=== PATIENT | female | born 1945 | race Caucasian/White ===

== ENCOUNTER → 2016-05-07 | Outpatient (CLI) | payer OTHER ==
[~2016-05-07] MED LIST: ACC10 PO; ALEN70TA2 PO; ALLERGY SHOTS INJ; ASPEC81 PO; ASPI325T45 PO; BLAC1TAB PO; BUPR20DI TOP; CALC600T9 PO; CALCTAB5 PO; CARV3.122 PO; FBR PO; FIBER PO; FLAX100024 PO; FLAXSEED PO; FLUT0.15 NAE; FLVUNK PO; FOLI1TAB7 PO; FSMD/70 PO; GABA300C19 PO; HYDR12.56 PO; LATA0.009 OPR; LATA0.5S OP; LORA-741 PO; MAGN400T6 PO; MAGN500T7 PO; MAGNESIUM PO; METO1TAB31 PO; MULT-506 PO; MULT1CHW18 PO; NAPR1TAB9 PO; NTRGSL/4 UT; OMEG10007 PO; OMEGCAP2 PO; PANT40TA PO; PREG100C PO; QUIN40TA18 PO; SENNTAB23 PO; SIMV10TA2 PO; SUCR1TAB29 PO; SYMBICORT INH; SYMIN160 INH; TOPI25TA99 PO; TPM/50 PO; VNTHFA/IN INH
[2016-05-07 13:16] LABS: HEMATOCRIT 37.3 % (37-47); MEAN CELL VOLUME 87.6 fL (80-100); MEAN CORPUSCULAR HEMOGLOBIN 29.3 pg (25-34); MEAN CORPUSCULAR HGB CONC 33.5 g/dl (32-36); MEAN PLATELET VOLUME 10.6 fL (7.4-10.4); PLATELET COUNT 250 K/uL (130-400); RED BLOOD COUNT 4.26 M/uL (4.2-5.4)
[2016-05-07 13:25] LABS: BLOOD UREA NITROGEN 21 mg/dl (7-18); BUN/CREATININE RATIO 18.7 (10-20); CALCIUM 8.8 mg/dl (8.5-10.1); CARBON DIOXIDE 31 mmol/L (21-32); CHLORIDE 108 mmol/L (98-107); GLUCOSE 80 mg/dl (70-99); PHOSPHORUS 3.7 mg/dl (2.5-4.9); POTASSIUM 3.9 mmol/L (3.5-5.1); SODIUM 144 mmol/L (136-145)
[2016-05-07 14:06] LABS: BASO % 0.8 %; BASO ABS # 0.05 K/uL (0-0.2); COMPLETE YES; EOS % 2.5 %; IG% 0.2 %; LYMPH % 61.3 %; LYMPH ABS # 3.74 K/uL (1.2-3.4); MONO % 8.4 %; NEUT % 26.8 %; VACUOLIZATION 3+
== END | disposition home or self-care (01) ==
LOC: C.LABMFLN 07:43
PROVIDERS: ATTEND Family Medicine
DX: R51 Headache (principal)

== ENCOUNTER → 2016-05-20 | Outpatient (CLI) | payer OTHER ==
[~2016-05-20] MED LIST changes: +REGADENOSON 0.4 MG/5 ML SYR ONE
--- NOTE | 2016-05-20 10:56 | DIAGNOSTIC IMAGING REPORT ---
HEAD CT NONCONTRAST CT DOSE: 623.48 mGy.cm HISTORY: Mental status change R51 [id number] Dizziness and giddiness TECHNIQUE: Multiaxial CT images of the head were performed without the use of intravenous contrast. Comparison: 05/13/2015 Findings: The paranasal sinuses and mastoid air cells are clear. The calvarium and skull base are intact. The ventricles and sulci are within normal limits. There is no mass, hematoma, midline shift, or acute infarct. Impression: No acute intracranial abnormality. No change from the prior study Electronically signed by: Ish Alcocer M.D. 05/20/2016 10:55 AM Dictated Date/Time: 05/20/2016 10:54 AM
--- NOTE | 2016-05-20 11:41 | DIAGNOSTIC IMAGING REPORT ---
ULTRASOUND OF THE CAROTID ARTERIES CLINICAL HISTORY: Headache and dizziness. COMPARISON STUDY: No priors. TECHNIQUE: Real-time, grayscale, and color Doppler sonography of the carotid arteries is performed. Images are reviewed in the transverse and longitudinal planes. FINDINGS: Blood pressure in the right arm measures 125/83 and blood pressure in the left arm measures 116/67. The carotid arteries are patent bilaterally and demonstrate antegrade flow. There is no significant atherosclerotic plaque identified. Normal doppler arterial waveforms are seen throughout. Velocity measurements are listed below. Common carotid peak systolic velocity (cm/sec): RIGHT: 66 LEFT: 58 ICA proximal peak systolic velocity (cm/sec): RIGHT: 61 LEFT: 60 ICA mid peak systolic velocity (cm/sec): RIGHT: 64 LEFT: 70 ICA distal peak systolic velocity (cm/sec): RIGHT: 87 LEFT: 76 ICA/CC peak systolic ratio: RIGHT: 1.3 LEFT: 1.3 Antegrade flow was shown in the vertebral arteries. The external carotid arteries are patent. IMPRESSION: 1. There is no sonographic evidence of hemodynamically significant stenosis in the right or left carotid arterial system. 2. Antegrade flow is shown in the vertebral arteries. Electronically signed by: Tino Downey M.D. 05/20/2016 11:39 AM Dictated Date/Time: 05/20/2016 11:38 AM
--- NOTE | 2016-05-21 00:02 | MYOCARDIAL PERFUSION SCAN ---
STUDY REQUESTED BY: Dr. Marks. ONE-DAY NUCLEAR MEDICINE TECHNETIUM-99M CARDIOLITE MYOCARDIAL PERFUSION SCAN INDICATION: Chest pain and dizziness. EKG: Baseline shows sinus bradycardia at a rate of 58. Stress EKG: With Lexiscan, heart rate danita from 64 to 102, 67% of maximum predicted heart rate. Blood pressure was stable at 130/63. There were no stress-induced EKG/ST changes or arrhythmias. TECHNIQUE: For the stress portion of the study, 31.2 mCi of technetium-99m Cardiolite IV was injected at 9:37 a.m. on 05/20/2016. Thirty minutes following the injection, imaging of the heart was performed in multiple projections. For the rest portion of the study, 10.9 mCi of technetium-99m Cardiolite was injected IV at 7:45 a.m. One hour following the injection, imaging of the heart was performed in the same projections. FINDINGS: Raw images were reviewed in detail. There was evidence of diaphragmatic attenuation as well as significant gut uptake obscuring the inferior and inferolateral borders of the heart, most notably on stress images. There was no significant extra cardiac pathologic uptake. The short axis, long axis, vertical long axis images were reviewed in detail. There was a small to moderate fixed severe perfusion defect involving the inferior wall. There was also perfusion defect involving the inferolateral wall on rest, obscured by gut uptake on stress. LV function in this territory was normal, suggestive of artifact. Overall, LV size was normal with an end-diastolic volume of 49 mL. Overall, LV function was normal with an ejection fraction of 64%. There were no regional wall motion abnormalities noted. IMPRESSION: 1. No Lexiscan-induced ischemia. 2. Fixed inferior perfusion defect with preserved systolic function suggestive of potential artifact, more so than old inferior infarct. 3. Normal left ventricular size and function, rest LVEF of 64% with no regional wall motion abnormalities. 4. Nondiagnostic Lexiscan EKG due to inability to reach target heart rate. No Lexiscan-induced arrhythmias or ST changes.
--- NOTE | 2016-05-24 10:58 | CODING QUERY MEDICAL NECESSITY ---
SUPPORTING DIAGNOSIS NEEDED Dr. Marks, A supporting diagnosis is required for the test/procedure performed on this patient in order for us to be reimbursed by the patient's insurance. Please provide a supporting diagnosis for the following test/procedure listed below next to the test name along with your signature. *If there is no additional diagnosis for this patient that would support the following test/procedure please document that below next to the test/procedure. Test(s)/Procedure(s) that require a supporting diagnosis: * ([id number]) (CAROTID DOP) DUPLEX NECK ARTER DIAGNOSIS: DATE OF SERVICE: 05/20/16 Provider Signature: Date: Thank you Moris Tellez Health Information Management Once completed, please kindly fax back to [phone] For questions please call [phone]
== END | disposition home or self-care (01) ==
LOC: C.NUCL 06:44
PROVIDERS: ATTEND Family Medicine
DX: R42 Dizziness and giddiness (principal); R07.89 Other chest pain; R51 Headache

== ENCOUNTER 2016-06-07 12:21 | Emergency (ER) | payer OTHER ==
[~2016-06-07] VITALS: Ht 154.9 cm; Wt 51.3 kg
[~2016-06-07 12:21] MED LIST changes: -ALLERGY SHOTS INJ; -ASPI325T45 PO; -BLAC1TAB PO; -BUPR20DI TOP; -CALC600T9 PO; -CARV3.122 PO; -FIBER PO; -FLAX100024 PO; -FLUT0.15 NAE; -FOLI1TAB7 PO; -FSMD/70 PO; +GABA-1218 PO; -GABA300C19 PO; -LATA0.5S OP; -LORA-741 PO; -MAGN400T6 PO; -MAGN500T7 PO; +METO-478 PO; -METO1TAB31 PO; -MULT1CHW18 PO; -NAPR1TAB9 PO; -NTRGSL/4 UT; -OMEGCAP2 PO; -PREG100C PO; -QUIN40TA18 PO; -REGADENOSON 0.4 MG/5 ML SYR ONE; -SENNTAB23 PO; -SUCR1TAB29 PO; -SYMBICORT INH; -TOPI25TA99 PO; -TPM/50 PO; -VNTHFA/IN INH
[2016-06-07 12:27] VITALS: TEMP 36.8; Ht 154.9 cm; Wt 51.3 kg
[2016-06-07] MEDS ORDERED: HYDROCODONE/ACETAMOPHEN 5/325MG TAB PO STA (13:22)
[2016-06-07] MEDS ORDERED: FSMD/70 PO (13:25)
[2016-06-07] MEDS ORDERED: LATA0.5S OP (13:25)
[2016-06-07] MEDS ORDERED: HYDR12.56 PO (13:25)
[2016-06-07] MEDS ORDERED: ASPI325T45 PO (13:25)
[2016-06-07] MEDS ORDERED: MAGN500T7 PO (13:25)
[2016-06-07] MEDS ORDERED: BUPR20DI TOP (13:25)
[2016-06-07] MEDS ORDERED: SENNTAB23 PO (13:25)
[2016-06-07] MEDS ORDERED: FOLI1TAB7 PO (13:25)
[2016-06-07] MEDS ORDERED: CALC600T9 PO (13:25)
[2016-06-07] MEDS ORDERED: SIMV10TA2 PO (13:25)
[2016-06-07] MEDS ORDERED: PANT40TA PO (13:25)
[2016-06-07] MEDS ORDERED: BLAC1TAB PO (13:25)
[2016-06-07] MEDS ORDERED: TOPI25TA99 PO ×2 (13:25)
[2016-06-07] MEDS ORDERED: QUIN40TA18 PO (13:25)
[2016-06-07] MEDS ORDERED: OMEGCAP2 PO (13:25)
[2016-06-07] MEDS ORDERED: LORA-741 PO (13:25)
[2016-06-07] MEDS ORDERED: FIBER PO (13:25)
[2016-06-07] MEDS ORDERED: PREG100C PO (13:25)
[2016-06-07] MEDS ORDERED: MULT-506 PO (13:25)
[2016-06-07] MEDS ORDERED: MAGN400T6 PO (13:25)
[2016-06-07] MEDS ORDERED: CARV3.122 PO (13:25)
[2016-06-07 13:39] LABS: BASO % 0.9 %; BASO ABS # 0.05 K/uL (0-0.2); COMPLETE YES; EOS % 2.3 %; HEMATOCRIT 33.7 % (37-47); IG% 0.2 %; LYMPH ABS # 2.54 K/uL (1.2-3.4); MEAN CELL VOLUME 85.8 fL (80-100); MEAN CORPUSCULAR HEMOGLOBIN 29.3 pg (25-34); MEAN CORPUSCULAR HGB CONC 34.1 g/dl (32-36); MEAN PLATELET VOLUME 10.4 fL (7.4-10.4); NEUT % 43.6 %; PLATELET COUNT 211 K/uL (130-400); RED BLOOD COUNT 3.93 M/uL (4.2-5.4); WHITE BLOOD COUNT 5.65 K/uL (4.8-10.8)
--- NOTE | 2016-06-07 13:43 | DIAGNOSTIC IMAGING REPORT ---
CHEST ONE VIEW PORTABLE CLINICAL HISTORY: Atypical chest pain COMPARISON STUDY: 02/12/2016 FINDINGS: The cardiac and mediastinal contours are normal. There are old rib fractures. There is no failure. There is no focal pulmonary consolidation. There are no pleural effusions. There are postsurgical changes present within the lumbar spine. Spinal electrodes are visualized projected over the mid dorsal spine.[ IMPRESSION: No active disease in the chest. Electronically signed by: Ted Barron M.D. 06/07/2016 1:42 PM Dictated Date/Time: 06/07/2016 1:41 PM
[2016-06-07 13:55] LABS: BLOOD UREA NITROGEN 23 mg/dl (7-18); BUN/CREATININE RATIO 22.6 (10-20); CALCIUM 8.8 mg/dl (8.5-10.1); CARBON DIOXIDE 28 mmol/L (21-32); CHLORIDE 109 mmol/L (98-107); GLUCOSE 97 mg/dl (70-99); POTASSIUM 3.7 mmol/L (3.5-5.1); SODIUM 146 mmol/L (136-145)
[2016-06-07] MEDS ORDERED: OPTIRAY 320 IV PRN (14:15)
--- NOTE | 2016-06-07 14:41 | DIAGNOSTIC IMAGING REPORT ---
CHEST CTA for PULMONARY ARTERIES CT DOSE: 192.01 mGy.cm HISTORY: Chest pain dyspnea TECHNIQUE: Multiaxial CT images of the chest were performed following the intravenous administration of contrast to evaluate the pulmonary arteries. Maximal intensity projection images were also obtained. COMPARISON STUDY: None. FINDINGS: There is a normal caliber thoracic aorta with no evidence for dissection. There is no evidence for pulmonary embolus. No pleural effusions. No pneumothorax. The liver and spleen are unremarkable. No mediastinal or hilar lymphadenopathy. The central airways are patent. The lungs are clear. Slight prominence a sending thoracic aorta at 3.6 cm. IMPRESSION: No evidence for pulmonary embolus. The lungs are clear. Slight prominence ascending aorta at 3.6 cm Electronically signed by: Ish Alcocer M.D. 06/07/2016 2:40 PM Dictated Date/Time: 06/07/2016 2:37 PM
[2016-06-07 14:53] VITALS: BP 142/77; PULSE 61; O2SAT 99
--- NOTE | 2016-06-07 17:33 | EMERGENCY ROOM VISIT NOTE ---
History Report prepared by Meghann: Ivan Castaneda Under the Supervision of: Dr. Zurdo Hawkins D.O. First contact with patient: 13:04 Chief Complaint: HYPERTENSION Stated Complaint: HIGH BLOOD PRESSURE, BROKEN RIB LEFT SIDE, DIZZY History of Present Illness The patient is a 70 year old female who presents to the Emergency Room with complaints of constant sharp left rib pain starting yesterday. The patient states that she woke up yesterday morning, and she got rolled out of bed, and immediately started having pain. She states that she then felt a pop, and it got worse. The patient states that the pain is worsened with breathing, and she states that the pain feels like a sore muscle. The patient denies falling. She states that she has a history of hypertension, TIA, brittle bone disease, and a broken right rib. The patient denies any smoking, history of blood clots, recent surgeries or trips, leg swelling, or coughing blood. The patient states that she has taken Vicodin, and this has helped. Pt denies headache, change in vision, fevers, chest pain, shortness of breath, nausea, vomiting, diarrhea, pain with urination, and melena. Source of History: patient Onset: yesterday Position: other (left rib) Quality: sharp Timing: constant Modifying Factors (Worsening): breathing Review of Systems See HPI for pertinent positives & negatives. A total of 10 systems reviewed and were otherwise negative. Past Medical & Surgical Medical Problems: (1) Brittle bone disease (2) TIA (transient ischemic attack) Social History Smoking Status: Never Smoker Marital Status: Housing Status: lives with family Occupation Status: retired Current/Historical Medications Scheduled Alendronate/Cholecalciferol (Fosamax+D 70MG/2800 Iu), 1 TABLET PO WK Aspirin (Aspirin), 325 MG PO DAILY Black Cohosh (Cimicifuga Racem (Black Cohosh), 2 TABS PO DAILY Buprenorphine (Butrans), 1 PATCH TOP WK Calcium Carbonate-Vitamin D (Calcium + D), 2 TABS PO DAILY Carvedilol (Coreg), 3.125 MG PO BID Fiber Laxative (Fiber Laxative), 2 TABS PO DAILY Folic Acid (Folvite), 400 MCG PO 3XWK Hydrochlorothiazide (Hctz), 12.5 MG PO Q2D Latanoprost (Xalatan 0.005% Oph Colleen), 1 DROPS OP HS Lorazepam (Ativan), 0.5 MG PO Q6H Magnesium Oxide (Mag-Ox), 250 MG PO 3XWK Magnesium Oxide (Laxative) (Laura), 2 TABS PO DAILY Multivitamin (Multivitamin), 1 TAB PO DAILY [place]-3 Fatty Acids (Fish Oil), 4 CAP PO DAILY Pantoprazole (Protonix), 40 MG PO DAILY Pregabalin (Lyrica), 100 MG PO Q12 Quinapril Hcl (Accupril), 40 MG PO DAILY Sennosides-Docusate Sodium (Stool Softener), 1 TAB PO DAILY Simvastatin (Zocor), 10 MG PO DAILY Topiramate (Topamax ), 25 MG PO QAM Topiramate (Topamax ), 50 MG PO HS Allergies Coded Allergies: Morphine (Verified Allergy, Severe, SEVERE HYPOTENSION, 06/07/16) Penicillins (Verified Allergy, Unknown, RASH, 06/07/16) Sulfa Drugs (Verified Allergy, Unknown, RASH, 06/07/16) Tramadol (Verified Allergy, Unknown, ITCHINESS, 06/07/16) Acetaminophen (Verified Adverse Reaction, Unknown, NAUSEA AND VOMITING, 06/07/16) Oxycodone (Verified Adverse Reaction, Unknown, NAUSEA AND VOMITING, 06/07/16 ) Physical Exam Vital Signs Date Time Temp Pulse Resp B/P Pulse Ox O2 Delivery O2 Flow Rate FiO2 06/07/16 14:53 61 13 142/77 99 Room Air 06/07/16 13:31 73 16 142/78 98 Room Air 06/07/16 13:22 61 06/07/16 12:27 36.8 68 18 148/90 99 Room Air Physical Exam GENERAL: Sitting up in bed, alert, well appearing, well nourished, no distress, non-toxic EYE EXAM: normal conjunctiva OROPHARYNX: no exudate, no erythema, lips, buccal mucosa, and tongue normal and mucous membranes are moist NECK: supple, no nuchal rigidity, no adenopathy, non-tender LUNGS: Clear to auscultation. Normal chest wall mechanics HEART: no murmurs, S1 normal and S2 normal CHEST: Acute reproducible tenderness over the left 6 and 7 ribs pinpoint just left of midclavicular line. No bruising. ABDOMEN: abdomen soft, non-tender, normo-active bowel sounds, no masses, no rebound or guarding. BACK: Back is symmetrical on inspection and there is no deformity, no midline tenderness, no CVA tenderness. SKIN: no rashes and no bruising UPPER EXTREMITIES: Radial pulses were equal bilaterally. Upper extremities are grossly normal. LOWER EXTREMITIES: No pitting edema. NEURO EXAM: Normal sensorium, cranial nerves II-XII grossly intact, normal speech, no gross weakness of arms, no gross weakness of legs. Gross sensation intact. Medical Decision & Procedures ER Provider Diagnostic Interpretation: Xray results per the radiologist and my interpretation. Other results have been interpreted by the radiologist and reviewed by me. CHEST ONE VIEW PORTABLE CLINICAL HISTORY: Atypical chest pain COMPARISON STUDY: 02/12/2016 FINDINGS: The cardiac and mediastinal contours are normal. There are old rib fractures. There is no failure. There is no focal pulmonary consolidation. There are no pleural effusions. There are postsurgical changes present within the lumbar spine. Spinal electrodes are visualized projected over the mid dorsal spine.[ IMPRESSION: No active disease in the chest. Electronically signed by: Ted Barron M.D. 06/07/2016 1:42 PM Dictated Date/Time: 06/07/2016 1:41 PM CHEST CTA for PULMONARY ARTERIES CT DOSE: 192.01 mGy.cm HISTORY: Chest pain dyspnea TECHNIQUE: Multiaxial CT images of the chest were performed following the intravenous administration of contrast to evaluate the pulmonary arteries. Maximal intensity projection images were also obtained. COMPARISON STUDY: None. FINDINGS: There is a normal caliber thoracic aorta with no evidence for dissection. There is no evidence for pulmonary embolus. No pleural effusions. No pneumothorax. The liver and spleen are unremarkable. No mediastinal or hilar lymphadenopathy. The central airways are patent. The lungs are clear. Slight prominence a sending thoracic aorta at 3.6 cm. IMPRESSION: No evidence for pulmonary embolus. The lungs are clear. Slight prominence ascending aorta at 3.6 cm Electronically signed by: Ish Alcocer M.D. 06/07/2016 2:40 PM Dictated Date/Time: 06/07/2016 2:37 PM Laboratory Results 06/07/16 13:20 Red Blood Count 3.93, Mean Corpuscular Volume 85.8, Mean Corpuscular Hemoglobin 29.3, Mean Corpuscular Hemoglobin Concent 34.1, Mean Platelet Volume 10.4, Neutrophils (%) (Auto) 43.6, Lymphocytes (%) (Auto) 45.0, Monocytes (%) (Auto) 8.0, Eosinophils (%) (Auto) 2.3, Basophils (%) (Auto) 0.9, Neutrophils # (Auto) 2.47, Lymphocytes # (Auto) 2.54, Monocytes # (Auto) 0.45, Eosinophils # (Auto) 0.13, Basophils # (Auto) 0.05 06/07/16 13:20 Test 06/07/16 13:20 White Blood Count 5.65 K/uL (4.8-10.8) Red Blood Count 3.93 M/uL (4.2-5.4) Hemoglobin 11.5 g/dL (12.0-16.0) Hematocrit 33.7 % (37-47) Mean Corpuscular Volume 85.8 fL (80-100) Mean Corpuscular Hemoglobin 29.3 pg (25-34) Mean Corpuscular Hemoglobin Concent 34.1 g/dl (32-36) Platelet Count 211 K/uL (130-400) Mean Platelet Volume 10.4 fL (7.4-10.4) Neutrophils (%) (Auto) 43.6 % Lymphocytes (%) (Auto) 45.0 % Monocytes (%) (Auto) 8.0 % Eosinophils (%) (Auto) 2.3 % Basophils (%) (Auto) 0.9 % Neutrophils # (Auto) 2.47 K/uL (1.4-6.5) Lymphocytes # (Auto) 2.54 K/uL (1.2-3.4) Monocytes # (Auto) 0.45 K/uL (0.11-0.59) Eosinophils # (Auto) 0.13 K/uL (0-0.5) Basophils # (Auto) 0.05 K/uL (0-0.2) RDW Standard Deviation 42.9 fL (36.4-46.3) RDW Coefficient of Variation 13.5 % (11.5-14.5) Immature Granulocyte % (Auto) 0.2 % Immature Granulocyte # (Auto) 0.01 K/uL (0.00-0.02) D-Dimer 1210 ug/L FEU (0-500) Anion Gap 9.0 mmol/L (3-11) Est Creatinine Clear Calc Drug Dose 40.6 ml/min Estimated GFR () 67.0 Estimated GFR (Non- 57.8 BUN/Creatinine Ratio 22.6 (10-20) Calcium Level 8.8 mg/dl (8.5-10.1) Troponin I < 0.015 ng/ml (0-0.045) Laboratory results per my review. Medications Administered Medications (Trade) Dose Ordered Sig/Bushra Route Start Time Stop Time Status Last Admin Dose Admin Acetaminophen/ Hydrocodone Bitart ([place] 5/325 Tab) 1 tab NOW STAT PO 06/07/16 13:22 06/07/16 13:26 DC 06/07/16 13:31 1 TAB ECG Indication: other (left rib pain) Rate (beats per minute): 59 Rhythm: sinus bradycardia Findings: no ectopy, other (normal axis) ED Course ED COURSE: Vital signs were reviewed and showed normal vitals The patients medical record was reviewed The above diagnostic studies were performed and reviewed. ED treatments and interventions as stated above. 1304: The patient was evaluated in room C5. A complete history and physical examination was performed. 1322: [place] 5/325 Tab 1 tab PO 1456: Upon reevaluation, the patient is feeling better.I discussed my findings with the patient and she understands and agrees with the treatment plan. Based on the patients age, coexisting illnesses, exam and lab findings the decision to treat as an outpatient was made. The patient remained stable while under my care. The patient appeared well at the time of discharge. Medical Decision Differential diagnoses includes but is not limited to acute coronary syndrome, myocardial infarction, pericarditis, pulmonary embolus, aortic dissection, pneumonia, pneumothorax, musculoskeletal, shingles, esophageal. Patient is a 70-year-old female that presents the ER for sharp left-sided chest pain which is pleuritic in nature. She notes this feels like her previous broken right rib. Labs show no significant leukocytosis or anemia. BMP shows mild hypernatremia. Troponin was negative with pain that has been present for greater than 8 hours. D-dimer was elevated consequently CT PE was performed which was negative. EKG was unremarkable. I do believe that this is likely muscle skeletal in origin as it is clearly pinpoint and reproducible. Patient was updated regards to this. She has Vicodin at home and notes that she'll follow up with her primary care doctor regards to this. I felt this was reasonable as this is not exertional and is clearly pinpoint without radiation. Discussed with Pt concerning signs and symptoms to watch out for. Pt was instructed to follow up with their PCP and discussed with the patient their option to return to the ED at anytime for persistent or worsening symptoms. The appropriate anticipatory guidance and out-patient management, including indications for return to the emergency department, were explained at length to the patient and understood. Following the patient being discharged I recontacted them at 6:14 PM on their home phone number to make her aware of the slight proximal dilation of the aorta. I do not believe that this is causing any of her symptoms. She understood the risk and benefits of having this followed up. She notes she'll follow-up with her primary care doctor. Impression Primary Impression: Left sided chest pain Additional Impression: Ascending aorta dilation Scribe Attestation The scribe's documentation has been prepared under my direction and personally reviewed by me in its entirety. I confirm that the note above accurately reflects all work, treatment, procedures, and medical decision making performed by me. Departure Information Dispostion Home / Self-Care Referrals Jeannette Marks M.D. (PCP) Forms HOME CARE DOCUMENTATION FORM, IMPORTANT VISIT INFORMATION, WORK / SCHOOL INSTRUCTIONS Patient Instructions Chest Pain - [facility], [facility] Additional Instructions Please follow up with your primary care doctor with in the next 24 hours. Any worsening of your symptoms, please return to the ED immediately. This includes fevers greater than 100.4, worsening chest pain, passing out, shortness of breath, or any other concerning signs or symptoms from your standpoint. Please continue to take your Vicodin as needed for pain. Problem Qualifiers
[2016-08-05] MEDS ORDERED: PANT40TA PO (14:45)
[2016-08-05] MEDS ORDERED: NTRGSL/4 UT (14:47)
[2016-08-05] MEDS ORDERED: FLUT0.15 NAE (14:50)
[2016-08-05] MEDS ORDERED: NAPR1TAB9 PO (14:51)
[2016-08-05] MEDS ORDERED: SYMBICORT INH (15:00)
[2016-08-05] MEDS ORDERED: VNTHFA/IN INH (15:00)
[2016-10-12] MEDS ORDERED: MULT1CHW18 PO (10:07)
[2016-10-12] MEDS ORDERED: TPM/50 PO (10:07)
[2016-10-12] MEDS ORDERED: ALLERGY SHOTS INJ (10:28)
== END 2016-06-07 15:25 | disposition home or self-care (01) ==
LOC: C.EDB 12:23 → C.EDC 15:25
DX: R07.9 Chest pain, unspecified (principal); I71.2 Thoracic aortic aneurysm, without rupture; Z86.73 Personal history of transient ischemic attack (TIA), and cerebral infarction without residual deficits

== ENCOUNTER 2016-06-29 13:56 | Observation (INO) | payer OTHER ==
[~2016-06-29] VITALS: Ht 154.9 cm; Wt 48.3 kg
[~2016-06-29 13:56] MED LIST changes: -ACC10 PO; -ALEN70TA2 PO; -ASPEC81 PO; +ASPI325T45 PO; +BLAC1TAB PO; +BUPR20DI TOP; +CALC600T9 PO; -CALCTAB5 PO; +CARV3.122 PO; -FBR PO; +FIBER PO; -FLAXSEED PO; -FLVUNK PO; +FOLI1TAB7 PO; +FSMD/70 PO; -GABA-1218 PO; -LATA0.009 OPR; +LATA0.5S OP; +LORA-741 PO; +MAGN400T6 PO; +MAGN500T7 PO; -MAGNESIUM PO; -METO-478 PO; -OMEG10007 PO; +OMEGCAP2 PO; +PREG100C PO; +QUIN40TA18 PO; +SENNTAB23 PO; -SYMIN160 INH; +TOPI25TA99 PO
[2016-06-29 14:43] LABS: HEMATOCRIT 35.9 % (37-47); MEAN CELL VOLUME 86.5 fL (80-100); MEAN CORPUSCULAR HEMOGLOBIN 28.7 pg (25-34); MEAN CORPUSCULAR HGB CONC 33.1 g/dl (32-36); MEAN PLATELET VOLUME 10.8 fL (7.4-10.4); PLATELET COUNT 231 K/uL (130-400); RED BLOOD COUNT 4.15 M/uL (4.2-5.4)
[2016-06-29] MEDS ORDERED: FLAX100024 PO (14:51)
[2016-06-29 15:09] LABS: BLOOD UREA NITROGEN 19 mg/dl (7-18); BUN/CREATININE RATIO 18.7 (10-20); CARBON DIOXIDE 30 mmol/L (21-32); CHLORIDE 110 mmol/L (98-107); GLUCOSE 100 mg/dl (70-99); POTASSIUM 4.2 mmol/L (3.5-5.1); SODIUM 144 mmol/L (136-145)
[2016-06-29 15:12] LABS: BASO % 1.1 %; BASO ABS # 0.05 K/uL (0-0.2); COMPLETE YES; EOS % 1.6 %; LYMPH % 51.3 %; LYMPH ABS # 2.31 K/uL (1.2-3.4); MONO % 6.4 %; NEUT % 39.6 %
--- NOTE | 2016-06-29 15:25 | DIAGNOSTIC IMAGING REPORT ---
SINGLE VIEW CHEST CLINICAL HISTORY: Atypical chest pain. FINDINGS: An AP, portable, upright chest radiograph is compared to chest x-ray and chest CT dated 06/07/2016. The examination is degraded by portable technique and patient rotation. The heart is top normal for projection. The mediastinal contour is within normal limits. The lungs and pleural spaces are clear. No pneumothorax is seen. The skeletal structures are osteopenic. The bony thorax is grossly intact. Intrathecal leads project over the midthoracic spine. Fusion hardware is noted in the lumbar spine. IMPRESSION: No active disease in the chest. Electronically signed by: Tino Downey M.D. 06/29/2016 3:23 PM Dictated Date/Time: 06/29/2016 3:22 PM
--- NOTE | 2016-06-29 15:34 | EMERGENCY ROOM VISIT NOTE ---
History Report prepared by Meghann: Kari Mcdonough Under the Supervision of: Dr. Deni Bang M.D. First contact with patient: 14:03 Chief Complaint: CHEST PAIN Stated Complaint: CHEST PAIN History of Present Illness The patient is a 71 year old female who presents to the Emergency Room with complaints of intermittent chest pain starting 0545 this morning. She rates her discomfort as a 5/10 in severity. The pain is present in the left side of her chest and lasts for 10-15 minutes at a time. The pain does not worsen with walking around. The pain is different from her previous broken rib. The pain does not radiate into her arm, but her left hand felt weird. She has right jaw pain and nausea. She denies any heart palpitations, vomiting, back pain or SOB. She had a stress test 2 months ago which was normal. She has a history of hypertension and high cholesterol. She denies any history of heart attack or diabetes. She has a heart catheterization 5 years ago. She has a family history of heart disease. She was recently found to have an enlarged aorta. She denies any history of smoking. Source of History: patient Onset: 0545 this morning Position: chest (left) Symptom Intensity: 5/10 Timing: intermittent Associated Symptoms: + nausea, No SOB, No back pain, No vomiting Note: Pt reports right jaw pain. Pt denies heart palpitations. Review of Systems See HPI for pertinent positives & negatives. A total of 10 systems reviewed and were otherwise negative. Past Medical & Surgical Medical Problems: (1) Brittle bone disease (2) TIA (transient ischemic attack) Family History Diabetes mellitus FH: lung disease FHx: cancer FHx: heart disease Hypertension Social History Smoking Status: Never Smoker Marital Status: Housing Status: lives with family Occupation Status: retired Current/Historical Medications Scheduled Alendronate/Cholecalciferol (Fosamax+D 70MG/2800 Iu), 1 TABLET PO WK Aspirin (Aspirin), 325 MG PO DAILY Black Cohosh (Cimicifuga Racem (Black Cohosh), 2 TABS PO DAILY Buprenorphine (Butrans), 1 PATCH TOP WK Calcium Carbonate-Vitamin D (Calcium + D), 2 TABS PO DAILY Carvedilol (Coreg), 3.125 MG PO QPM Fiber Laxative (Fiber Laxative), 2 TABS PO DAILY Flaxseed (Linseed) (Flaxseed Oil), 450 MG PO TID Folic Acid (Folvite), 400 MCG PO 3XWK Hydrochlorothiazide (Hctz), 12.5 MG PO Q2D Latanoprost (Xalatan 0.005% Oph Colleen), 1 DROPS OP HS Magnesium Oxide (Mag-Ox), 250 MG PO 3XWK Magnesium Oxide (Laxative) (Laura), 2 TABS PO QPM Multivitamin (Multivitamin), 1 TAB PO DAILY [place]-3 Fatty Acids (Fish Oil), 4 CAP PO DAILY Pantoprazole (Protonix), 40 MG PO DAILY Pregabalin (Lyrica), 100 MG PO Q12 Quinapril Hcl (Accupril), 40 MG PO DAILY Sennosides-Docusate Sodium (Stool Softener), 3 TAB PO DAILY Simvastatin (Zocor), 10 MG PO QPM Topiramate (Topamax ), 50 MG PO QAM Topiramate (Topamax ), 50 MG PO HS Scheduled PRN Lorazepam (Ativan), 0.5 MG PO Q6H PRN for Anxiety Allergies Coded Allergies: Morphine (Verified Allergy, Severe, SEVERE HYPOTENSION, 06/29/16) Penicillins (Verified Allergy, Unknown, RASH, 06/29/16) Sulfa Drugs (Verified Allergy, Unknown, RASH, 06/29/16) Tramadol (Verified Allergy, Unknown, ITCHINESS, 06/29/16) Acetaminophen (Verified Adverse Reaction, Unknown, NAUSEA AND VOMITING, ) Oxycodone (Verified Adverse Reaction, Unknown, NAUSEA AND VOMITING, ) Physical Exam Vital Signs Date Time Temp Pulse Resp B/P Pulse Ox O2 Delivery O2 Flow Rate FiO2 06/29/16 15:22 58 18 164/92 96 06/29/16 14:41 Room Air 06/29/16 13:59 36.8 96 20 184/92 96 Room Air Physical Exam GENERAL: Patient is frail appearing and in no acute distress. HEENT: No acute trauma, normocephalic atraumatic, mucous membranes moist, no nasal congestion, no scleral icterus. NECK: No stridor, no adenopathy, no meningismus, trachea is midline. LUNGS: No dyspnea. Clear to auscultation and equal bilaterally. No wheeze, no rhonchi. HEART: Regular rate and rhythm. No murmurs, rubs, gallops appreciated. ABDOMEN: Soft, nontender, bowel sounds positive, no masses appreciated, no peritonitis. BACK: No midline tenderness, no CVA tenderness EXTREMITIES: Normal motion all extremities, no cyanosis, no edema. NEUROLOGIC: Alert and oriented, no acute motor or sensory deficits, no focal weakness, cranial nerves grossly intact. SKIN: No rash, no jaundice, no diaphoresis. Medical Decision & Procedures ER Provider Diagnostic Interpretation: X ray results are stated below per my interpretation and the radiologist's interpretation. SINGLE VIEW CHEST CLINICAL HISTORY: Atypical chest pain. FINDINGS: An AP, portable, upright chest radiograph is compared to chest x-ray and chest CT dated 06/07/2016. The examination is degraded by portable technique and patient rotation. The heart is top normal for projection. The mediastinal contour is within normal limits. The lungs and pleural spaces are clear. No pneumothorax is seen. The skeletal structures are osteopenic. The bony thorax is grossly intact. Intrathecal leads project over the midthoracic spine. Fusion hardware is noted in the lumbar spine. IMPRESSION: No active disease in the chest. Electronically signed by: Tino Downey M.D. 06/29/2016 3:23 PM Dictated Date/Time: 06/29/2016 3:22 PM Laboratory Results 06/29/16 14:21 Red Blood Count 4.15, Mean Corpuscular Volume 86.5, Mean Corpuscular Hemoglobin 28.7, Mean Corpuscular Hemoglobin Concent 33.1, Mean Platelet Volume 10.8, Neutrophils (%) (Auto) 39.6, Lymphocytes (%) (Auto) 51.3, Monocytes (%) (Auto) 6.4, Eosinophils (%) (Auto) 1.6, Basophils (%) (Auto) 1.1, Neutrophils # (Auto) 1.78, Lymphocytes # (Auto) 2.31, Monocytes # (Auto) 0.29, Eosinophils # (Auto) 0.07, Basophils # (Auto) 0.05 06/29/16 14:21 Test 06/29/16 14:21 White Blood Count 4.50 K/uL (4.8-10.8) Red Blood Count 4.15 M/uL (4.2-5.4) Hemoglobin 11.9 g/dL (12.0-16.0) Hematocrit 35.9 % (37-47) Mean Corpuscular Volume 86.5 fL (80-100) Mean Corpuscular Hemoglobin 28.7 pg (25-34) Mean Corpuscular Hemoglobin Concent 33.1 g/dl (32-36) Platelet Count 231 K/uL (130-400) Mean Platelet Volume 10.8 fL (7.4-10.4) Neutrophils (%) (Auto) 39.6 % Lymphocytes (%) (Auto) 51.3 % Monocytes (%) (Auto) 6.4 % Eosinophils (%) (Auto) 1.6 % Basophils (%) (Auto) 1.1 % Neutrophils # (Auto) 1.78 K/uL (1.4-6.5) Lymphocytes # (Auto) 2.31 K/uL (1.2-3.4) Monocytes # (Auto) 0.29 K/uL (0.11-0.59) Eosinophils # (Auto) 0.07 K/uL (0-0.5) Basophils # (Auto) 0.05 K/uL (0-0.2) RDW Standard Deviation 43.0 fL (36.4-46.3) RDW Coefficient of Variation 13.4 % (11.5-14.5) Immature Granulocyte % (Auto) 0.0 % Immature Granulocyte # (Auto) 0.00 K/uL (0.00-0.02) Red Blood Cell Morphology Unremarkable Anion Gap 4.0 mmol/L (3-11) Est Creatinine Clear Calc Drug Dose 40.0 ml/min Estimated GFR () 66.6 Estimated GFR (Non- 57.4 BUN/Creatinine Ratio 18.7 (10-20) Calcium Level 9.0 mg/dl (8.5-10.1) Troponin I < 0.015 ng/ml (0-0.045) Laboratory results as reviewed by me. ECG Indication: chest pain Rate (beats per minute): 54 Rhythm: sinus bradycardia Findings: no acute ischemic change, no ectopy Comparison ECG Date: 07-Jun-2016 Change: EKG is similar ED Course 1410: The patient was evaluated in room B12B. A complete history and physical exam was performed. 1535: I discussed the patient's case with Dr. Oneal, [facility] - hospitalist. The patient will be evaluated for further treatment and disposition. 1540: Upon reevaluation, the patient is resting comfortably. I discussed the results and treatment plan with the patient. She verbalized understanding and agreement with the treatment plan. The patient will be evaluated for further management. Medical Decision Differential: Cardiac Ischemia (STEMI, NSTEMI, Unstable Angina, etc), Aortic Dissection, Arrhythmia, Pulmonary Embolism, Pneumonia, Pneumothorax, MSK, Infectious, Pericarditis/Myocarditis, Esophageal Rupture, Gastrointestinal, amongst other pathologies entertained. Very pleasant 71 yr old arrives for evaluation of substernal chest pain on and off all day radiating to arm. No pain now. 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 EKG OK with negative trop. No ACS found currently but will require further cardiac rule out given her extensive history and family history. Stable throughout ED stay without issue. Consults Time Called: 1521 Consulting Physician: Dr. Oneal [facility] - hospitalist Returned Call: 1535 Discussed the patient's case. The patient will be evaluated for further treatment and disposition. Impression Primary Impression: Substernal chest pain Scribe Attestation The scribe's documentation has been prepared under my direction and personally reviewed by me in its entirety. I confirm that the note above accurately reflects all work, treatment, procedures, and medical decision making performed by me. Departure Information Dispostion Being Evaluated By Hospitalist Referrals Jeannette Marks M.D. (PCP) Patient Instructions My [facility]
[2016-06-29 17:29] VITALS: O2SAT 97; Ht 154.9 cm; Wt 48.3 kg
[2016-06-29] MEDS ORDERED: ONDANSETRON INJ 2 MG/ML 2 ML VIAL IV PRN (17:30)
[2016-06-29] MEDS ORDERED: POLYETHYLENE (MIRALAX) 17 GM PACK PO PRN (17:30)
[2016-06-29] MEDS ORDERED: ALUMINUM/MAGNESIUM/SIMETH (MAALOX MAX) 30 ML UDC PO PRN (17:30)
[2016-06-29] MEDS ORDERED: LORAZEPAM 0.5 MG TAB PO PRN (17:30)
[2016-06-29] MEDS ORDERED: NITROGLYCERIN 0.4 MG SL PER TAB CHARGE SL PRN (17:30)
[2016-06-29] MEDS ORDERED: MAGNESIUM HYDROXIDE SUSP 30 ML UDC PO PRN (17:30)
[2016-06-29 18:09] LABS: PARTIAL THROMBOPLASTIN RATIO 0.9; PROTHROMBIN TIME (PATIENT) 10.9 SECONDS (9.0-12.0)
[2016-06-29] MEDS ORDERED: IV FLUIDS COMPLETED PRN (18:15)
[2016-06-29] MEDS ORDERED: NITROGLYCERIN 0.4 MG SL PER TAB CHARGE SL STA (18:59)
[2016-06-29 19:01] VITALS: BP 187/83; PULSE 56; TEMP 36.5; O2SAT 100
[2016-06-29] MEDS ORDERED: KETOROLAC TROMETHAMINE 15 MG/ML VIAL IV. STA (19:01)
--- NOTE | 2016-06-29 19:09 | History and Physical ---
History & Physical Date & Time of Service: Jun 29, 2016 at 18:47 Chief Complaint: Left Sided Chest Pain Primary Care Physician: Jeannette Marks M.D. History of Present Illness Source: patient, parent ( at bedside), clinic records, hospital records This is a 71 y/o female with a history of hypertension, hyperlipidemia, GERD, anxiety, migraines, and asthma who presented to the ED on 06/29 with intermittent chest pain and nausea. Patient states that her chest pain first started early this morning. She describes it as a dull pain on the left side of her chest that waxes and wanes in severity. She currently rates her pain as a 3/10 in severity. She did not take anything for the pain at home and has not received any medications in the ED. She also notes that she woke up feeling nauseous this morning, and that the nausea has been worse after meals today. Currently, her nausea is resolved for the time being as it has been hours since she last ate. The patient also complains of tingling in her left hand. The patient recently had a nuclear stress test 1 month ago, which was negative. The patient denies fevers, chills, sweats, palpitations, claudication, cough, wheezing, shortness of breath, vomiting, abdominal pain, dysuria, hematuria, urinary retention, paralysis, weakness. Past Medical/Surgical History HTn HLD GERD Anxiety Migrains Asthma Family History Diabetes mellitus FH: lung disease FHx: cancer FHx: heart disease Hypertension Social History Smoking Status: Never Smoker Smokeless Tobacco Use: No Alcohol Use: none Drug Use: none Marital Status: Housing status: lives with significant other Occupational Status: retired Immunizations History of Influenza Vaccine: Yes Influenza Vaccine Date: Nov 29, 2012 History of Tetanus Vaccine?: No History of Pneumococcal: No History of Hepatitis B Vaccine: No Allergies Coded Allergies: Penicillins (Verified Allergy, Unknown, RASH, 06/29/16) Sulfa Antibiotics (Verified Allergy, Unknown, RASH, 06/29/16) Tramadol (Verified Allergy, Unknown, ITCHINESS, 06/29/16) Morphine (Verified Adverse Reaction, Severe, SEVERE HYPOTENSION, 06/29/16) Oxycodone (Verified Adverse Reaction, Unknown, NAUSEA AND VOMITING, ) Home Medications Scheduled Alendronate/Cholecalciferol (Fosamax+D 70MG/2800 Iu), 1 TABLET PO WK Aspirin (Aspirin), 325 MG PO DAILY Black Cohosh (Cimicifuga Racem (Black Cohosh), 2 TABS PO DAILY Buprenorphine (Butrans), 1 PATCH TOP WK Calcium Carbonate-Vitamin D (Calcium + D), 2 TABS PO DAILY Carvedilol (Coreg), 3.125 MG PO QPM Fiber Laxative (Fiber Laxative), 2 TABS PO DAILY Flaxseed (Linseed) (Flaxseed Oil), 450 MG PO TID Folic Acid (Folvite), 400 MCG PO 3XWK Hydrochlorothiazide (Hctz), 12.5 MG PO Q2D Latanoprost (Xalatan 0.005% Oph Colleen), 1 DROPS OP HS Magnesium Oxide (Mag-Ox), 250 MG PO 3XWK Magnesium Oxide (Laxative) (Laura), 2 TABS PO QPM Multivitamin (Multivitamin), 1 TAB PO DAILY [place]-3 Fatty Acids (Fish Oil), 4 CAP PO DAILY Pantoprazole (Protonix), 40 MG PO DAILY Pregabalin (Lyrica), 100 MG PO Q12 Quinapril Hcl (Accupril), 40 MG PO DAILY Sennosides-Docusate Sodium (Stool Softener), 3 TAB PO DAILY Simvastatin (Zocor), 10 MG PO QPM Topiramate (Topamax ), 50 MG PO QAM Topiramate (Topamax ), 50 MG PO HS Scheduled PRN Lorazepam (Ativan), 0.5 MG PO Q6H PRN for Anxiety Review of Systems Constitutional: No chills, No fever, No sweats Eyes: No diplopia, No eye pain, No worsening of vision ENT: No hearing loss, No sore throat, No trouble swallowing Respiratory: No cough, No shortness of breath, No wheezing Cardiovascular: + chest pain (3/10 dull left-sided pain), No claudication, No palpitations Abdomen: + nausea, No pain, No vomiting Musculoskeletal: No calf pain, No joint pain, No muscle pain Genitourinary - Female: No dysuria, No hematuria, No urinary retention Neurologic: + numbness/tingling (tingling in left hand. Does have history of numbness/tingling but states this is different), No paralysis, No weakness Integumentary: No color change, No itch, No rash Physical Exam Vital Signs Date Time Temp Pulse Resp B/P Pulse Ox O2 Delivery O2 Flow Rate FiO2 06/29/16 18:08 54 16 168/95 96 06/29/16 17:29 97 Room Air 06/29/16 17:25 60 14 164/92 97 06/29/16 15:22 58 18 164/92 96 06/29/16 14:41 Room Air 06/29/16 13:59 36.8 96 20 184/92 96 Room Air General Appearance: WD/WN, no apparent distress Head: normocephalic, atraumatic Eyes: normal inspection, PERRL, EOMI ENT: normal ENT inspection, hearing grossly normal, pharynx normal Neck: supple, no JVD, trachea midline Respiratory/Chest: lungs clear, normal breath sounds, no respiratory distress Cardiovascular: no gallop, no murmur, + bradycardia (regular rhythm) Abdomen/GI: normal bowel sounds, non tender, soft Extremities/Musculoskelatal: normal inspection, no calf tenderness, no pedal edema Neurologic/Psych: alert, normal mood/affect, oriented x 3 Skin: normal color, warm/dry, no rash Diagnostics Laboratory Results Results Past 24 Hours Test 06/29/16 14:21 Range/Units White Blood Count 4.50 4.8-10.8 K/uL Red Blood Count 4.15 4.2-5.4 M/uL Hemoglobin 11.9 12.0-16.0 g/dL Hematocrit 35.9 37-47 % Mean Corpuscular Volume 86.5 80-100 fL Mean Corpuscular Hemoglobin 28.7 25-34 pg Mean Corpuscular Hemoglobin Concent 33.1 32-36 g/dl Platelet Count 231 130-400 K/uL Mean Platelet Volume 10.8 7.4-10.4 fL Neutrophils (%) (Auto) 39.6 % Lymphocytes (%) (Auto) 51.3 % Monocytes (%) (Auto) 6.4 % Eosinophils (%) (Auto) 1.6 % Basophils (%) (Auto) 1.1 % Neutrophils # (Auto) 1.78 1.4-6.5 K/uL Lymphocytes # (Auto) 2.31 1.2-3.4 K/uL Monocytes # (Auto) 0.29 0.11-0.59 K/uL Eosinophils # (Auto) 0.07 0-0.5 K/uL Basophils # (Auto) 0.05 0-0.2 K/uL RDW Standard Deviation 43.0 36.4-46.3 fL RDW Coefficient of Variation 13.4 11.5-14.5 % Immature Granulocyte % (Auto) 0.0 % Immature Granulocyte # (Auto) 0.00 0.00-0.02 K/uL Red Blood Cell Morphology Unremarkable Erythrocyte Sedimentation Rate 5 0-21 mm/hr Prothrombin Time 10.9 9.0-12.0 SECONDS Prothromb Time International Ratio 1.0 0.9-1.1 Activated Partial Thromboplast Time 24.0 21.0-31.0 SECONDS Partial Thromboplastin Ratio 0.9 Sodium Level 144 136-145 mmol/L Potassium Level 4.2 3.5-5.1 mmol/L Chloride Level 110 98-107 mmol/L Carbon Dioxide Level 30 21-32 mmol/L Anion Gap 4.0 3-11 mmol/L Blood Urea Nitrogen 19 7-18 mg/dl Creatinine 1.00 0.60-1.20 mg/dl Est Creatinine Clear Calc Drug Dose 40.0 ml/min Estimated GFR () 66.6 Estimated GFR (Non- 57.4 BUN/Creatinine Ratio 18.7 10-20 Random Glucose 100 70-99 mg/dl Calcium Level 9.0 8.5-10.1 mg/dl Troponin I < 0.015 0-0.045 ng/ml C-Reactive Protein < 0.29 0-0.29 mg/dl Diagnostic Radiology Reviewed the following studies and agree with interpretation as follows: Patient Name: YNES EGAN Unit Number: [id number] Dictated: 06/29/161521 Transcribed: 06/29/161521 EV Printed Date/Time: [~ rep prt dt]/[~ rep prt tm] [~ rep ct labl] - [~ rep ct ivnm] [facility] [place] [address] Dictated: 06/29/161521 Transcribed: 06/29/161521 EV Printed Date/Time: [~ rep prt dt]/[~ rep prt tm] [~ rep ct labl] - [~ rep ct ivnm] Patient: YNES EGNA Address1: [address] Rec: [id number] Address2: Acct ID: [id number] [facility] Zip: [place] [address] Date: 1945 Sex: F Room/Bed: Ref Phy: Jeannette Marks M.D. SC: LALA Att Phy: Report #: [id number] Judith Phy: Jeannette Marks M.D. Test: CXR1P Admit Phy: Implementation Services Analyst: ANDEER Interpreting Phy: Tino Downey M.D. Diagnosis: CHEST PAIN Ordering Phy: Deni Bang M.D. Service Date: 06/29/16 Admit Date: 06/29/16 MNE: [id number] CONF: DICTATED BY: Tino Downey M.D.]] CC: Jeannette Marks M.D. McKinley, Daniel F., M.D. Endcc: [~ rep ct add3]] SINGLE VIEW CHEST CLINICAL HISTORY: Atypical chest pain. FINDINGS: An AP, portable, upright chest radiograph is compared to chest x-ray and chest CT dated 06/07/2016. The examination is degraded by portable technique and patient rotation. The heart is top normal for projection. The mediastinal contour is within normal limits. The lungs and pleural spaces are clear. No pneumothorax is seen. The skeletal structures are osteopenic. The bony thorax is grossly intact. Intrathecal leads project over the midthoracic spine. Fusion hardware is noted in the lumbar spine. IMPRESSION: No active disease in the chest. Electronically signed by: Tino Downey M.D. 06/29/2016 3:23 PM Dictated Date/Time: 06/29/2016 3:22 PM The status of this report is Signed. Draft = Not yet reviewed or approved by Radiologist. Signed = Reviewed and approved by Radiologist. <AttendingPhy></AttendingPhy> <FamilyPhy>Jeannette Marks M.D.</FamilyPhy> < PrimaryPhy>Jeannette Marks M.D.</PrimaryPhy> <UnitNumber>[id number]</ UnitNumber> <VisitNumber>[id number]</VisitNumber> <PatientName>YNES EGAN</ PatientName> <DateOfBirth>1945</DateOfBirth> <Location>C.EDB</Location> < ServiceDate>06/29/16</ServiceDate> <MNE>ESINDI</MNE> <OrderingPhy>Deni Bang M.D.</OrderingPhy> <OrderingPhyMNE>f rep ord dr orosco</OrderingPhyMNE> < DictatingPhyMNE>f rep dict dr orosco</DictatingPhyMNE> <CCListMNE>f rep ct kwesi</ CCListMNE> <AdmittingPhyMNE>f pt admit dr orosco</AdmittingPhyMNE> <AttendingPhyMNE >f pt attend dr orosco</AttendingPhyMNE> <ConsultingPhyMNE>f pt consult dr orosco</ConsultingPhyMNE> <FamilyPhyMNE>f pt fam dr orosco</FamilyPhyMNE> <OtherPhyMNE>f pt other dr orosco</OtherPhyMNE> < PrimaryPhyMNE>f pt prim care dr orosco</PrimaryPhyMNE> <ReferringPhyMNE>f pt referring dr orosco</ReferringPhyMNE> EKG Reviewed EKG and agree with interpretation as follows: 54 bpm, sinus bradycardia Impression Assessment and Plan 71 y/o female with a history of hypertension, hyperlipidemia, GERD, anxiety, migraines, and asthma who presented to the ED on 06/29 with intermittent chest pain and nausea. Normal nuclear stress test 1 month ago. Patient hypertensive on arrival with a BP 184/92, but vital signs otherwise stable. CXR shows no acute disease. EKG shows no ischemic changes. Troponin negative. Labs grossly unremarkable. Left sided chest pain--does not appear to be cardiac in nature but will r/o. -Admit to telemetry for observation -Trend cardiac enzymes 3 -Check PTT, PT/INR -EKGs q am and prn with chest pain -Fasting lipid panel in the morning -Echocardiogram -Try Toradol 30 mg IV x1 for possible pericarditis -Check ESR and CRP HTN--improving. Last BP 168/95 -Continue carvedilol 3.125 mg PO qhs, HCTZ 12.5 mg PO q2d, and quinapril 40 mg PO qd HLD -Continue simvastatin 10 mg PO qd GERD -Pantoprazole 40 mg PO qd Anxiety -Continue lorazepam 0.25 mg PO qhs prn anxiety H/o migraines -Continue Topamax 50 mg PO BID DVT prophylaxis -Heparin 5000 units SC q12h -CHERYL gilliam and SCDs .fullcode This chart was completed in part utilizing [employer] Speech Voice Recognition software. Attempts were made to minimize the grammatical errors, random word insertions, pronoun errors and incomplete sentences. Any formal questions or concerns about the content, text or information contained within the body of this dictation should be directly addressed to the provider for clarification. Level of Care Telemetry Advanced Directives Existing Living Will: Yes Existing Power of Life Skills Coach: Yes Resuscitation Status FULL RESUSCITATION VTE Prophylaxis VTE Risk Assessment Done? Y/N: Yes Risk Level: Moderate Given or contraindicated: Unfractionated heparin SQ, T.E.D. Stockings, SCD's Note Attending Admit note & Attestation: Pt seen/examined, chart reviewed, care plan d/w AMANDA Corrales. I agree w/ the [place]udd[place] components of her admission documentation. 71yo female with HTN, hyperlipidemia, and asthma presenting with left-sided chest discomfort. episodes last minutes. come and go. no precipitating factors. did wake her from sleep last pm. ?slight pleuritic component to it. no recent illness. records reviewed - lexiscan nuclear stress test negative 05/2016; recent CTA chest w/o PE or pericardial effusion; showed minimal dilatation of ascending aorta. PMH, PSH, allergies, meds, sochx, famhx, ros - reviewed vitals - BP mildly high gen - nad neck - no JVD heart - RRR, s1, s2, 1-2/6 YAYO LLSB lungs - CTA b/l chest - no reproducible chest wall pain abd - soft, NT ext - no edema EKG - NSR, no ST changes cxr - no pathology A/P: atypical chest pain - work-up thus far negative. negative stress test 1 month ago. negative CTA chest PE protocol early June except mild thoracic aortic dilatation. check sed rate, crp -- if elevated could be pericarditis, but patient appeared quite comfortable during my visit. question musculoskeletal. question GI. echo to check EF, valves, etc try toradol IV x 1. NPO after MN in the event she needs additional testing. may need cardiology consult if no other etiology is found. Venancio Oneal MD
[2016-06-29 19:30] VITALS: BP 158/82; PULSE 54
[2016-06-29 19:43] VITALS: BP 132/76; PULSE 59
[2016-06-29] MEDS ORDERED: LATANOPROST 0.005% OP SOLN 2.5 ML BTL OP SCH (21:00)
[2016-06-29] MEDS ORDERED: SIMVASTATIN 10 MG TAB PO SCH (21:00)
[2016-06-29] MEDS ORDERED: CARVEDILOL 3.125 MG TAB PO SCH (21:00)
[2016-06-29] MEDS ORDERED: TOPIRAMATE 25 MG TAB PO SCH (21:00)
[2016-06-29] MEDS: PREGABALIN 100 MG CAP PO SCH (21:23)
[2016-06-29] MEDS: HEPARIN SOD 5000 UNIT/0.5 ML CARP SQ SCH (21:24)
[2016-06-29 22:46] LABS: CKMB/CK RATIO 2.2 (0-3.0)
[2016-06-29 23:58] VITALS: BP 145/76; PULSE 54; TEMP 36.6; O2SAT 96
[2016-06-30] VITALS (8 sets, daily range): BP systolic 110–148; BP diastolic 65–78; PULSE 51–86; TEMP 36.5–36.8; O2SAT 96–99
[2016-06-30 03:59] LABS: HEMATOCRIT 34.5 % (37-47); MEAN CELL VOLUME 85.8 fL (80-100); MEAN CORPUSCULAR HEMOGLOBIN 28.1 pg (25-34); MEAN CORPUSCULAR HGB CONC 32.8 g/dl (32-36); MEAN PLATELET VOLUME 10.4 fL (7.4-10.4); PLATELET COUNT 214 K/uL (130-400); RED BLOOD COUNT 4.02 M/uL (4.2-5.4); WHITE BLOOD COUNT 5.06 K/uL (4.8-10.8)
[2016-06-30 04:17] LABS: BLOOD UREA NITROGEN 25 mg/dl (7-18); BUN/CREATININE RATIO 20.8 (10-20); CALCIUM 8.6 mg/dl (8.5-10.1); CARBON DIOXIDE 28 mmol/L (21-32); CHLORIDE 112 mmol/L (98-107); GLUCOSE 89 mg/dl (70-99); POTASSIUM 4.2 mmol/L (3.5-5.1); SODIUM 145 mmol/L (136-145)
[2016-06-30 04:23] LABS: CHOLESTEROL 137 mg/dl (0-200); CHOLESTEROL/HDL RATIO 1.6; CKMB/CK RATIO 2.2 (0-3.0); HDL CHOLESTEROL 85 mg/dl; LDL CHOLESTEROL CALCULATED 40 mg/dl; TRIGLYCERIDES 60 mg/dl (0-150); VERY LOW DENSITY LIPOPROT CALC 12 mg/dl
[2016-06-30] MEDS: PREGABALIN 100 MG CAP PO SCH (08:37)
[2016-06-30] MEDS: HEPARIN SOD 5000 UNIT/0.5 ML CARP SQ SCH (08:38)
[2016-06-30] MEDS ORDERED: PANTOprazole SOD 40 MG TAB PO SCH (09:00)
[2016-06-30] MEDS ORDERED: ASPIRIN 325 MG ECTAB PO SCH (09:00)
[2016-06-30] MEDS ORDERED: ENALAPRIL MALEATE 10 MG TAB PO SCH (09:00)
[2016-06-30] MEDS ORDERED: DOCUSATE SODIUM/SENNA 50/8.6MG TAB PO SCH (09:00)
[2016-06-30] MEDS ORDERED: TOPIRAMATE 25 MG TAB PO SCH (09:00)
[2016-06-30] MEDS ORDERED: HYDROCHLOROTHIAZIDE 25 MG TAB PO SCH (09:00)
--- NOTE | 2016-06-30 10:22 | CARDIOLOGY CONSULTATION ---
DATE OF CONSULTATION: 06/30/2016 DATE OF CONSULTATION: 06/30/2016. PERTINENT HISTORY: Mrs. Hayes was admitted yesterday with a chest pain syndrome. This consultation was ordered to assist in her management. The patient claims she was in her usual state of health until approximately 4-6 weeks ago when she began to note a chest pain syndrome. The patient describes a dull ache on the left side of her chest which typically lasts an entire day. There are no associated symptoms such as shortness of breath, nausea, vomiting, diaphoresis, or radiation of the discomfort. Her discomfort does not intensify with physical activity. The patient underwent a nuclear stress test on 05/20/2016 which noted normal left ventricle systolic function with an ejection fraction of 64%. There is evidence of diaphragmatic attenuation, but no infarction or myocardial ischemia. She underwent a CT scan of the chest on 05/24/2016 which showed no evidence of a pulmonary embolism. The patient walks several days every week. She can go 3-4 miles on a particular occasion. Again, she has not experienced exertional chest pain or limiting dyspnea. She further denies syncope, presyncope, PND, orthopnea, palpitations, lower extremity edema, and claudication. The patient presented yesterday as her symptoms as described above persisted throughout the day. She also noted some "stiffness" in her left hand and some discomfort in her right jaw. Currently, the patient is resting comfortably and without complaints. PAST MEDICAL HISTORY: 1. Hypertension. 2. Hypercholesterolemia. 3. History of vasovagal syncope. 4. Asthma. 5. GERD. 6. Anxiety. 7. Migraine headaches. 8. History of lumbar surgery March 2012. MEDICATIONS: 1. Coreg 3.125 mg daily. 2. Vasotec 40 mg p.o. daily. 3. Aspirin 325 mg per day. 4. Zocor 10 mg at bedtime. 5. Hydrochlorothiazide 12.5 mg every other day. 6. Heparin 5000 units b.i.d. 7. Protonix 40 mg per day. 8. Topamax 50 mg b.i.d. 9. Lyrica 100 mg b.i.d. ALLERGIES: 1. PENICILLIN. 2. SULFA. 3. MORPHINE. 4. OXYCODONE. 5. TRAMADOL. SOCIAL HISTORY: The patient is and lives with her . Does not use tobacco or alcohol. FAMILY HISTORY: Mother apparently developed coronary disease at a young age, likely before 65. REVIEW OF SYSTEMS: A 10-point review of systems was negative except for that described above. PHYSICAL EXAMINATION: GENERAL: This is a thin, white female lying supine in bed without complaints. VITAL SIGNS: Blood pressure is 120/70 with a regular pulse of 80. Respiratory rate is 18. The patient is afebrile at 36.8 degrees Celsius. Saturation is 96% on room air. HEAD, EYES, EARS, NOSE, AND THROAT EXAMINATION: Negative. NECK: Supple with full carotid upstrokes. There are no carotid bruits. Jugular venous pressure is flat at 90 degrees. There is no thyromegaly. CARDIOVASCULAR EXAMINATION: Reveals a regular rhythm with a normal S1 and S2. A 1/6 apical holosystolic murmur is noted. No S3 or S4. LUNGS: Clear without rales, rhonchi, or wheezes. ABDOMEN: Soft and nontender without bruits. CHEST: Reveals some tenderness to palpation along the left parasternal region. This duplicates complaints from yesterday. EXTREMITIES: Reveal intact radial artery and posterior tibial pulses bilaterally. There is no peripheral edema. DATA: CBC notes hemoglobin 11.3, hematocrit 34.5, white count 5.0, platelet count 214,000. Electrolytes note a sodium of 145, potassium 4.2, chloride 112, bicarb 28, BUN 25, creatinine 1.2, glucose 89. Three troponin I levels are undetectable at less than 0.015. Initial CK was 199 with MB fraction of 4.3. Follow-up value was 147 with an MB fraction of 3.2. Fasting lipid panel shows an LDL cholesterol of 40 and an HDL of 85. Initial EKG notes sinus rhythm with minor nonspecific T-wave abnormality. Follow-up EKG notes sinus bradycardia without abnormalities. Chest x-ray shows no acute disease. hospital monitor is benign. IMPRESSION: Mrs. Hayes was admitted with chest pain syndrome lasting the entire day of presentation but demonstrates unremarkable EKGs and undetectable troponin I levels. Her physical examination suggests the possibility of musculoskeletal discomfort. She also carries a history of esophageal reflux. She had a normal nuclear stress test on 05/20/[address] scan of the chest on 05/24/2016. A quick look at her echocardiogram today notes normal left ventricular systolic function. Clearly, this is noncardiac chest discomfort. The possibility of musculoskeletal or reflux disease is entertained. PLAN: 1. Continue usual outpatient medications. 2. Ambulate in hallways. 3. Stable for discharge from a cardiac perspective as she remains stable. No further cardiac evaluation necessary.
[2016-06-30] MEDS ORDERED: PANT40TA PO (11:52)
[2016-06-30] MEDS ORDERED: SUCR1TAB29 PO (11:52)
--- NOTE | 2016-06-30 11:55 | Discharge Instructions ---
Discharge Instructions Date of Service Jun 30, 2016. Admission Reason for Admission: Left Sided Chest Pain Discharge Discharge Diagnosis / Problem: Chest discomfort Discharge Goals Goal(s): Decrease discomfort, Therapeutic intervention, Prevent Disease Progression Activity Recommendations Activity Limitations: resume your previous activity . Instructions / Follow-Up Instructions / Follow-Up New/changed medications: 1. Protonix 40 mg by mouth twice per day 2. Carafate 1 gm by mouth twice per day for 2 weeks Resume all other regular home medications as prescribed Please follow-up with your PCP within 2 weeks Please follow-up with Cardiology as instructed by them Please follow-up/keep all of your subspecialty appointments Home Care: * Take your medications exactly as directed. Don't skip doses. * Remember that recovery after a heart attack takes time. Plan to rest for at lease 4-8 weeks while you recover. Then return to normal activity when your doctor says it's okay. * Ask your doctor about joining a heart rehabilitation program. * Tell your doctor if you are feeling depressed. Feelings of sadness are common after a heart attack, but it is important that you speak to someone if you are feeling overwhelmed by these feelings. * If you are having chest pain, call 911 for an ambulance. Do NOT drive yourself to the hospital. * Ask your family members to learn CPR. * Learn to take your own blood pressure and pulse. Keep a record of your results. Ask your doctor when you should seek emergency medical attention. He or she will tell you which blood pressure reading is dangerous. Lifestyle Changes: * Maintain a healthy weight. Get help to lose any extra pounds. * Cut back on salt. * Limit canned, dried, packaged, and fast foods. * Don't add salt to your food. * Season foods with herbs instead of salt when you cook. * Break the smoking habit. Enroll in a stop-smoking program to improve your chances of success. * Limit fatty foods. * Check your lipid levels regularly. (Your doctor can show you how to do this.) * Build up your activity according to your doctor's recommendation. * Ask your doctor when it's okay to resume sexual activity. * Tell your doctor about any erectile dysfunction (ED) medication you are taking. Some ED medications are not safe if you take certain heart medications. * Try to manage stress. Follow Up: It is important for you to keep your follow up appointments with your medical provider. Current Hospital Diet Patient's current hospital diet: AHA Diet (Heart Healthy) Discharge Diet Recommended Diet: AHA Diet (Heart Healthy) Procedures Procedures Performed: Echocardiogram Pending Studies Studies pending at discharge: no Laboratory Results Last 24 Hours Test 06/29/16 14:21 06/29/16 22:15 06/30/16 03:50 White Blood Count 4.50 K/uL 5.06 K/uL Red Blood Count 4.15 M/uL 4.02 M/uL Hemoglobin 11.9 g/dL 11.3 g/dL Hematocrit 35.9 % 34.5 % Mean Corpuscular Volume 86.5 fL 85.8 fL Mean Corpuscular Hemoglobin 28.7 pg 28.1 pg Mean Corpuscular Hemoglobin Concent 33.1 g/dl 32.8 g/dl Platelet Count 231 K/uL 214 K/uL Mean Platelet Volume 10.8 fL 10.4 fL Neutrophils (%) (Auto) 39.6 % Lymphocytes (%) (Auto) 51.3 % Monocytes (%) (Auto) 6.4 % Eosinophils (%) (Auto) 1.6 % Basophils (%) (Auto) 1.1 % Neutrophils # (Auto) 1.78 K/uL Lymphocytes # (Auto) 2.31 K/uL Monocytes # (Auto) 0.29 K/uL Eosinophils # (Auto) 0.07 K/uL Basophils # (Auto) 0.05 K/uL RDW Standard Deviation 43.0 fL 41.7 fL RDW Coefficient of Variation 13.4 % 13.2 % Immature Granulocyte % (Auto) 0.0 % Immature Granulocyte # (Auto) 0.00 K/uL Red Blood Cell Morphology Unremarkable Erythrocyte Sedimentation Rate 5 mm/hr Prothrombin Time 10.9 SECONDS Prothromb Time International Ratio 1.0 Activated Partial Thromboplast Time 24.0 SECONDS Partial Thromboplastin Ratio 0.9 Sodium Level 144 mmol/L 145 mmol/L Potassium Level 4.2 mmol/L 4.2 mmol/L Chloride Level 110 mmol/L 112 mmol/L Carbon Dioxide Level 30 mmol/L 28 mmol/L Anion Gap 4.0 mmol/L 5.0 mmol/L Blood Urea Nitrogen 19 mg/dl 25 mg/dl Creatinine 1.00 mg/dl 1.20 mg/dl Est Creatinine Clear Calc Drug Dose 40.0 ml/min 33.4 ml/min Estimated GFR () 66.6 53.4 Estimated GFR (Non- 57.4 46.1 BUN/Creatinine Ratio 18.7 20.8 Random Glucose 100 mg/dl 89 mg/dl Calcium Level 9.0 mg/dl 8.6 mg/dl Troponin I < 0.015 ng/ml < 0.015 ng/ml < 0.015 ng/ml C-Reactive Protein < 0.29 mg/dl Total Creatine Kinase 199 U/L 147 U/L Creatine Kinase MB 4.3 ng/ml 3.2 ng/ml Creatine Kinase MB Ratio 2.2 2.2 Triglycerides Level 60 mg/dl Cholesterol Level 137 mg/dl HDL Cholesterol 85 mg/dl LDL Cholesterol, Calculated 40 mg/dl VLDL Cholesterol, Calculated 12 mg/dl Cholesterol/HDL Ratio 1.6 Lipid Panel Test 06/30/16 03:50 Range/Units Triglycerides Level 60 0-150 mg/dl Cholesterol Level 137 0-200 mg/dl HDL Cholesterol 85 mg/dl Cholesterol/HDL Ratio 1.6 LDL Cholesterol, Calculated 40 mg/dl Medical Emergencies . Who to Call and When: Medical Emergencies: If at any time you feel your situation is an emergency, please call 911 immediately. Call 911 immediately or go to your nearest Emergency Room if you experience any of the following: Warning Signs and Symptoms of a Heart Attack * Chest pain that is not relieved by medication * Shortness of breath . Non-Emergent Contact Non-Emergency issues call your: Primary Care Provider . . "Provider Documentation" section prepared by Madeline Brantley. . AMI Core Measures Reason no ASA as I/P: Treatment provided - N/A Reason no ASA at D/C: Treatment provided - N/A Reason no statin as I/P: Treatment provided - N/A Reason no statin at D/C: Treatment provided - N/A VTE Core Measure Inpt VTE Proph given/why not?: Unfractionated heparin SQ, T.E.D. Stockings, SCD 's
--- NOTE | 2016-06-30 12:03 | Discharge Summary ---
Discharge Summary Date of Service Jun 30, 2016. Discharge Summary Admission Date: Jun 29, 2016 at 17:37 Discharge Date: Jun 30, 2016 Discharge Disposition: Home Principal Diagnosis: Chest discomfort Problems/Secondary Diagnoses: HTN HLD GERD Anxiety H/o migraines Immunizations: Have You Had Influenza Vaccine: Yes Influenza Vaccine Date: Nov 29, 2012 History of Tetanus Vaccine?: No History of Pneumococcal: No History of Hepatitis B Vaccine: No Procedures: ECHOCARDIOGRAM SINGLE VIEW CHEST CLINICAL HISTORY: Atypical chest pain. FINDINGS: An AP, portable, upright chest radiograph is compared to chest x-ray and chest CT dated 06/07/2016. The examination is degraded by portable technique and patient rotation. The heart is top normal for projection. The mediastinal contour is within normal limits. The lungs and pleural spaces are clear. No pneumothorax is seen. The skeletal structures are osteopenic. The bony thorax is grossly intact. Intrathecal leads project over the midthoracic spine. Fusion hardware is noted in the lumbar spine. IMPRESSION: No active disease in the chest. Electronically signed by: Tino Downey M.D. 06/29/2016 3:23 PM Dictated Date/Time: 06/29/2016 3:22 PM The status of this report is Signed. Draft = Not yet reviewed or approved by Radiologist. Signed = Reviewed and approved by Radiologist. Consultations: Cardiology Medication Reconciliation New Medications: Sucralfate (Carafate) 1 Gm Tab 1 GM PO BID for 14 Days, #28 TAB Changed Medications: Pantoprazole (Protonix) 40 Mg Tab 40 MG PO BID for 30 Days, #60 TAB (Changed from: DAILY; 30) Continued Medications: Alendronate/Cholecalciferol (Fosamax+D 70MG/2800 Iu) 70 Mg Tab 1 TABLET PO WK, TAB Aspirin (Aspirin) 325 Mg Tab 325 MG PO DAILY Black Cohosh (Cimicifuga [place] (Black Cohosh) 20 Mg Tab 2 TABS PO DAILY Buprenorphine (Butrans) 20 Mcg/Hr Dis 1 PATCH TOP WK for 28 Days, #4 PATCH Calcium Carbonate-Vitamin D (Calcium + D) 1 Tab Tab 2 TABS PO DAILY Carvedilol (Coreg) 3.125 Mg Tab 3.125 MG PO QPM, TAB Fiber Laxative (Fiber Laxative) Ea 2 TABS PO DAILY Flaxseed (Linseed) (Flaxseed Oil) 1,000 Mg Cap 450 MG PO TID Folic Acid (Folvite) 1 Mg Tab 400 MCG PO 3XWK, TAB Hydrochlorothiazide (Hctz) 12.5 Mg Cap 12.5 MG PO Q2D, TAB Latanoprost (Xalatan 0.005% Oph Colleen) 0.005 % Colleen 1 DROPS OP HS, #2.5 ML 3 Refills Lorazepam (Ativan) 0.5 Mg Tab 0.5 MG PO Q6H PRN for Anxiety, TAB Magnesium Oxide (Mag-Ox) 400 Mg Tab 250 MG PO 3XWK, TAB Magnesium Oxide (Laxative) (Laura) 500 Mg Tab 2 TABS PO QPM Multivitamin (Multivitamin) Tab 1 TAB PO DAILY, TAB [place]-3 Fatty Acids (Fish Oil) 1 Cap Cap 4 CAP PO DAILY Pregabalin (Lyrica) 100 Mg Cap 100 MG PO Q12, CAP Quinapril Hcl (Accupril) 40 Mg Tab 40 MG PO DAILY, TAB Sennosides-Docusate Sodium (Stool Softener) 1 Tab Tab 3 TAB PO DAILY Simvastatin (Zocor) 10 Mg Tab 10 MG PO QPM, TAB Topiramate (Topamax ) 25 Mg Tab 50 MG PO QAM, TAB Topiramate (Topamax ) 25 Mg Tab 50 MG PO HS, TAB Referrals At Discharge Follow up Referrals: Family Practice Referral - Within 2 Weeks with Jeannette Marks M.D. Discharge Exam Review of Systems: Constitutional: No chills, No fatigue, No fever, No sweats, No weakness Respiratory: No cough, No hemoptysis, No shortness of breath Cardiovascular: No chest pain, No edema, No palpitations Abdomen: No GI bleeding, No constipation, No diarrhea, No nausea, No pain, No vomiting Musculoskeletal: No calf pain, No joint pain, No muscle pain, No swelling Genitourinary - Male: No dysuria, No hematuria Neurologic: No numbness/tingling, No weakness Psychiatric: No anxiety, No depression symptoms Hematologic / Lymphatic: No abnormal bleeding/bruising Integumentary: No itch, No new/changing skin lesions, No rash Physical Exam: General Appearance: no apparent distress Eyes: normal inspection, PERRL ENT: hearing grossly normal Neck: supple Respiratory/Chest: lungs clear, no respiratory distress, no accessory muscle use Cardiovascular: regular rate, rhythm Abdomen / GI: normal bowel sounds, non tender, soft Extremities: no calf tenderness, no pedal edema Neurologic/Psychiatric: alert, normal mood/affect, oriented x 3 Skin: normal color, warm/dry, no rash Hospital Course 71 y/o female with a history of hypertension, hyperlipidemia, GERD, anxiety, migraines, and asthma who presented to the ED on 06/29 with intermittent chest pain and nausea. Normal nuclear stress test 1 month ago. Patient hypertensive on arrival with a BP 184/92, but vital signs otherwise stable. CXR shows no acute disease. EKG shows no ischemic changes. Troponin negative. Labs grossly unremarkable. Left sided chest pain, likely secondary to GERD vs. cardiac: - Admit to telemetry for observation- no acute events - Trend cardiac enzymes 3- negative - Check PTT, PT/INR - EKGs q am and prn with chest pain - Fasting lipid panel- WNL - ECHO - Try Toradol 30 mg IV x1 for possible pericarditis - Check ESR and CRP- WNL - Consult cardiology, appreciate recommendations -- No further cardiac evaluation necessary -- STABLE from cardiac perspective HTN: Continue Carvedilol 3.125 mg PO qhs, HCTZ 12.5 mg PO q2d, and Quinapril 40 mg PO qd HLD: Continue Simvastatin 10 mg PO qd GERD, likely cause of chest discomfort: - Pantoprazole 40 mg PO qd increased to BID - Start Carafate 1 gm BID x2 weeks - Follow-up w/ PCP in 2 weeks Anxiety: Continue Lorazepam 0.25 mg PO qhs prn anxiety H/o migraines: Continue Topamax 50 mg PO BID DVT prophylaxis: Heparin 5000 units SC q12h, CHERYL gilliam and SCDs Code Status: LEVEL I, FULL Dispo: Discharge to home Total Time Spent: Greater than 30 minutes This includes examination of the patient, discharge planning, medication reconciliation, and communication with other providers. Discharge Instructions Please refer to the electronic Patient Visit Report (Discharge Instructions) for additional information. Follow-Up Please follow-up with your PCP within 2 weeks Please follow-up with Cardiology as instructed by them Please follow-up/keep all of your subspecialty appointments Additional Copies To Jeannette Mraks M.D.
--- NOTE | 2016-06-30 14:45 | ECHOCARDIOGRAM REPORT ---
*NOTICE TO RECEIVING [employer] This information is strictly Confidential and protected under [place] law. [place] law prohibits you from making any further disclosure of this information unless further disclosure is expressly permitted by the written consent of the person to whom it pertains or is authorized by law. A general authorization for the release of medical or other information is not sufficient for this purpose. Hospital accepts no responsibility if the information is made available to any other person, INCLUDING THE PATIENT. Interpretation Summary * Name: YNES EGAN Study Date: 06/30/2016 09:02 AM BP: 110/65 mmHg * Patient Location: C.2T\S\E222\S\1 HR: 51 * : 1945 (M/d/yyyy) Gender: Female Height: 61 in * Age: 71 yrs Ethnicity: CA Weight: 107 lb * Ordering Physician: Antonia Corrales * Performed By: Elinor Jones * * Reason For Study: CHEST PAIN * BSA: 1.4 m2 * -- Conclusions -- * There is mild asymmetric left ventricular hypertrophy. * Left ventricular systolic function is normal. * Grade I diastolic dysfunction, (abnormal relaxation pattern). * The right ventricular systolic function is normal as assessed by tricuspid annular plane systolic excursion (TAPSE) (normal >1.5 cm). * Mild to moderate aortic regurgitation. * There is moderate mitral regurgitation. * Right ventricular systolic pressure is elevated at 30-40mmHg. Procedure Details * A complete two-dimensional transthoracic echocardiogram was performed (2D, M-mode, Doppler and color flow Doppler). Left Ventricle * The left ventricle is normal in size. * There is mild asymmetric left ventricular hypertrophy. * Ejection Fraction = 65-70%. * Left ventricular systolic function is normal. * Grade I diastolic dysfunction, (abnormal relaxation pattern). Right Ventricle * The right ventricle is grossly normal size. * The right ventricular systolic function is normal as assessed by tricuspid annular plane systolic excursion (TAPSE) (normal >1.5 cm). Atria * The left atrial size is normal. * Right atrial size is normal. Mitral Valve * The mitral valve anatomy is normal. * There is moderate mitral regurgitation. Tricuspid Valve * The tricuspid valve is not well visualized, but is grossly normal. * There is trace tricuspid regurgitation. * Right ventricular systolic pressure is elevated at 30-40mmHg. Aortic Valve * The aortic valve is trileaflet. * No hemodynamically significant valvular aortic stenosis. * Mild to moderate aortic regurgitation. Pericardium/Pleural * There is no pericardial effusion. Great Vessels * The inferior vena cava is mildly dilated. MMode 2D Measurements and Calculations IVSd 1.5 cm IVSs 2.0 cm LVIDd 4.7 cm LVIDs 2.9 cm LVPWd 1.0 cm LVPWs 1.3 cm IVS/LVPW 1.5 FS 37.3 % EDV(Teich) 102.4 ml ESV(Teich) 33.5 ml EF(Teich) 67.3 % EDV(cubed) 103.9 ml ESV(cubed) 25.6 ml EF(cubed) 75.4 % % IVS thick 30.7 % % LVPW thick 26.1 % LV mass(C)d 228.2 grams LV mass(C)dI 157.6 grams/m\S\2 LV mass(C)s 177.8 grams LV mass(C)sI 122.8 grams/m\S\2 CO(Teich) 3.9 l/min CI(Teich) 2.7 l/min/m\S\2 SV(Teich) 68.9 ml SI(Teich) 47.6 ml/m\S\2 CO(cubed) 4.5 l/min CI(cubed) 3.1 l/min/m\S\2 SV(cubed) 78.3 ml SI(cubed) 54.1 ml/m\S\2 ACS 1.2 cm LA dimension 3.4 cm asc Aorta Diam 3.8 cm LVOT diam 1.7 cm LVOT area 2.3 cm\S\2 LVAd ap4 27.7 cm\S\2 LVLd ap4 7.8 cm EDV(MOD-sp4) 81.0 ml LVAs ap4 14.3 cm\S\2 LVLs ap4 6.2 cm ESV(MOD-sp4) 27.0 ml EF(MOD-sp4) 66.7 % LVAd ap2 24.2 cm\S\2 LVLd ap2 7.5 cm EDV(MOD-sp2) 68.0 ml LVAs ap2 12.5 cm\S\2 LVLs ap2 5.9 cm ESV(MOD-sp2) 23.0 ml EF(MOD-sp2) 66.2 % CO(MOD-sp4) 3.1 l/min CI(MOD-sp4) 2.1 l/min/m\S\2 SV(MOD-sp4) 54.0 ml SI(MOD-sp4) 37.3 ml/m\S\2 CO(MOD-sp2) 2.6 l/min CI(MOD-sp2) 1.8 l/min/m\S\2 SV(MOD-sp2) 45.0 ml SI(MOD-sp2) 31.1 ml/m\S\2 Doppler Measurements and Calculations MV E max bart 48.4 cm/sec MV A max bart 68.6 cm/sec MV E/A 0.71 MV dec time 0.25 sec Ao V2 max 103.7 cm/sec Ao max PG 4.3 mmHg Ao max PG (full) 0.25 mmHg NABIL(V,A) 2.2 cm\S\2 NABIL(V,D) 2.2 cm\S\2 AI max bart 420.5 cm/sec AI max PG 70.8 mmHg AI dec slope 185.9 cm/sec\S\2 AI P1/2t 662.4 msec LV V1 max PG 4.1 mmHg LV V1 max 100.7 cm/sec MR max bart 548.2 cm/sec MR max PG 120.3 mmHg PA V2 max 70.1 cm/sec PA max PG 2.0 mmHg TR max bart 266.1 cm/sec
[2016-08-05] MEDS ORDERED: PANT40TA PO (14:45)
[2016-08-05] MEDS ORDERED: NTRGSL/4 UT (14:47)
[2016-08-05] MEDS ORDERED: FLUT0.15 NAE (14:50)
[2016-08-05] MEDS ORDERED: NAPR1TAB9 PO (14:51)
[2016-08-05] MEDS ORDERED: SYMBICORT INH (15:00)
[2016-08-05] MEDS ORDERED: VNTHFA/IN INH (15:00)
[2016-10-12] MEDS ORDERED: TPM/50 PO (10:07)
[2016-10-12] MEDS ORDERED: MULT1CHW18 PO (10:07)
[2016-10-12] MEDS ORDERED: ALLERGY SHOTS INJ (10:28)
== END 2016-06-30 14:31 | disposition home or self-care (01) ==
LOC: ENRESERVTM → ENRESERVDT → C.EDB 13:56 → C.2T 17:37
PROVIDERS: ADMIT Internal Medicine; ATTEND Hospitalist
DX: R07.89 Other chest pain (principal); R07.9 Chest pain, unspecified; I10 Essential (primary) hypertension; K21.9 Gastro-esophageal reflux disease without esophagitis; E78.5 Hyperlipidemia, unspecified; E78.00 Pure hypercholesterolemia, unspecified; J45.909 Unspecified asthma, uncomplicated; Z79.82 Long term (current) use of aspirin; Z86.73 Personal history of transient ischemic attack (TIA), and cerebral infarction without residual deficits; Z82.49 Family history of ischemic heart disease and other diseases of the circulatory system; M81.0 Age-related osteoporosis without current pathological fracture; M85.851 Other specified disorders of bone density and structure, right thigh; M85.852 Other specified disorders of bone density and structure, left thigh

== ENCOUNTER → 2016-08-10 | Outpatient (CLI) | payer OTHER ==
[~2016-08-10] MED LIST changes: +ALLERGY SHOTS INJ; +FLAX100024 PO; +FLUT0.15 NAE; -MAGN500T7 PO; +MULT1CHW18 PO; +NAPR1TAB9 PO; +NTRGSL/4 UT; +SYMBICORT INH; +SYMIN160 INH; +TPM/50 PO
[2016-08-10 18:06] LABS: URINE APPEARANCE CLEAR (CLEAR); URINE BILIRUBIN NEG (NEG); URINE COLOR YELLOW; URINE EPITHELIAL CELL AUTO 0-5 /lpf (0-5); URINE NITRITE NEG (NEG); URINE PH 7.5 (4.5-7.5); URINE SPECIFIC GRAVITY 1.012 (1.000-1.030); UROBILINOGEN NEG (NEG)
[2016-08-10 18:09] LABS: BASO % 0.9 %; BASO ABS # 0.05 K/uL (0-0.2); COMPLETE YES; EOS % 1.5 %; LYMPH % 45.7 %; LYMPH ABS # 2.41 K/uL (1.2-3.4); MANUAL MICROSCOPIC REQUIRED? NO; MEAN CELL VOLUME 87.1 fL (80-100); MEAN CORPUSCULAR HEMOGLOBIN 28.9 pg (25-34); MEAN CORPUSCULAR HGB CONC 33.1 g/dl (32-36); MEAN PLATELET VOLUME 10.8 fL (7.4-10.4); NEUT % 44.9 %; PLATELET COUNT 223 K/uL (130-400); RED BLOOD COUNT 4.02 M/uL (4.2-5.4); REVIEW REQ? NO; WHITE BLOOD COUNT 5.27 K/uL (4.8-10.8)
[2016-08-10 18:11] LABS: BLOOD UREA NITROGEN 20 mg/dl (7-18); CALCIUM 8.3 mg/dl (8.5-10.1); CARBON DIOXIDE 27 mmol/L (21-32); CHLORIDE 109 mmol/L (98-107); CREATININE 0.85 mg/dl (0.60-1.20); GLUCOSE 99 mg/dl (70-99); SODIUM 142 mmol/L (136-145)
== END | disposition home or self-care (01) ==
LOC: C.LABMFLN 14:18
PROVIDERS: ATTEND Physician Assistant
DX: M46.1 Sacroiliitis, not elsewhere classified (principal)

== ENCOUNTER 2016-09-30 05:58 | Day surgery (SDC) | payer OTHER ==
[~2016-09-30] VITALS: Ht 154.9 cm; Wt 50.0 kg
[~2016-09-30 05:58] MED LIST changes: -ALLERGY SHOTS INJ; -MAGN400T6 PO; -MULT1CHW18 PO; -SYMIN160 INH; -TPM/50 PO
[2016-09-30] MEDS ORDERED: SYMIN160 INH (06:38)
[2016-09-30] MEDS ORDERED: MAGN400T6 PO (06:38)
[2016-09-30 06:39] VITALS: BP 146/69; PULSE 56; TEMP 36.8; O2SAT 99; Ht 154.9 cm; Wt 50.0 kg
--- NOTE | 2016-09-30 07:56 | History & Physical Bridge Note ---
H&P Re-Evaluation Bridge Note: I have examined the patient, reviewed the History & Physical and in the interval since the performance of the History & Physical I have noted the following changes of clinical significance: vitals normal. Allergies reviewed
[2016-09-30] MEDS ORDERED: LIDOCAINE HCL 1% 20 ML VIAL ONE (08:09)
--- NOTE | 2016-09-30 08:20 | Discharge Instructions ---
Discharge Instructions Procedure Procedure Date: Sep 30, 2016. Reason for Visit: Arrhythmia *Dr Owen Doing*. Discharge Discharge Date: Sep 30, 2016. Discharge Diagnosis: syncope Last Recorded Wt (Kilograms): 50 Medications Stopped Medication(s): none Anesthesia Post Anesthesia Instructions: If you have had General Anesthesia or IV Sedation: * Do not drive today. * Resume driving when surgeon permits. * Do not make important decisions or sign legal documents today. * Call surgeon for: 1. Temperature elevations greater than 101 degrees F. 2. Uncontrollable pain. 3. Excessive bleeding. 4. Persistent nausea and vomiting. 5. Medication intolerance (nausea, vomiting or rash). * For nausea and vomiting use only clear liquids such as: tea, soda, bouillon until nausea subsides, then gradually increase diet as tolerated. * If you have any concerns or questions, call your surgeon's office. If physician is unavailable and it is an emergency, call 911 or go to the nearest emergency room. Instructions Activity Recommendations: limitations as noted below Return to School/Work: with no limitations Recommended Home Diet: no limitations, resume previous diet Allergies: Coded Allergies: Adhesives (Unverified Allergy, Unknown, SKIN IRRITATION, 09/30/16) Penicillins (Verified Allergy, Unknown, RASH, 09/30/16) Sulfa Antibiotics (Verified Allergy, Unknown, RASH, 09/30/16) Tramadol (Verified Allergy, Unknown, ITCHINESS, 09/30/16) Morphine (Verified Adverse Reaction, Severe, SEVERE HYPOTENSION, 09/30/16) Oxycodone (Verified Adverse Reaction, Unknown, NAUSEA AND VOMITING, ) Provider Instructions Keep wound dry and steri strip intact until f/u next week. May remove outer bulky bandage tomorrow morning Follow Up Follow-up with: Cardiology clinic nurse visit for wound check next week. Mic Latif Recommendations: Call your doctor if: * Temperature above 101 degrees * Pain not relieved by pain medicine ordered * There is increased drainage or redness from any incision * You have any unanswered questions or concerns. Your Doctors Instructions noted above were prepared by provider Jorge Owen. Patient Signature Section: Patient Instructions Signature Page Camelia Hayes Patient (or Guardian) Signature/Date: I have read and understand the instructions given to me by my caregivers. Caregiver/RN/Doctor Signature/Date: The above-named patient and/or guardian has received patient instructions on this date. + Original Patient Signature Page (only) stays with chart. Please make copy for patient.
[2016-09-30 08:26] VITALS: BP 153/74; PULSE 56; TEMP 36.5; O2SAT 98
[2016-09-30 08:51] VITALS: BP 164/93; PULSE 57; O2SAT 100
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
[2016-10-12] MEDS ORDERED: TPM/50 PO (10:07)
[2016-10-12] MEDS ORDERED: MULT1CHW18 PO (10:07)
[2016-10-12] MEDS ORDERED: ALLERGY SHOTS INJ (10:28)
== END 2016-09-30 09:19 | disposition home or self-care (01) ==
LOC: C.ACU 05:58
PROVIDERS: ATTEND Internal Medicine Clinical Cardiac Electrophysiology
DX: R55 Syncope and collapse (principal); R00.1 Bradycardia, unspecified; E78.5 Hyperlipidemia, unspecified; I10 Essential (primary) hypertension; M51.36 Other intervertebral disc degeneration, lumbar region; K21.9 Gastro-esophageal reflux disease without esophagitis; M81.0 Age-related osteoporosis without current pathological fracture; I73.00 Raynaud's syndrome without gangrene; Z90.49 Acquired absence of other specified parts of digestive tract; Z90.710 Acquired absence of both cervix and uterus; Z82.49 Family history of ischemic heart disease and other diseases of the circulatory system; Z83.3 Family history of diabetes mellitus; Z82.5 Family history of asthma and other chronic lower respiratory diseases

== ENCOUNTER → 2016-10-01 | Outpatient (CLI) | payer OTHER ==
[~2016-10-01] VITALS: Ht 154.9 cm; Wt 50.0 kg
[~2016-10-01] MED LIST changes: +ALLERGY SHOTS INJ; -BLAC1TAB PO; +MAGN400T6 PO; +MULT1CHW18 PO; -SYMBICORT INH; +SYMIN160 INH; +TPM/50 PO
[2016-10-01 16:04] VITALS: BP 150/79; PULSE 61; Ht 154.9 cm; Wt 50.0 kg
== END | disposition home or self-care (01) ==
LOC: C.NEUR 14:40
PROVIDERS: ATTEND Internal Medicine Pulmonary Disease
DX: R55 Syncope and collapse (principal); R53.83 Other fatigue; G89.4 Chronic pain syndrome; M54.16 Radiculopathy, lumbar region; M51.36 Other intervertebral disc degeneration, lumbar region; I10 Essential (primary) hypertension

== ENCOUNTER 2016-10-18 09:29 | Observation (INO) | payer OTHER ==
--- NOTE | 2016-10-12 10:53 | PAT Medication Instructions ---
Service Date Oct 12, 2016. Current Home Medication List Alendronate/Cholecalciferol (Fosamax+D 70MG/2800 Iu), 1 TABLET PO WK Aspirin (Aspirin), 325 MG PO NOON Budesonide/Formoterol Fumarate (Symbicort 160/4.5 Inhaler ), 2 PUFFS INH BID PRN for Shortness of Breath Buprenorphine (Butrans), 1 PATCH TOP WK Calcium Carbonate-Vitamin D (Calcium + D), 1 TAB PO BID Carvedilol (Coreg), 3.125 MG PO QPM Fiber Laxative (Fiber Laxative), 1 TAB PO BID Flaxseed (Linseed) (Flaxseed Oil), 450 MG PO NOON Fluticasone Propionate (Nasal) (Flonase Allergy Relief), 1 SPRAYS ROSA PRN Folic Acid (Folvite), 800 MCG PO Q2D Hydrochlorothiazide (Hctz), 12.5 MG PO Q2D Latanoprost (Xalatan 0.005% Oph Colleen), 1 DROPS OP HS Lorazepam (Ativan), 0.5 MG PO Q6H PRN for Anxiety Magnesium Oxide (Mag-Ox), 400 MG PO Q2D Multiple Vitamins W/ Minerals (Multivitamin Gummies Adul), 1 DOSE PO QAM Naproxen (Aleve), 440 MG PO PRN Nitroglycerin (Nitrostat), 0.4 MG UT PRN [place]-3 Fatty Acids (Fish Oil), 1 CAP PO QID Pantoprazole (Protonix), 40 MG PO BID Pregabalin (Lyrica), 100 MG PO Q12 Quinapril Hcl (Accupril), 40 MG PO QAM Sennosides-Docusate Sodium (Stool Softener), 1 TAB PO TID Simvastatin (Zocor), 10 MG PO QPM Topiramate (Topamax ), 50 MG PO BID Topiramate (Topamax), 25 MG PO QPM [Allergy Shots], 1 DOSE INJ QMONTH Medication Instructions For Your Scheduled Surgery - Continue as directed: [Allergy Shots], 1 DOSE INJ QMONTH Alendronate/Cholecalciferol (Fosamax+D 70MG/2800 Iu), 1 TABLET PO WK Nitroglycerin (Nitrostat), 0.4 MG UT PRN Buprenorphine (Butrans), 1 PATCH TOP WK - Stopped at surgeon's instruction: Aspirin (Aspirin), 325 MG PO NOON [place]-3 Fatty Acids (Fish Oil), 1 CAP PO QID - Hold the following medications as of 10/12/16: Flaxseed (Linseed) (Flaxseed Oil), 450 MG PO NOON - Hold the following medications the morning of surgery: Multiple Vitamins W/ Minerals (Multivitamin Gummies Adul), 1 DOSE PO QAM Naproxen (Aleve), 440 MG PO PRN Magnesium Oxide (Mag-Ox), 400 MG PO Q2D Calcium Carbonate-Vitamin D (Calcium + D), 1 TAB PO BID Sennosides-Docusate Sodium (Stool Softener), 1 TAB PO TID Quinapril Hcl (Accupril), 40 MG PO QAM Folic Acid (Folvite), 800 MCG PO Q2D Hydrochlorothiazide (Hctz), 12.5 MG PO Q2D Fiber Laxative (Fiber Laxative), 1 TAB PO BID - Take the following medications the morning of surgery with a sip of water OTHERWISE NOTHING TO EAT OR DRINK AFTER MIDNIGHT: Topiramate (Topamax ), 50 MG PO BID Fluticasone Propionate (Nasal) (Flonase Allergy Relief), 1 SPRAYS ROSA PRN Lorazepam (Ativan), 0.5 MG PO Q6H PRN for Anxiety Pantoprazole (Protonix), 40 MG PO BID Pregabalin (Lyrica), 100 MG PO Q12 Budesonide/Formoterol Fumarate (Symbicort 160/4.5 Inhaler ), 2 PUFFS INH BID PRN for Shortness of Breath - Take the following medications as scheduled the night before surgery: Simvastatin (Zocor), 10 MG PO QPM Topiramate (Topamax), 25 MG PO QPM Topiramate (Topamax ), 50 MG PO BID Fluticasone Propionate (Nasal) (Flonase Allergy Relief), 1 SPRAYS ROSA PRN Lorazepam (Ativan), 0.5 MG PO Q6H PRN for Anxiety Calcium Carbonate-Vitamin D (Calcium + D), 1 TAB PO BID Sennosides-Docusate Sodium (Stool Softener), 1 TAB PO TID Pantoprazole (Protonix), 40 MG PO BID Pregabalin (Lyrica), 100 MG PO Q12 Latanoprost (Xalatan 0.005% Oph Colleen), 1 DROPS OP HS Carvedilol (Coreg), 3.125 MG PO QPM Fiber Laxative (Fiber Laxative), 1 TAB PO BID Budesonide/Formoterol Fumarate (Symbicort 160/4.5 Inhaler ), 2 PUFFS INH BID PRN for Shortness of Breath If you have any questions please call us at [phone] or [phone] or [phone]
[2016-10-12 12:37] LABS: URINE APPEARANCE CLEAR (CLEAR); URINE BILIRUBIN NEG (NEG); URINE COLOR YELLOW; URINE NITRITE NEG (NEG); URINE SPECIFIC GRAVITY 1.014 (1.000-1.030); UROBILINOGEN NEG (NEG); ZZUR CULT IF INDIC CLEAN CATCH NO
[2016-10-12 12:39] LABS: HEMATOCRIT 34.2 % (37-47); MEAN CELL VOLUME 86.6 fL (80-100); MEAN CORPUSCULAR HEMOGLOBIN 28.6 pg (25-34); MEAN PLATELET VOLUME 10.4 fL (7.4-10.4); PLATELET COUNT 256 K/uL (130-400); RED BLOOD COUNT 3.95 M/uL (4.2-5.4); WHITE BLOOD COUNT 4.69 K/uL (4.8-10.8)
[2016-10-12 12:42] LABS: BUN/CREATININE RATIO 25.5 (10-20); CALCIUM 8.7 mg/dl (8.5-10.1); CREATININE 0.89 mg/dl (0.60-1.20)
[2016-10-12 12:43] LABS: PROTHROMBIN TIME (PATIENT) 10.7 SECONDS (9.0-12.0)
[2016-10-12 12:48] LABS: MANUAL MICROSCOPIC REQUIRED? NO; REVIEW REQ? NO
[2016-10-12 13:29] LABS: BASO % 1.1 %; BASO ABS # 0.05 K/uL (0-0.2); COMPLETE YES; EOS % 1.7 %; IG% 0.2 %; LYMPH % 51.2 %; MONO % 9.8 %
[~2016-10-18] VITALS: Ht 154.9 cm; Wt 49.0 kg
[2016-10-18] VITALS (10 sets, daily range): BP systolic 110–183; BP diastolic 57–88; PULSE 53–67; TEMP 35.9–36.9; O2SAT 94–100; Ht 154.9 cm; Wt 49.0 kg
[~2016-10-18 09:29] MED LIST changes: +ATROPINE SULFATE 0.1 MG/ML 5ML SYR IV PRN; +EpHEDrine SULFATE INJ 50 MG/ML AMP IV PRN; +FENTANYL CITRATE INJ 50 MCG/1 ML 2 ML VIAL IV PRN; +HYDROmorphone INJ 1 MG/ML SYR IV PRN; +LABETALOL HCL IV 5 MG/ML 20ML IV PRN; +LACTATED RINGER'S 1000ML 1,000 ML IV SCH; +MEPERIDINE HCL 25 MG/ML CARP IV PRN; -MULT-506 PO; +ONDANSETRON INJ 2 MG/ML 2 ML VIAL IV PRN; +VANCOMYCIN 1GM/270ML NSS 270 ML IV SCH
[2016-10-18] MEDS ORDERED: MIDAZOLAM HCL 1 MG/ML 2ML VIAL ONE (12:19)
[2016-10-18] MEDS ORDERED: FENTANYL CITRATE INJ 50 MCG/1 ML 2 ML VIAL ONE (12:19)
--- NOTE | 2016-10-18 12:30 | History & Physical Bridge Note ---
H&P Re-Evaluation Bridge Note: I have examined the patient, reviewed the History & Physical and in the interval since the performance of the History & Physical I have noted the following changes of clinical significance: No changes noted
--- NOTE | 2016-10-18 12:31 | History and Physical ---
History & Physical Date Oct 18, 2016. Chief Complaint Chronic back and leg pain History of Present Illness The patient is a 71 year old female with complaints of Past Medical/Surgical History Medical Problems: (1) Brittle bone disease (2) GERD (gastroesophageal reflux disease) (3) TIA (transient ischemic attack) Additional History Hepatic Disease: No Endocrine Disorder: No Kidney Disease: No Hypertension: No Heart Disease: No Bleeding Tendencies: No Infectious Diseases: No Allergies Coded Allergies: Adhesives (Unverified Allergy, Unknown, SKIN IRRITATION, 10/18/16) Chocolate (Verified Allergy, Unknown, migraines, 10/18/16) Latex1 -Allergic Contact Dermititis (Verified Allergy, Unknown, rash, 10/18) depends on time of exposure Penicillins (Verified Allergy, Unknown, RASH, 10/18/16) Sulfa Antibiotics (Verified Allergy, Unknown, RASH, 10/18/16) Tramadol (Verified Allergy, Unknown, ITCHINESS, 10/18/16) Morphine (Verified Adverse Reaction, Severe, SEVERE HYPOTENSION, 10/18/16) Oxycodone (Verified Adverse Reaction, Unknown, NAUSEA AND VOMITING, ) Uncoded Allergies: HOT DOGS (Allergy, Unknown, migraines, 10/12/16) SOME MILK PRODUCTS (Allergy, Unknown, hives in lips area, 10/12/16) denies egg allergy Home Medications Scheduled Alendronate/Cholecalciferol (Fosamax+D 70MG/2800 Iu), 1 TABLET PO WK Aspirin (Aspirin), 325 MG PO NOON Buprenorphine (Butrans), 1 PATCH TOP WK Calcium Carbonate-Vitamin D (Calcium + D), 1 TAB PO BID Carvedilol (Coreg), 3.125 MG PO QPM Fiber Laxative (Fiber Laxative), 1 TAB PO BID Flaxseed (Linseed) (Flaxseed Oil), 450 MG PO NOON Fluticasone Propionate (Nasal) (Flonase Allergy Relief), 1 SPRAYS ROSA PRN Folic Acid (Folvite), 800 MCG PO Q2D Latanoprost (Xalatan 0.005% Oph Colleen), 1 DROPS OP HS Magnesium Oxide (Mag-Ox), 400 MG PO Q2D Multiple Vitamins W/ Minerals (Multivitamin Gummies Adul), 1 DOSE PO QAM Naproxen (Aleve), 440 MG PO PRN Nitroglycerin (Nitrostat), 0.4 MG UT PRN [place]-3 Fatty Acids (Fish Oil), 1 CAP PO QID Pantoprazole (Protonix), 40 MG PO BID Pregabalin (Lyrica), 100 MG PO Q12 Quinapril Hcl (Accupril), 40 MG PO QAM Sennosides-Docusate Sodium (Stool Softener), 1 TAB PO TID Simvastatin (Zocor), 10 MG PO QPM Topiramate (Topamax ), 50 MG PO BID Topiramate (Topamax), 25 MG PO QPM [Allergy Shots], 1 DOSE INJ QMONTH Scheduled PRN Budesonide/Formoterol Fumarate (Symbicort 160/4.5 Inhaler ), 2 PUFFS INH BID PRN for Shortness of Breath Lorazepam (Ativan), 0.5 MG PO Q6H PRN for Anxiety Physical Examination Skin: warm/dry, no rash Eyes: normal inspection, EOMI, sclerae normal ENT: normal ENT inspection, pharynx normal Head: normocephalic, atraumatic Neck: supple, no adenopathy, trachea midline Respiratory/Chest: lungs clear, normal breath sounds, no respiratory distress Cardiovascular: regular rate, rhythm, no edema, no murmur Abdomen / GI: normal bowel sounds, non tender Back: normal inspection Extremities: normal inspection, normal range of motion Neurologic/Psych: no motor/sensory deficits, alert, normal reflexes, oriented x 3 Diagnosis Chronic back and leg pain Plan of Treatment Removal of previous spinal cord stimulator leads and implantation of new spinal cord stimulator with rechargeable battery.
[2016-10-18] MEDS ORDERED: BACITRACIN 50000 UNIT VIAL ONE (12:43)
[2016-10-18] MEDS ORDERED: BUPIVACAINE/EPINEPHRINE 0.5% MPF 1:200,000 10 ML VIAL ONE (12:43)
[2016-10-18] MEDS ORDERED: HYDROmorphone INJ 2 MG/ML SYR/VIAL ONE (13:14)
[2016-10-18] MEDS ORDERED: ROCURONIUM BROMIDE 10 MG/ML 5 ML VIAL ONE (13:29)
[2016-10-18] MEDS ORDERED: ONDANSETRON INJ 2 MG/ML 2 ML VIAL ONE (13:29)
[2016-10-18] MEDS ORDERED: GLYCOPYRROLATE INJ 0.2 MG/ML VIAL ONE (13:29)
[2016-10-18] MEDS ORDERED: LIDOCAINE HCL 2% 2 ML VIAL (20MG/ML) ONE (13:29)
[2016-10-18] MEDS ORDERED: DEXAMETHASONE SOD INJ 4 MG/ML VIAL ONE (13:29)
[2016-10-18] MEDS ORDERED: NEOSTIGMINE METHYLSULFATE 1 MG/ML 10ML VIAL ONE (13:29)
[2016-10-18] MEDS ORDERED: PROPOFOL IV EMULSION 10 MG/ML 20 ML VIAL IV ONE (13:29)
[2016-10-18] MEDS ORDERED: FLOSEAL HEMOSTATIC MATRIX 10ML TOP ONE (14:42)
--- NOTE | 2016-10-18 14:44 | DIAGNOSTIC IMAGING REPORT ---
LUMBAR SPINE, INTRAOPERATIVE FLUOROSCOPY HISTORY: Removal of stimulator lead leads.. FLUOROSCOPY TIME: 6.6 seconds. A single fluoroscopic spot image submitted.. FINDINGS: Intraoperative fluoroscopy was provided for the lumbar spine. Single image demonstrates spinal stimulator leads at the T9 level. IMPRESSION: Fluoroscopy provided for a replacement of spinal stimulator leads. Electronically signed by: Dimitri Nicole M.D. 10/18/2016 2:42 PM Dictated Date/Time: 10/18/2016 2:41 PM
[2016-10-18] MEDS ORDERED: ACETAMINOPHEN 650 MG SUPP PR PRN (15:00)
[2016-10-18] MEDS ORDERED: HYDROmorphone INJ 1 MG/ML SYR IV PRN ×2 (15:00→17:00)
--- NOTE | 2016-10-18 15:03 | Discharge Instructions ---
Discharge Instructions Date of Service Oct 18, 2016. Admission Reason for Admission: Spinal Stenosis Discharge Discharge Diagnosis / Problem: chronic back pain Discharge Goals Goal(s): Decrease discomfort, Improve function Activity Recommendations Activity Limitations: per Instructions/Follow-up section . Instructions / Follow-Up Instructions / Follow-Up ACTIVITY RECOMMENDATIONS: SELF CARE INSTRUCTIONS AFTER A LAMINECTOMY 1. No prolonged sitting (less than 30 minutes for the first 3 weeks after surgery). 2. No bending, lifting more than 5 pounds, or twisting (roll like a log when turning in bed). 3. You may shower 3 days after surgery if no drainage from wound. Thoroughly dry wound. Do not soak in the tub. 4. Please walk as much as you can for exercise. Gradually increase the distance that you walk as your endurance increases. 5. You may drive in 7-10 days if you are comfortable and no longer requiring pain medications. SPECIAL CARE INSTRUCTIONS: VERY IMPORTANT TO READ AND REVIEW A. Your surgical incision has been closed with a cosmetic suture under the skin that will dissolve in about 6 weeks. In 14 days, you can use a pair of clean scissors and cut the suture that is left outside of the skin at the ends of your incision. B. Complications are uncommon, but please contact us if you have any signs or symptoms of: 1. wound infection (fever higher than 102.5 degrees F, redness, separation of wound, drainage, or increasing pain from the incision) 2. blood clots in legs (pain, swelling, redness and warmth in legs) 3. urinary tract infection (fever higher than 102.5 degrees, burning upon urination or increased frequency of urination) 4. nerve problems (inability to walk on your toes or heels, numbness, loss of bowel or bladder control) 5. any other symptoms that concern you. C. Please call the office at if you have any concerns or questions about your operation or recovery. MANAGING PAIN AFTER SPINAL SURGERY 1. Narcotic medication is intended for short-term use and will be provided for surgical pain. Surgical pain usually lasts for a period of 4-6 weeks. Narcotic medication includes Percocet, Vicodin, Darvocet, Tylenol #3 or Lortab. 2. Longer-term pain is more appropriately treated with non-narcotic medication such as Tylenol ES. 3. Muscle spasm is not appropriately treated with narcotics. Muscle relaxers such as Soma, Flexeril or Skelaxin can be used along with Tylenol ES. 4. Remember that we all live with some "aches and pains". This is not unusual or uncommon after an injury or as we get older. 5. We will provide appropriate medication within the normal guidelines of their prescribed use. We will also be very cautious and aware of potential abuse and extended duration of patients' medication needs. 6. Please allow 2-3 days to process refills. Prescriptions will not be mailed but must be picked up at the office. FOLLOW UP VISIT: Keep your scheduled follow-up appointment. Any questions, please call the office at . Current Hospital Diet Patient's current hospital diet: Discharge Diet Recommended Diet: Regular Diet Procedures Procedures Performed: Removal of previous spinal cord stimulator leads and implantation of new spinal cord stimulator Pending Studies Studies pending at discharge: no Medical Emergencies . Who to Call and When: Medical Emergencies: If at any time you feel your situation is an emergency, please call 911 immediately. . Non-Emergent Contact Non-Emergency issues call your: Primary Care Provider . "Provider Documentation" section prepared by Oral Olivares. . VTE Core Measure Inpt VTE Proph given/why not?: Frantz Goode, SCD's
--- NOTE | 2016-10-18 15:08 | [facility] Operative Report ---
Operative Report Operative Date Oct 18, 2016. Pre-Operative Diagnosis Chronic back and leg pain Post-Operative Diagnosis same Procedure(s) Performed #1 removal of spinal cord stimulator leads. #2 T10 11 and T11-T12 laminotomies. #3 placement of 16-lead dorsal calm stimulator paddle with attachment to the previously placed battery. Surgeon Dr. Sierra Olivares Scouring Pads Supervisor Surgeon(s) None Estimated Blood Loss 50ML Findings None Specimens None Description of Procedure Patient was met with preoperative early case discussed all questions are dressed. After informed consent patient was taken back to the operative suite and after undergoing successful intubation placed in a prone position the [place] table top [place] frame. All bony promises well-padded eyes inspected to ensure there is no external pressure placed upon them. This point the thoracal lumbar spine prepped draped nostril fashion. I then exposed a small area along the lumbar spine with the previous leads were sewn into position. We quickly identified the suture anchors and the removed without difficulty. I then was able to remove the dorsal constant later leads without difficulty. This complete then exposed the T10 11 thoracic space. However upon my laminotomy site at T10 quickly noted a significant amount of scarring from the previous place leads. I was unable to pass my Jose R without running in the scar tissue. Subsequently he was unable to pass the new dorsal constant later paddle lead. This required an additional laminotomy at the T11-T12 leg site to break up the adhesions and scarring along the dorsal aspect of the thoracic canal. After the to laminotomies and breaking up adhesions was able to comfortably pass the paddle lead in the appropriate position. After verifying our position with fluoroscopy to suture anchors were placed in the lead was sewn into position. The battery site was then opened sharp dissection. The battery removed in the previously placed leads detached. I then by way of a cannula passed the new lead wires to the battery site. There attached the battery was tested for efficacy. At this complete all incisions were copiously irrigated with interbody solution the battery was placed back in the pocket and sewn in position. With 2-0 Vicryl for Monocryl. The laminotomy site was closed with 1 Vicryl in the fascia tubercle simultaneously for Monocryl for final skin closure. Lastly the additional incision for removal of the previous leads was clonal closed with subcutaneous Vicryl and Monocryl. Sterile dressing was placed. Patient we can taken to PACU in stable condition. I attest to the content of the Intraoperative Record and any orders documented therein. Any exceptions are noted below.
--- NOTE | 2016-10-18 15:30 | Anesthesiology Progress Note ---
Anesthesia Post Op Note Date & Time Oct 18, 2016 at 15:30 Vital Signs Pain Intensity: 0 Vital Signs Past 12 Hours Date Time Temp Pulse Resp B/P (MAP) Pulse Ox O2 Delivery O2 Flow Rate FiO2 10/18/16 15:21 49 11 155/74 100 10/18/16 15:21 49 11 10/18/16 15:16 56 7 10/18/16 15:16 56 7 162/77 100 10/18/16 15:15 36.0 69 16 170/97 100 Mask 10 10/18/16 15:14 172/86 10/18/16 15:11 64 24 10/18/16 15:11 64 24 100 10/18/16 15:07 170/97 10/18/16 15:06 70 23 100 10/18/16 15:06 71 23 10/18/16 10:01 36.4 57 20 144/88 (106) 96 Room Air Notes Mental Status: alert / awake / arousable, participated in evaluation Pt Amnestic to Procedure: Yes Nausea / Vomiting: adequately controlled Pain: adequately controlled Airway Patency, RR, SpO2: stable & adequate BP & HR: stable & adequate Hydration State: stable & adequate Anesthetic Complications: no major complications apparent
[2016-10-18] MEDS: ACETAMINOPHEN 325 MG TAB PO PRN (16:23)
[2016-10-18] MEDS ORDERED: LORAZEPAM 1 MG TAB PO PRN (17:00)
[2016-10-18] MEDS ORDERED: ACETAMINOPHEN 325 MG TAB PO PRN (17:00)
[2016-10-18] MEDS ORDERED: NITROGLYCERIN 0.4 MG SL PER TAB CHARGE UT SCH (17:00)
[2016-10-18] MEDS ORDERED: FLUTICASONE PROPIONATE NA SPR 16 GM BTL NAE PRN (17:00)
[2016-10-18] MEDS ORDERED: KETOROLAC TROMETHAMINE 15 MG/ML VIAL IV. PRN (17:00)
[2016-10-18] MEDS ORDERED: BUDESONIDE/FORMOTEROL FUMARATE 160/4.5 60 PUFFS/INHALER INH PRN (17:00)
[2016-10-18] MEDS ORDERED: ACETAMINOPHEN 500 MG TAB PO PRN (17:00)
[2016-10-18] MEDS ORDERED: DO NOT ADMINISTER FLU VACCINE PRN ×3 (17:00)
[2016-10-18] MEDS ORDERED: MAGNESIUM HYDROXIDE SUSP 30 ML UDC PO PRN (17:00)
[2016-10-18] MEDS ORDERED: ONDANSETRON INJ 2 MG/ML 2 ML VIAL IV PRN (17:00)
[2016-10-18] MEDS ORDERED: LORAZEPAM INJ 1 MG in SYRINGE 0.5 ML IV PRN (17:00)
[2016-10-18] MEDS ORDERED: DO NOT ADMINISTER PNEUMOCOCCAL VACCINE PRN ×2 (17:00)
[2016-10-18] MEDS ORDERED: IV FLUIDS COMPLETED PRN (18:00)
[2016-10-18] MEDS ORDERED: HYDROmorphone INJ 2 MG/ML SYR/VIAL IV PRN (18:15)
[2016-10-18] MEDS: SODIUM CHLORIDE 0.9% 1000ML 1,000 ML IV SCH (18:43)
[2016-10-18] MEDS: DOCUSATE SODIUM 100 MG CAP PO SCH (20:46)
[2016-10-18] MEDS: PANTOprazole SOD 40 MG TAB PO SCH (20:48)
[2016-10-18] MEDS: PREGABALIN 100 MG CAP PO SCH (20:53)
[2016-10-18] MEDS ORDERED: TOPIRAMATE 25 MG TAB PO SCH (21:00)
[2016-10-18] MEDS ORDERED: SIMVASTATIN 10 MG TAB PO SCH (21:00)
[2016-10-18] MEDS ORDERED: CARVEDILOL 3.125 MG TAB PO SCH (21:00)
[2016-10-18] MEDS ORDERED: LATANOPROST 0.005% OP SOLN 2.5 ML BTL OP SCH (21:00)
[2016-10-19] MEDS: ACETAMINOPHEN 325 MG TAB PO PRN (02:10)
[2016-10-19 03:30] VITALS: BP 142/78; PULSE 61; TEMP 36.7; O2SAT 99
[2016-10-19] MEDS: SODIUM CHLORIDE 0.9% 1000ML 1,000 ML IV SCH (06:20)
[2016-10-19 07:25] VITALS: BP 122/70; PULSE 62; TEMP 36.7; O2SAT 98
[2016-10-19 07:58] VITALS: O2SAT 98
[2016-10-19] MEDS: PREGABALIN 100 MG CAP PO SCH (08:53)
[2016-10-19] MEDS: PANTOprazole SOD 40 MG TAB PO SCH (08:54)
[2016-10-19] MEDS: DOCUSATE SODIUM 100 MG CAP PO SCH (08:55)
[2016-10-19] MEDS ORDERED: MAGNESIUM OXIDE 400 MG TAB PO SCH (09:00)
[2016-10-19] MEDS ORDERED: ASPIRIN 325 MG ECTAB PO SCH (09:00)
[2016-10-19] MEDS ORDERED: TOPIRAMATE 50 MG TAB PO SCH (09:00)
--- NOTE | 2016-10-19 10:56 | Anesthesiology Progress Note ---
Anesthesia Post Op Note Date & Time Oct 19, 2016 at 10:55 Vital Signs Pain Intensity: 3.0 Vital Signs Past 12 Hours Date Time Temp Pulse Resp B/P (MAP) Pulse Ox O2 Delivery O2 Flow Rate FiO2 10/19/16 08:00 Room Air 10/19/16 07:58 98 Room Air 10/19/16 07:25 36.7 62 18 122/70 (87) 98 Room Air 10/19/16 03:30 36.7 61 18 142/78 (99) 99 Room Air 10/18/16 23:52 Room Air 10/18/16 23:00 36.9 61 18 116/60 (78) 98 Room Air Notes Mental Status: alert / awake / arousable, participated in evaluation Pt Amnestic to Procedure: Yes Nausea / Vomiting: adequately controlled Pain: adequately controlled Airway Patency, RR, SpO2: stable & adequate BP & HR: stable & adequate Hydration State: stable & adequate Anesthetic Complications: no major complications apparent
[2016-10-19 11:24] VITALS: BP 118/72; PULSE 64; TEMP 37.1; O2SAT 99
[2016-10-19 11:30] VITALS: BP 118/72; PULSE 64; TEMP 37.1; O2SAT 99
[2016-10-20] MEDS ORDERED: BISACODYL 5 MG TABEC PO PRN (06:00)
[2016-10-20] MEDS ORDERED: BISACODYL 10 MG SUPP PR PRN (06:00)
--- NOTE | 2016-10-20 10:20 | Discharge Summary ---
Orthopedic Discharge Summary Admission Date/Reason Oct 18, 2016 at 17:00 Spinal Stenosis. Discharge Date/Disposition Oct 19, 2016 Home Diagnosis Principal Diagnosis: Chronic back and leg pain Admission Physical Exam As per Admitting History & Physical. Hospital Course Patient underwent placement of 16-lead dorsal column stimulator paddle. She tolerated this well was taken to the orthopedic floor postoperatively. Postoperative day #1 she was already obtaining some relief from the new implant. Pain was controlled. Subsequently discharged home. Discharge orders and instructions found the chart for further review. Discharge Instructions Please refer to the electronic Patient Visit Report (Discharge Instructions) for additional information.
[2016-10-21] MEDS ORDERED: POLYETHYLENE (MIRALAX) 17 GM PACK PO SCH (09:00)
== END 2016-10-19 12:24 | disposition home or self-care (01) ==
LOC: C.ACU 09:29 → EDBEDREQ 16:57 → C.3E 17:00 → ENRESERV 17:07
PROVIDERS: ADMIT Orthopaedic Surgery Orthopaedic Surgery of the Spine; ATTEND Orthopaedic Surgery Orthopaedic Surgery of the Spine
DX: G89.29 Other chronic pain (principal); M54.6 Pain in thoracic spine; M79.606 Pain in leg, unspecified; Q78.0 Osteogenesis imperfecta; K21.9 Gastro-esophageal reflux disease without esophagitis; Z86.73 Personal history of transient ischemic attack (TIA), and cerebral infarction without residual deficits; Z79.82 Long term (current) use of aspirin; Z79.899 Other long term (current) drug therapy

== ENCOUNTER → 2016-11-26 | Outpatient (CLI) | payer OTHER ==
[~2016-11-26] MED LIST changes: -ATROPINE SULFATE 0.1 MG/ML 5ML SYR IV PRN; -EpHEDrine SULFATE INJ 50 MG/ML AMP IV PRN; -FENTANYL CITRATE INJ 50 MCG/1 ML 2 ML VIAL IV PRN; -HYDR12.56 PO; -HYDROmorphone INJ 1 MG/ML SYR IV PRN; -LABETALOL HCL IV 5 MG/ML 20ML IV PRN; -LACTATED RINGER'S 1000ML 1,000 ML IV SCH; -MEPERIDINE HCL 25 MG/ML CARP IV PRN; -ONDANSETRON INJ 2 MG/ML 2 ML VIAL IV PRN; -VANCOMYCIN 1GM/270ML NSS 270 ML IV SCH
== END | disposition home or self-care (01) ==
LOC: C.LABMFLN 11:35
PROVIDERS: ATTEND Family Medicine
DX: Z00.00 Encounter for general adult medical examination without abnormal findings (principal)

== ENCOUNTER → 2017-04-12 | Outpatient (CLI) | payer OTHER ==
[~2017-04-12] MED LIST changes: -FOLI1TAB7 PO; +FOLI1TAB8 PO
--- NOTE | 2017-04-12 11:10 | DIAGNOSTIC IMAGING REPORT ---
L-SPINE MIN 4 VIEWS ROUTINE HISTORY: Pain. Neuropathy. NEURITIS OR RADICULITIS THORACIC OR LUBOSACRAL UNSPEC COMPARISON: None. FINDINGS: There is no fracture. Findings consistent with posterior laminectomy and fusion from L2 through S1. A bio stimulator is present with the electrodes extending to the level of the superior endplate of T9. Disc spaces are present at L4-L5 and L5-S1. Alignment is anatomic. No evidence for compression deformity. Mild degenerative disc change throughout. IMPRESSION: Postoperative and degenerative change as described. No acute process. The above report was generated using voice recognition software. It may contain grammatical, syntax or spelling errors. Electronically signed by: Ish Alcocer M.D. 04/12/2017 11:08 AM Dictated Date/Time: 04/12/2017 11:05 AM
== END | disposition home or self-care (01) ==
LOC: C.RAD 10:41
PROVIDERS: ATTEND Psychiatry & Neurology Neurology
DX: M54.17 Radiculopathy, lumbosacral region (principal); M54.16 Radiculopathy, lumbar region

== ENCOUNTER → 2017-06-09 | Outpatient (CLI) | payer OTHER ==
--- NOTE | 2017-06-09 14:52 | DIAGNOSTIC IMAGING REPORT ---
MRI LUMBAR SPINE W/O CONTRAST CLINICAL HISTORY: LUMBAR SPINE PAIN TECHNIQUE: Sagittal and axial T1, T2 and STIR images were obtained. COMPARISON STUDY: Conventional radiographic study dated April 12, 2017 OBSERVATIONS: There are postsurgical changes with pedicle screws at the L2 L3 L4 and S1 levels. There is secondary artifact. There are no areas of marrow replacement to indicate neoplasm. L1-2: There is a mild circumferential disc bulge. There is minimal triangular spinal canal narrowing. There is no significant foraminal stenosis L2-3: No disc protrusions or extrusions. No evidence of spinal canal or neural foraminal compromise. L3-4: No disc protrusions or extrusions. No evidence of spinal canal or neural foraminal compromise. There is an L3 posterior laminectomy. L4-5: No disc protrusions or extrusions. No evidence of spinal canal or neural foraminal compromise. There is an L4 posterior laminectomy. There are postsurgical changes of a discectomy and interbody fusion. L5-S1: No disc protrusions or extrusions. No evidence of spinal canal or neural foraminal compromise. There is an L5 posterior laminectomy. There are postsurgical changes of a discectomy and interbody fusion. The conus medullaris and cauda equina appear normal. IMPRESSION: 1. Postsurgical changes of a posterior spinal fusion with pedicle screw fixation 2. Mild disc bulge at the L1-2 level with mild triangular spinal canal narrowing 3. No evidence of spinal stenosis at the L2-3 through L5-S1 levels Electronically signed by: Ted Barron M.D. 06/09/2017 2:50 PM Dictated Date/Time: 06/09/2017 2:44 PM
== END | disposition home or self-care (01) ==
LOC: C.MRI 13:38
PROVIDERS: ATTEND Physician Assistant
DX: M54.5 Low back pain (principal); Z98.1 Arthrodesis status; Z98.890 Other specified postprocedural states

== ENCOUNTER → 2017-10-04 | Day surgery (SDC) | payer OTHER ==
[2017-09-28 08:41] VITALS: Ht 154.9 cm; Wt 51.8 kg
[~2017-10-04] VITALS: Ht 154.9 cm; Wt 51.8 kg
[~2017-10-04] MED LIST changes: +ASPECOTC PO; -ASPI325T45 PO; +CHOL20007 PO; +ESCI10TA17 PO; +HYDR-5688 PO; +HYDR12.55 PO; +LIDOCAINE HCL 2% 2 ML VIAL (20MG/ML) ONE; +LYR50 PO; +PREG1CAP70 PO; +PROPOFOL IV EMULSION 10 MG/ML 20 ML VIAL ONE; +QUIN1TAB49 PO; -QUIN40TA18 PO; +SODIUM CHLORIDE 0.9% 500ML 500 ML IV ONE; +TIZA2CAP PO
--- NOTE | 2017-10-04 09:29 | Endo History and Physical ---
History & Physical Date of Service: Oct 04, 2017. Chief Complaint: Screening Referring Physician: Jeannette Marks History of Present Illness 72 yo CF who presents for screening colonoscopy. Past Surgical History Hx Cardiac Surgery: Yes (CARDIAC CATH NO STENTS-10 YRS AGO) Hx Internal Defibrillator: No (LOOP ELECTRODE PLACEMENT) Hx Abdominal Surgery: Yes (HERNIA,TUBAL,GALLBLADDER,HYSTERECTOMY(OVARY REMAINS) ) Hx of Implantable Prosthesis: No Hx Post-Op Nausea and Vomiting: No Hx Cancer Surgery: No Hx Thoracic Surgery: No Hx Orthopedic: Yes (RT KNEE,RT FOOT,LUMBAR FUSION X 2,CYST RT HAND,R CTR, L CTR ) Hx Urinary Tract Surgery: No Family History None Social History Smoking Status: Never Smoker Hx Substance Use: No Hx Alcohol Use: No Allergies Coded Allergies: Adhesives (Unverified Allergy, Unknown, SKIN IRRITATION, 10/04/17) Chocolate (Verified Allergy, Unknown, migraines, 10/04/17) Hotdogs (Verified Allergy, Unknown, MIGRAINES, 10/04/17) Latex1 -Allergic Contact Dermititis (Verified Allergy, Unknown, rash, 10/04) depends on time of exposure Milk (Verified Allergy, Unknown, SOME MILK PRODUCTS-HIVES IN MOUTH, ) Penicillins (Verified Allergy, Unknown, RASH, 10/04/17) Sulfa Antibiotics (Verified Allergy, Unknown, RASH, 10/04/17) Tramadol (Verified Allergy, Unknown, ITCHINESS, 10/04/17) Morphine (Verified Adverse Reaction, Severe, SEVERE HYPOTENSION, 10/04/17) Oxycodone (Verified Adverse Reaction, Unknown, NAUSEA AND VOMITING, ) Current Medications Reported Home Medications Medications Dose Route/Sig Max Daily Dose Days Date Category Dose Instructions Lyrica (Pregabalin) 150 Mg Cap 150 Mg PO HS 09/28/17 Reported Lyrica (Pregabalin) 50 Mg Cap 50 Mg PO QPM 09/28/17 Reported Zanaflex (Tizanidine HCl) 2 Mg Cap 2 Mg PO TID PRN 09/28/17 Reported Lexapro (Escitalopram Oxalate) 10 Mg Tab 10 Mg PO QAM 09/28/17 Reported [place] 5MG/325MG (Acetaminophen/Hydrocodone Bitart) Tab 1 Tablet PO Q6H PRN 09/28/17 Reported PRN PAIN Hydrochlorothiazide 12.5 Mg Tab 1 Tab PO QAM 90 09/28/17 Reported [Allergy Shots] 1 Dose INJ QMONTH PRN 10/12/16 Reported Topamax (Topiramate) 50 Mg Tab 75 Mg PO QPM 10/12/16 Reported Multivitamin Gummies Adul (Multiple Vitamins W/ Minerals) 1 Chw Chw 1 Dose PO QAM 10/12/16 Reported Mag-Ox (Magnesium Oxide) 400 Mg Tab 400 Mg PO Q2D 09/30/16 Reported Symbicort 160/4.5 Inhaler (Budesonide/Formoterol Fumarate) Aero 2 Puffs INH BID PRN 09/30/16 Reported Aleve (Naproxen) 220 Mg Tab 440 Mg PO PRN 08/05/16 Reported Flonase Allergy Relief (Fluticasone Propionate (Nasal)) 50 Mcg/Act Spr 1 Sprays ROSA PRN 08/05/16 Reported Nitrostat (Nitroglycerin) 0.4 Mg Tab 0.4 Mg UT PRN 08/05/16 Reported Protonix (Pantoprazole Sodium) 40 Mg Tab 40 Mg PO BID 08/05/16 Reported Flaxseed Oil (Flaxseed (Linseed)) 1,000 Mg Cap 450 Mg PO NOON 06/29/16 Reported Fish Oil ([place]-3 Fatty Acids) 1 Cap Cap 1 Cap PO QID 06/07/16 Reported Calcium + D (Calcium Carbonate-Vitamin D) 1 Tab Tab 1 Tab PO BID 06/07/16 Reported Folvite (Folic Acid) 1 Mg Tab 800 Mcg PO Q2D 06/07/16 Reported PM Aspirin 325 Mg Tab 325 Mg PO NOON 06/07/16 Reported PT WILL CHECK WITH PCP Stool Softener (Sennosides-Docusate Sodium) 1 Tab Tab 1 Tab PO TID 06/07/16 Reported Fiber Laxative (Fiber) Ea 1 Tab PO BID 06/07/16 Reported Xalatan 0.005% Oph Colleen (Latanoprost) 0.005 % Colleen 1 Drops OP HS 06/07/16 Reported Butrans (Buprenorphine) 20 Mcg/Hr Dis 1 Patch TOP WK 28 06/07/16 Reported changes patch every Fosamax+D 70MG/2800 Iu (Alendronate Sodium/Vitamin D3) 70 Mg Tab 1 Tablet PO WK 06/07/16 Reported SATURDAYS Zocor (Simvastatin) 10 Mg Tab 10 Mg PO QPM 06/07/16 Reported Accupril (Quinapril HCl) 40 Mg Tab 40 Mg PO QAM 06/07/16 Reported Topamax (Topiramate) 25 Mg Tab 50 Mg PO NOON 06/07/16 Reported Coreg (Carvedilol) 3.125 Mg Tab 3.125 Mg PO BID 06/07/16 Reported Ativan (Lorazepam) 0.5 Mg Tab 0.5 Mg PO Q6H PRN 06/07/16 Reported Lyrica (Pregabalin) 100 Mg Cap 100 Mg PO QAM 06/07/16 Reported Vital Signs Weight (Kilograms): 51.82 Height (Feet): 5 Height (Inches): 1 Date Time Temp Pulse Resp B/P (MAP) Pulse Ox O2 Delivery O2 Flow Rate FiO2 10/04/17 09:10 36.6 53 18 132/74 (93) 100 Room Air Physical Exam General Appearance: WD/WN, no apparent distress Respiratory/Chest: Auscultation: breath sounds normal Cardiovascular: Heart Auscultation: RRR Abdomen: Bowel Sounds: normal Inspection & Palpation: soft, non-distended, no tenderness, guarding & rebound Assessment and Plan Assessment: 72 yo CF who presents for screening colonoscopy. Plan: Proceed with colonoscopy.
--- NOTE | 2017-10-04 10:01 | GI REPORT ---
Patient Name: Camelia Hayes Procedure Date: 10/04/2017 9:24 AM Date of : 1945 Admit Type: Outpatient Age: 72 Gender: Female Attending MD: Franky Dubose DO Procedure: Colonoscopy Providers: Franky Dubose DO Referring MD: Jeannette Marks Indications: Screening for colorectal malignant neoplasm Medicines: Monitored Anesthesia Care Complications: No immediate complications. Estimated Blood Loss: Estimated blood loss: none. Procedure: Pre-Anesthesia Assessment: - Prior to the procedure, a History and Physical was performed, and patient medications and allergies were reviewed. The patient's tolerance of previous anesthesia was also reviewed. The risks and benefits of the procedure and the sedation options and risks were discussed with the patient. All questions were answered, and informed consent was obtained. Prior Anticoagulants: The patient has taken aspirin, last dose was 14 days prior to procedure. ASA Grade Assessment: III - A patient with severe systemic disease. After reviewing the risks and benefits, the patient was deemed in satisfactory condition to undergo the procedure. After I obtained informed consent, the scope was passed under direct vision. Throughout the procedure, the patient's blood pressure, pulse, and oxygen saturations were monitored continuously. The scope was introduced through the anus and advanced to the terminal ileum. The colonoscopy was performed without difficulty. The patient tolerated the procedure well. The quality of the bowel preparation was good. The terminal ileum, ileocecal valve, appendiceal orifice, and rectum were photographed. Findings: The perianal and digital rectal examinations were normal. Non-bleeding internal hemorrhoids were found during retroflexion. The hemorrhoids were small. Impression: - Non-bleeding internal hemorrhoids. - No specimens collected. Recommendation: - Resume previous diet. - Continue present medications. - No repeat colonoscopy due to age and the absence of advanced adenomas. - Return to primary care physician as previously scheduled. Franky Dubose DO 10/04/2017 10:00:56 AM This report has been signed electronically. Note Initiated On: 10/04/2017 9:24 AM Number of Addenda: 0 I attest to the content of the Intraoperative Record and orders documented therein, exceptions below {[id number]}
--- NOTE | 2017-10-04 10:05 | Discharge Instructions ---
Endoscopy Patient Instructions Date / Procedure(s) Performed Oct 04, 2017. Colonoscopy Allergy Information Coded Allergies: Adhesives (Unverified Allergy, Unknown, SKIN IRRITATION, 10/04/17) Chocolate (Verified Allergy, Unknown, migraines, 10/04/17) Hotdogs (Verified Allergy, Unknown, MIGRAINES, 10/04/17) Latex1 -Allergic Contact Dermititis (Verified Allergy, Unknown, rash, 10/04) depends on time of exposure Milk (Verified Allergy, Unknown, SOME MILK PRODUCTS-HIVES IN MOUTH, ) Penicillins (Verified Allergy, Unknown, RASH, 10/04/17) Sulfa Antibiotics (Verified Allergy, Unknown, RASH, 10/04/17) Tramadol (Verified Allergy, Unknown, ITCHINESS, 10/04/17) Morphine (Verified Adverse Reaction, Severe, SEVERE HYPOTENSION, 10/04/17) Oxycodone (Verified Adverse Reaction, Unknown, NAUSEA AND VOMITING, ) Discharge Date / Findings Oct 04, 2017. Internal hemorrhoids Medication Instructions Stopped Medication(s): ASA OK to resume all medications today as prescribed Reported Home Medications Medications Dose Route/Sig Max Daily Dose Days Date Category Dose Instructions Lyrica (Pregabalin) 150 Mg Cap 150 Mg PO HS 09/28/17 Reported Lyrica (Pregabalin) 50 Mg Cap 50 Mg PO QPM 09/28/17 Reported Zanaflex (Tizanidine HCl) 2 Mg Cap 2 Mg PO TID PRN 09/28/17 Reported Lexapro (Escitalopram Oxalate) 10 Mg Tab 10 Mg PO QAM 09/28/17 Reported [place] 5MG/325MG (Acetaminophen/Hydrocodone Bitart) Tab 1 Tablet PO Q6H PRN 09/28/17 Reported PRN PAIN Hydrochlorothiazide 12.5 Mg Tab 1 Tab PO QAM 90 09/28/17 Reported [Allergy Shots] 1 Dose INJ QMONTH PRN 10/12/16 Reported Topamax (Topiramate) 50 Mg Tab 75 Mg PO QPM 10/12/16 Reported Multivitamin Gummies Adul (Multiple Vitamins W/ Minerals) 1 Chw Chw 1 Dose PO QAM 10/12/16 Reported Mag-Ox (Magnesium Oxide) 400 Mg Tab 400 Mg PO Q2D 09/30/16 Reported Symbicort 160/4.5 Inhaler (Budesonide/Formoterol Fumarate) Aero 2 Puffs INH BID PRN 09/30/16 Reported Aleve (Naproxen) 220 Mg Tab 440 Mg PO PRN 08/05/16 Reported Flonase Allergy Relief (Fluticasone Propionate (Nasal)) 50 Mcg/Act Spr 1 Sprays ROSA PRN 08/05/16 Reported Nitrostat (Nitroglycerin) 0.4 Mg Tab 0.4 Mg UT PRN 08/05/16 Reported Protonix (Pantoprazole Sodium) 40 Mg Tab 40 Mg PO BID 08/05/16 Reported Flaxseed Oil (Flaxseed (Linseed)) 1,000 Mg Cap 450 Mg PO NOON 06/29/16 Reported Fish Oil ([place]-3 Fatty Acids) 1 Cap Cap 1 Cap PO QID 06/07/16 Reported Calcium + D (Calcium Carbonate-Vitamin D) 1 Tab Tab 1 Tab PO BID 06/07/16 Reported Folvite (Folic Acid) 1 Mg Tab 800 Mcg PO Q2D 06/07/16 Reported PM Aspirin 325 Mg Tab 325 Mg PO NOON 06/07/16 Reported PT WILL CHECK WITH PCP Stool Softener (Sennosides-Docusate Sodium) 1 Tab Tab 1 Tab PO TID 06/07/16 Reported Fiber Laxative (Fiber) Ea 1 Tab PO BID 06/07/16 Reported Xalatan 0.005% Oph Colleen (Latanoprost) 0.005 % Colleen 1 Drops OP HS 06/07/16 Reported Butrans (Buprenorphine) 20 Mcg/Hr Dis 1 Patch TOP WK 28 06/07/16 Reported changes patch every Fosamax+D 70MG/2800 Iu (Alendronate Sodium/Vitamin D3) 70 Mg Tab 1 Tablet PO WK 06/07/16 Reported SATURDAYS Zocor (Simvastatin) 10 Mg Tab 10 Mg PO QPM 06/07/16 Reported Accupril (Quinapril HCl) 40 Mg Tab 40 Mg PO QAM 06/07/16 Reported Topamax (Topiramate) 25 Mg Tab 50 Mg PO NOON 06/07/16 Reported Coreg (Carvedilol) 3.125 Mg Tab 3.125 Mg PO BID 06/07/16 Reported Ativan (Lorazepam) 0.5 Mg Tab 0.5 Mg PO Q6H PRN 06/07/16 Reported Lyrica (Pregabalin) 100 Mg Cap 100 Mg PO QAM 06/07/16 Reported Provider Instructions Activity Restrictions - No exercising or heavy lifting for 24 hours. - Do not drink alcohol the day of the procedure. - Do not drive a car or operate machinery until the day after the procedure. - Do not make any important decisions or sign important papers in 24 hours after the procedure. Following Day: - Return to full activity which may include returning to work/school. Diet Start your diet with liquids and light foods (jello, soup, juice, toast). Then eat your usual diet if not nauseated. Treatment For Common After Affects For mild abdominal pain, bloating, or excessive gas: - Rest - Eat lightly - Lie on right side Follow-Up Information Follow-up with Jeannette Marks as scheduled Anesthesia Information What You Should Know You have had a procedure that required some medicine to reduce anxiety and discomfort. This treatment is called moderate sedation. After receiving the treatment, you may be sleepy, but you will be able to breathe on your own. The effects of the treatment may last for several hours. Follow these instructions along with Activity/Diet recommendations noted above: * Do NOT do anything where dizziness or clumsiness would be dangerous. * Rest quietly at home today, then you can be up and about tomorrow. * Have a responsible person stay with you the rest of today. * You may have had an I.V. today. If so, you may take the dressing off later today. Recommendations Call your doctor if: * Trouble breathing * Continuous vomiting for more than 24 hours * Temperature above 101 degrees * Severe abdominal pain or bloating * Pain not relieved by pain medicine ordered * There is increased drainage or redness from any incision * A large amount of rectal bleeding greater than 2-3 tablespoons. (If you had a polyp/s removed or have hemorrhoids, a small amount of blood - from the rectum is to be expected.) * You have any unanswered questions or concerns. IN THE EVENT OF A SERIOUS EMERGENCY, GO TO THE NEAREST EMERGENCY ROOM Your discharge instructions were prepared by provider Franky Dubose. Patient Instructions Signature Page Camelia Hayes Patient (or Guardian) Signature/Date: I have read and understand the instructions given to me by my caregivers. Caregiver/RN/Doctor Signature/Date: The above-named patient and/or guardian has received patient instructions on this date. + Original Patient Signature Page (only) stays with chart. Please make copy for patient.
[2017-10-04 10:26] VITALS: BP 144/85; PULSE 53; O2SAT 99
--- NOTE | 2017-10-04 10:40 | Anesthesiology Progress Note ---
Anesthesia Post Op Note Date & Time Oct 04, 2017 at 10:40 Vital Signs Pain Intensity: 0 Vital Signs Past 12 Hours Date Time Temp Pulse Resp B/P (MAP) Pulse Ox O2 Delivery O2 Flow Rate FiO2 10/04/17 10:26 53 18 144/85 (104) 99 Room Air 10/04/17 10:13 55 18 131/67 (88) 99 Room Air 10/04/17 09:58 36.0 52 16 111/57 (75) 100 Room Air 10/04/17 09:10 36.6 53 18 132/74 (93) 100 Room Air Notes Mental Status: alert / awake / arousable, participated in evaluation Pt Amnestic to Procedure: Yes Nausea / Vomiting: adequately controlled Pain: adequately controlled Airway Patency, RR, SpO2: stable & adequate BP & HR: stable & adequate Hydration State: stable & adequate Anesthetic Complications: no major complications apparent
== END | disposition home or self-care (01) ==
LOC: C.GI 07:50
PROVIDERS: ATTEND Internal Medicine
DX: Z12.11 Encounter for screening for malignant neoplasm of colon (principal); K64.8 Other hemorrhoids; J45.909 Unspecified asthma, uncomplicated; I10 Essential (primary) hypertension; M19.90 Unspecified osteoarthritis, unspecified site; F41.9 Anxiety disorder, unspecified; F32.9 Major depressive disorder, single episode, unspecified; Z86.73 Personal history of transient ischemic attack (TIA), and cerebral infarction without residual deficits; Z88.0 Allergy status to penicillin; Z88.2 Allergy status to sulfonamides; Z88.5 Allergy status to narcotic agent; Z91.018 Allergy to other foods; Z91.040 Latex allergy status; Z91.011 Allergy to milk products; Z79.82 Long term (current) use of aspirin; Z79.899 Other long term (current) drug therapy

== ENCOUNTER 2019-09-27 07:38 | Inpatient (IN) ==
--- NOTE | 2019-09-12 16:18 | PAT Medication Instructions ---
Medication Instructions Date of Service September 12, 2019 Home Medications Medication Instructions Recorded albuterol sulfate 2.5 mg INHALATION Q4H PRN #180 ml 11/24/18 alendronate 70 mg tablet 70 mg PO WK #12 tab 11/24/18 nitroglycerin 0.4 mg sublingual 0.4 mg SL Q5M PRN #25 tab 11/24/18 tablet tizanidine 2 mg tablet 2 mg PO TID PRN #60 tab 11/24/18 rifaximin 550 mg tablet 550 mg PO TID 14 Days #42 tab 05/02/19 carvedilol 3.125 mg tablet 3.125 mg PO BID #180 tab 05/23/19 simvastatin 10 mg tablet 10 mg PO QPM #90 tab 05/23/19 quinapril 40 mg tablet 40 mg PO QAM #90 tab 06/07/19 pantoprazole 40 mg tablet,delayed 40 mg PO QAM #90 tab 06/18/19 release buprenorphine 20 mcg/hour weekly 1 patch TRANSDERMAL Q7D #4 ea 07/11/19 transdermal patch hydrocodone 5 mg-acetaminophen 325 See Rx Instructions PO TID PRN #90 07/13/19 mg tablet tab dicyclomine 10 mg capsule 20 mg PO QID 30 Days #240 cap 09/11/19 albuterol sulfate 2.5 mg INHALATION Q4H PRN alendronate 70 mg tablet 70 mg PO WK nitroglycerin 0.4 mg sublingual tablet 0.4 mg SL Q5M PRN tizanidine 2 mg tablet 2 mg PO TID PRN primidone 50 mg tablet 25 mg PO ACHS rifaximin 550 mg tablet 550 mg PO TID aspirin 325 mg PO 1200 calcium carbonate-vitamin D3 1 tab PO BID escitalopram oxalate 20 mg PO QAM hydrochlorothiazide 12.5 mg PO QAM multivitamin [Multiple Vitamins] 1 tab PO QAM topiramate 75 mg PO BID carvedilol 3.125 mg tablet 3.125 mg PO BID simvastatin 10 mg tablet 10 mg PO QPM quinapril 40 mg tablet 40 mg PO QAM pantoprazole 40 mg tablet,delayed release 40 mg PO QAM buprenorphine 20 mcg/hour weekly transdermal patch 1 patch TRANSDERMAL Q7D hydrocodone 5 mg-acetaminophen 325 mg tablet See Rx Instructions PO TID PRN budesonide-formoterol [Symbicort] 2 puff INHALATION BID PRN dicyclomine 10 mg capsule 20 mg PO QID magnesium hydroxide 250 mg PO Q OTHER DAY omega-3 fatty acids [Fish Oil Concentrate] 1,000 mg PO ACHS pregabalin 50 mg PO TID Continue as directed alendronate 70 mg tablet 70 mg PO WK buprenorphine 20 mcg/hour weekly transdermal patch 1 patch TRANSDERMAL Q7D (do not put on surgical site) ASK your prescriber and surgeon aspirin 325 mg PO 1200 STOP taking 2 weeks before surgery omega-3 fatty acids [Fish Oil Concentrate] 1,000 mg PO ACHS DO NOT take the morning of surgery tizanidine 2 mg tablet 2 mg PO TID PRN magnesium hydroxide 250 mg PO Q OTHER DAY dicyclomine 10 mg capsule 20 mg PO QID rifaximin 550 mg tablet 550 mg PO TID calcium carbonate-vitamin D3 1 tab PO BID hydrochlorothiazide 12.5 mg PO QAM multivitamin [Multiple Vitamins] 1 tab PO QAM quinapril 40 mg tablet 40 mg PO QAM Take morning of surgery With a small sip of water, OTHERWISE NOTHING TO EAT OR DRINK AFTER MIDNIGHT: albuterol sulfate 2.5 mg INHALATION Q4H PRN (if needed) nitroglycerin 0.4 mg sublingual tablet 0.4 mg SL Q5M PRN (if needed) pregabalin 50 mg PO TID hydrocodone 5 mg-acetaminophen 325 mg tablet See Rx Instructions PO TID PRN (okay to take up to 4 hours prior to surgery if needed) budesonide-formoterol [Symbicort] 2 puff INHALATION BID PRN (if needed) primidone 50 mg tablet 25 mg PO ACHS escitalopram oxalate 20 mg PO QAM topiramate 75 mg PO BID carvedilol 3.125 mg tablet 3.125 mg PO BID pantoprazole 40 mg tablet,delayed release 40 mg PO QAM budesonide-formoterol [Symbicort] 2 puff INHALATION BID PRN (if needed) Take evening before surgery albuterol sulfate 2.5 mg INHALATION Q4H PRN (if needed) nitroglycerin 0.4 mg sublingual tablet 0.4 mg SL Q5M PRN (if needed) tizanidine 2 mg tablet 2 mg PO TID PRN primidone 50 mg tablet 25 mg PO ACHS rifaximin 550 mg tablet 550 mg PO TID calcium carbonate-vitamin D3 1 tab PO BID topiramate 75 mg PO BID carvedilol 3.125 mg tablet 3.125 mg PO BID simvastatin 10 mg tablet 10 mg PO QPM hydrocodone 5 mg-acetaminophen 325 mg tablet See Rx Instructions PO TID PRN (if needed) budesonide-formoterol [Symbicort] 2 puff INHALATION BID PRN(if needed) dicyclomine 10 mg capsule 20 mg PO QID pregabalin 50 mg PO TID Other Notes If you have any questions please call us at [phone] or [phone] or [phone] or [phone]
--- NOTE | 2019-09-13 12:03 | Anesthesiology Consultation ---
Date of Service September 13, 2019 Assessment & Plan (1) Encounter for pre-operative examination: Chart Review Chart Review: Pending: Refer to Additional Notes / Consult section (pending 09/16 PCP clearance ) and Patient seen in Pre Admission Testing Awaiting PCP clearance scheduled 09/16 Per PAT appt 09/13/19, no recent travel. Pt resides in [facility]. Educated patient to follow up with surgeon's office regarding Covid testing. Educated on importance of self quarantining, social distancing and wearing mask in public both for the patient and household contacts. Teaching & Discussion Pre-Anesthesia Teaching/Discussion Notes: Instructed NPO after midnight before surgery,except medications with 15 cc of water. Medication instructions provided according to the PAT guidelines. History Surgery Operation Date: 09/27/19 10:05 Proposed Procedures p Right Sacroiliac Joint Fusion - Oral Olivares DO Height/Weight Height: 4 ft 9 in Weight: 57.1 kg Allergies Allergy/AdvReac Type Severity Reaction Status Date / Time morphine Allergy Severe SEVERE Verified 09/11/19 14:14 HYPOTENSION milk Allergy Intermediate SOME MILK Verified 09/11/19 14:14 PRODUCTS-HIVES IN MOUTH adhesive Allergy Mild SKIN Verified 09/11/19 14:14 IRRITATION chocolate flavor Allergy Mild migraines Verified 09/11/19 14:14 latex Allergy Mild rash Verified 09/11/19 14:14 Penicillins Allergy Mild RASH Verified 09/11/19 14:14 Sulfa (Sulfonamide Allergy Mild RASH Verified 09/11/19 14:14 Antibiotics) tramadol Allergy Mild ITCHINESS Verified 09/11/19 14:14 oxycodone AdvReac Mild NAUSEA AND Verified 09/11/19 14:14 VOMITING Hotdogs Allergy Mild MIGRAINES Uncoded 09/11/19 14:14 margarine AdvReac Intermediate GI upset Uncoded 09/13/19 12:06 Medications Home Medications Medication Instructions Recorded Confirmed Last Taken albuterol sulfate 2.5 mg INHALATION Q4H PRN #180 ml 11/24/18 09/11/19 Unknown alendronate 70 mg tablet 70 mg PO WK #12 tab 11/24/18 09/11/19 07/14/19 08:00 nitroglycerin 0.4 mg sublingual 0.4 mg SL Q5M PRN #25 tab 11/24/18 09/11/19 Unknown tablet tizanidine 2 mg tablet 2 mg PO TID PRN #60 tab 11/24/18 09/11/19 07/16/19 21:00 primidone 50 mg tablet 25 mg PO ACHS tab 03/15/19 09/11/19 07/16/19 21:00 rifaximin 550 mg tablet 550 mg PO TID 14 Days #42 tab 05/02/19 09/11/19 07/16/19 21:00 aspirin 325 mg PO 1200 05/14/19 09/11/19 Unknown calcium carbonate-vitamin D3 1 tab PO BID 05/14/19 09/11/19 06/12/19 08:00 escitalopram oxalate 20 mg PO QAM 05/14/19 09/11/19 07/17/19 09:00 hydrochlorothiazide 12.5 mg PO QAM 05/14/19 09/11/19 07/16/19 08:00 multivitamin [Multiple Vitamins] 1 tab PO QAM 05/14/19 09/11/19 07/16/19 08:00 topiramate 75 mg PO BID 05/14/19 09/11/19 07/16/19 21:00 carvedilol 3.125 mg tablet 3.125 mg PO BID #180 tab 05/23/19 09/11/19 07/17/19 09:00 simvastatin 10 mg tablet 10 mg PO QPM #90 tab 05/23/19 09/11/19 07/16/19 21:00 quinapril 40 mg tablet 40 mg PO QAM #90 tab 06/07/19 09/11/19 07/17/19 09:00 pantoprazole 40 mg tablet,delayed 40 mg PO QAM #90 tab 06/18/19 09/11/19 07/17/19 09:00 release buprenorphine 20 mcg/hour weekly 1 patch TRANSDERMAL Q7D #4 ea 07/11/19 09/11/19 06/28/19 transdermal patch hydrocodone 5 mg-acetaminophen 325 See Rx Instructions PO TID PRN #90 07/13/19 09/11/19 07/16/19 08:00 mg tablet tab budesonide-formoterol [Symbicort] 2 puff INHALATION BID PRN 09/11/19 09/11/19 Unknown dicyclomine 10 mg capsule 20 mg PO QID 30 Days #240 cap 09/11/19 Unknown magnesium hydroxide 250 mg PO Q OTHER DAY 09/11/19 09/11/19 Unknown omega-3 fatty acids [Fish Oil 1,000 mg PO ACHS 09/11/19 09/11/19 Unknown Concentrate] pregabalin 50 mg PO TID 09/11/19 09/11/19 Unknown Past Medical History Medical History (Updated 09/13/19 @ 12:11 by Aspen Elaine PA-C) Ascending aorta dilation Per 2017 CTA of chest/thorax- "slight prominence ascending aorta at 3.6cm" NO FURTHER FOLLOW UPS Asthma nebulizer prn> WELL CONTROLLED PER PATIENT Degeneration of cervical intervertebral disc Depression Dyslipidemia Fluid retention in legs RECENTLY STARTED- WILL BE SEEING PCP FOR THIS ON 09/16 GERD (gastroesophageal reflux disease) Well controlled and stable with meds Glaucoma History of kidney stones PASSED ON OWN HTN (hypertension) IBS (irritable bowel syndrome) Having flare currently- follow up with PCP Migraines Osteoarthritis Osteoporosis, post-menopausal Peripheral neuropathy Noted to hands and feet Sinus bradycardia Temporomandibular joint disorder Pt states no issues with intubating; hx of jaw locking- has not locked for years TIA (transient ischemic attack) 2005, 2016--follows with Dr. Lopez (neuro) at [place]--no deficits, reason for aspirin Tremor Noted to hands Past Surgical History Surgical History (Updated 09/13/19 @ 12:11 by Aspen Elaine PA-C) H/O arthroscopic knee surgery right H/O colonoscopy H/O foot surgery right foot 2nd toe H/O oophorectomy unsure which History of cardiac cath 2005> DUE TO TIA, NO STENTS > [facility] History of dilatation and curettage History of esophagogastroduodenoscopy (EGD) History of inguinal hernia repair History of left cataract extraction History of loop recorder DOESNT COME OUT UNTIL NOV 2019 (NO RECENT SYMPTOMS AND NO NOTED ARRYTHMIAS) History of lumbar fusion History of lumbar laminectomy History of partial hysterectomy History of sinus surgery History of wisdom tooth extraction Hx of appendectomy Hx of right cataract extraction S/P breast lumpectomy right--benign S/P carpal tunnel release bilt S/P cholecystectomy S/P rotator cuff repair x2--one on right and one on left S/P tubal ligation Spinal cord stimulator status INSTRUCTED TO BRING CONTROL Past Anesthesia History No Hx of Anesthesia Complications and No Family Hx of Anesthesia Complications History of PONV No Hx of PONV and No Hx of Motion Sickness Social History Smoking Status: Never smoker Do You Dip or Chew Tobacco: No Hx Alcohol Use: No Hx Substance Use: No substance use type: does not use Review of Systems Patient denies chest pain, shortness of breath, dyspnea on exertion, cough, wheezing, palpitations. No hx of seizures, MO, apnea/snoring. No hx of blood clots or blood transfusions Physical Exam Vital Signs VITALS BP 135/69 P 59 TEMP 98.2 SP02 96% RESP 16 Constitutional no acute distress ENMT Mouth: no TMJ clicking Thyromental Distance: < 3.5 Finger Breadths (3.0) Mallampati Class: III Bottom front tooth chipped Upper permanent front teeth implants Neck + limited neck extension (significant ) Respiratory normal respiratory effort; no respiratory distress Auscultation: lungs clear to auscultation bilaterally and + diminished lung sounds (mildly throughout ); no wheezes Cardiovascular Rate/Rhythm: regular rate and regular rhythm Heart Sounds: no murmur Vessels: no carotid bruit Musculoskeletal Spine: + pain with cervical ROM and + kyphosis (significant ) Neurologic moves all extremities Psychiatric Orientation: alert Testing Laboratory Results 09/13/19 12:25 09/13/19 12:25 PT 11.1 Seconds (9.0-12.0) 09/13/19 12:25 INR 1.1 (0.9-1.1) 09/13/19 12:25 APTT 28.8 Seconds (21.0-31.0) 09/13/19 12:25 Urine Color Yellow 09/13/19 12:25 Urine Appearance Clear (Clear) 09/13/19 12:25 Urine pH 7.5 (4.5-7.5) 09/13/19 12:25 Ur Specific [place] 1.014 (1.000-1.030) 09/13/19 12:25 Urine Protein Negative (Negative) 09/13/19 12:25 Urine Glucose (UA) Negative (Negative) 09/13/19 12:25 Urine Ketones Negative (Negative) 09/13/19 12:25 Urine Nitrite Negative (Negative) 09/13/19 12:25 Ur Leukocyte Esterase Negative (Negative) 09/13/19 12:25 Blood Type A Positive 09/13/19 12:25 Antibody Screen NEGATIVE 09/13/19 12:25 Anemia chronic and stable per previous labs Electrocardiogram Date: 03/15/19 Findings: + NSR @ (63) Echocardiogram Date: 06/30/16 EF: 65-70% LV Function: normal RWMA: + none Other Findings: + LVH (mild/asymmetrical) Grade I diastolic dysfunction. Mild to moderate AR. Moderate MR. RVSP= 30- 40mmHg. Inferior vena cava mildly dilated Stress Test Date: 05/20/16 Type: nuclear No Lexiscan-induced ischemia. Fixed inferior perfusion defect with preserved systolic function suggestive of potential artifact, more so than old inferior infarct. Normal left ventricular size and function, rest LVEF of 64% with no regional wall motion abnormalities. Nondiagnostic Lexiscan EKG due to inability to reach target heart rate. No Lexiscan-induced arrhythmias or ST changes Other Testing Chest CTA 03/15/19= No pulmonary emboli are identified. The heart is mildly enlarged. There is no pericardial effusion. Thoracic aortic opacification is suboptimal but no dissection is noted. There is no pericardial effusion. No pneumothorax is present. There is no consolidation to suggest pneumonia. Subpleural opacities reflect atelectasis. Intrauterine canalicular electrodes are noted. Loop Recorder Check 11/20/2018= Buyt.In. No arrhythmias noted
[2019-09-13 13:00] LABS: Appearance Urine Clear (Clear); Basophils % (auto) 0.5 %; Bilirubin Urine Negative (Negative); Blood Urine Negative (Negative); Color Urine Yellow; Eosinophils # (auto) 0.12 K/uL (0-0.5); Eosinophils % (auto) 2.2 %; Glucose Urine UA Negative (Negative); Hematocrit (blood only) 33.6 % (37-47); Hemoglobin 11.4 g/dL (12.0-16.0); Immature Granulocytes % (auto) 0.2 %; Ketones Urine Negative (Negative); Leukocyte Esterase Urine Negative (Negative); Lymphocytes # (auto) 2.29 K/uL (1.2-3.4); Lymphocytes % (auto) 41.6 %; Mean Corpuscular Hgb Conc 33.9 g/dL (32-36); Mean Corpuscular Volume 85.5 fL (80-100); Mean Platelet Volume 11.7 fL (7.4-10.4); Monocytes # (auto) 0.48 K/uL (0.11-0.59); Monocytes % (auto) 8.7 %; Neutrophils # (auto) 2.58 K/uL (1.4-6.5); Neutrophils % (auto) 46.8 %; Nitrite Urine Negative (Negative); Platelet Count 188 K/uL (130-400); Protein Urine Negative (Negative); RDW Coefficient of Variation 14.7 % (11.5-14.5); RDW Standard Deviation 46.4 fL (36.4-46.3); Red Blood Count 3.93 M/uL (4.2-5.4); Specific Gravity Urine 1.014 (1.000-1.030); Urobilinogen Urine Negative (Negative); White Blood Count 5.51 K/uL (4.8-10.8); pH Urine 7.5 (4.5-7.5)
[2019-09-13 13:01] LABS: Basophils # (auto) 0.03 K/uL (0-0.2); Immature Granulocytes # (auto) 0.01 K/uL (0.00-0.02)
[2019-09-13 13:14] LABS: INR 1.1 (0.9-1.1); Partial Thromboplastin Time 28.8 Seconds (21.0-31.0); Prothrombin Time 11.1 Seconds (9.0-12.0)
[2019-09-13 13:21] LABS: BUN Creatinine Ratio 20.8 (10-20); Calcium 9.2 mg/dl (8.5-10.1); Est GFR (African American) 76.1; Est GFR (Non-African American) 65.6; Potassium 3.7 mmol/L (3.5-5.1)
[~2019-09-27 07:38] MED LIST changes: -ALLERGY SHOTS INJ; -ASPECOTC PO; -BUPR20DI TOP; -CALC600T9 PO; -CARV3.122 PO; -CHOL20007 PO; +CLINDAMYCIN 600 MG/54 ML BAG IV SCH; -ESCI10TA17 PO; -FIBER PO; -FLAX100024 PO; -FLUT0.15 NAE; -FOLI1TAB8 PO; -FSMD/70 PO; +GABAPENTIN 300 MG CAP PO SCH; -HYDR-5688 PO; -HYDR12.55 PO; -LATA0.5S OP; -LIDOCAINE HCL 2% 2 ML VIAL (20MG/ML) ONE; -LORA-741 PO; +LR 15ML/HR IV SCH; -LYR50 PO; -MAGN400T6 PO; -MULT1CHW18 PO; -NAPR1TAB9 PO; -NTRGSL/4 UT; -OMEGCAP2 PO; -PANT40TA PO; -PREG100C PO; -PREG1CAP70 PO; -PROPOFOL IV EMULSION 10 MG/ML 20 ML VIAL ONE; -QUIN1TAB49 PO; -SENNTAB23 PO; -SIMV10TA2 PO; -SODIUM CHLORIDE 0.9% 500ML 500 ML IV ONE; -SYMIN160 INH; -TIZA2CAP PO; -TOPI25TA99 PO; -TPM/50 PO
[2019-09-27] MEDS ORDERED: GLYCOPYRROLATE 0.2 MG/ML VIAL ONE (08:25)
[2019-09-27] MEDS ORDERED: PROPOFOL IV EMULSION 10 MG/ML 20 ML VIAL IV ONE (08:25)
[2019-09-27] MEDS ORDERED: fentaNYL citrate 100 MCG/2 ML VIAL ONE (08:25)
[2019-09-27] MEDS ORDERED: MIDAZOLAM HCL 1 MG/ML 2ML VIAL ONE (08:25)
[2019-09-27] MEDS ORDERED: ONDANSETRON INJ 2 MG/ML 2 ML VIAL ONE (08:25)
[2019-09-27] MEDS ORDERED: ROCURONIUM BROMIDE 10 MG/ML 5 ML VIAL IV ONE (08:25)
[2019-09-27] MEDS ORDERED: DEXAMETHASONE SOD INJ 4 MG/ML VIAL ONE (08:25)
[2019-09-27] MEDS ORDERED: NEOSTIGMINE METHYLSULFATE 1 MG/ML 10ML VIAL ONE (08:25)
[2019-09-27] MEDS ORDERED: LIDOCAINE HCL 2% 2 ML VIAL/AMP(20MG/ML) INFIL ONE (08:25)
--- NOTE | 2019-09-27 09:17 | History & Physical Bridge Note ---
Date of Service September 27, 2019 History & Physical Bridge Note I have examined the patient, reviewed the History & Physical and in the interval since the performance of the History & Physical I have noted the following changes of clinical significance: no changes noted
--- NOTE | 2019-09-27 09:22 | History & Physical Report ---
Date of Service September 27, 2019 Assessment & Plan (1) Sacroiliitis: Right sacroiliac joint fusion Present on Admission?: Yes History of Present Illness Chief Complaint: Chronic persistent right sacroiliitis Primary Care Provider: Jeannette Marks MD This is a 74-year-old female known to me that presents with chronic persistent sacroiliitis. Failing course of nonoperative care is here for surgical invention. Allergies Allergy/AdvReac Type Severity Reaction Status Date / Time morphine Allergy Severe SEVERE Verified 09/27/19 08:11 HYPOTENSION milk Allergy Intermediate SOME MILK Verified 09/27/19 08:11 PRODUCTS-HIVES IN MOUTH adhesive Allergy Mild SKIN Verified 09/27/19 08:11 IRRITATION chocolate flavor Allergy Mild migraines Verified 09/27/19 08:11 latex Allergy Mild rash Verified 09/27/19 08:11 Penicillins Allergy Mild RASH Verified 09/27/19 08:11 Sulfa (Sulfonamide Allergy Mild RASH Verified 09/27/19 08:11 Antibiotics) tramadol Allergy Mild ITCHINESS Verified 09/27/19 08:11 oxycodone AdvReac Mild NAUSEA AND Verified 09/27/19 08:11 VOMITING Hotdogs Allergy Mild MIGRAINES Uncoded 09/27/19 08:11 margarine AdvReac Intermediate GI upset Uncoded 09/27/19 08:11 Home Medications Home Medications Medication Instructions Recorded Confirmed Type albuterol sulfate 2.5 mg INHALATION Q4H PRN #180 ml 11/24/18 09/27/19 Rx nitroglycerin 0.4 mg sublingual 0.4 mg SL Q5M PRN #25 tab 11/24/18 09/27/19 Rx tablet tizanidine 2 mg tablet 2 mg PO TID PRN #60 tab 11/24/18 09/27/19 Rx primidone 50 mg tablet 25 mg PO ACHS tab 03/15/19 09/27/19 History aspirin 325 mg PO 1200 05/14/19 09/27/19 History calcium carbonate-vitamin D3 1 tab PO BID 05/14/19 09/27/19 History escitalopram oxalate 20 mg PO QAM 05/14/19 09/27/19 History hydrochlorothiazide 12.5 mg PO QAM 05/14/19 09/27/19 History multivitamin [Multiple Vitamins] 1 tab PO QAM 05/14/19 09/27/19 History topiramate 75 mg PO BID 05/14/19 09/27/19 History carvedilol 3.125 mg tablet 3.125 mg PO BID #180 tab 05/23/19 09/27/19 Rx simvastatin 10 mg tablet 10 mg PO QPM #90 tab 05/23/19 09/27/19 Rx pantoprazole 40 mg tablet,delayed 40 mg PO QAM #90 tab 06/18/19 09/27/19 Rx release buprenorphine 20 mcg/hour weekly 1 patch TRANSDERMAL Q7D #4 ea 07/11/19 09/27/19 Rx transdermal patch hydrocodone 5 mg-acetaminophen 325 See Rx Instructions PO TID PRN #90 07/13/19 09/27/19 Rx mg tablet tab budesonide-formoterol [Symbicort] 2 puff INHALATION BID PRN 09/11/19 09/27/19 History magnesium hydroxide 250 mg PO Q OTHER DAY 09/11/19 09/27/19 History omega-3 fatty acids [Fish Oil 1,000 mg PO ACHS 09/11/19 09/27/19 History Concentrate] pregabalin 50 mg PO TID 09/11/19 09/27/19 History hydrocortisone 2.5 % topical cream 1 appln RI BID #30 gm 09/19/19 09/27/19 Rx with perineal applicator dicyclomine 10 mg capsule 10 mg PO QID cap 09/20/19 09/27/19 History alendronate [Fosamax] 70 mg PO WK 09/27/19 09/27/19 History quinapril [Accupril] 40 mg PO QAM 09/27/19 09/27/19 History Past Med/Surg History Social History Smoking Status: Never smoker Second Hand Exposure: Yes; Do You Dip or Chew Tobacco: No; Tobacco Cessation Education Requested by Patient: No Hx Alcohol Use: No Hx Substance Use: No Preferred Language: Frisian Communication Ability: Effective Visual Impairment: Partially Limited Hearing Ability: Normal Medical Technologist Microbiology Required: No Beliefs That Will Affect Care: None marital status: Current Living Situation: Spouse current occupational status: retired Other Information That Helps Us Care for You: No Feels Safe at Home: Yes Safety Concerns: Feels Safe At This Time Childhood Exposure to Second-Hand Smoke: Yes caffeine: Yes (tea) during the past year weight has: remained stable Dental Care, Regularly: No Physical Activity Frequency: 1-2 Times per Week Physical Activity Frequency Comment: walking around house or outside depending on weather/housework Seatbelt Use: always Sunscreen Use: Yes Do you think of yourself as: straight/heterosexual Physical Exam Physical Exam: Patient alert and oriented neurologically intact. Lungs clear to auscultation. Heart regular rate and rhythm. Results & Data Vital Signs (Past 12 Hours) Vital Signs Temp Pulse Resp BP Pulse Ox 09/27/19 08:29 36.7 C 64 20 161/87 H 93
[2019-09-27] MEDS ORDERED: SUCCINYLCHOLINE CHLORIDE 20 MG/ML 10 ML VIAL IV ONE (09:35)
[2019-09-27] MEDS ORDERED: BACITRACIN INJ 50,000 UNIT VIAL ONE (09:37)
[2019-09-27] MEDS ORDERED: BUPIVACAINE/EPINEPHRINE 0.5% MPF 1:200,000 10 ML VIAL ONE (09:37)
[2019-09-27] MEDS ORDERED: ALBUTEROL 0.083% NEBU SOLN 3 ML VIAL INH PRN (09:56)
[2019-09-27] MEDS ORDERED: ATROPINE SULFATE 0.1 MG/ML 10ML SYR IV PRN (09:56)
[2019-09-27] MEDS ORDERED: HYDROmorphone INJ 0.5 MG/0.5 ML SYR IV PRN ×2 (09:56→11:59)
[2019-09-27] MEDS ORDERED: LABETALOL HCL IV 5 MG/ML 20ML IV PRN (09:56)
[2019-09-27] MEDS ORDERED: ONDANSETRON INJ 2 MG/ML 2 ML VIAL IV PRN ×2 (09:56→11:59)
[2019-09-27] MEDS ORDERED: LARYING-O-JET KIT (LTA) ONE (10:23)
[2019-09-27] MEDS ORDERED: FLOSEAL HEMOSTATIC MATRIX 10ML TOP ONE (10:29)
[2019-09-27] MEDS ORDERED: ePHEDrine sulfate 50 MG/ML SYR ONE (10:29)
--- NOTE | 2019-09-27 10:45 | Operative Report ---
Post Operative Report Pre & Post Diagnosis Operation Date: 09/27/19 09:25 Pre-Op Diagnosis: SI Joint Dysfunction Post-Op Diagnosis: SI Joint Dysfunction I identified the patient and participated in the time-out.: Yes Procedure Operation Date: 09/27/19 09:25 Actual Procedures #1 open sacroiliac fusion on the right. #2 placement of 20 mm Prolex allograft filled with infuse within the right SI joint. #3 placement of 2 globus SMITH- coated screws percutaneously across the right SI joint. Surgeon Oral Olivares, DO Manager Cancer Agnes Christianson Estimated Blood Loss 10 Findings Consistent with Post-Op Diagnosis Specimens None Indications This is a 74-year-old female known to the presents with above-mentioned diagnosis after failing course of nonoperative care she is here for the above- mentioned procedure. Description of Procedure Patient was met with identified informed consent obtained. Patient was then taken to the operative suite underwent intubation placed in a prone position the Virgilio table chest padded bolsters. All bony prominences well-padded eyes inspected to ensure no external pressure was prompt at this point the right upper buttock was prepped and draped in normal sterile fashion with the assistance of fluoroscopy identified the right SI joint inlet outlet and lateral views. Sharp dissection was performed down to and exposing the right SI joint posteriorly. I then curetted out the joint and placed a 20 mm Prolex allograft filled with infuse collagen sponge was within the joint. I verified my position with fluoroscopy. Then created a second stage along the right upper buttock along the slope of the posterior sacrum. A K wire was then placed across the proximal aspect of the right SI joint. I verified my position with inlet outlet and lateral views. I then placed cannulas over the K wire and drilled across the joint. I then placed a 50 mm SMITH-coated slotted screw filled with infuse collagen sponge across the joint. A second screw was placed distal to this in a similar fashion. The screw was 40 mm in length SMITH-coated slotted and filled with infuse collagen sponge. Both screws had evidence of purchase. She does have significant osteopenia. Incisions were then copiously irrigated closed with subcutaneous Vicryl and Monocryl for final skin closure. Steri-Strip sterile dressings placed. Patient will continue to PACU stable condition. Please note Agnes Christianson was present at the entire procedure involved the patient positioning complex portions of the surgery and final skin closure. I attest to the content of the Intraoperative Record and any orders documented therein. Any exceptions are noted below.
--- NOTE | 2019-09-27 11:29 | Fluoroscopy Report ---
FL sacrum CLINICAL HISTORY: RT SIJ FUSION COMPARISON STUDY: None. FLUOROSCOPY TIME: 1 minute and 21 seconds. FINDINGS: 3 fluoroscopic spot images of the sacrum were submitted. There are 2 cannulated screws fusi ng the right sacroiliac joint. The hardware appears intact. Evidence for prior lumbosacral posterior fusion. IMPRESSION: Fluoroscopy provided for right sacroiliac joint fusion. The hardware appears intact. ACT 112: Negative or not required by law. Electronically signed by: Dimitri Nicole M.D. 09/27/2019 11:27 AM
[2019-09-27] MEDS ORDERED: MAGNESIUM HYDROXIDE SUSP 30 ML UDC PO PRN (11:59)
[2019-09-27] MEDS ORDERED: ONDANSETRON 4 MG OD TAB PO PRN (11:59)
[2019-09-27] MEDS ORDERED: DO NOT ADMINISTER PNEUMOCOCCAL VACCINE PRN (11:59)
[2019-09-27] MEDS ORDERED: ALUMINUM/MAGNESIUM SUSP 30 ML UDC PO PRN (11:59)
[2019-09-27] MEDS ORDERED: LORazepam 0.5 MG/1 ML VIAL IV PRN (11:59)
[2019-09-27] MEDS ORDERED: SOD PHOSPHATE/SOD BIPHOSPHATE ENEMA 132 ML BTL PR PRN (11:59)
[2019-09-27] MEDS ORDERED: ACETAMINOPHEN 500 MG TAB PO PRN (11:59)
[2019-09-27] MEDS ORDERED: METOCLOPRAMIDE HCL INJ 5 MG/ML 2 ML VIAL IV PRN (11:59)
[2019-09-27] MEDS ORDERED: HYDROCODONE/ACETAMOPHEN 5/325MG TAB PO PRN (11:59)
[2019-09-27] MEDS ORDERED: NITROGLYCERIN SL 0.4 MG/TAB TAB SL PRN (11:59)
[2019-09-27] MEDS ORDERED: NALOXONE HCL 0.4 MG/1 ML VIAL/CARP IV PRN (11:59)
[2019-09-27] MEDS ORDERED: LORazepam 0.5 MG TAB PO PRN (11:59)
[2019-09-27] MEDS ORDERED: bisacodyL 10 MG SUPP PR PRN (11:59)
[2019-09-27] MEDS ORDERED: TIZANIDINE HCL 4 MG TABLET PO PRN (11:59)
[2019-09-27] MEDS ORDERED: HYDROmorphone INJ 1 MG/ML SYRINGE IV PRN (11:59)
[2019-09-27] MEDS ORDERED: ACETAMINOPHEN 1,000 MG/100 ML VIAL IV PRN (11:59)
[2019-09-27] MEDS ORDERED: PROMETHAZINE HCL 12.5 MG in SODIUM CHLORIDE 0.9% 50 ML IV PRN (11:59)
[2019-09-27] MEDS ORDERED: DO NOT ADMINISTER FLU VACCINE PRN (11:59)
[2019-09-27] MEDS ORDERED: FAMOTIDINE 20 MG TAB PO PRN (11:59)
--- NOTE | 2019-09-27 13:03 | Anesthesiology Progress Note ---
Date of Service September 27, 2019 Anesthesia Post Procedure Vital Signs Vital Signs: Temp Pulse Pulse Pulse Resp BP BP 09/27/19 12:21 36.4 C L 64 17 134/77 09/27/19 11:50 36.4 C L 64 16 154/83 H 09/27/19 11:35 36.4 C L 61 16 141/74 H 09/27/19 11:25 63 16 142/81 H 09/27/19 11:15 61 16 143/82 H 09/27/19 11:05 64 16 156/88 H 09/27/19 10:57 36.1 C L 71 16 167/90 H 09/27/19 08:29 36.7 C 64 20 161/87 H Pulse Ox 09/27/19 12:21 92 09/27/19 11:50 93 09/27/19 11:35 94 09/27/19 11:25 94 09/27/19 11:15 95 09/27/19 11:05 100 09/27/19 10:57 100 09/27/19 08:29 93 Transfer of Care Handoff Completed per policy Notes Mental Status: alert / awake / arousable Patient Amnestic to Procedure: Yes Nausea / Vomiting: adequately controlled Pain: adequately controlled Airway Patency, RR, SpO2: stable & adequate BP & HR: stable & adequate Hydration State: stable & adequate Anesthetic Complications: no major complications apparent
[2019-09-27] MEDS: LACTATED RINGER'S 1,000 ML IV SCH (13:13)
[2019-09-27] MEDS: PRIMIDONE 50 MG TAB PO SCH ×3 (13:19→20:42)
[2019-09-27] MEDS: DICYCLOMINE HCL 10 MG CAP PO SCH ×3 (13:20→20:43)
[2019-09-27] MEDS: PREGABALIN 50 MG CAP PO SCH (13:21)
[2019-09-27] MEDS ORDERED: ASPIRIN 325 MG ECTAB PO SCH (14:00)
[2019-09-27] MEDS: CLINDAMYCIN 600 MG in DEXTROSE 5% 50 ML IV SCH (17:23)
[2019-09-27] MEDS: TOPIRAMATE 50 MG TAB PO SCH (20:47)
[2019-09-27] MEDS: carvediloL 3.125 MG TAB PO SCH (20:48)
[2019-09-27] MEDS ORDERED: PREGABALIN 50 MG CAP PO SCH (21:00)
[2019-09-27] MEDS ORDERED: SIMVASTATIN 10 MG TAB PO SCH (21:00)
[2019-09-27] MEDS ORDERED: DOCUSATE SODIUM/SENNA 50/8.6MG TAB PO SCH (21:00)
[2019-09-28] MEDS: CLINDAMYCIN 600 MG in DEXTROSE 5% 50 ML IV SCH (01:38)
[2019-09-28] MEDS: LACTATED RINGER'S 1,000 ML IV SCH (01:39)
[2019-09-28] MEDS ORDERED: POLYETHYLENE (MIRALAX) 17 GM PACK PO SCH (06:00)
[2019-09-28] MEDS: PRIMIDONE 50 MG TAB PO SCH (07:20)
--- NOTE | 2019-09-28 08:25 | Anesthesiology Progress Note ---
Date of Service September 28, 2019 Anesthesia Post Procedure Vital Signs Vital Signs: Temp Pulse Pulse Pulse Resp BP BP 09/28/19 07:42 36.7 C 59 L 17 134/77 09/28/19 01:59 36.8 C 65 16 123/75 09/27/19 22:50 36.8 C 62 18 115/70 09/27/19 21:53 66 101/57 L 09/27/19 19:04 36.8 C 71 16 116/74 09/27/19 15:13 36.7 C 62 16 152/86 H 09/27/19 14:48 36.8 C 70 17 109/76 09/27/19 13:44 36.8 C 63 17 125/70 09/27/19 13:09 36.8 C 69 17 123/64 09/27/19 12:21 36.4 C L 64 17 134/77 09/27/19 11:50 36.4 C L 64 16 154/83 H 09/27/19 11:35 36.4 C L 61 16 141/74 H 09/27/19 11:25 63 16 142/81 H 09/27/19 11:15 61 16 143/82 H 09/27/19 11:05 64 16 156/88 H 09/27/19 10:57 36.1 C L 71 16 167/90 H 09/27/19 08:29 36.7 C 64 20 161/87 H Pulse Ox 09/28/19 07:42 97 09/28/19 01:59 97 09/27/19 22:50 94 09/27/19 21:53 09/27/19 19:04 94 09/27/19 15:13 93 09/27/19 14:48 95 09/27/19 13:44 94 09/27/19 13:09 94 09/27/19 12:21 92 09/27/19 11:50 93 09/27/19 11:35 94 09/27/19 11:25 94 09/27/19 11:15 95 09/27/19 11:05 100 09/27/19 10:57 100 09/27/19 08:29 93 Pain Intensity Left Lower Back: Pain Intensity: 0 Notes Mental Status: alert / awake / arousable and participated in evaluation Patient Amnestic to Procedure: Yes Nausea / Vomiting: adequately controlled Pain: adequately controlled Airway Patency, RR, SpO2: stable & adequate BP & HR: stable & adequate Hydration State: stable & adequate Anesthetic Complications: no major complications apparent
[2019-09-28] MEDS: DICYCLOMINE HCL 10 MG CAP PO SCH (08:57)
[2019-09-28] MEDS: carvediloL 3.125 MG TAB PO SCH (08:57)
[2019-09-28] MEDS: PREGABALIN 50 MG CAP PO SCH (08:59)
[2019-09-28] MEDS ORDERED: hydroCHLOROthiazide 25 MG TAB PO SCH (09:00)
[2019-09-28] MEDS ORDERED: ESCITALOPRAM OXALATE 20 MG TAB PO SCH (09:00)
[2019-09-28] MEDS ORDERED: PANTOprazole 40 MG TAB PO SCH (09:00)
[2019-09-28] MEDS ORDERED: ENALAPRIL MALEATE 10 MG TAB PO SCH (09:00)
--- NOTE | 2019-09-28 10:58 | Discharge Summary ---
Date of Service September 28, 2019 Admission HPI Per Admitting Provider This is a 74-year-old female known to me that presents with chronic persistent sacroiliitis. Failing course of nonoperative care is here for surgical invention. Principal Diagnosis Sacroiliitis Discharge Data Allergies Allergy/AdvReac Type Severity Reaction Status Date / Time morphine Allergy Severe SEVERE Verified 09/27/19 08:11 HYPOTENSION milk Allergy Intermediate SOME MILK Verified 09/27/19 08:11 PRODUCTS-HIVES IN MOUTH adhesive Allergy Mild SKIN Verified 09/27/19 08:11 IRRITATION chocolate flavor Allergy Mild migraines Verified 09/27/19 08:11 latex Allergy Mild rash Verified 09/27/19 08:11 Penicillins Allergy Mild RASH Verified 09/27/19 08:11 Sulfa (Sulfonamide Allergy Mild RASH Verified 09/27/19 08:11 Antibiotics) tramadol Allergy Mild ITCHINESS Verified 09/27/19 08:11 oxycodone AdvReac Mild NAUSEA AND Verified 09/27/19 08:11 VOMITING Hotdogs Allergy Mild MIGRAINES Uncoded 09/27/19 08:11 margarine AdvReac Intermediate GI upset Uncoded 09/27/19 08:11 Consultations 09/27/19 11:59 Consult Case Management - Discharge Planning Routine Procedures Performed Operation Date: 09/27/19 09:25 Actual Procedures p Right Sacroiliac Joint Fusion with Spinal Cord Monitoring(Right) - Oral Olivares, Ordered Studies 09/26/19 09:25 FL sacrum Routine 09/27/19 09:25 FL fluoroscopy <1hr Routine Hospital Course (1) Sacroiliitis: Patient underwent a right sacral iliac fusion tolerated well second orthopedic for postop labor postop day 1 pain was well controlled she was ambulating with therapy tolerance nicely subsequently discharged home. Discharge orders and instructions were on the chart for review. Total Time Total Time Spent Total Time Spent (In Minutes): 20 minutes Discharge Plan Discharge Items Patient Disposition: Home - Self-Care Reason For Visit: SI Joint Dysfunction Discharge Diagnosis: Sacroiliitis Activity: Per Instructions section Lifting: No more than 5 pounds Bathing: May shower/bathe in 3 days Weightbearing: Right toe touch Non-emergency contact: Primary Care Provider Call non-emergency contact if: you have any medication questions Follow-up/Referrals: Kolonich,Jeannette A., MD [Primary Care Provider] - Diet: Regular Addtl Attending Provider Instructions: Patient is to use a walker and maintain toe-touch weightbearing. She will follow-up in 2 weeks for x-rays. Pending Studies at Discharge: No Stand-Alone Forms: [facility], Smoking Cessation Medications and DC Order Prescriptions: New hydrocodone-acetaminophen 5-325 mg tablet See Rx Instructions .ROUTE .COMPLEX PRN (Reason: pain) Qty: 15 RF: 0 Continued carvedilol 3.125 mg tablet 3.125 mg PO BID Qty: 180 RF: 3 simvastatin 10 mg tablet 10 mg PO QPM Qty: 90 RF: 3 pantoprazole 40 mg tablet,delayed release (DR/EC) 40 mg PO QAM Qty: 90 RF: 3 buprenorphine 20 mcg/hour patch weekly 1 patch transdermal Q7D Qty: 4 RF: 2 hydrocodone-acetaminophen 5-325 mg tablet See Rx Instructions PO TID PRN (Reason: pain) Qty: 90 RF: 0 primidone 50 mg tablet 25 mg PO ACHS RF: 0 hydrocortisone [Anusol-HC] 2.5 % cream with perineal applicator 1 appln [place] BID Qty: 30 RF: 1 albuterol sulfate 2.5 mg /3 mL (0.083 %) solution for nebulization 2.5 mg inhalation Q4H PRN (Reason: ASTHMA) Qty: 180 RF: 11 nitroglycerin 0.4 mg tablet, sublingual 0.4 mg SL Q5M PRN (Reason: chest pain) Qty: 25 RF: 3 tizanidine 2 mg tablet 2 mg PO TID PRN (Reason: muscle spasticity) Qty: 60 RF: 1 dicyclomine 10 mg capsule 10 mg PO QID RF: 0 multivitamin [Multiple Vitamins] tablet 1 tab PO QAM RF: 0 aspirin 325 mg tablet 325 mg PO 1200 RF: 0 hydrochlorothiazide 25 mg tablet 12.5 mg PO QAM RF: 0 escitalopram oxalate 20 mg tablet 20 mg PO QAM RF: 0 topiramate 50 mg tablet 75 mg PO BID RF: 0 calcium carbonate-vitamin D3 600 mg(1,500mg) -400 unit tablet 1 tab PO BID RF: 0 omega-3 fatty acids [Fish Oil Concentrate] 1,000 mg capsule 1,000 mg PO ACHS RF: 0 pregabalin 50 mg capsule 50 mg PO TID RF: 0 magnesium hydroxide 400 mg (170 mg magnesium) tablet,chewable 250 mg PO Q OTHER DAY RF: 0 budesonide-formoterol [Symbicort] 160-4.5 mcg/actuation Hfa Aerosol Inhaler 2 puff INHALATION BID PRN (Reason: Shortness Of Breath) RF: 0 alendronate [Fosamax] 70 mg tablet 70 mg PO WK RF: 0 quinapril [Accupril] 40 mg tablet 40 mg PO QAM RF: 0 Discharge Orders: Discharge Order (Routine); Ordered 09/28/19 Ordered By: Oral Olivares Admission Data Admit Date/Time: 09/27/19 11:12 Attending Provider: Oral Olivares Admit Provider: Oral Olivares Primary Care Provider: Jeannette Marks
[2019-09-28] MEDS: TOPIRAMATE 50 MG TAB PO SCH (11:33)
== END 2019-09-28 11:58 | disposition home or self-care (01) | DRG 460 ==
LOC: ASU 07:38 → 3E 11:12

== ENCOUNTER 2020-08-12 11:54 | Inpatient (IN) ==
[2020-08-12] MEDS ORDERED: fentaNYL citrate 100 MCG/2 ML VIAL IV STA ×2 (12:52→17:02)
--- NOTE | 2020-08-12 12:58 | Emergency Department Note ---
Impression & Plan Breathlessness, Pleural effusion, Hypoxemia, Multiple fractures of ribs of left side ED Provider Note Provider: Claudy Leger MD DATE OF SERVICE: 08/12/2020 CHIEF COMPLAINT: Shortness of breath HISTORY OF PRESENT ILLNESS: Patient is a 75-year-old female history of Sjogren's, IBS, GERD, TIA, hypertension on full dose aspirin presenting here today with her reporting worsening shortness of breath over approximately the past week. Was seen here approximately a month ago after a fall in the bathtub diagnosed with 2 rib fractures. Sent home. Follow with the outpatient setting and start some hydrocodone for pain. Patient does have a chronic even or from transdermal patch. Reportedly over the last week significant worsening shortness of breath and left-sided chest discomfort. No new falls reported. No abdominal symptoms or nausea reported. No cough or fevers reported. REVIEW OF SYSTEMS: A total of 10 review of systems was obtained and negative except as stated above in the HPI. PAST MEDICAL HISTORY: As noted above MEDICATIONS: Reviewed home medication list SOCIAL HISTORY: Lives at home with PHYSICAL EXAM: GENERAL: alert and oriented on the stretcher intermittent coughing fits Head: normocephalic and atraumatic EYES: No injection, discharge or icterus. NECK: Trachea midline. Supple. ENT: Mucous membranes pink and moist. Pharynx without erythema or exudate. LUNGS: Airway patent. Some increased work of breathing but no retractions. Intermittently coughing. Bilateral breath sounds however diminished significantly in the left base. HEART: Regular rate and rhythm. No chest wall tenderness appreciated on exam ABDOMEN: Soft and non-tender, without guarding or rebound. SKIN: Acyanotic, warm, dry, without rashes EXTREMITIES: Without swelling, tenderness or deformity NEUROLOGICAL: No focal deficits. No aphasia. No facial droop or slurred speech. EK bpm normal sinus rhythm. No PVC or PAC. No acute ST segment elevation or depression. QTC 473. CONTINUOUS CARDIAC MONITORING: was ordered and showed a heart rate of 70s to 80s bpm in normal sinus rhythm Patient's laboratory studies and imaging reviewed. Differential includes Reactive airway disease, pneumonia, pneumothorax, COPD, CHF, infections, cardiac ischemia, pulmonary embolism, musculoskeletal, gastrointestinal, as well as other pathologies. IMPRESSION/MEDICAL DECISION MAKING: Patient resents worsening shortness of breath just over a month after rib fractures. No infectious or fever symptoms reported with a cough intermittently productive reported. Having intermittent coughing fits with some increased work of breathing here. During coughing fits the patient does desaturate on room air and becomes hypoxic. Minimal left-sided chest wall tenderness and no new falls reported. EKG without significant changes and lower suspicion for acute ACS. Blood work without significant leukocytosis. No severe renal dysfunction noted. Chest x-ray today shows significant opacification of left hemithorax concerning with a trauma history. Already planned for a CTA of the chest to exclude PE and for further evaluation of the ribs and this will further evaluate this chest x- ray finding. Given some fentanyl here initially for pain. Patient is on full dose aspirin but no other anticoagulants. CT shows a large left-sided intrathoracic fluid collection compressing the left lung. Tom the patient and at bedside. Discussed with pulmonary Dr. Lucia. He was gracious enough to come here to the emergency department to further evaluate the patient and performed a pigtail insertion for drainage of this fluid. In discussion with him will bring the patient in overnight with the hospitalist team and further evaluate this fluid collection. Repeat chest x-ray afterwards shows decreased size of the effusion. Patient given some additional fentanyl for some discomfort. The hospitalist will evaluate for further inpatient care with pulmonary in consultation. DIAGNOSIS: Shortness of breath, right-sided rib fractures, left-sided pleural effusion, hypoxia DISPOSITION: Hospitalist will evaluate Patient and were agreeable with this plan. Past Med/Surg History Medical History Ascending aorta dilation Per 2017 CTA of chest/thorax- "slight prominence ascending aorta at 3.6cm Asthma Cervical radiculopathy Chronic pain Degeneration of cervical intervertebral disc Depression Dyslipidemia Elevated CK Fluid retention in legs GERD (gastroesophageal reflux disease) Glaucoma History of kidney stones HTN (hypertension) IBS (irritable bowel syndrome) Migraines Osteoarthritis Osteoporosis, post-menopausal Peripheral neuropathy Sinus bradycardia Sjogren's syndrome Temporomandibular joint disorder TIA (transient ischemic attack) 2005, 2016--follows with Dr. Lopez (neuro) at [place]--no deficits, reason for aspirin Tremor Surgical History H/O arthroscopic knee surgery right H/O colonoscopy H/O foot surgery right foot 2nd toe H/O oophorectomy History of back surgery History of cardiac cath 2006 History of dilatation and curettage History of esophagogastroduodenoscopy (EGD) History of inguinal hernia repair History of left cataract extraction History of loop recorder History of lumbar fusion History of lumbar laminectomy History of partial hysterectomy History of sinus surgery History of wisdom tooth extraction Hx of appendectomy Hx of right cataract extraction S/P breast lumpectomy right--benign S/P carpal tunnel release bilateral S/P cholecystectomy S/P rotator cuff repair bilateral S/P tubal ligation Spinal cord stimulator status Family History Grandfather Myocardial infarction Grandmother Myocardial infarction Mother Diabetes Coronary heart disease Hypertension Father Emphysema lung Hypertension Other No family history of adverse response to anesthesia Denies family history of Ovarian cancer Prostate cancer Breast cancer Colorectal cancer Social History Smoking Status: Never smoker Second Hand Exposure: Yes (Both parents smoked ); Hx Alcohol Use: No Hx Substance Use: No Preferred Language: Nepali Communication Ability: Effective Visual Impairment: Limited Hearing Ability: Normal Grey Washer Required: No Beliefs That Will Affect Care: None marital status: Current Living Situation: Spouse current occupational status: retired How many Children do You have: 2 Feels Safe at Home: Yes Childhood Exposure to Second-Hand Smoke: Yes (Both parents) Diet Comment: Regular diet caffeine: Yes (tea) during the past year weight has: increased > 10 lbs Dental Care, Regularly: No Physical Activity Frequency: 1-2 Times per Week Physical Activity Frequency Comment: walking around house or outside depending on weather/housework Seatbelt Use: always Sunscreen Use: Yes Do you think of yourself as: straight/heterosexual Assistive Devices: Cane and Glasses Allergies Allergies Allergy/AdvReac Type Severity Reaction Status Date / Time morphine Allergy Severe SEVERE Verified 08/12/20 15:03 HYPOTENSION milk Allergy Intermediate SOME MILK Verified 08/12/20 15:03 PRODUCTS-HIVES IN MOUTH adhesive Allergy Mild SKIN Verified 08/12/20 15:03 IRRITATION chocolate flavor Allergy Mild migraines Verified 08/12/20 15:03 latex Allergy Mild rash Verified 08/12/20 15:03 Penicillins Allergy Mild RASH Verified 08/12/20 15:03 Sulfa (Sulfonamide Allergy Mild RASH Verified 08/12/20 15:03 Antibiotics) tramadol Allergy Mild ITCHINESS Verified 08/12/20 15:03 oxycodone AdvReac Mild NAUSEA AND Verified 08/12/20 15:03 VOMITING Hotdogs Allergy Mild MIGRAINES Uncoded 08/12/20 15:03 margarine AdvReac Intermediate GI upset Uncoded 08/12/20 15:03 Home Meds Home Medications Medication Instructions Recorded Confirmed calcium carbonate-vitamin D3 1 tab PO BID 05/14/19 08/12/20 multivitamin [Multiple Vitamins] 1 tab PO QAM 05/14/19 08/12/20 topiramate 75 mg PO BID 05/14/19 08/12/20 budesonide-formoterol [Symbicort] 2 puff INHALATION BID PRN 09/11/19 08/12/20 magnesium hydroxide 250 mg PO Q OTHER DAY 09/11/19 08/12/20 omega-3 fatty acids [Fish Oil 1,000 mg PO ACHS 09/11/19 08/12/20 Concentrate] aspirin 325 mg tablet 325 mg PO DAILY tab 10/29/19 08/12/20 primidone 50 mg tablet 50 mg PO TID tab 05/26/20 08/12/20 alendronate [Fosamax] 70 mg PO WK 08/12/20 08/12/20 buprenorphine 1 patch TRANSDERMAL WK 08/12/20 08/12/20 pregabalin See Rx Instructions .ROUTE .COMPLEX 08/12/20 08/12/20 Previous Rx's Medication Instructions Recorded albuterol sulfate 2.5 mg INHALATION Q4H PRN #180 ml 11/24/18 nitroglycerin 0.4 mg sublingual 0.4 mg SL Q5M PRN #25 tab 11/24/18 tablet tizanidine 2 mg tablet 2 mg PO TID PRN #60 tab 11/24/18 hydrocortisone 2.5 % topical cream 1 appln ME BID #30 gm 09/19/19 with perineal applicator hydrochlorothiazide 25 mg tablet 12.5 mg PO QAM #45 tab 10/04/19 carvedilol 3.125 mg tablet 3.125 mg PO BID #180 tab 05/22/20 simvastatin 10 mg tablet 10 mg PO QPM #90 tab 05/22/20 diazepam 5 mg tablet 5 mg PO .COMPLEX #2 tab 05/27/20 dicyclomine 10 mg capsule 10 mg PO QID #120 cap 05/27/20 pantoprazole 40 mg tablet,delayed 40 mg PO QAM #90 tab 06/06/20 release quinapril 40 mg tablet 40 mg PO QAM #90 tab 06/06/20 duloxetine 60 mg capsule,delayed 60 mg PO DAILY #90 cap 06/11/20 release hydrocodone 5 mg-acetaminophen 325 1 tab PO TID PRN #20 tab 07/30/20 mg tablet Results & Data (ED) Vital Signs Vital Signs - 24 hr 08/12/20 11:58 08/12/20 12:50 08/12/20 12:58 Temperature 36.8 C Temperature Source Skin Pulse Rate 85 84 82 Pulse Rate from SpO2 Sensor 84 83 Respiratory Rate 18 Respiratory Effort / Characteristics Non-Labored Spontaneous Respiratory Depth Normal Blood Pressure 160/89 H 202/130 H Blood Pressure Mean 112 154 Blood Pressure Position Sitting Pulse Oximetry 94 94 94 Oxygen Delivery Method Room Air Oxygen Flow Rate Sepsis Recent Fever Within 48 Hours No Sepsis New/Unexplained Change in Mental Status N/A Sepsis Action Taken by Nursing No Action Required Oxygen Flow Rate - Titration Pulse Oximetry Post Tiitration 08/12/20 13:00 08/12/20 13:10 08/12/20 13:20 Temperature Temperature Source Pulse Rate 85 82 85 Pulse Rate from SpO2 Sensor 85 Respiratory Rate 17 Respiratory Effort / Characteristics Respiratory Depth Blood Pressure Blood Pressure Mean Blood Pressure Position Pulse Oximetry 94 Oxygen Delivery Method Oxygen Flow Rate Sepsis Recent Fever Within 48 Hours Sepsis New/Unexplained Change in Mental Status Sepsis Action Taken by Nursing Oxygen Flow Rate - Titration Pulse Oximetry Post Tiitration 08/12/20 13:29 08/12/20 13:30 08/12/20 13:38 Temperature Temperature Source Pulse Rate 78 79 Pulse Rate from SpO2 Sensor 77 79 Respiratory Rate 18 19 Respiratory Effort / Characteristics Respiratory Depth Blood Pressure 132/65 Blood Pressure Mean 87 Blood Pressure Position Pulse Oximetry 95 94 94 Oxygen Delivery Method Nasal Cannula Oxygen Flow Rate 2 Sepsis Recent Fever Within 48 Hours Sepsis New/Unexplained Change in Mental Status Sepsis Action Taken by Nursing Oxygen Flow Rate - Titration 2 Pulse Oximetry Post Tiitration 95 08/12/20 13:40 08/12/20 13:50 08/12/20 14:00 Temperature Temperature Source Pulse Rate 77 80 80 Pulse Rate from SpO2 Sensor 76 81 79 Respiratory Rate 16 20 22 Respiratory Effort / Characteristics Respiratory Depth Blood Pressure 143/82 H Blood Pressure Mean 102 Blood Pressure Position Pulse Oximetry 95 94 94 Oxygen Delivery Method Oxygen Flow Rate Sepsis Recent Fever Within 48 Hours Sepsis New/Unexplained Change in Mental Status Sepsis Action Taken by Nursing Oxygen Flow Rate - Titration Pulse Oximetry Post Tiitration 08/12/20 14:01 08/12/20 14:10 08/12/20 14:20 Temperature Temperature Source Pulse Rate 79 81 83 Pulse Rate from SpO2 Sensor 78 79 84 Respiratory Rate 22 24 19 Respiratory Effort / Characteristics Respiratory Depth Blood Pressure Blood Pressure Mean Blood Pressure Position Pulse Oximetry 99 Oxygen Delivery Method Oxygen Flow Rate Sepsis Recent Fever Within 48 Hours Sepsis New/Unexplained Change in Mental Status Sepsis Action Taken by Nursing Oxygen Flow Rate - Titration Pulse Oximetry Post Tiitration 08/12/20 14:43 08/12/20 14:44 08/12/20 15:08 Temperature Temperature Source Pulse Rate 84 83 81 Pulse Rate from SpO2 Sensor 82 Respiratory Rate 23 Respiratory Effort / Characteristics Respiratory Depth Blood Pressure 177/85 H 131/74 Blood Pressure Mean 115 93 Blood Pressure Position Pulse Oximetry 98 Oxygen Delivery Method Oxygen Flow Rate Sepsis Recent Fever Within 48 Hours Sepsis New/Unexplained Change in Mental Status Sepsis Action Taken by Nursing Oxygen Flow Rate - Titration Pulse Oximetry Post Tiitration 08/12/20 15:22 08/12/20 15:30 08/12/20 15:31 Temperature Temperature Source Pulse Rate 79 79 Pulse Rate from SpO2 Sensor 79 79 Respiratory Rate 23 22 Respiratory Effort / Characteristics Respiratory Depth Blood Pressure 137/79 Blood Pressure Mean 98 Blood Pressure Position Pulse Oximetry 75 L 88 L 91 Oxygen Delivery Method Oxygen Flow Rate Sepsis Recent Fever Within 48 Hours Sepsis New/Unexplained Change in Mental Status Sepsis Action Taken by Nursing Oxygen Flow Rate - Titration Pulse Oximetry Post Tiitration 08/12/20 15:40 08/12/20 15:50 08/12/20 15:58 Temperature Temperature Source Pulse Rate 82 79 81 Pulse Rate from SpO2 Sensor 83 79 78 Respiratory Rate 19 18 19 Respiratory Effort / Characteristics Respiratory Depth Blood Pressure 139/60 Blood Pressure Mean 86 Blood Pressure Position Pulse Oximetry 89 L 81 L 90 Oxygen Delivery Method Oxygen Flow Rate Sepsis Recent Fever Within 48 Hours Sepsis New/Unexplained Change in Mental Status Sepsis Action Taken by Nursing Oxygen Flow Rate - Titration Pulse Oximetry Post Tiitration 08/12/20 16:00 08/12/20 16:01 08/12/20 16:15 Temperature Temperature Source Pulse Rate 83 80 80 Pulse Rate from SpO2 Sensor 84 81 83 Respiratory Rate 21 24 17 Respiratory Effort / Characteristics Respiratory Depth Blood Pressure 133/85 136/86 Blood Pressure Mean 101 102 Blood Pressure Position Pulse Oximetry 97 92 97 Oxygen Delivery Method Oxygen Flow Rate Sepsis Recent Fever Within 48 Hours Sepsis New/Unexplained Change in Mental Status Sepsis Action Taken by Nursing Oxygen Flow Rate - Titration Pulse Oximetry Post Tiitration 08/12/20 16:20 08/12/20 16:30 08/12/20 16:31 Temperature Temperature Source Pulse Rate 79 75 74 Pulse Rate from SpO2 Sensor 79 75 74 Respiratory Rate 23 24 19 Respiratory Effort / Characteristics Respiratory Depth Blood Pressure 147/77 H Blood Pressure Mean 100 Blood Pressure Position Pulse Oximetry 97 97 96 Oxygen Delivery Method Oxygen Flow Rate Sepsis Recent Fever Within 48 Hours Sepsis New/Unexplained Change in Mental Status Sepsis Action Taken by Nursing Oxygen Flow Rate - Titration Pulse Oximetry Post Tiitration 08/12/20 16:40 08/12/20 16:45 08/12/20 16:50 Temperature Temperature Source Pulse Rate 76 77 75 Pulse Rate from SpO2 Sensor 77 76 76 Respiratory Rate 20 21 21 Respiratory Effort / Characteristics Respiratory Depth Blood Pressure 127/70 Blood Pressure Mean 89 Blood Pressure Position Pulse Oximetry 88 L 95 69 L Oxygen Delivery Method Oxygen Flow Rate Sepsis Recent Fever Within 48 Hours Sepsis New/Unexplained Change in Mental Status Sepsis Action Taken by Nursing Oxygen Flow Rate - Titration Pulse Oximetry Post Tiitration 08/12/20 17:00 08/12/20 17:10 08/12/20 17:15 Temperature Temperature Source Pulse Rate 73 76 76 Pulse Rate from SpO2 Sensor 73 76 76 Respiratory Rate 30 H 25 H 14 Respiratory Effort / Characteristics Respiratory Depth Blood Pressure 142/77 H 107/75 Blood Pressure Mean 98 85 Blood Pressure Position Pulse Oximetry 97 91 98 Oxygen Delivery Method Oxygen Flow Rate Sepsis Recent Fever Within 48 Hours Sepsis New/Unexplained Change in Mental Status Sepsis Action Taken by Nursing Oxygen Flow Rate - Titration Pulse Oximetry Post Tiitration 08/12/20 17:20 08/12/20 17:31 08/12/20 17:40 Temperature Temperature Source Pulse Rate 79 78 77 Pulse Rate from SpO2 Sensor 76 78 70 Respiratory Rate 16 24 15 Respiratory Effort / Characteristics Respiratory Depth Blood Pressure 99/66 L Blood Pressure Mean 77 Blood Pressure Position Pulse Oximetry 94 94 95 Oxygen Delivery Method Oxygen Flow Rate Sepsis Recent Fever Within 48 Hours Sepsis New/Unexplained Change in Mental Status Sepsis Action Taken by Nursing Oxygen Flow Rate - Titration Pulse Oximetry Post Tiitration 08/12/20 17:45 08/12/20 17:50 08/12/20 18:10 Temperature Temperature Source Pulse Rate 76 75 75 Pulse Rate from SpO2 Sensor 77 75 76 Respiratory Rate 20 17 14 Respiratory Effort / Characteristics Respiratory Depth Blood Pressure 116/70 Blood Pressure Mean 85 Blood Pressure Position Pulse Oximetry 99 97 94 Oxygen Delivery Method Oxygen Flow Rate Sepsis Recent Fever Within 48 Hours Sepsis New/Unexplained Change in Mental Status Sepsis Action Taken by Nursing Oxygen Flow Rate - Titration Pulse Oximetry Post Tiitration 08/12/20 18:15 08/12/20 18:20 08/12/20 18:30 Temperature Temperature Source Pulse Rate 77 75 72 Pulse Rate from SpO2 Sensor 77 74 72 Respiratory Rate 23 17 14 Respiratory Effort / Characteristics Respiratory Depth Blood Pressure 136/64 108/63 Blood Pressure Mean 88 78 Blood Pressure Position Pulse Oximetry 96 96 98 Oxygen Delivery Method Oxygen Flow Rate Sepsis Recent Fever Within 48 Hours Sepsis New/Unexplained Change in Mental Status Sepsis Action Taken by Nursing Oxygen Flow Rate - Titration Pulse Oximetry Post Tiitration Laboratory Data Result diagrams: 08/12/20 13:19 08/12/20 13:19 Lab Results 08/12/20 08/12/20 08/12/20 Range/Units 13:19 13:19 13:19 WBC 8.74 (4.8-10.8) K/uL RBC 4.13 L (4.2-5.4) M/uL Hgb 11.6 L (12.0-16.0) g/dL Hct 34.9 L (37-47) % MCV 84.5 (80-100) fL MCH 28.1 (25-34) pg MCHC 33.2 (32-36) g/dL RDW Std Deviation 44.9 (36.4-46.3) fL RDW Coeff of Claus 14.4 (11.5-14.5) % Plt Count 517 H (130-400) K/uL MPV 10.5 H (7.4-10.4) fL Immature Gran % (Auto) 0.2 % Neut % (Auto) 62.8 % Lymph % (Auto) 22.1 % [place] % (Auto) 13.0 % Eos % (Auto) 1.4 % Baso % (Auto) 0.5 % Neut # (Auto) 5.49 (1.4-6.5) K/uL Lymph # (Auto) 1.93 (1.2-3.4) K/uL [place] # (Auto) 1.14 H (0.11-0.59) K/uL Eos # (Auto) 0.12 (0-0.5) K/uL Baso # (Auto) 0.04 (0-0.2) K/uL Immature Gran # (Auto) 0.02 (0.00-0.02) K/uL PT 10.9 (9.0-12.0) Seconds INR 1.1 (0.9-1.1) Sodium 135 L (136-145) mmol/L Potassium 3.8 (3.5-5.1) mmol/L Chloride 104 (98-107) mmol/L Carbon Dioxide 23 (21-32) mmol/L Anion Gap 9.0 (3-11) BUN 25 H (7-18) mg/dl Creatinine 0.65 (0.6-1.2) mg/dl Est Cr Clr Drug Dosing 62.4 ml/min Est GFR ( Amer) 102.1 ml/min Est GFR (Non-Af Amer) 88.1 ml/min BUN/Creatinine Ratio 37.7 H (10-20) Glucose 103 H (70-99) mg/dl Calcium 8.6 (8.5-10.1) mg/dl Magnesium 2.4 (1.8-2.4) mg/dl Total Bilirubin 0.3 (0.2-1) mg/dl AST 45 H (15-37) U/L ALT 46 (12-78) U/L Alkaline Phosphatase 82 (45-117) U/L Troponin I < 0.015 (0-0.045) ng/ml Total Protein 7.1 (6.4-8.2) gm/dl Albumin 2.5 L (3.4-5.0) gm/dl Globulin 4.6 H (2.5-4.0) gm/dl Albumin/Globulin Ratio 0.5 L (0.9-2) Specimen Hemolysis Urine Color Urine Appearance (Clear) Urine pH (4.5-7.5) Ur Specific [place] (1.000-1.030) Urine Protein (Negative) Urine Glucose (UA) (Negative) Urine Ketones (Negative) Urine Blood (Negative) Urine Nitrite (Negative) Urine Bilirubin (Negative) Urine Urobilinogen (Negative) Ur Leukocyte Esterase (Negative) Urine WBC (Auto) (0-5) /hpf Urine RBC (Auto) (0-4) /hpf U Hyaline Cast (Auto) (0-5) /lpf U Epithel Cells (Auto) (0-5) /lpf Urine Bacteria (Auto) (Negative) Fluid Neutrophils % % Fluid Lymphocytes % % Fluid Eosinophils % % Fluid Basophils % % Fluid Meso/Macro/[place] % % Fluid Comment Pleural Fluid Source Pleural Color Pleural Appearance Pleural pH (7.3-7.4) Pleural WBC /uL Pleural RBC /uL Pleural Total Protein g/dl Pleural LDH U/L Pleural Glucose mg/dl COVID-19 Eval Order SARS-CoV-2 (PCR) (Negative) 08/12/20 08/12/20 08/12/20 Range/Units 13:35 13:35 14:55 WBC (4.8-10.8) K/uL RBC (4.2-5.4) M/uL Hgb (12.0-16.0) g/dL Hct (37-47) % MCV (80-100) fL MCH (25-34) pg MCHC (32-36) g/dL RDW Std Deviation (36.4-46.3) fL RDW Coeff of Claus (11.5-14.5) % Plt Count (130-400) K/uL MPV (7.4-10.4) fL Immature Gran % (Auto) % Neut % (Auto) % Lymph % (Auto) % [place] % (Auto) % Eos % (Auto) % Baso % (Auto) % Neut # (Auto) (1.4-6.5) K/uL Lymph # (Auto) (1.2-3.4) K/uL [place] # (Auto) (0.11-0.59) K/uL Eos # (Auto) (0-0.5) K/uL Baso # (Auto) (0-0.2) K/uL Immature Gran # (Auto) (0.00-0.02) K/uL PT (9.0-12.0) Seconds INR (0.9-1.1) Sodium (136-145) mmol/L Potassium (3.5-5.1) mmol/L Chloride (98-107) mmol/L Carbon Dioxide (21-32) mmol/L Anion Gap (3-11) BUN (7-18) mg/dl Creatinine (0.6-1.2) mg/dl Est Cr Clr Drug Dosing ml/min Est GFR ( Amer) ml/min Est GFR (Non-Af Amer) ml/min BUN/Creatinine Ratio (10-20) Glucose (70-99) mg/dl Calcium (8.5-10.1) mg/dl Magnesium (1.8-2.4) mg/dl Total Bilirubin (0.2-1) mg/dl AST (15-37) U/L ALT (12-78) U/L Alkaline Phosphatase (45-117) U/L Troponin I (0-0.045) ng/ml Total Protein (6.4-8.2) gm/dl Albumin (3.4-5.0) gm/dl Globulin (2.5-4.0) gm/dl Albumin/Globulin Ratio (0.9-2) Specimen Hemolysis Urine Color Dark Yellow Urine Appearance Clear (Clear) Urine pH 5.0 (4.5-7.5) Ur Specific [place] 1.027 (1.000-1.030) Urine Protein Trace H (Negative) Urine Glucose (UA) Negative (Negative) Urine Ketones 1+ H (Negative) Urine Blood Negative (Negative) Urine Nitrite Negative (Negative) Urine Bilirubin Negative (Negative) Urine Urobilinogen Negative (Negative) Ur Leukocyte Esterase Negative (Negative) Urine WBC (Auto) 1-5 (0-5) /hpf Urine RBC (Auto) 0-4 (0-4) /hpf U Hyaline Cast (Auto) 1-5 (0-5) /lpf U Epithel Cells (Auto) 5-10 H (0-5) /lpf Urine Bacteria (Auto) Negative (Negative) Fluid Neutrophils % % Fluid Lymphocytes % % Fluid Eosinophils % % Fluid Basophils % % Fluid Meso/Macro/[place] % % Fluid Comment Pleural Fluid Source Pleural Color Pleural Appearance Pleural pH (7.3-7.4) Pleural WBC /uL Pleural RBC /uL Pleural Total Protein g/dl Pleural LDH U/L Pleural Glucose mg/dl COVID-19 Eval Order Covid19 at [facility] SARS-CoV-2 (PCR) NEGATIVE (Negative) 08/12/20 08/12/20 Range/Units 17:00 17:00 WBC (4.8-10.8) K/uL RBC (4.2-5.4) M/uL Hgb (12.0-16.0) g/dL Hct (37-47) % MCV (80-100) fL MCH (25-34) pg MCHC (32-36) g/dL RDW Std Deviation (36.4-46.3) fL RDW Coeff of Claus (11.5-14.5) % Plt Count (130-400) K/uL MPV (7.4-10.4) fL Immature Gran % (Auto) % Neut % (Auto) % Lymph % (Auto) % [place] % (Auto) % Eos % (Auto) % Baso % (Auto) % Neut # (Auto) (1.4-6.5) K/uL Lymph # (Auto) (1.2-3.4) K/uL [place] # (Auto) (0.11-0.59) K/uL Eos # (Auto) (0-0.5) K/uL Baso # (Auto) (0-0.2) K/uL Immature Gran # (Auto) (0.00-0.02) K/uL PT (9.0-12.0) Seconds INR (0.9-1.1) Sodium (136-145) mmol/L Potassium (3.5-5.1) mmol/L Chloride (98-107) mmol/L Carbon Dioxide (21-32) mmol/L Anion Gap (3-11) BUN (7-18) mg/dl Creatinine (0.6-1.2) mg/dl Est Cr Clr Drug Dosing ml/min Est GFR ( Amer) ml/min Est GFR (Non-Af Amer) ml/min BUN/Creatinine Ratio (10-20) Glucose (70-99) mg/dl Calcium (8.5-10.1) mg/dl Magnesium (1.8-2.4) mg/dl Total Bilirubin (0.2-1) mg/dl AST (15-37) U/L ALT (12-78) U/L Alkaline Phosphatase (45-117) U/L Troponin I (0-0.045) ng/ml Total Protein (6.4-8.2) gm/dl Albumin (3.4-5.0) gm/dl Globulin (2.5-4.0) gm/dl Albumin/Globulin Ratio (0.9-2) Specimen Hemolysis Urine Color Urine Appearance (Clear) Urine pH (4.5-7.5) Ur Specific [place] (1.000-1.030) Urine Protein (Negative) Urine Glucose (UA) (Negative) Urine Ketones (Negative) Urine Blood (Negative) Urine Nitrite (Negative) Urine Bilirubin (Negative) Urine Urobilinogen (Negative) Ur Leukocyte Esterase (Negative) Urine WBC (Auto) (0-5) /hpf Urine RBC (Auto) (0-4) /hpf U Hyaline Cast (Auto) (0-5) /lpf U Epithel Cells (Auto) (0-5) /lpf Urine Bacteria (Auto) (Negative) Fluid Neutrophils % 67 % Fluid Lymphocytes % 27 % Fluid Eosinophils % 0 % Fluid Basophils % 0 % Fluid Meso/Macro/[place] % 6 % Fluid Comment Pleural Fluid Source LEFT LUNG Pleural Color RED Pleural Appearance BLOODY Pleural pH 7.40 (7.3-7.4) Pleural WBC 6453 /uL Pleural RBC 612586 /uL Pleural Total Protein 4.7 g/dl Pleural LDH 553 U/L Pleural Glucose 97 mg/dl COVID-19 Eval Order SARS-CoV-2 (PCR) (Negative) Administered Medications Discontinued Medications Fentanyl Citrate (Fentanyl Citrate 100 Mcg/2 Ml Vial) 50 mcg IV NOW STA Stop: 08/12/20 12:53 Last Admin: 08/12/20 13:30 Dose: 50 mcg Documented by: [id number] Fentanyl Citrate (Fentanyl Citrate 100 Mcg/2 Ml Vial) 50 mcg IV NOW STA Stop: 08/12/20 17:03 Last Admin: 08/12/20 17:14 Dose: 50 mcg Documented by: [id number] Ioversol (Optiray 350 500ml) 118 ml IV ONCE ONE Stop: 08/12/20 15:01 Last Admin: 08/12/20 15:06 Dose: 118 ml Documented by: [id number] Imaging Data Radiologist's Impression: Chest CTA 08/12/20 12:54 CT ANGIOGRAM OF THE CHEST CLINICAL HISTORY: Cough. Atypical chest pain. Shortness of breath. Possible acute pulmonary embolism. ABNORMAL CHEST X-RAY. COMPARISON STUDY: Chest x-ray dated 08/12/2020 TECHNIQUE: Following the IV administration of 118 mL of Optiray, CT angiogram of the thorax was performed from the thoracic inlet to the lung bases utilizing the pulmonary embolus protocol. Images are reviewed in the axial, sagittal, and coronal planes. IV contrast was administered without complication. MIP imaging was performed. A dose lowering technique was utilized adhering to the principles of ALARA. CT DOSE: 454.15 mGycm FINDINGS: No pathologically enlarged axillary mediastinal or hilar lymph nodes were v isualized. There was no evidence of thoracic aortic dilatation. There are no pulmonary artery filling defects to indicate acute pulmonary embolism. Evaluation is limited due to respiratory motion artifact. There is a large left pleural effusion resulting in mild mediastinal shift to the right. There is left upper and lower lobe compressive atelectasis. There is minor dependent right lung atelectasis. There are fractures of the left eighth ninth and 10th ribs. There is nonspecific sclerosis involving multiple right ribs likely related to o ld trauma. There is an old right second rib fracture. Additional rib deformities while nonspecific likely related to motion artifact. In addition there is a sternal deformity on sagittal constructed images, also likely artifactual.. IMPRESSION: 1. Motion compromised study 2. No evidence of acute pulmonary embolism 3. Large left pleural effusion with secondary mediastinal shift to the right and compressive atelectasis of the left upper lobe and left lower lobe 4. Fractures of the left eighth, ninth, and 10th ribs. ACT 112: Negative or not required by law. Electronically signed by: Ted Barron M.D. 08/12/2020 3:15 PM Chest X-Ray 08/12/20 12:54 XR chest 1V portable HISTORY: Dyspnea COMPARISON: Chest and left rib series 07/12/2020. FINDINGS: No pneumothorax. Spinal stimulator lead and lumbar spinal fusion hardware is again noted. Near complete opacification of the left hemithorax with only a small amount of the left apex remaining aerated. The heart remains mild ly enlarged. The right lung is essentially clear. Age-indeterminate left-sided rib fractures are noted. IMPRESSION: 1. Near-complete opacification of the left hemithorax. This could be due to pneumonia, pleural effusion, or an underlying mass. This would be better assessed on the same day chest CTA. 2. Age-indeterminate left lower rib fractures. 3. Stable cardiomegaly. ACT 112: Negative or not required by law. Electronically signed by: Dimitri Nicole M.D. 08/12/2020 1:51 PM Chest X-Ray 08/12/20 17:02 XR chest 1V portable HISTORY: Status post left chest tube placement. COMPARISON: Chest 08/12/2020. FINDINGS: Interval placement of a left basilar pleural drainage catheter. This appears in good position. The moderate left pleural effusion has decreased in size. Left basilar consolidation persists. No definite pneumothorax. Left lower rib fractures are again noted. Spinal stimulator leads and lumbar spinal fusion hardware is again noted. IMPRESSION: Decrease in size in the moderate left pleural effusion status post placement of a left basilar pleural catheter. This appears in good position. No pneumothorax. ACT 112: Negative or not required by law. Electronically signed by: Dimitri Nicole M.D. 08/12/2020 5:12 PM Discharge Plan Visit Data Chief Complaint: Shortness of Breath/Dyspnea Stated Complaint: SOB,COUGHING A LOT,BROKE 2 RIBS 3WKS AGO ED Provider: Claudy Leger Discharge Problem: Breathlessness, Pleural effusion, Hypoxemia, Multiple fractures of ribs of left side Patient Disposition: Being Evaluated by Hospitalist Forms Stand Alone Forms: My [facility] Prescriptions Prescriptions: No Action hydrochlorothiazide 25 mg tablet 12.5 mg PO QAM Qty: 45 RF: 3 carvedilol 3.125 mg tablet 3.125 mg PO BID Qty: 180 RF: 3 simvastatin 10 mg tablet 10 mg PO QPM Qty: 90 RF: 3 Hold Instructions: inc CPK dicyclomine 10 mg capsule 10 mg PO QID Qty: 120 RF: 3 diazepam 5 mg tablet 5 mg PO .COMPLEX Qty: 2 RF: 0 pantoprazole 40 mg tablet,delayed release (DR/EC) 40 mg PO QAM Qty: 90 RF: 3 quinapril [Accupril] 40 mg tablet 40 mg PO QAM Qty: 90 RF: 3 duloxetine 60 mg capsule,delayed release(DR/EC) 60 mg PO DAILY Qty: 90 RF: 3 hydrocodone-acetaminophen 5-325 mg tablet 1 tab PO TID PRN (Reason: pain) Qty: 20 RF: 0 hydrocortisone [Anusol-HC] 2.5 % cream with perineal applicator 1 appln ME BID Qty: 30 RF: 1 albuterol sulfate 2.5 mg /3 mL (0.083 %) solution for nebulization 2.5 mg inhalation Q4H PRN (Reason: ASTHMA) Qty: 180 RF: 11 nitroglycerin 0.4 mg tablet, sublingual 0.4 mg SL Q5M PRN (Reason: chest pain) Qty: 25 RF: 3 tizanidine 2 mg tablet 2 mg PO TID PRN (Reason: muscle spasticity) Qty: 60 RF: 1 primidone 50 mg tablet 50 mg PO TID RF: 0 multivitamin [Multiple Vitamins] tablet 1 tab PO QAM RF: 0 topiramate 50 mg tablet 75 mg PO BID RF: 0 calcium carbonate-vitamin D3 600 mg(1,500mg) -400 unit tablet 1 tab PO BID RF: 0 aspirin 325 mg tablet 325 mg PO DAILY RF: 0 omega-3 fatty acids [Fish Oil Concentrate] 1,000 mg capsule 1,000 mg PO ACHS RF: 0 magnesium hydroxide 400 mg (170 mg magnesium) tablet,chewable 250 mg PO Q OTHER DAY RF: 0 budesonide-formoterol [Symbicort] 160-4.5 mcg/actuation Hfa Aerosol Inhaler 2 puff INHALATION BID PRN (Reason: Shortness Of Breath) RF: 0 alendronate [Fosamax] 70 mg tablet 70 mg PO WK RF: 0 pregabalin 50 mg capsule See Rx Instructions .ROUTE .COMPLEX RF: 0 buprenorphine 20 mcg/hour patch weekly 1 patch transdermal WK RF: 0 Referrals Referrals: Jeannette Marks MD [Primary Care Provider] - Discharge Problem: Multiple fractures of ribs of left side Qualifiers: Encounter type: subsequent encounter Fracture type: closed Fracture healing: with routine healing Qualified Code(s): S22.42XD - Multiple fractures of ribs, left side, subsequent encounter for fracture with routine healing
[2020-08-12 13:35] LABS: Basophils # (auto) 0.04 K/uL (0-0.2); Basophils % (auto) 0.5 %; Eosinophils # (auto) 0.12 K/uL (0-0.5); Eosinophils % (auto) 1.4 %; Hematocrit (blood only) 34.9 % (37-47); Hemoglobin 11.6 g/dL (12.0-16.0); Immature Granulocytes # (auto) 0.02 K/uL (0.00-0.02); Immature Granulocytes % (auto) 0.2 %; Lymphocytes # (auto) 1.93 K/uL (1.2-3.4); Lymphocytes % (auto) 22.1 %; Mean Corpuscular Hemoglobin 28.1 pg (25-34); Mean Corpuscular Hgb Conc 33.2 g/dL (32-36); Mean Corpuscular Volume 84.5 fL (80-100); Mean Platelet Volume 10.5 fL (7.4-10.4); Monocytes # (auto) 1.14 K/uL (0.11-0.59); Neutrophils # (auto) 5.49 K/uL (1.4-6.5); Neutrophils % (auto) 62.8 %; Platelet Count 517 K/uL (130-400); RDW Coefficient of Variation 14.4 % (11.5-14.5); RDW Standard Deviation 44.9 fL (36.4-46.3); Red Blood Count 4.13 M/uL (4.2-5.4); White Blood Count 8.74 K/uL (4.8-10.8)
--- NOTE | 2020-08-12 13:52 | XRay Report ---
XR chest 1V portable HISTORY: Dyspnea COMPARISON: Chest and left rib series 07/12/2020. FINDINGS: No pneumothorax. Spinal stimulator lead and lumbar spinal fusion hardware is again noted. N ear complete opacification of the left hemithorax with only a small amount of the left apex remaining aerated. The heart remains mildly enlarged. The right lung is essentially clear. Age-indeterminate l eft-sided rib fractures are noted. IMPRESSION: 1. Near-complete opacification of the left hemithorax. This could be due to pneumonia, pleural effusi on, or an underlying mass. This would be better assessed on the same day chest CTA. 2. Age-indeterminate left lower rib fractures. 3. Stable cardiomegaly. ACT 112: Negative or not required by law. Electronically signed by: Dimitri Nicole M.D. 08/12/2020 1:51 PM
[2020-08-12 13:55] LABS: INR 1.1 (0.9-1.1); Prothrombin Time 10.9 Seconds (9.0-12.0)
[2020-08-12 14:17] LABS: Alanine Aminotransferase 46 U/L (12-78); Albumin Globulin Ratio 0.5 (0.9-2); Albumin Level 2.5 gm/dl (3.4-5.0); Alkaline Phosphatase 82 U/L (45-117); Aspartate Aminotransferase 45 U/L (15-37); BUN Creatinine Ratio 37.7 (10-20); Bilirubin,Total 0.3 mg/dl (0.2-1); Blood Urea Nitrogen 25 mg/dl (7-18); Calcium 8.6 mg/dl (8.5-10.1); Carbon Dioxide 23 mmol/L (21-32); Chloride 104 mmol/L (98-107); Creatinine Clr Calc Pharmacy 62.4 ml/min; Est GFR (African American) 102.1 ml/min; Est GFR (Non-African American) 88.1 ml/min; Globulin 4.6 gm/dl (2.5-4.0); Glucose 103 mg/dl (70-99); Magnesium 2.4 mg/dl (1.8-2.4); Potassium 3.8 mmol/L (3.5-5.1); Sodium 135 mmol/L (136-145); Total Protein 7.1 gm/dl (6.4-8.2); Troponin I < 0.015 ng/ml (0-0.045)
[2020-08-12] MEDS ORDERED: OPTIRAY 350 500ml IV ONE (15:00)
--- NOTE | 2020-08-12 15:17 | CT Scan Report ---
CT ANGIOGRAM OF THE CHEST CLINICAL HISTORY: Cough. Atypical chest pain. Shortness of breath. Possible acute pulmonary embolism. ABNORMAL CHEST X-RAY. COMPARISON STUDY: Chest x-ray dated 08/12/2020 TECHNIQUE: Following the IV administration of 118 mL of Optiray, CT angiogram of the thorax was perfo rmed from the thoracic inlet to the lung bases utilizing the pulmonary embolus protocol. Images are r eviewed in the axial, sagittal, and coronal planes. IV contrast was administered without complication . MIP imaging was performed. A dose lowering technique was utilized adhering to the principles of AL SHREYA. CT DOSE: 454.15 mGycm FINDINGS: No pathologically enlarged axillary mediastinal or hilar lymph nodes were visualized. There was no evidence of thoracic aortic dilatation. There are no pulmonary artery filling defects to indicate acute pulmonary embolism. Evaluation is caldwell ited due to respiratory motion artifact. There is a large left pleural effusion resulting in mild mediastinal shift to the right. There is left upper and lower lobe compressive atelectasis. There is minor dependent right lung atele ctasis. There are fractures of the left eighth ninth and 10th ribs. There is nonspecific sclerosis involving multiple right ribs likely related to old trauma. There is a n old right second rib fracture. Additional rib deformities while nonspecific likely related to motio n artifact. In addition there is a sternal deformity on sagittal constructed images, also likely precious factual.. IMPRESSION: 1. Motion compromised study 2. No evidence of acute pulmonary embolism 3. Large left pleural effusion with secondary mediastinal shift to the right and compressive atelecta sis of the left upper lobe and left lower lobe 4. Fractures of the left eighth, ninth, and 10th ribs. ACT 112: Negative or not required by law. Electronically signed by: Ted Barron M.D. 08/12/2020 3:15 PM
[2020-08-12 15:42] LABS: Appearance Urine Clear (Clear); Bacteria Urine Automated Negative (Negative); Bilirubin Urine Negative (Negative); Blood Urine Negative (Negative); Color Urine Dark Yellow; Glucose Urine UA Negative (Negative); Ketones Urine 1+ (Negative); Leukocyte Esterase Urine Negative (Negative); Nitrite Urine Negative (Negative); Protein Urine Trace (Negative); RBC Urine Automated 0-4 /hpf (0-4); Specific Gravity Urine 1.027 (1.000-1.030); Urobilinogen Urine Negative (Negative)
--- NOTE | 2020-08-12 17:14 | XRay Report ---
XR chest 1V portable HISTORY: Status post left chest tube placement. COMPARISON: Chest 08/12/2020. FINDINGS: Interval placement of a left basilar pleural drainage catheter. This appears in good positi on. The moderate left pleural effusion has decreased in size. Left basilar consolidation persists. No definite pneumothorax. Left lower rib fractures are again noted. Spinal stimulator leads and lumbar spinal fusion hardware is again noted. IMPRESSION: Decrease in size in the moderate left pleural effusion status post placement of a left basilar pleura l catheter. This appears in good position. No pneumothorax. ACT 112: Negative or not required by law. Electronically signed by: Dimitri Nicole M.D. 08/12/2020 5:12 PM
--- NOTE | 2020-08-12 17:18 | Pulmonary Consultation ---
Date of Consultation August 12, 2020 Assessment & Plan (1) Pleural effusion: (2) Abnormal CT scan of lung: (3) Hypoxemia: Impression: 75-year-old female with large pleural effusion causing compr essive atelectasis and mediastinal shift. This may be related to her fall/pneumothorax. Alternative etiologies are also possible. Recommendations: 1. Pleural effusion: The patient will undergo bedside placement of a 14 Greek pigtail self locking catheter. Will allow the fluid to drain to gravity. We will follow serial imaging studies and send fluid for microbiologic and cytologic analysis. Additional recommendations will be based on radiographic response and characterization of the pleural fluid. 2. Hypoxemia: Continue supplemental oxygen titrated to keep saturations at or above 88%. 3. Rib fractures: Management per primary service. Pain control incentive spirometry and encouragement of cough recommended. Plan was discussed with the patient as well as with her at the bedside. Questions were answered to the best my ability. They expressed understanding and are in agreement with the plan as outlined History of Present Illness History of Present Illness Asked by ER to evaluate this patient with massive pleural effusion. History is obtained from discussion with the patient and her as well as review the electronic medical record and discussion with the ER staff. The patient is a 75-year-old female who is a non-smoker. She apparently had a fall about a month ago and suffered some cracked ribs. She takes aspirin at baseline. She states that over the last week or so she has had increasing shortness of breath as well as some left-sided chest pain. She was brought to the emergency room and had a chest x-ray due to demonstrating opacification of left hemithorax. This was followed with a CT scan which confirmed the presence of a large left-sided pleural effusion. She was mildly hypoxemic but did demonstrate some increased work of breathing. The patient denies fevers chills or night sweats. No nausea vomiting or diarrhea. No chest pain palpitations or lower extremity edema. She is on chronic pain medications. Allergies Allergy/AdvReac Type Severity Reaction Status Date / Time morphine Allergy Severe SEVERE Verified 08/12/20 15:03 HYPOTENSION milk Allergy Intermediate SOME MILK Verified 08/12/20 15:03 PRODUCTS-HIVES IN MOUTH adhesive Allergy Mild SKIN Verified 08/12/20 15:03 IRRITATION chocolate flavor Allergy Mild migraines Verified 08/12/20 15:03 latex Allergy Mild rash Verified 08/12/20 15:03 Penicillins Allergy Mild RASH Verified 08/12/20 15:03 Sulfa (Sulfonamide Allergy Mild RASH Verified 08/12/20 15:03 Antibiotics) tramadol Allergy Mild ITCHINESS Verified 08/12/20 15:03 oxycodone AdvReac Mild NAUSEA AND Verified 08/12/20 15:03 VOMITING Hotdogs Allergy Mild MIGRAINES Uncoded 08/12/20 15:03 margarine AdvReac Intermediate GI upset Uncoded 08/12/20 15:03 Home Medications Medication Instructions Recorded Confirmed Type albuterol sulfate 2.5 mg INHALATION Q4H PRN #180 ml 11/24/18 08/12/20 Rx nitroglycerin 0.4 mg sublingual 0.4 mg SL Q5M PRN #25 tab 11/24/18 08/12/20 Rx tablet tizanidine 2 mg tablet 2 mg PO TID PRN #60 tab 11/24/18 08/12/20 Rx calcium carbonate-vitamin D3 1 tab PO BID 05/14/19 08/12/20 History multivitamin [Multiple Vitamins] 1 tab PO QAM 05/14/19 08/12/20 History topiramate 75 mg PO BID 05/14/19 08/12/20 History budesonide-formoterol [Symbicort] 2 puff INHALATION BID PRN 09/11/19 08/12/20 History magnesium hydroxide 250 mg PO Q OTHER DAY 09/11/19 08/12/20 History omega-3 fatty acids [Fish Oil 1,000 mg PO ACHS 09/11/19 08/12/20 History Concentrate] hydrocortisone 2.5 % topical cream 1 appln AR BID #30 gm 09/19/19 08/12/20 Rx with perineal applicator hydrochlorothiazide 25 mg tablet 12.5 mg PO QAM #45 tab 10/04/19 08/12/20 Rx aspirin 325 mg tablet 325 mg PO DAILY tab 10/29/19 08/12/20 History carvedilol 3.125 mg tablet 3.125 mg PO BID #180 tab 05/22/20 08/12/20 Rx simvastatin 10 mg tablet 10 mg PO QPM #90 tab 05/22/20 08/12/20 Rx primidone 50 mg tablet 50 mg PO TID tab 05/26/20 08/12/20 History diazepam 5 mg tablet 5 mg PO .COMPLEX #2 tab 05/27/20 08/12/20 Rx dicyclomine 10 mg capsule 10 mg PO QID #120 cap 05/27/20 08/12/20 Rx pantoprazole 40 mg tablet,delayed 40 mg PO QAM #90 tab 06/06/20 08/12/20 Rx release quinapril 40 mg tablet 40 mg PO QAM #90 tab 06/06/20 08/12/20 Rx duloxetine 60 mg capsule,delayed 60 mg PO DAILY #90 cap 06/11/20 08/12/20 Rx release hydrocodone 5 mg-acetaminophen 325 1 tab PO TID PRN #20 tab 07/30/20 08/12/20 Rx mg tablet alendronate [Fosamax] 70 mg PO WK 08/12/20 08/12/20 History buprenorphine 1 patch TRANSDERMAL WK 08/12/20 08/12/20 History pregabalin See Rx Instructions .ROUTE .COMPLEX 08/12/20 08/12/20 History Patient History Medical History Ascending aorta dilation Asthma Cervical radiculopathy Chronic pain Degeneration of cervical intervertebral disc Depression Dyslipidemia Elevated CK Fluid retention in legs GERD (gastroesophageal reflux disease) Glaucoma History of kidney stones HTN (hypertension) IBS (irritable bowel syndrome) Migraines Osteoarthritis Osteoporosis, post-menopausal Peripheral neuropathy Sinus bradycardia Sjogren's syndrome Temporomandibular joint disorder TIA (transient ischemic attack) Tremor Surgical History H/O arthroscopic knee surgery H/O colonoscopy H/O foot surgery H/O oophorectomy History of back surgery History of cardiac cath History of dilatation and curettage History of esophagogastroduodenoscopy (EGD) History of inguinal hernia repair History of left cataract extraction History of loop recorder History of lumbar fusion History of lumbar laminectomy History of partial hysterectomy History of sinus surgery History of wisdom tooth extraction Hx of appendectomy Hx of right cataract extraction S/P breast lumpectomy S/P carpal tunnel release S/P cholecystectomy S/P rotator cuff repair S/P tubal ligation Spinal cord stimulator status Family History Grandfather Myocardial infarction Grandmother Myocardial infarction Mother Diabetes Coronary heart disease Hypertension Father Emphysema lung Hypertension Other No family history of adverse response to anesthesia Denies family history of Ovarian cancer Prostate cancer Breast cancer Colorectal cancer Social History Smoking Status: Never smoker Second Hand Exposure: Yes (Both parents smoked ); Hx Alcohol Use: No Hx Substance Use: No Preferred Language: Portuguese Communication Ability: Effective Visual Impairment: Limited Hearing Ability: Normal Marketing Financial Analyst Required: No Beliefs That Will Affect Care: None marital status: Current Living Situation: Spouse current occupational status: retired How many Children do You have: 2 Feels Safe at Home: Yes Childhood Exposure to Second-Hand Smoke: Yes (Both parents) Diet Comment: Regular diet caffeine: Yes (tea) during the past year weight has: increased > 10 lbs Dental Care, Regularly: No Physical Activity Frequency: 1-2 Times per Week Physical Activity Frequency Comment: walking around house or outside depending on weather/housework Seatbelt Use: always Sunscreen Use: Yes Do you think of yourself as: straight/heterosexual Assistive Devices: Cane and Glasses Review of Systems Review of Systems: All systems reviewed & are unremarkable except as noted in HPI & below Physical Exam Constitutional: + frail appearing; no acute distress Neck: trachea midline, no thyromegaly Respiratory: normal respiratory effort Diminished breath sounds in the left hemithorax with dullness to percussion Cardiovascular: RRR, no murmur, no edema Gastrointestinal (Abdomen): normal bowel sounds, soft, nontender, no hepatosplenomegaly Musculoskeletal: Extremities: extremities normal to inspection Skin: no rashes, warm and dry Neurologic: Nonfocal exam Lymphatic: no cervical lymphadenopathy Results & Data Results & Data ([facility]) Vital Signs (Past 12 Hours) Vital Signs Temp Pulse Resp BP Pulse Ox 08/12/20 15:50 79 18 81 L 08/12/20 15:40 82 19 89 L 08/12/20 15:31 79 22 91 08/12/20 15:30 79 23 137/79 88 L 08/12/20 15:22 75 L 08/12/20 15:08 81 23 131/74 98 08/12/20 14:44 83 08/12/20 14:43 84 177/85 H 08/12/20 14:20 83 19 08/12/20 14:10 81 24 08/12/20 14:01 79 22 99 08/12/20 14:00 80 22 143/82 H 94 08/12/20 13:50 80 20 94 08/12/20 13:40 77 16 95 08/12/20 13:38 79 19 132/65 94 08/12/20 13:30 78 18 94 08/12/20 13:29 95 08/12/20 13:20 85 08/12/20 13:10 82 17 08/12/20 13:00 85 94 08/12/20 12:58 82 94 08/12/20 12:50 84 202/130 H 94 08/12/20 11:58 36.8 C 85 18 160/89 H 94 Laboratory Results 08/12/20 13:19 08/12/20 13:19 Diagnostic Findings chest x-ray from 07/12/2020 was reviewed. It demonstrated a small left-sided effusion with rib fractures noted. Chest x-ray from today demonstrated opacification of left hemithorax approx imately three quarters of the way up. Rib fractures were again noted. CT angiogram demonstrated no evidence of PE with large loculated pleural effusion. Acute nondisplaced rib fractures were noted on the left eighth ninth and 10th ribs. PG Care Time/CCT Total # of Minutes Spent Total Time Spent with Patient: Total time spent is greater than 50% in coordination of care (as documented) at patient's floor/unit and/or counseling patient: Coding Level of Care Code 24686 Initial Inpt Care Lvl 3 Diagnoses Pleural effusion J90 Abnormal CT scan of lung R91.8 Hypoxemia R09.02 Time Spent (min) 50
--- NOTE | 2020-08-12 17:21 | Procedure Note ---
Procedure Note Date of Service August 12, 2020 Procedure: Diagnostic therapeutic ultrasound-guided 14 Micronesian self locking pigtail skater catheter placement on the left Body Art Technician: Dr. Oral Lucia Indication: Pleural effusion Consent: Signed by patient and verified with timeout prior to procedure Anesthesia: 8 mL's 1% lidocaine without epinephrine local. Procedure: Consent was verified and timeout performed. Appropriate imaging studies were reviewed prior to the procedure. Patient was placed in a left lateral decubitus up position and limited thoracic ultrasound was performed of the left chest. See separate imaging. Large pleural effusion noted with compressive atelectasis. Site appropriate for catheter placement was selected. The skin was prepped and draped in normal sterile fashion. Lidocaine was used for local analgesia. Fluid was aspirated via the finder needle. A small skin talisha was made with the scalpel and the 8 Micronesian catheter over the needle apparatus was advanced over the rib into the pleural space. The needle was removed leaving the catheter in position. A wire was then threaded through the catheter and the catheter removed. A 14 Micronesian skater catheter was then advanced over the wire into the pleural space and the wire removed. The catheter was locked in position and attached to a gravity system. A total of 850 mL of bloody fluid was withdrawn. Catheter was secured with the skater locking system and sterile Tegaderms. Fluid was sent for cell count differential, Gram stain and culture, cytology, LDH, pH, total protein, and glucose. The patient tolerated the procedure well without obvious complication. Follow- up chest x-ray demonstrated the catheter to be in good position with decreased size of the pleural effusion. Recommend the catheter be kept in place and allowed to drain to gravity. We will follow-up chest x-ray in the morning. Coding CPT Codes Pulmonary/Thoracic - Pulmonary and Thoracic: 97592 Pleural drainage w/imaging ([id number]) [facility] [place] Codes (Charges) Pulmonary/Thoracic Procedure 1: Pulmonary and Thoracic: 87717 Pleural drainage w/imaging
[2020-08-12 17:37] LABS: Glucose Pleural Fluid 97 mg/dl
[2020-08-12 17:53] LABS: LDH Pleural Fluid 553 U/L; Total Protein Pleural Fluid 4.7 g/dl
[2020-08-12 18:18] LABS: Appearance Pleural Fluid BLOODY; Basophils, Fluid 0 %; Color Pleural Fluid RED; Eosinophils, Fluid 0 %; Lymphocytes, Fluid 27 %; Mono,Macrophage,Mesothelial 6 %; Neutrophils, Fluid 67 %; RBC Pleural Fluid (A) 370000 /uL; Source Pleural Fluid LEFT LUNG; WBC Pleural Fluid (A) 6453 /uL
--- NOTE | 2020-08-12 18:57 | History & Physical Report ---
Date of Service August 12, 2020 Assessment & Plan (1) Pleural effusion: Patient now has a pigtail in place which is to be draining bright red bloody fluid. Appreciate pulmonology intervention, suspect it is a secondary to her fall and possible pneumothorax Repeat chest x-ray in the morning Continue to monitor, continue supplemental oxygen as needed PT/OT evaluation in the morning (2) Multiple fractures of ribs of left side: Minimize pain medication if possible, continue buprenophine patch and prn hydrocodone Incentive spirometry (3) Sjogren's syndrome: Continue outpatient medication regimen (4) Dyslipidemia: Patient is on simvastatin 10 mg daily at home, continue with this or hospital pharmacy equivalent History of Present Illness Chief Complaint: Shortness of breath Primary Care Provider: Jeannette Marks MD This is a 75-year-old female with past medical history of Sjogren's syndrome, peripheral neuropathy, hyperlipidemia, and previous fall that presents today with shortness of breath. Patient is pleasant but she is a somewhat limited historian. Patient recently had a fall in her bathtub. She was seen the next day in the emergency room for chest wall pain. Records show that she was evaluated by the ER on 07/12 but not admitted. She had done well was given incentive spirometer along with a buprenorphine patch for pain control. Patient tells me that as she continued to have some left chest wall pain over the course of the next month but this was not severe. However, over the past several days she started having worsening shortness of breath. There was some cough with scant mucus production approximately week ago. This became quite severe and the patient also medical attention today. In the ER, imaging showed a significant left-sided pleural effusion that extension of the fill the entire left hemithorax. Patient had been evaluated by pulmonology and a pigtail catheter has been placed. At the time of my evaluation, there was approximately 1L of bright red bloody fluid in the Pleur- evac. Continue to drain to gravity. Patient tells me that her shortness of breath is improved although she is still somewhat uncomfortable. Of note, she denies other systemic symptoms such as fever, chills, nausea, vomiting, adbominal pain, or other problems. Allergies Allergy/AdvReac Type Severity Reaction Status Date / Time morphine Allergy Severe SEVERE Verified 08/12/20 15:03 HYPOTENSION milk Allergy Intermediate SOME MILK Verified 08/12/20 15:03 PRODUCTS-HIVES IN MOUTH adhesive Allergy Mild SKIN Verified 08/12/20 15:03 IRRITATION chocolate flavor Allergy Mild migraines Verified 08/12/20 15:03 latex Allergy Mild rash Verified 08/12/20 15:03 Penicillins Allergy Mild RASH Verified 08/12/20 15:03 Sulfa (Sulfonamide Allergy Mild RASH Verified 08/12/20 15:03 Antibiotics) tramadol Allergy Mild ITCHINESS Verified 08/12/20 15:03 oxycodone AdvReac Mild NAUSEA AND Verified 08/12/20 15:03 VOMITING Hotdogs Allergy Mild MIGRAINES Uncoded 08/12/20 15:03 margarine AdvReac Intermediate GI upset Uncoded 08/12/20 15:03 Home Medications Medication Instructions Recorded Confirmed Type albuterol sulfate 2.5 mg INHALATION Q4H PRN #180 ml 11/24/18 08/12/20 Rx nitroglycerin 0.4 mg sublingual 0.4 mg SL Q5M PRN #25 tab 11/24/18 08/12/20 Rx tablet tizanidine 2 mg tablet 2 mg PO TID PRN #60 tab 11/24/18 08/12/20 Rx calcium carbonate-vitamin D3 1 tab PO BID 05/14/19 08/12/20 History multivitamin [Multiple Vitamins] 1 tab PO QAM 05/14/19 08/12/20 History topiramate 75 mg PO BID 05/14/19 08/12/20 History budesonide-formoterol [Symbicort] 2 puff INHALATION BID PRN 09/11/19 08/12/20 History magnesium hydroxide 250 mg PO Q OTHER DAY 09/11/19 08/12/20 History omega-3 fatty acids [Fish Oil 1,000 mg PO ACHS 09/11/19 08/12/20 History Concentrate] hydrocortisone 2.5 % topical cream 1 appln SC BID #30 gm 09/19/19 08/12/20 Rx with perineal applicator hydrochlorothiazide 25 mg tablet 12.5 mg PO QAM #45 tab 10/04/19 08/12/20 Rx aspirin 325 mg tablet 325 mg PO DAILY tab 10/29/19 08/12/20 History carvedilol 3.125 mg tablet 3.125 mg PO BID #180 tab 05/22/20 08/12/20 Rx simvastatin 10 mg tablet 10 mg PO QPM #90 tab 05/22/20 08/12/20 Rx primidone 50 mg tablet 50 mg PO TID tab 05/26/20 08/12/20 History diazepam 5 mg tablet 5 mg PO .COMPLEX #2 tab 05/27/20 08/12/20 Rx dicyclomine 10 mg capsule 10 mg PO QID #120 cap 05/27/20 08/12/20 Rx pantoprazole 40 mg tablet,delayed 40 mg PO QAM #90 tab 06/06/20 08/12/20 Rx release quinapril 40 mg tablet 40 mg PO QAM #90 tab 06/06/20 08/12/20 Rx duloxetine 60 mg capsule,delayed 60 mg PO DAILY #90 cap 06/11/20 08/12/20 Rx release hydrocodone 5 mg-acetaminophen 325 1 tab PO TID PRN #20 tab 07/30/20 08/12/20 Rx mg tablet alendronate [Fosamax] 70 mg PO WK 08/12/20 08/12/20 History buprenorphine 1 patch TRANSDERMAL WK 08/12/20 08/12/20 History pregabalin See Rx Instructions .ROUTE .COMPLEX 08/12/20 08/12/20 History Past Med/Surg History Medical History Ascending aorta dilation Per 2017 CTA of chest/thorax- "slight prominence ascending aorta at 3.6cm Asthma Cervical radiculopathy Chronic pain Degeneration of cervical intervertebral disc Depression Dyslipidemia Elevated CK Fluid retention in legs GERD (gastroesophageal reflux disease) Glaucoma History of kidney stones HTN (hypertension) IBS (irritable bowel syndrome) Migraines Osteoarthritis Osteoporosis, post-menopausal Peripheral neuropathy Sinus bradycardia Sjogren's syndrome Temporomandibular joint disorder TIA (transient ischemic attack) 2005, 2016--follows with Dr. Lopez (neuro) at [facility]--no deficits, reason for aspirin Tremor Surgical History H/O arthroscopic knee surgery right H/O colonoscopy H/O foot surgery right foot 2nd toe H/O oophorectomy History of back surgery History of cardiac cath 2005 History of dilatation and curettage History of esophagogastroduodenoscopy (EGD) History of inguinal hernia repair History of left cataract extraction History of loop recorder History of lumbar fusion History of lumbar laminectomy History of partial hysterectomy History of sinus surgery History of wisdom tooth extraction Hx of appendectomy Hx of right cataract extraction S/P breast lumpectomy right--benign S/P carpal tunnel release bilateral S/P cholecystectomy S/P rotator cuff repair bilateral S/P tubal ligation Spinal cord stimulator status Family History Grandfather Myocardial infarction Grandmother Myocardial infarction Mother Diabetes Coronary heart disease Hypertension Father Emphysema lung Hypertension Other No family history of adverse response to anesthesia Denies family history of Ovarian cancer Prostate cancer Breast cancer Colorectal cancer Social History Smoking Status: Never smoker Second Hand Exposure: Yes (Both parents smoked ); Hx Alcohol Use: No Hx Substance Use: No Preferred Language: Thai Communication Ability: Effective Visual Impairment: Limited Hearing Ability: Normal Claims Service Representative Required: No Beliefs That Will Affect Care: None marital status: Current Living Situation: Spouse current occupational status: retired How many Children do You have: 2 Feels Safe at Home: Yes Childhood Exposure to Second-Hand Smoke: Yes (Both parents) Diet Comment: Regular diet caffeine: Yes (tea) during the past year weight has: increased > 10 lbs Dental Care, Regularly: No Physical Activity Frequency: 1-2 Times per Week Physical Activity Frequency Comment: walking around house or outside depending on weather/housework Seatbelt Use: always Sunscreen Use: Yes Do you think of yourself as: straight/heterosexual Assistive Devices: Cane and Glasses Review of Systems Constitutional: no fever, no chills, no weakness, no weight loss and no weight gain Eyes: as per Subjective / HPI Respiratory: + cough, + dyspnea, + dyspnea on exertion and + sputum production; no chest congestion Cardiovascular: no chest pain, no orthopnea, no palpitations, no lightheadedness and no edema Gastrointestinal: no abdominal pain, no nausea, no vomiting, no constipation and no diarrhea/loose stools Genitourinary: no dysuria, no difficulty urinating, no urinary frequency, no urinary hesitancy, no urinary urgency and no flank pain Musculoskeletal: no back pain, no neck pain, no joint pain, no stiffness and no myalgia Integumentary: no rash Neurologic: no gait abnormality, no unsteadiness, no falls and no generalized weakness Physical Exam Constitutional: cooperative; no acute distress Neck: trachea midline, no thyromegaly Respiratory: normal respiratory effort Auscultation: + diminished lung sounds (L base breath sounds absent, diminished in other castillo); no crackles, no rales, no rhonchi and no wheezes Cardiovascular: Rate/Rhythm: regular rate and regular rhythm Heart Sounds: normal S1 and normal S2; no murmur Gastrointestinal (Abdomen): Inspection/Auscultation: abdomen normal to inspection Percussion/Palpation: abdomen soft; abdomen nontender, no guarding, abdomen not rigid and no hepatosplenomegaly Skin: no rashes, warm and dry Results & Data Results & Data ([facility]) Vital Signs (Past 12 Hours) Vital Signs Temp Pulse Resp BP Pulse Ox 08/12/20 18:30 72 14 108/63 98 08/12/20 18:20 75 17 96 08/12/20 18:15 77 23 136/64 96 08/12/20 18:10 75 14 94 08/12/20 17:50 75 17 97 08/12/20 17:45 76 20 116/70 99 08/12/20 17:40 77 15 95 08/12/20 17:31 78 24 99/66 L 94 08/12/20 17:20 79 16 94 08/12/20 17:15 76 14 107/75 98 08/12/20 17:10 76 25 H 91 08/12/20 17:00 73 30 H 142/77 H 97 08/12/20 16:50 75 21 69 L 08/12/20 16:45 77 21 127/70 95 08/12/20 16:40 76 20 88 L 08/12/20 16:31 74 19 96 08/12/20 16:30 75 24 147/77 H 97 08/12/20 16:20 79 23 97 08/12/20 16:15 80 17 136/86 97 08/12/20 16:01 80 24 133/85 92 08/12/20 16:00 83 21 97 08/12/20 15:58 81 19 139/60 90 08/12/20 15:50 79 18 81 L 08/12/20 15:40 82 19 89 L 08/12/20 15:31 79 22 91 08/12/20 15:30 79 23 137/79 88 L 08/12/20 15:22 75 L 08/12/20 15:08 81 23 131/74 98 08/12/20 14:44 83 08/12/20 14:43 84 177/85 H 08/12/20 14:20 83 19 08/12/20 14:10 81 24 08/12/20 14:01 79 22 99 08/12/20 14:00 80 22 143/82 H 94 08/12/20 13:50 80 20 94 08/12/20 13:40 77 16 95 08/12/20 13:38 79 19 132/65 94 08/12/20 13:30 78 18 94 08/12/20 13:29 95 08/12/20 13:20 85 08/12/20 13:10 82 17 08/12/20 13:00 85 94 08/12/20 12:58 82 94 08/12/20 12:50 84 202/130 H 94 08/12/20 11:58 36.8 C 85 18 160/[address] ANGIOGRAM OF THE CHEST CLINICAL HISTORY: Cough. Atypical chest pain. Shortness of breath. Possible acute pulmonary embolism. ABNORMAL CHEST X-RAY. COMPARISON STUDY: Chest x-ray dated 08/12/2020 TECHNIQUE: Following the IV administration of 118 mL of Optiray, CT angiogram of the thorax was performed from the thoracic inlet to the lung bases utilizing the pulmonary embolus protocol. Images are reviewed in the axial, sagittal, and coronal planes. IV contrast was administered without complication. MIP imaging was performed. A dose lowering technique was utilized adhering to the principles of ALARA. CT DOSE: 454.15 mGycm FINDINGS: No pathologically enlarged axillary mediastinal or hilar lymph nodes were visualized. There was no evidence of thoracic aortic dilatation. There are no pulmonary artery filling defects to indicate acute pulmonary embolism. Evaluation is limited due to respiratory motion artifact. There is a large left pleural effusion resulting in mild mediastinal shift to the right. There is left upper and lower lobe compressive atelectasis. There is minor dependent right lung atelectasis. There are fractures of the left eighth ninth and 10th ribs. There is nonspecific sclerosis involving multiple right ribs likely related to old trauma. There is an old right second rib fracture. Additional rib deformities while nonspecific likely related to motion artifact. In addition there is a sternal deformity on sagittal constructed images, also likely artifactual.. IMPRESSION: 1. Motion compromised study 2. No evidence of acute pulmonary embolism 3. Large left pleural effusion with secondary mediastinal shift to the right and compressive atelectasis of the left upper lobe and left lower lobe 4. Fractures of the left eighth, ninth, and 10th ribs. PG Care Time/CCT Total # of Minutes Spent Total Time Spent with Patient: Total time spent is greater than 50% in coordination of care (as documented) at patient's floor/unit and/or counseling patient: Coding Level of Care Code 23616 Initial Inpt Care Lvl 3 Diagnoses Pleural effusion J90 Multiple fractures of ribs of left side S22.42XD Encounter type: subsequent encounter Fracture healing: with routine healing Fracture type: closed Sjogren's syndrome M35.00 Dyslipidemia E78.5 (1) Multiple fractures of ribs of left side Encounter type: subsequent encounter Fracture healing: with routine healing Fracture type: closed Qualified Code(s): S22.42XD - Multiple fractures of ribs, left side, subsequent encounter for fracture with routine healing
[2020-08-12] MEDS ORDERED: ALBUTEROL 0.083% NEBU SOLN 3 ML VIAL INH PRN (21:06)
[2020-08-12] MEDS ORDERED: NITROGLYCERIN SL 0.4 MG/TAB TAB SL PRN (21:06)
[2020-08-12] MEDS ORDERED: ONDANSETRON INJ 2 MG/ML 2 ML VIAL IV PRN (21:06)
[2020-08-12] MEDS ORDERED: FLUTICASONE/VILANTEROL 200/25MCG 14 PUFFS/INHALER INH PRN (22:13)
[2020-08-12] MEDS: PRIMIDONE 50 MG TAB PO SCH (23:13)
[2020-08-12] MEDS: PREGABALIN 150 MG CAP PO SCH (23:13)
[2020-08-12] MEDS: carvediloL 3.125 MG TAB PO SCH (23:14)
[2020-08-12] MEDS: SIMVASTATIN 10 MG TAB PO SCH (23:14)
[2020-08-12] MEDS: CALCIUM 600MG + VIT D 400 IU TAB PO SCH (23:14)
[2020-08-12] MEDS: OMEGA-3 (PURIFIED FISH OIL) 1 GM CAP PO SCH (23:14)
[2020-08-12] MEDS: DICYCLOMINE HCL 10 MG CAP PO SCH (23:14)
[2020-08-12] MEDS: TOPIRAMATE 25 MG TAB PO SCH (23:15)
[2020-08-12] MEDS: ACETAMINOPHEN 325 MG TAB PO PRN (23:21)
--- NOTE | 2020-08-13 06:30 | Electrocardiogram Report ---
Test Reason : Blood Pressure : / mmHG Vent. Rate : 077 BPM Atrial Rate : 077 BPM P-R Int : 152 ms QRS Dur : 092 ms QT Int : 418 ms P-R-T Axes : 028 006 016 degrees QTc Int : 473 ms Poor data quality, interpretation may be adversely affected Normal sinus rhythm Normal ECG When compared with ECG of 01-JAN-2020 15:52, No significant change was found Confirmed by Praneeth Nixon ([id number]) on 08/13/2020 6:29:36 AM Referred By: Confirmed By:Praneeth Nixon
[2020-08-13] MEDS: HYDROCODONE/ACETAMOPHEN 5/325MG TAB PO PRN ×2 (08:14→20:39)
[2020-08-13] MEDS: TOPIRAMATE 25 MG TAB PO SCH ×2 (08:16→20:11)
[2020-08-13] MEDS: OMEGA-3 (PURIFIED FISH OIL) 1 GM CAP PO SCH ×4 (08:16→20:11)
[2020-08-13] MEDS: carvediloL 3.125 MG TAB PO SCH (08:16)
[2020-08-13] MEDS: DICYCLOMINE HCL 10 MG CAP PO SCH ×4 (08:17→20:13)
[2020-08-13] MEDS: CALCIUM 600MG + VIT D 400 IU TAB PO SCH ×2 (08:17→20:13)
[2020-08-13] MEDS: PRIMIDONE 50 MG TAB PO SCH ×3 (08:17→20:16)
[2020-08-13] MEDS: ASPIRIN 325 MG ECTAB PO SCH (08:18)
[2020-08-13] MEDS: PANTOprazole 40 MG TAB PO SCH (08:18)
[2020-08-13] MEDS: MULTIVITAMIN TAB PO SCH (08:18)
[2020-08-13] MEDS: DULoxetine HCL 60 MG CAP PO SCH (08:19)
[2020-08-13] MEDS: MAGNESIUM OXIDE 400 MG TAB PO SCH (08:19)
[2020-08-13] MEDS: ENALAPRIL MALEATE 10 MG TAB PO SCH (08:20)
[2020-08-13] MEDS: tiZANidine HCL 4 MG TABLET PO PRN ×2 (08:20→20:14)
[2020-08-13] MEDS: PREGABALIN 100 MG CAP PO SCH (08:23)
--- NOTE | 2020-08-13 08:59 | XRay Report ---
XR chest 1V portable HISTORY: Follow-up pleural effusion. Pleural drain. COMPARISON: Chest 08/12/2020. FINDINGS: Continued decrease in size in the small to moderate left pleural effusion. Left basilar con solidation has also improved. The left a pleural drain appears in good position. Left-sided rib fract ures are again noted. There may be a small amount of gas within the left pleural space which is likel y due to the indwelling chest tube. The heart remains mildly enlarged. Spinal stimulator leads and dane mbar spinal fusion hardware again noted. IMPRESSION: 1. Continued decrease in size in the small moderate left pleural effusion and improvement in the left basilar consolidation. 2. The left pleural drain is in good position. 3. Small amount of gas within the left pleural space likely due to chest tube insertion. ACT 112: Negative or not required by law. Electronically signed by: Dimitri Nicole M.D. 08/13/2020 8:58 AM
[2020-08-13] MEDS ORDERED: hydroCHLOROthiazide 25 MG TAB PO SCH (09:00)
--- NOTE | 2020-08-13 09:18 | Pulmonology Progress Note ---
Date of Service August 13, 2020 Assessment & Plan (1) Pleural effusion: (2) Abnormal CT scan of lung: (3) Hypoxemia: Impression: 75-year-old female with large bloody exudative pleural effusion causing compressive atelectasis and mediastinal shift. She had rib fractures after a fall about a month ago. She is status post pigtail catheter placement 08/12/2020 with improvement in symptoms and improving chest x-ray but residual fluid is noted Recommendations: 1. Pleural effusion: Continue chest tube. We will place the tube to 20 cm of wall suction to facilitate drainage. Await final culture data and cytology evaluation. Continue daily chest x-ray 2. Hypoxemia: Continue supplemental oxygen titrated to keep saturations at or above 88%. 3. Rib fractures: Management per admitting service. Pain control incentive spirometry and encouragement of cough recommended. Plan was discussed with the patient as well as with her at the bedside. Questions were answered to the best my ability. They expressed understanding and are in agreement with the plan as outlined Admission and Anticipated Discharge Date Admission Date: August 12, 2020 Subjective Patient seen and examined. She is up to the chair. She thinks her breathing is better. She is off oxygen. Her cough is resolved. She is having a minimal amount of pain. Review of Systems Review of Systems: All systems reviewed & are unremarkable except as noted in HPI & below Physical Exam Constitutional: + frail appearing; no acute distress Neck: trachea midline, no thyromegaly Respiratory: normal respiratory effort Cardiovascular: RRR, no murmur, no edema Gastrointestinal (Abdomen): normal bowel sounds, soft, nontender, no hepatosplenomegaly Musculoskeletal: Extremities: extremities normal to inspection Skin: no rashes, warm and dry Lymphatic: no cervical lymphadenopathy Results & Data Results & Data ([facility]) Vital Signs (Past 12 Hours) Vital Signs Temp Pulse Pulse Resp BP Pulse Ox 08/13/20 08:23 83 102/51 L 08/13/20 08:15 75 08/13/20 07:25 36.6 C 78 16 99/60 L 93 08/13/20 03:56 36.5 C 69 18 99/51 L 92 08/13/20 00:56 76 08/12/20 23:05 36.8 C 77 94 H 126/71 08/12/20 21:48 75 Laboratory Results 08/12/20 13:19 08/12/20 13:19 Pleural fluid studies: Cell count differential: 67% neutrophils, 27% lymphocytes, 6% mesothelial cells pH 7.4 Total protein 4.7 LDH 553 Glucose 97 Gram stain no organism many polys Cytology pending Diagnostic Findings Chest x-ray from today independently reviewed. Tube remains in good position. There is been decrease in size of the pleural effusion. PG Care Time/CCT Total # of Minutes Spent Total Time Spent with Patient: Total time spent is greater than 50% in coordination of care (as documented) at patient's floor/unit and/or counseling patient: Coding Level of Care Code 88637 Subseq Hosp Care Lvl 2 Diagnoses Pleural effusion J90 Abnormal CT scan of lung R91.8 Hypoxemia R09.02
[2020-08-13] MEDS ORDERED: SODIUM CHLORIDE 0.9% 250 ML IV PRN (11:20)
[2020-08-13] MEDS ORDERED: SODIUM CHLORIDE 0.9% 1000ML 1,000 ML IV ONE (11:20)
--- NOTE | 2020-08-13 11:34 | Hospitalist Progress Note ---
Date of Service August 13, 2020 Assessment & Plan (1) Hemothorax on left: suspect this a traumatic hemothorax from rib fractures however, not pure blood, there is also an effusion follow up on cytology report keep chest tube for today, still with significant output (2) Acute blood loss anemia: Hb dropped to 10 from 11.6 could be due to blood loss in chest? will repeat H/H at 8pm and in the morning typed and crossed for two units, would only transfuse if Hb < 8 or if she has hypotension again signed consent (3) Hypotension: transient, responded well to NSS 1 liter bolus likely from getting BP medications (now on hold) and maybe narcotic pain control doubt it is due to blood loss as Hb is 10 but will monitor closely BP better, above 100 systolic ever since bolus (4) Pleural effusion: Patient now has a pigtail in place which is to be draining bright red bloody fluid. Appreciate pulmonology intervention, suspect it is a secondary to her fall and possible hemothorax Repeat chest x-ray today with less effusion (5) Multiple fractures of ribs of left side: Minimize pain medication if possible, continue buprenophine patch and prn hydrocodone Incentive spirometry (6) Sjogren's syndrome: new diagnosis? this is per and patient can follow up with outpatient provider (7) Dyslipidemia: Patient is on simvastatin 10 mg daily at home, continue with this or hospital pharmacy equivalent (8) Hypoxemia: due to effusion, atelectasis encourage incentive spirometer, pain control so she can take deep breath draining pleural fluid Admission and Anticipated Discharge Date Admission Date: August 12, 2020 Subjective patient doing okay this morning, says she is breathing better since they removed fluid she has some chest discomfort on the left side with the chest tube her says that she fell hard on her left side in the bathtub about one month ago she admits she started to get short of breath maybe two weeks ago then really short of breath a few days ago got to the point that she needed to come to the ED her blood pressure dropped late this morning to the 70s systolic, admitted to being light headed when laying down reviewed with RN, she did get her morning blood pressure medications because her BP was 100's systolic also, she had received a narcotic pain medication prior to BP dropping gave patient 1L NSS bolus and checked H/H, Hb is 10, was 11.6 on admission, no need for transfusion but she signed consent if it drops further discussed with Dr. Lucia, he is awaiting cytology and culture results from pleural fluid, keep chest tube today per RN, several hundred mL out today, red fluid updated her at the bedside he provided recent lab results that show elevated anti Ro and anti La antibodies consistent with Sjogrens according to patient and this is new diagnosis admits to really dry mouth, not so much with dry eyes Review of Systems Review of Systems: All systems reviewed & are unremarkable except as noted in Subjective Physical Exam Constitutional: well developed, + thin and + frail appearing; no acute distress ENMT: Mouth: + dry oral mucous membranes Neck: trachea midline, no thyromegaly Respiratory: normal respiratory effort and + cough; no respiratory distress and no labored breathing Auscultation: lungs clear to auscultation bilaterally and + breath sounds absent (left base) Cardiovascular: RRR, no murmur, no edema Gastrointestinal (Abdomen): normal bowel sounds, soft, nontender, no hepatosplenomegaly Musculoskeletal: no cyanosis or clubbing, extremities motor strength 5/5 Skin: no rashes, warm and dry Neurologic: patellar DTR's 2+ bilat, sensation intact and PERRL, EOMI, accommodation nl, no face palsy, no dysarthria Psychiatric: A+Ox3, euthymic affect Lymphatic: no cervical or axillary lymphadenopathy Results & Data Results & Data ([facility]) Vital Signs (Past 12 Hours) Vital Signs Temp Pulse Pulse Resp BP Pulse Ox 08/13/20 10:53 36.7 C 68 18 92 08/13/20 08:23 83 102/51 L 08/13/20 08:15 75 08/13/20 07:25 36.6 C 78 16 99/60 L 93 08/13/20 03:56 36.5 C 69 18 99/51 L 92 08/13/20 00:56 76 Laboratory Results Laboratory Results - last 24 hr 08/12/20 08/12/20 08/13/20 17:00 17:00 11:31 WBC RBC Hgb Hct MCV MCH MCHC RDW Std Deviation RDW Coeff of Claus Plt Count MPV Immature Gran % (Auto) Neut % (Auto) Lymph % (Auto) [place] % (Auto) Eos % (Auto) Baso % (Auto) Neut # (Auto) Lymph # (Auto) [place] # (Auto) Eos # (Auto) Baso # (Auto) Immature Gran # (Auto) Sodium Potassium Chloride Carbon Dioxide Anion Gap BUN Creatinine Est Cr Clr Drug Dosing Est GFR ( Amer) Est GFR (Non-Af Amer) BUN/Creatinine Ratio Glucose Lactate Calcium Troponin I Fluid Neutrophils % 67 Fluid Lymphocytes % 27 Fluid Eosinophils % 0 Fluid Basophils % 0 Fluid Meso/Macro/[place] % 6 Fluid Comment Pleural Fluid Source LEFT LUNG Pleural Color RED Pleural Appearance BLOODY Pleural pH 7.40 Pleural WBC 6453 Pleural RBC [id number] Pleural Total Protein 4.7 Pleural LDH 553 Pleural Glucose 97 Blood Type A Positive Antibody Screen NEGATIVE Crossmatch See Detail 08/13/20 08/13/20 08/13/20 11:31 11:31 11:37 WBC 6.43 RBC 3.72 L Hgb 10.0 L Hct 30.8 L MCV 82.8 MCH 26.9 MCHC 32.5 RDW Std Deviation 43.4 RDW Coeff of Claus 14.3 Plt Count 453 H MPV 9.9 Immature Gran % (Auto) 0.3 Neut % (Auto) 63.1 Lymph % (Auto) 21.3 [place] % (Auto) 11.8 Eos % (Auto) 3.0 Baso % (Auto) 0.5 Neut # (Auto) 4.06 Lymph # (Auto) 1.37 [place] # (Auto) 0.76 H Eos # (Auto) 0.19 Baso # (Auto) 0.03 Immature Gran # (Auto) 0.02 Sodium 138 Potassium 3.1 L D Chloride 107 Carbon Dioxide 26 Anion Gap 5.0 BUN 20 H Creatinine 0.68 Est Cr Clr Drug Dosing 59.5 Est GFR ( Amer) 100.6 Est GFR (Non-Af Amer) 86.8 BUN/Creatinine Ratio 29.8 H Glucose 112 H Lactate 1.0 Calcium 8.3 L Troponin I < 0.015 Fluid Neutrophils % Fluid Lymphocytes % Fluid Eosinophils % Fluid Basophils % Fluid Meso/Macro/[place] % Fluid Comment Pleural Fluid Source Pleural Color Pleural Appearance Pleural pH Pleural WBC Pleural RBC Pleural Total Protein Pleural LDH Pleural Glucose Blood Type Antibody Screen Crossmatch Medications Administered Current Inpatient Medications Acetaminophen (Acetaminophen 325 Mg Tab) 650 mg PO Q4H PRN PRN Reason: Pain or Fever Stop: 09/11/20 21:05 Last Admin: 08/12/20 23:21 Dose: 650 mg Documented by: Hydrocodone Bitart/Acetaminophen (Hydrocodone/Acetamophen 5/325mg Tab) 1 tab PO TID PRN PRN Reason: pain Stop: 08/26/20 21:05 Last Admin: 08/13/20 08:14 Dose: 1 tab Documented by: Albuterol (Albuterol 0.083% Nebu Soln 3 Ml Vial) 2.5 mg INH Q4R PRN PRN Reason: ASTHMA Stop: 09/11/20 21:05 Alendronate Sodium (Alendronate Sodium 70 Mg Tab) 70 mg PO Sa@0900 [facility] Stop: 09/15/20 08:59 Aspirin (Aspirin 325 Mg Ectab) 325 mg PO DAILY [facility] Stop: 09/12/20 08:59 Last Admin: 08/13/20 08:18 Dose: 325 mg Documented by: Carvedilol (Carvedilol 3.125 Mg Tab) 3.125 mg PO BID [facility] Stop: 09/11/20 21:59 Last Admin: 08/13/20 08:16 Dose: 3.125 mg Documented by: Dicyclomine HCl (Dicyclomine Hcl 10 Mg Cap) 10 mg PO QID [facility] Stop: 09/11/20 21:59 Last Admin: 08/13/20 13:41 Dose: 10 mg Documented by: Duloxetine HCl (Duloxetine Hcl 60 Mg Cap) 60 mg PO DAILY [facility] Stop: 09/12/20 08:59 Last Admin: 08/13/20 08:19 Dose: 60 mg Documented by: Enalapril Maleate (Enalapril Maleate 10 Mg Tab) 40 mg PO QAM [facility]; Protocol Stop: 09/12/20 08:59 Last Admin: 08/13/20 08:20 Dose: 40 mg Documented by: Fish Oil (Union-3 (Purified Fish Oil) 1 Gm Cap) 1 gm PO ACHS [facility] Stop: 09/11/20 21:59 Last Admin: 08/13/20 11:28 Dose: 1 gm Documented by: Fluticasone/Vilanterol (Fluticasone/Vilanterol 200/25mcg 14 Puffs/Inhaler) 1 puffs INH DAILY PRN PRN Reason: Shortness Of Breath Stop: 09/11/20 22:12 Hydrochlorothiazide (Hydrochlorothiazide 25 Mg Tab) 12.5 mg PO QAM [facility] Stop: 09/12/20 08:59 Last Admin: 08/13/20 08:18 Dose: 12.5 mg Documented by: Sodium Chloride (Nss) 250 mls @ 15 mls/hr IV .[id number] PRN PRN Reason: For Transfusion Stop: 08/13/20 21:20 Magnesium Oxide (Magnesium Oxide 400 Mg Tab) 400 mg PO Q2D [facility] Stop: 09/12/20 08:59 Last Admin: 08/13/20 08:19 Dose: 400 mg Documented by: Miscellaneous (*Butrans 20mcg/Hr Td*Order Awaiting Action) 1 ea N/A QS [facility] Stop: 09/13/20 00:00 Multivitamins (Multivitamin Tab) 1 tab PO QAM [facility] Stop: 09/12/20 08:59 Last Admin: 08/13/20 08:18 Dose: 1 tab Documented by: Multivitamins/Minerals (Calcium 600mg + Vit D 400 Iu Tab) 1 tab PO BID [facility] Stop: 09/11/20 21:59 Last Admin: 08/13/20 08:17 Dose: 1 tab Documented by: Nitroglycerin (Nitroglycerin Sl 0.4 Mg/Tab Tab) 0.4 mg SL Q5M PRN PRN Reason: chest pain Stop: 09/11/20 21:05 Ondansetron HCl (Ondansetron Inj 2 Mg/Ml 2 Ml Vial) 4 mg IV Q6H PRN PRN Reason: Nausea Stop: 09/11/20 21:05 Pantoprazole Sodium (Pantoprazole 40 Mg Tab) 40 mg [place] Stop: 09/12/20 08:59 Last Admin: 08/13/20 08:18 Dose: 40 mg Documented by: Pregabalin (Pregabalin 100 Mg Cap) 100 mg PO QAM [facility] Stop: 09/12/20 08:59 Last Admin: 08/13/20 08:23 Dose: 100 mg Documented by: Pregabalin (Pregabalin 150 Mg Cap) 150 mg PO HS [facility] Stop: 09/11/20 22:29 Last Admin: 08/12/20 23:13 Dose: 150 mg Documented by: Primidone (Primidone 50 Mg Tab) 50 mg PO TID [facility] Stop: 09/11/20 21:59 Last Admin: 08/13/20 13:41 Dose: 50 mg Documented by: Simvastatin (Simvastatin 10 Mg Tab) 10 mg PO QPM [facility] Stop: 09/11/20 21:59 Last Admin: 08/12/20 23:14 Dose: 10 mg Documented by: Tizanidine HCl (Tizanidine Hcl 4 Mg Tablet) 2 mg PO TID PRN PRN Reason: muscle spasticity Stop: 09/11/20 21:05 Last Admin: 08/13/20 08:20 Dose: 2 mg Documented by: Topiramate (Topiramate 25 Mg Tab) 75 mg PO BID [facility] Stop: 09/11/20 21:59 Last Admin: 08/13/20 08:16 Dose: 75 mg Documented by: PG Care Time/CCT Total # of Minutes Spent Total Time Spent with Patient: Total time spent is greater than 50% in coordination of care (as documented) at patient's floor/unit and/or counseling patient: Coding Level of Care Code 72902 Subseq Hosp Care Lvl 3 Diagnoses Hemothorax on left J94.2 Acute blood loss anemia D62 Hypotension I95.9 Pleural effusion J90 Multiple fractures of ribs of left side S22.42XD Encounter type: subsequent encounter Fracture healing: with routine healing Fracture type: closed Sjogren's syndrome M35.00 Dyslipidemia E78.5 Hypoxemia R09.02 (1) Multiple fractures of ribs of left side Encounter type: subsequent encounter Fracture healing: with routine healing Fracture type: closed Qualified Code(s): S22.42XD - Multiple fractures of ribs, left side, subsequent encounter for fracture with routine healing
[2020-08-13 11:48] LABS: Basophils # (auto) 0.03 K/uL (0-0.2); Basophils % (auto) 0.5 %; Eosinophils # (auto) 0.19 K/uL (0-0.5); Hematocrit (blood only) 30.8 % (37-47); Immature Granulocytes # (auto) 0.02 K/uL (0.00-0.02); Immature Granulocytes % (auto) 0.3 %; Lymphocytes # (auto) 1.37 K/uL (1.2-3.4); Lymphocytes % (auto) 21.3 %; Mean Corpuscular Hemoglobin 26.9 pg (25-34); Mean Corpuscular Volume 82.8 fL (80-100); Mean Platelet Volume 9.9 fL (7.4-10.4); Monocytes # (auto) 0.76 K/uL (0.11-0.59); Monocytes % (auto) 11.8 %; Neutrophils # (auto) 4.06 K/uL (1.4-6.5); Neutrophils % (auto) 63.1 %; Platelet Count 453 K/uL (130-400); RDW Coefficient of Variation 14.3 % (11.5-14.5); RDW Standard Deviation 43.4 fL (36.4-46.3); Red Blood Count 3.72 M/uL (4.2-5.4); White Blood Count 6.43 K/uL (4.8-10.8)
[2020-08-13 11:56] LABS: Mean Corpuscular Hgb Conc 32.5 g/dL (32-36)
[2020-08-13 12:24] LABS: BUN Creatinine Ratio 29.8 (10-20); Blood Urea Nitrogen 20 mg/dl (7-18); Calcium 8.3 mg/dl (8.5-10.1); Carbon Dioxide 26 mmol/L (21-32); Chloride 107 mmol/L (98-107); Creatinine Clr Calc Pharmacy 59.5 ml/min; Est GFR (African American) 100.6 ml/min; Est GFR (Non-African American) 86.8 ml/min; Glucose 112 mg/dl (70-99); Potassium 3.1 mmol/L (3.5-5.1); Sodium 138 mmol/L (136-145); Troponin I < 0.015 ng/ml (0-0.045)
[2020-08-13] MEDS: SIMVASTATIN 10 MG TAB PO SCH (20:11)
[2020-08-13] MEDS: PREGABALIN 150 MG CAP PO SCH (20:18)
[2020-08-13 20:50] LABS: Hemoglobin 12.6 g/dL (12.0-16.0)
--- NOTE | 2020-08-14 08:14 | XRay Report ---
XR chest 1V portable HISTORY: Follow-up pleural effusion. pleural drain COMPARISON: Chest 08/13/2020. FINDINGS: Left basilar pleural catheter is unchanged in position. Left-sided rib fractures are again noted. Small left pleural effusion and left basilar densities have slightly improved. The right lung is clear. Spinal stimulator leads and lumbar spinal fusion hardware is again noted. Suspect a small a mount of gas within the left pleural space. This remains unchanged. IMPRESSION: 1. Slight decrease in size in the small left pleural effusion and left basilar densities. 2. The left pleural drain is in good position. 3. Small amount of gas within the left pleural space is again noted. ACT 112: Negative or not required by law. Electronically signed by: Dimitri Nicole M.D. 08/14/2020 8:12 AM
[2020-08-14 08:28] LABS: Hematocrit (blood only) 34.6 % (37-47); Hemoglobin 11.5 g/dL (12.0-16.0); Mean Corpuscular Hemoglobin 27.4 pg (25-34); Mean Corpuscular Hgb Conc 33.2 g/dL (32-36); Mean Corpuscular Volume 82.4 fL (80-100); Mean Platelet Volume 10.1 fL (7.4-10.4); Platelet Count 520 K/uL (130-400); RDW Coefficient of Variation 14.5 % (11.5-14.5); RDW Standard Deviation 43.5 fL (36.4-46.3); White Blood Count 6.09 K/uL (4.8-10.8)
[2020-08-14] MEDS: DULoxetine HCL 60 MG CAP PO SCH (08:29)
[2020-08-14] MEDS: PRIMIDONE 50 MG TAB PO SCH ×3 (08:29→20:44)
[2020-08-14] MEDS: DICYCLOMINE HCL 10 MG CAP PO SCH ×4 (08:30→20:45)
[2020-08-14] MEDS: ASPIRIN 325 MG ECTAB PO SCH (08:30)
[2020-08-14] MEDS: PANTOprazole 40 MG TAB PO SCH (08:30)
[2020-08-14] MEDS: TOPIRAMATE 25 MG TAB PO SCH ×2 (08:30→20:42)
[2020-08-14] MEDS: CALCIUM 600MG + VIT D 400 IU TAB PO SCH ×2 (08:30→20:45)
[2020-08-14] MEDS: OMEGA-3 (PURIFIED FISH OIL) 1 GM CAP PO SCH ×4 (08:30→20:41)
[2020-08-14] MEDS: MULTIVITAMIN TAB PO SCH (08:31)
[2020-08-14] MEDS: PREGABALIN 100 MG CAP PO SCH (08:36)
--- NOTE | 2020-08-14 08:45 | Pulmonology Progress Note ---
Date of Service August 14, 2020 Assessment & Plan (1) Pleural effusion: (2) Abnormal CT scan of lung: (3) Hypoxemia: Impression: 75-year-old female with large bloody exudative pleural effusion causing compressive atelectasis and mediastinal shift. She had rib fractures after a fall about a month ago. She is status post pigtail catheter placement 08/12/2020 with improvement in symptoms and improving chest x-ray but residual fluid is noted Recommendations: 1. Pleural effusion: Continue chest tube. We will place the tube to 40 cm of wall suction to facilitate drainage. Await final culture data and cytology evaluation. Continue daily chest x-ray. Output decreased about 300 mL over the last 24 hours. When it decreases below 100 cc daily, may consider discontinuation. May need follow-up CT noncontrast of the chest if the x-ray remains persistently abnormal to ensure all the pleural fluid is been drained. Reluctant to use MIST protocol in the setting of bloody effusion. 2. Hypoxemia: Continue supplemental oxygen titrated to keep saturations at or above 88%. 3. Rib fractures: Management per admitting service. Pain control incentive spirometry and encouragement of cough recommended. Plan was discussed with the patient Admission and Anticipated Discharge Date Admission Date: August 12, 2020 Subjective Patient without complaints this morning. She states that yesterday she had a coughing episode and did expectorate a small amount of phlegm. She is not having any pain at the chest tube site. Overall her breathing continues to improve. Review of Systems Review of Systems: All systems reviewed & are unremarkable except as noted in HPI & below Physical Exam Constitutional: + frail appearing; no acute distress Neck: trachea midline, no thyromegaly Respiratory: normal respiratory effort Cardiovascular: RRR, no murmur, no edema Gastrointestinal (Abdomen): normal bowel sounds, soft, nontender, no hepatosplenomegaly Musculoskeletal: Extremities: extremities normal to inspection Skin: no rashes, warm and dry Lymphatic: no cervical lymphadenopathy Results & Data Results & Data ([facility]) Vital Signs (Past 12 Hours) Vital Signs Temp Pulse Resp BP BP Pulse Ox Pulse Ox 08/14/20 07:37 36.7 C 67 14 144/77 H 95 08/14/20 03:56 36.8 C 61 17 100/55 L 96 08/13/20 21:06 95 Laboratory Results 06/10/21 08:12 Diagnostic Findings Chest x-ray today was reviewed. Decrease of the left pleural effusion with some left basilar densities. PG Care Time/CCT Total # of Minutes Spent Total Time Spent with Patient: Total time spent is greater than 50% in coordination of care (as documented) at patient's floor/unit and/or counseling patient: Coding Level of Care Code 98032 Subseq Hosp Care Lvl 2 Diagnoses Pleural effusion J90 Abnormal CT scan of lung R91.8 Hypoxemia R09.02
[2020-08-14 09:11] LABS: BUN Creatinine Ratio 21.5 (10-20); Calcium 8.7 mg/dl (8.5-10.1); Creatinine Clr Calc Pharmacy 66.3 ml/min; Est GFR (African American) 104.2 ml/min; Est GFR (Non-African American) 89.9 ml/min; Potassium 3.1 mmol/L (3.5-5.1)
--- NOTE | 2020-08-14 09:37 | Hospitalist Progress Note ---
Date of Service August 14, 2020 Assessment & Plan (1) Hemothorax on left: suspect this a traumatic hemothorax from rib fractures however, not pure blood, there is also an effusion cytology - no malignant cells culture - no growth repeat CXR today with slightly small left effusion, atelectasis keep Chest tube, repeat CXR tomorrow consider CT chest (2) Acute blood loss anemia: Hb dropped to 10 from 11.6 could be due to blood loss in chest? H/H is back up to 12 today no evidence of active bleeding (3) Hypotension: transient, responded well to NSS 1 liter bolus likely from getting BP medications (now on hold) and maybe narcotic pain control doubt it is due to blood loss as Hb is 12 no hypotension today (4) Pleural effusion: Patient now has a pigtail in place, continues to drain red tinged fluid Appreciate pulmonology intervention, suspect it is a secondary to her fall and possible hemothorax Repeat chest x-ray today with less effusion (5) Multiple fractures of ribs of left side: Minimize pain medication if possible, continue buprenophine patch and prn hydrocodone Incentive spirometry (6) Sjogren's syndrome: new diagnosis? this is per and patient can follow up with outpatient provider (7) Dyslipidemia: Patient is on simvastatin 10 mg daily at home, continue with this or hospital pharmacy equivalent (8) Hypoxemia: due to effusion, atelectasis encourage incentive spirometer, pain control so she can take deep breath draining pleural fluid less oxygen today (9) Hypokalemia: low at 3.1 ordered PO replacement check labs tomorrow Admission and Anticipated Discharge Date Admission Date: August 12, 2020 Subjective patient doing well this morning, sitting up, less pain, eating well, no nausea labs reviewed, WBC is normal, Hb is 11.5 Cr is normal, K low at 3.1 pleural fluid culture shows no growth, no malignant cells on cytology evaluation CXR with less pleural fluid but still with effusion, still draining pleural fluid, red tinged BP elevated at 144 systolic but prior to that it was 100 systolic continue to hold BP medications but if high this afternoon will resume Coreg spoke with Dr. Lucia, repeat CXR tomorrow, consider CT chest if no improvement in CXR could consider giving tPA to break up any coagulated blood in chest cavity I updated her at the bedside Review of Systems Review of Systems: All systems reviewed & are unremarkable except as noted in Subjective Constitutional: no fever, no fatigue and no weakness Respiratory: + cough and + dyspnea on exertion; no dyspnea Cardiovascular: + chest pain (left posterior with chest tube and rib fractures) and + dyspnea on exertion Gastrointestinal: no abdominal pain, no nausea, no vomiting, no constipation and no diarrhea/loose stools Physical Exam Constitutional: well developed, + thin and + frail appearing; no acute distress ENMT: Mouth: + dry oral mucous membranes Neck: trachea midline, no thyromegaly Respiratory: normal respiratory effort and + cough; no respiratory distress and no labored breathing Auscultation: lungs clear to auscultation bilaterally and + breath sounds absent (left base) Cardiovascular: RRR, no murmur, no edema Gastrointestinal (Abdomen): normal bowel sounds, soft, nontender, no h epatosplenomegaly Musculoskeletal: no cyanosis or clubbing, extremities motor strength 5/5 Skin: no rashes, warm and dry Neurologic: patellar DTR's 2+ bilat, sensation intact and PERRL, EOMI, accommodation nl, no face palsy, no dysarthria Psychiatric: A+Ox3, euthymic affect Lymphatic: no cervical or axillary lymphadenopathy Results & Data Results & Data ([facility]) Vital Signs (Past 12 Hours) Vital Signs Temp Pulse Resp BP BP Pulse Ox 08/14/20 07:37 36.7 C 67 14 144/77 H 95 08/14/20 03:56 36.8 C 61 17 100/55 L 96 Laboratory Results Laboratory Results - last 24 hr 08/13/20 08/13/20 08/13/20 11:31 11:31 11:31 WBC 6.43 RBC 3.72 L Hgb 10.0 L Hct 30.8 L MCV 82.8 MCH 26.9 MCHC 32.5 RDW Std Deviation 43.4 RDW Coeff of Claus 14.3 Plt Count 453 H MPV 9.9 Immature Gran % (Auto) 0.3 Neut % (Auto) 63.1 Lymph % (Auto) 21.3 [place] % (Auto) 11.8 Eos % (Auto) 3.0 Baso % (Auto) 0.5 Neut # (Auto) 4.06 Lymph # (Auto) 1.37 [place] # (Auto) 0.76 H Eos # (Auto) 0.19 Baso # (Auto) 0.03 Immature Gran # (Auto) 0.02 Sodium 138 Potassium 3.1 L D Chloride 107 Carbon Dioxide 26 Anion Gap 5.0 BUN 20 H Creatinine 0.68 Est Cr Clr Drug Dosing 59.5 Est GFR ( Amer) 100.6 Est GFR (Non-Af Amer) 86.8 BUN/Creatinine Ratio 29.8 H Glucose 112 H Lactate Calcium 8.3 L Troponin I < 0.015 Blood Type A Positive Antibody Screen NEGATIVE Crossmatch See Detail 08/13/20 08/13/20 08/14/20 11:37 20:34 08:12 WBC 6.09 RBC 4.20 Hgb 12.6 11.5 L Hct 37.0 34.6 L MCV 82.4 MCH 27.4 MCHC 33.2 RDW Std Deviation 43.5 RDW Coeff of Claus 14.5 Plt Count 520 H MPV 10.1 Immature Gran % (Auto) Neut % (Auto) Lymph % (Auto) [place] % (Auto) Eos % (Auto) Baso % (Auto) Neut # (Auto) Lymph # (Auto) [place] # (Auto) Eos # (Auto) Baso # (Auto) Immature Gran # (Auto) Sodium Potassium Chloride Carbon Dioxide Anion Gap BUN Creatinine Est Cr Clr Drug Dosing Est GFR ( Amer) Est GFR (Non-Af Amer) BUN/Creatinine Ratio Glucose Lactate 1.0 Calcium Troponin I Blood Type Antibody Screen Crossmatch 08/14/20 08:12 WBC RBC Hgb Hct MCV MCH MCHC RDW Std Deviation RDW Coeff of Claus Plt Count MPV Immature Gran % (Auto) Neut % (Auto) Lymph % (Auto) [place] % (Auto) Eos % (Auto) Baso % (Auto) Neut # (Auto) Lymph # (Auto) [place] # (Auto) Eos # (Auto) Baso # (Auto) Immature Gran # (Auto) Sodium 139 Potassium 3.1 L Chloride 106 Carbon Dioxide 25 Anion Gap 8.0 BUN 13 Creatinine 0.61 Est Cr Clr Drug Dosing 66.3 Est GFR ( Amer) 104.2 Est GFR (Non-Af Amer) 89.9 BUN/Creatinine Ratio 21.5 H Glucose 122 H Lactate Calcium 8.7 Troponin I Blood Type Antibody Screen Crossmatch Medications Administered Current Inpatient Medications Acetaminophen (Acetaminophen 325 Mg Tab) 650 mg PO Q4H PRN PRN Reason: Pain or Fever Stop: 09/11/20 21:05 Last Admin: 08/12/20 23:21 Dose: 650 mg Documented by: Hydrocodone Bitart/Acetaminophen (Hydrocodone/Acetamophen 5/325mg Tab) 1 tab PO TID PRN PRN Reason: pain Stop: 08/26/20 21:05 Last Admin: 08/13/20 20:39 Dose: 1 tab Documented by: Albuterol (Albuterol 0.083% Nebu Soln 3 Ml Vial) 2.5 mg INH Q4R PRN PRN Reason: ASTHMA Stop: 09/11/20 21:05 Alendronate Sodium (Alendronate Sodium 70 Mg Tab) 70 mg PO Sa@0900 [facility] Stop: 09/15/20 08:59 Aspirin (Aspirin 325 Mg Ectab) 325 mg PO DAILY [facility] Stop: 09/12/20 08:59 Last Admin: 08/14/20 08:30 Dose: 325 mg Documented by: Carvedilol (Carvedilol 3.125 Mg Tab) 3.125 mg PO BID [facility] Stop: 09/11/20 21:59 Last Admin: 08/13/20 08:16 Dose: 3.125 mg Documented by: Dicyclomine HCl (Dicyclomine Hcl 10 Mg Cap) 10 mg PO QID [facility] Stop: 09/11/20 21:59 Last Admin: 08/14/20 08:30 Dose: 10 mg Documented by: Duloxetine HCl (Duloxetine Hcl 60 Mg Cap) 60 mg PO DAILY [facility] Stop: 09/12/20 08:59 Last Admin: 08/14/20 08:29 Dose: 60 mg Documented by: Enalapril Maleate (Enalapril Maleate 10 Mg Tab) 40 mg PO QAM [facility]; Protocol Stop: 09/12/20 08:59 Last Admin: 08/13/20 08:20 Dose: 40 mg Documented by: Fish Oil (Davison-3 (Purified Fish Oil) 1 Gm Cap) 1 gm PO ACHS [facility] Stop: 09/11/20 21:59 Last Admin: 08/14/20 08:30 Dose: 1 gm Documented by: Fluticasone/Vilanterol (Fluticasone/Vilanterol 200/25mcg 14 Puffs/Inhaler) 1 puffs INH DAILY PRN PRN Reason: Shortness Of Breath Stop: 09/11/20 22:12 Hydrochlorothiazide (Hydrochlorothiazide 25 Mg Tab) 12.5 mg PO QAM [facility] Stop: 09/12/20 08:59 Last Admin: 08/13/20 08:18 Dose: 12.5 mg Documented by: Magnesium Oxide (Magnesium Oxide 400 Mg Tab) 400 mg PO Q2D [facility] Stop: 09/12/20 08:59 Last Admin: 08/13/20 08:19 Dose: 400 mg Documented by: Miscellaneous (*Butrans 20mcg/Hr Td*Order Awaiting Action) 1 ea N/A QS [facility] Stop: 09/13/20 00:00 Last Admin: 08/14/20 08:32 Dose: Not Given Documented by: Multivitamins (Multivitamin Tab) 1 tab PO QAM [facility] Stop: 09/12/20 08:59 Last Admin: 08/14/20 08:31 Dose: 1 tab Documented by: Multivitamins/Minerals (Calcium 600mg + Vit D 400 Iu Tab) 1 tab PO BID [facility] Stop: 09/11/20 21:59 Last Admin: 08/14/20 08:30 Dose: 1 tab Documented by: Nitroglycerin (Nitroglycerin Sl 0.4 Mg/Tab Tab) 0.4 mg SL Q5M PRN PRN Reason: chest pain Stop: 09/11/20 21:05 Ondansetron HCl (Ondansetron Inj 2 Mg/Ml 2 Ml Vial) 4 mg IV Q6H PRN PRN Reason: Nausea Stop: 09/11/20 21:05 Pantoprazole Sodium (Pantoprazole 40 Mg Tab) 40 mg PO QAM [facility] Stop: 09/12/20 08:59 Last Admin: 08/14/20 08:30 Dose: 40 mg Documented by: Potassium Chloride (Potassium Chloride Crtab 20 Meq Tabcr) 20 meq PO BID [facility] Stop: 09/13/20 09:29 Pregabalin (Pregabalin 100 Mg Cap) 100 mg PO QAM [facility] Stop: 09/12/20 08:59 Last Admin: 08/14/20 08:36 Dose: 100 mg Documented by: Pregabalin (Pregabalin 150 Mg Cap) 150 mg PO HS [facility] Stop: 09/11/20 22:29 Last Admin: 08/13/20 20:18 Dose: 150 mg Documented by: Primidone (Primidone 50 Mg Tab) 50 mg PO TID [facility] Stop: 09/11/20 21:59 Last Admin: 08/14/20 08:29 Dose: 50 mg Documented by: Simvastatin (Simvastatin 10 Mg Tab) 10 mg PO QPM [facility] Stop: 09/11/20 21:59 Last Admin: 08/13/20 20:11 Dose: 10 mg Documented by: Tizanidine HCl (Tizanidine Hcl 4 Mg Tablet) 2 mg PO TID PRN PRN Reason: muscle spasticity Stop: 09/11/20 21:05 Last Admin: 08/13/20 20:14 Dose: 2 mg Documented by: Topiramate (Topiramate 25 Mg Tab) 75 mg PO BID [facility] Stop: 09/11/20 21:59 Last Admin: 08/14/20 08:30 Dose: 75 mg Documented by: PG Care Time/CCT Total # of Minutes Spent Total Time Spent with Patient: Total time spent is greater than 50% in coordi nation of care (as documented) at patient's floor/unit and/or counseling patient: Coding Level of Care Code 50813 Subseq Hosp Care Lv 3 Diagnoses Hemothorax on left J94.2 Acute blood loss anemia D62 Hypotension I95.9 Pleural effusion J90 Multiple fractures of ribs of left side S22.42XD Encounter type: subsequent encounter Fracture healing: with routine healing Fracture type: closed Sjogren's syndrome M35.00 Dyslipidemia E78.5 Hypoxemia R09.02 Hypokalemia E87.6 (1) Multiple fractures of ribs of left side Encounter type: subsequent encounter Fracture healing: with routine healing Fracture type: closed Qualified Code(s): S22.42XD - Multiple fractures of ribs, left side, subsequent encounter for fracture with routine healing
[2020-08-14] MEDS: POTASSIUM CHLORIDE CRTAB 20 MEQ TABCR PO SCH ×2 (10:45→20:44)
[2020-08-14] MEDS ORDERED: BUTRANS PATCH REMOVE & WASTE SCH (14:59)
[2020-08-14] MEDS ORDERED: BUPRENORPHINE 20 MCG/HR TOP SCH (15:00)
[2020-08-14] MEDS: ACETAMINOPHEN 325 MG TAB PO PRN (20:41)
[2020-08-14] MEDS: HYDROCODONE/ACETAMOPHEN 5/325MG TAB PO PRN (20:41)
[2020-08-14] MEDS: SIMVASTATIN 10 MG TAB PO SCH (20:42)
[2020-08-14] MEDS: PREGABALIN 150 MG CAP PO SCH (20:47)
[2020-08-15 05:53] LABS: Hematocrit (blood only) 33.9 % (37-47); Hemoglobin 11.1 g/dL (12.0-16.0); Mean Corpuscular Hemoglobin 27.3 pg (25-34); Mean Corpuscular Hgb Conc 32.7 g/dL (32-36); Mean Corpuscular Volume 83.3 fL (80-100); Platelet Count 506 K/uL (130-400); RDW Coefficient of Variation 14.5 % (11.5-14.5); RDW Standard Deviation 44.8 fL (36.4-46.3); Red Blood Count 4.07 M/uL (4.2-5.4); White Blood Count 6.26 K/uL (4.8-10.8)
[2020-08-15] MEDS: OMEGA-3 (PURIFIED FISH OIL) 1 GM CAP PO SCH ×4 (06:03→19:49)
[2020-08-15 06:52] LABS: BUN Creatinine Ratio 16.5 (10-20); Calcium 8.1 mg/dl (8.5-10.1); Creatinine Clr Calc Pharmacy 61.5 ml/min; Est GFR (African American) 101.6 ml/min; Est GFR (Non-African American) 87.6 ml/min; Potassium 3.9 mmol/L (3.5-5.1)
--- NOTE | 2020-08-15 07:12 | XRay Report ---
XR chest 1V portable HISTORY: 75 years-old Female pleural drain follow-up study in a patient with left-sided pleural drai nage catheter COMPARISON: Chest radiograph 08/14/2020 TECHNIQUE: Portable AP view of the chest FINDINGS: A pigtail drainage catheter is again noted projecting over the lateral left lung base which is unchan ged in positioning. Loop recorder device. Cardiomegaly. The right lung is clear. No pneumothorax. Sma ll left pleural effusion with persistent left lung base opacities. Small amount of gas in the pleural space at the left lung base redemonstrated. Acute and displaced left-sided rib fractures redemonstra estephania. Midthoracic spinal stimulator device. Partially imaged lumbar spinal fusion hardware. Cholecyste ctomy. IMPRESSION: 1. Unchanged positioning of the lateral left lung base pleural drainage catheter. 2. Small left pleural effusion with left lung base opacities appear stable. 3. Small amount of gas within the left pleural space redemonstrated. ACT 112: Negative or not required by law. The above report was generated using voice recognition software. It may contain grammatical, syntax o r spelling errors. Electronically signed by: Anmol Bose M.D. 08/15/2020 7:11 AM
--- NOTE | 2020-08-15 08:29 | Pulmonology Progress Note ---
Date of Service August 15, 2020 Assessment & Plan (1) Pleural effusion: (2) Abnormal CT scan of lung: (3) Hypoxemia: Impression: 75-year-old female with large bloody exudative pleural effusion causing compressive atelectasis and mediastinal shift. She had rib fractures after a fall about a month ago. She is status post pigtail catheter placement 08/12/2020 with improvement in symptoms and improving chest x-ray, unclear if residual fluid is present or not Recommendations: 1. Pleural effusion: Output decreasing. Chest x-ray is better but it is unclear how much of the residual opacity might be residual pleural space process versus atelectasis. Will obtain noncontrast CT scan of the chest prior to removing the catheter. If the pleural space is effectively drained, can likely remove the catheter and the patient potentially be dismissed from the hospital today. 2. Hypoxemia: Continue supplemental oxygen titrated to keep saturations at or above 88%. 3. Rib fractures: Management per admitting service. Pain control incentive spirometry and encouragement of cough recommended. Plan was discussed with the patient. We will follow up with the noncontrast CT scan Admission and Anticipated Discharge Date Admission Date: August 12, 2020 Subjective Patient continues to improve clinically. She is not having any shortness of breath but is experiencing some anterior chest discomfort. She is tolerating a diet. She is off oxygen. She been hemodynamically stable. Review of Systems Review of Systems: All systems reviewed & are unremarkable except as noted in HPI & below Physical Exam Constitutional: + frail appearing; no acute distress Neck: trachea midline, no thyromegaly Respiratory: normal respiratory effort Cardiovascular: RRR, no murmur, no edema Gastrointestinal (Abdomen): normal bowel sounds, soft, nontender, no hepatosplenomegaly Musculoskeletal: Extremities: extremities normal to inspection Skin: no rashes, warm and dry Lymphatic: no cervical lymphadenopathy Results & Data Results & Data ([facility]) Vital Signs (Past 12 Hours) Vital Signs Temp Pulse Resp BP Pulse Ox 08/15/20 06:54 36.4 C L 75 16 100/56 L 95 08/15/20 04:14 36.9 C 60 18 115/63 96 Laboratory Results 08/15/20 05:35 08/15/20 05:35 Pleural fluid cultures no growth to date Pleural fluid cytology negative Diagnostic Findings Chest x-ray today demonstrated stable left basilar opacities with pigtail catheter in good position. Unclear how much is atelectasis or if there is any residual pleural fluid noted. PG Care Time/CCT Total # of Minutes Spent Total Time Spent with Patient: Total time spent is greater than 50% in coordination of care (as documented) at patient's floor/unit and/or counseling patient: Coding Level of Care Code 42802 Subseq Hosp Care Lvl 3 Diagnoses Pleural effusion J90 Abnormal CT scan of lung R91.8 Hypoxemia R09.02
[2020-08-15] MEDS: POTASSIUM CHLORIDE CRTAB 20 MEQ TABCR PO SCH ×2 (09:28→19:48)
[2020-08-15] MEDS: HYDROCODONE/ACETAMOPHEN 5/325MG TAB PO PRN (09:28)
[2020-08-15] MEDS: TOPIRAMATE 25 MG TAB PO SCH ×2 (09:28→19:50)
[2020-08-15] MEDS: PRIMIDONE 50 MG TAB PO SCH ×3 (09:29→19:49)
[2020-08-15] MEDS: PANTOprazole 40 MG TAB PO SCH (09:29)
[2020-08-15] MEDS: ASPIRIN 325 MG ECTAB PO SCH (09:29)
[2020-08-15] MEDS: DULoxetine HCL 60 MG CAP PO SCH (09:30)
[2020-08-15] MEDS: MULTIVITAMIN TAB PO SCH (09:30)
[2020-08-15] MEDS: MAGNESIUM OXIDE 400 MG TAB PO SCH (09:30)
[2020-08-15] MEDS: CALCIUM 600MG + VIT D 400 IU TAB PO SCH ×2 (09:30→19:51)
[2020-08-15] MEDS: DICYCLOMINE HCL 10 MG CAP PO SCH ×4 (09:30→19:49)
[2020-08-15] MEDS: PREGABALIN 100 MG CAP PO SCH (09:44)
--- NOTE | 2020-08-15 12:25 | CT Scan Report ---
CT chest diagnostic wo con CLINICAL HISTORY: pleural effusion COMPARISON STUDY: 08/12/2020 CT DOSE: 275.54 mGycm TECHNIQUE: CT of the thorax was performed from the thoracic inlet to the lung bases. Images are revi ewed in the axial, sagittal, and coronal planes. IV contrast was not administered for this examinatio n. A dose lowering technique was utilized adhering to the principles of ALARA. FINDINGS: Thyroid: Imaged portions of the thyroid gland are normal in appearance. Thoracic aorta: There is mild dilatation of the ascending thoracic aorta which measures 37 mm. Heart: The heart is at the upper limits of normal in size. There is no pericardial effusion. Lungs and pleural spaces: There is a trace right pleural effusion and small left pleural effusion. Th ere is a pigtail left pleural catheter present. The left pleural effusion has significantly decreased in size when compared the prior study. There is left lower lobe atelectasis/consolidation with air b ronchograms. There are left upper lobe atelectatic changes marginating the fissure. There are minimal dependent atelectatic changes on the right. Mediastinum: There is no mediastinal lymphadenopathy. There is no evidence of pathologic mediastinal lymphadenopathy. Iris: There is no evidence of pathologic hilar adenopathy given the limitations of a noncontrast stud y. Axilla: There is no evidence of pathologic axillary lymphadenopathy. Upper abdomen: There is intrahepatic biliary ductal dilatation. Skeletal structures: A spinal stimulator is visualized. Multiple left-sided rib fractures are redemonstrated. There is a c alcific and metallic structure within the left medial anterior chest wall. This has an iatrogenic aries earance.. IMPRESSION: 1. Interval placement of a left pleural pigtail drainage catheter with significant interval decrease in the size of the left pleural effusion 2. Improving aeration of the left lower lobe and left upper lobe. There is persistent left lower lobe atelectasis marginating the fissure. There is persistent left lower lobe atelectasis/consolidation w ith air bronchograms. 3. Trace right pleural effusion with right basilar atelectasis 4. Intrahepatic biliary ductal dilatation. ACT 112: Negative or not required by law. Electronically signed by: Ted Barron M.D. 08/15/2020 12:24 PM
--- NOTE | 2020-08-15 15:54 | Procedure Note ---
Procedure Note Date of Service August 15, 2020 Procedure: repositioning of L pleural pigtail catheter with flushing Indication: persistent pleural fluid collection EBL: none [employer] Specialist: Khari CT today was reviewed. The pigtail catheter runs along the lateral aspect of the costophrenic sulcus and does not appear to be draining any significant fluid. There is a small fluid collection posteriorly. Decision was made to withdraw the tube about 6 cm to see if this would drain the residual fluid and repeat the x-ray in the morning. Patient and her are in agreement. Patient was placed in the left side up decubitus position. The suture was removed. Catheter was withdrawn approximately 6 cm. The skater catheter retention system was resecured and a Tegaderm placed over the catheter to secured to the skin. Once the catheter was secured, a 10 cc sterile flush was used to flush the catheter. There were some fibrin clots which were flushed free. The tube was then reattached to suction. We will repeat the chest x-ray in the morning. Coding CPT Codes Pulmonary/Thoracic - Pulmonary and Thoracic: 95150 Remove lung catheter ([id number]) [facility] [place] ([place]) Pulmonary/Thoracic Procedure 1: Pulmonary and Thoracic: 54815 Remove lung catheter
--- NOTE | 2020-08-15 16:36 | Hospitalist Progress Note ---
Date of Service August 15, 2020 Assessment & Plan (1) Hemothorax on left: suspect this a traumatic hemothorax from rib fractures however, not pure blood, there is also an effusion cytology - no malignant cells culture - no growth CT chest today with less effusion, improved aeration left lower lobe Dr. Lucia pulled pigtail back 6cm and secured it, applied intermittent suction plan to repeat CXR in AM likely will pull chest tube tomorrow and if she is stable can go later in day recommend getting two step after tube pulled to make sure she does not need home oxygen (2) Acute blood loss anemia: Hb initially dropped to 10 from 11.6 could be due to blood loss in chest? H/H is back up to 11.6 no evidence of active bleeding (3) Hypotension: transient, responded well to NSS 1 liter bolus day one of admission likely from getting BP medications (now on hold) and maybe narcotic pain control doubt it is due to blood loss as Hb is 12 no hypotension today now hypertension, resume Coreg and Losartan (4) Pleural effusion: Patient now has a pigtail in place, no drainage today Appreciate pulmonology intervention, suspect it is a secondary to her fall and possible hemothorax CT chest today with less effusion, less atelectasis repeat CXR in AM, likely will pull tube, talk with Dr. Lucia in AM (5) Multiple fractures of ribs of left side: Minimize pain medication if possible, continue buprenophine patch and prn hydrocodone Incentive spirometry (6) Sjogren's syndrome: new diagnosis? this is per and patient can follow up with outpatient provider (7) Dyslipidemia: Patient is on simvastatin 10 mg daily at home, continue with this or hospital pharmacy equivalent (8) Hypoxemia: due to effusion, atelectasis encourage incentive spirometer, pain control so she can take deep breath draining pleural fluid less oxygen today, 2L NC, no distress likely will need two step prior to discharge if going home tomorrow (9) Hypokalemia: resolved, 3.9, stop PO replacement Admission and Anticipated Discharge Date Admission Date: August 12, 2020 Subjective patient feeling better each day, breathing easier, coughing less, less pain with chest tube no fever, no chest pain, no GI symptoms blood pressure coming back up, actually elevated, resume Coreg and Losartan d/w Dr. Lucia, he got a CT of the chest, shows significant improvement he adjusted the pigtail catheter by pulling it back 6cm, hooked back up to suction plan for CXR in AM, might consider removing chest tube still on 2L, plan for two step tomorrow updated her at the bedside reviewed labs, Cr is normal, K normal, Hb is 11 and WBC 6k Review of Systems Review of Systems: All systems reviewed & are unremarkable except as noted in Subjective Physical Exam Constitutional: well developed, + thin and + frail appearing; no acute distress ENMT: Mouth: + dry oral mucous membranes Neck: trachea midline, no thyromegaly Respiratory: normal respiratory effort and + cough; no respiratory distress and no labored breathing Auscultation: lungs clear to auscultation bilaterally and + diminished lung sounds (left base) Cardiovascular: RRR, no murmur, no edema Gastrointestinal (Abdomen): normal bowel sounds, soft, nontender, no hepatosplenomegaly Musculoskeletal: no cyanosis or clubbing, extremities motor strength 5/5 Skin: no rashes, warm and dry Neurologic: patellar DTR's 2+ bilat, sensation intact and PERRL, EOMI, accommodation nl, no face palsy, no dysarthria Psychiatric: A+Ox3, euthymic affect Lymphatic: no cervical or axillary lymphadenopathy Results & Data Results & Data ([facility]) Vital Signs (Past 12 Hours) Vital Signs Temp Pulse Pulse Resp BP Pulse Ox 08/15/20 15:46 76 08/15/20 15:30 36.3 C L 74 22 149/85 H 98 08/15/20 12:22 36.6 C 73 18 137/68 100 08/15/20 06:54 36.4 C L 75 16 100/56 L 95 Laboratory Results Laboratory Results - last 24 hr 08/15/20 08/15/20 05:35 05:35 WBC 6.26 RBC 4.07 L Hgb 11.1 L Hct 33.9 L MCV 83.3 MCH 27.3 MCHC 32.7 RDW Std Deviation 44.8 RDW Coeff of Claus 14.5 Plt Count 506 H MPV 10.0 Sodium 143 Potassium 3.9 D Chloride 111 H Carbon Dioxide 29 Anion Gap 3.0 BUN 11 Creatinine 0.66 Est Cr Clr Drug Dosing 61.5 Est GFR ( Amer) 101.6 Est GFR (Non-Af Amer) 87.6 BUN/Creatinine Ratio 16.5 Glucose 87 Calcium 8.1 L Medications Administered Current Inpatient Medications Acetaminophen (Acetaminophen 325 Mg Tab) 650 mg PO Q4H PRN PRN Reason: Pain or Fever Stop: 09/11/20 21:05 Last Admin: 08/14/20 20:41 Dose: 650 mg Documented by: Hydrocodone Bitart/Acetaminophen (Hydrocodone/Acetamophen 5/325mg Tab) 1 tab PO TID PRN PRN Reason: pain Stop: 08/26/20 21:05 Last Admin: 08/15/20 09:28 Dose: 1 tab Documented by: Albuterol (Albuterol 0.083% Nebu Soln 3 Ml Vial) 2.5 mg INH Q4R PRN PRN Reason: ASTHMA Stop: 09/11/20 21:05 Alendronate Sodium (Alendronate Sodium 70 Mg Tab) 70 mg PO Sa@0900 [facility] Stop: 09/15/20 08:59 Aspirin (Aspirin 325 Mg Ectab) 325 mg PO DAILY [facility] Stop: 09/12/20 08:59 Last Admin: 08/15/20 09:29 Dose: 325 mg Documented by: Carvedilol (Carvedilol 3.125 Mg Tab) 3.125 mg PO BID [facility] Stop: 09/11/20 21:59 Last Admin: 08/13/20 08:16 Dose: 3.125 mg Documented by: Dicyclomine HCl (Dicyclomine Hcl 10 Mg Cap) 10 mg PO QID [facility] Stop: 09/11/20 21:59 Last Admin: 08/15/20 19:49 Dose: 10 mg Documented by: Duloxetine HCl (Duloxetine Hcl 60 Mg Cap) 60 mg PO DAILY [facility] Stop: 09/12/20 08:59 Last Admin: 08/15/20 09:30 Dose: 60 mg Documented by: Enalapril Maleate (Enalapril Maleate 10 Mg Tab) 40 mg PO QAM [facility]; Protocol Stop: 09/12/20 08:59 Last Admin: 08/13/20 08:20 Dose: 40 mg Documented by: Fish Oil (Orem-3 (Purified Fish Oil) 1 Gm Cap) 1 gm PO ACHS [facility] Stop: 09/11/20 21:59 Last Admin: 08/15/20 19:49 Dose: 1 gm Documented by: Fluticasone/Vilanterol (Fluticasone/Vilanterol 200/25mcg 14 Puffs/Inhaler) 1 puffs INH DAILY PRN PRN Reason: Shortness Of Breath Stop: 09/11/20 22:12 Hydrochlorothiazide (Hydrochlorothiazide 25 Mg Tab) 12.5 mg PO QAM [facility] Stop: 09/12/20 08:59 Last Admin: 08/13/20 08:18 Dose: 12.5 mg Documented by: Magnesium Oxide (Magnesium Oxide 400 Mg Tab) 400 mg PO Q2D [facility] Stop: 09/12/20 08:59 Last Admin: 08/15/20 09:30 Dose: 400 mg Documented by: Miscellaneous (Butrans Patch Remove & Waste) 1 ea N/A Th@1459 [facility] Stop: 09/13/20 14:58 Last Admin: 08/14/20 15:27 Dose: 1 ea Documented by: Multivitamins (Multivitamin Tab) 1 tab PO QAM [facility] Stop: 09/12/20 08:59 Last Admin: 08/15/20 09:30 Dose: 1 tab Documented by: Multivitamins/Minerals (Calcium 600mg + Vit D 400 Iu Tab) 1 tab PO BID [facility] Stop: 09/11/20 21:59 Last Admin: 08/15/20 19:51 Dose: 1 tab Documented by: Nitroglycerin (Nitroglycerin Sl 0.4 Mg/Tab Tab) 0.4 mg SL Q5M PRN PRN Reason: chest pain Stop: 09/11/20 21:05 Buprenorphine 20 Mcg /Hr ~ Non-Formulary Patient's Own Med 1 ea TOP Th@1500 [facility] Stop: 09/13/20 14:59 Last Admin: 08/14/20 15:27 Dose: 1 patch Documented by: Ondansetron HCl (Ondansetron Inj 2 Mg/Ml 2 Ml Vial) 4 mg IV Q6H PRN PRN Reason: Nausea Stop: 09/11/20 21:05 Pantoprazole Sodium (Pantoprazole 40 Mg Tab) 40 mg PO QAM [facility] Stop: 09/12/20 08:59 Last Admin: 08/15/20 09:29 Dose: 40 mg Documented by: Potassium Chloride (Potassium Chloride Crtab 20 Meq Tabcr) 20 meq PO BID [facility] Stop: 09/13/20 09:29 Last Admin: 08/15/20 19:48 Dose: 20 meq Documented by: Pregabalin (Pregabalin 100 Mg Cap) 100 mg PO QAM [facility] Stop: 09/12/20 08:59 Last Admin: 08/15/20 09:44 Dose: 100 mg Documented by: Pregabalin (Pregabalin 150 Mg Cap) 150 mg PO HS [facility] Stop: 09/11/20 22:29 Last Admin: 08/15/20 19:54 Dose: 150 mg Documented by: Primidone (Primidone 50 Mg Tab) 50 mg PO TID [facility] Stop: 09/11/20 21:59 Last Admin: 08/15/20 19:49 Dose: 50 mg Documented by: Simvastatin (Simvastatin 10 Mg Tab) 10 mg PO QPM [facility] Stop: 09/11/20 21:59 Last Admin: 08/15/20 19:50 Dose: 10 mg Documented by: Tizanidine HCl (Tizanidine Hcl 4 Mg Tablet) 2 mg PO TID PRN PRN Reason: muscle spasticity Stop: 09/11/20 21:05 Last Admin: 08/13/20 20:14 Dose: 2 mg Documented by: Topiramate (Topiramate 25 Mg Tab) 75 mg PO BID [facility] Stop: 09/11/20 21:59 Last Admin: 08/15/20 19:50 Dose: 75 mg Documented by: PG Care Time/CCT Total # of Minutes Spent Total Time Spent with Patient: Total time spent is greater than 50% in coordination of care (as documented) at patient's floor/unit and/or counseling patient: Coding Level of Care Code 07248 Subseq Hosp Care Lvl 3 Diagnoses Hemothorax on left J94.2 Acute blood loss anemia D62 Hypotension I95.9 Pleural effusion J90 Multiple fractures of ribs of left side S22.42XD Encounter type: subsequent encounter Fracture healing: with routine healing Fracture type: closed Sjogren's syndrome M35.00 Dyslipidemia E78.5 Hypoxemia R09.02 Hypokalemia E87.6 (1) Multiple fractures of ribs of left side Encounter type: subsequent encounter Fracture healing: with routine healing Fracture type: closed Qualified Code(s): S22.42XD - Multiple fractures of ribs, left side, subsequent encounter for fracture with routine healing
[2020-08-15] MEDS: SIMVASTATIN 10 MG TAB PO SCH (19:50)
[2020-08-15] MEDS: PREGABALIN 150 MG CAP PO SCH (19:54)
[2020-08-15] MEDS: carvediloL 3.125 MG TAB PO SCH (21:22)
--- NOTE | 2020-08-16 07:15 | XRay Report ---
XR chest 1V portable CLINICAL HISTORY: pleural effusion COMPARISON STUDY: Chest radiograph and chest CT August 15, 2020. FINDINGS: Spine surgical hardware is partially imaged. Intracanalicular electrodes are incidentally n oted. Left pleural catheter remains in place. A small left pleural effusion with left basilar opacity persists. Cardiac size is stable. No left pneumothorax is noted. There is no evidence for pulmonary edema. IMPRESSION: Left pleural catheter in place. Persistent small left pleural effusion with left basilar opacity, similar to prior exam. ACT 112: Negative or not required by law. Electronically signed by: Royce Dacosta M.D. 08/16/2020 7:14 AM
[2020-08-16] MEDS: ASPIRIN 325 MG ECTAB PO SCH (08:52)
[2020-08-16] MEDS: TOPIRAMATE 25 MG TAB PO SCH (08:52)
[2020-08-16] MEDS: CALCIUM 600MG + VIT D 400 IU TAB PO SCH (08:52)
[2020-08-16] MEDS: MULTIVITAMIN TAB PO SCH (08:52)
[2020-08-16] MEDS: OMEGA-3 (PURIFIED FISH OIL) 1 GM CAP PO SCH ×2 (08:52→12:00)
[2020-08-16] MEDS: DULoxetine HCL 60 MG CAP PO SCH (08:52)
[2020-08-16] MEDS: PRIMIDONE 50 MG TAB PO SCH ×2 (08:52→15:12)
[2020-08-16] MEDS: carvediloL 3.125 MG TAB PO SCH (08:52)
[2020-08-16] MEDS: DICYCLOMINE HCL 10 MG CAP PO SCH ×2 (08:53→12:00)
[2020-08-16] MEDS: PANTOprazole 40 MG TAB PO SCH (08:53)
[2020-08-16] MEDS: PREGABALIN 100 MG CAP PO SCH (08:57)
[2020-08-16] MEDS ORDERED: ALENDRONATE SODIUM 70 MG TAB PO SCH (09:00)
[2020-08-16] MEDS: ENALAPRIL MALEATE 10 MG TAB PO SCH (09:38)
--- NOTE | 2020-08-16 10:15 | Procedure Note ---
Procedure Note Date of Service August 16, 2020 Procedure: Removal of left-sided pigtail catheter. [employer] Dr. Lucia Indication no additional need for pleural drainage Consent risks and benefits were explained to the patient. She agreed to proceed. Patient was placed in the left side up decubitus position. The dressing was taken down. The locking mechanism was fully released. On full and expiration the catheter was pulled. An occlusive dressing was applied. The patient tolerated the procedure well without complication. Coding CPT Codes Pulmonary/Thoracic - Pulmonary and Thoracic: 70521 Remove lung catheter ([id number]) [facility] [place] Procedure Codes (Charges) Pulmonary/Thoracic Procedure 1: Pulmonary and Thoracic: 85125 Remove lung catheter
--- NOTE | 2020-08-16 10:17 | Pulmonology Progress Note ---
Date of Service August 16, 2020 Assessment & Plan (1) Pleural effusion: (2) Abnormal CT scan of lung: (3) Hypoxemia: Impression: 75-year-old female with large bloody exudative pleural effusion causing compressive atelectasis and mediastinal shift. She had rib fractures after a fall about a month ago. She is status post pigtail catheter placement 08/12/2020 with improvement in symptoms and improving chest x-ray. Cultures and cytology negative Recommendations: 1. Pleural effusion: No significant output overnight after repositioning the tube at 40 cm water. At this point time I think we can pull the catheter and see how she does clinically. Catheter was removed. Please refer to separate procedure note. From a pulmonary perspective the patient can be dismissed from the hospital if her other medical issues are resolved. Would recommend that she follow-up with a repeat chest x-ray in 1 to 2 weeks. 2. Hypoxemia: Continue supplemental oxygen titrated to keep saturations at or above 88%. 3. Rib fractures: Management per admitting service. Pain control incentive spirometry and encouragement of cough recommended. Plan was discussed with the patient. Pulmonary will sign off at this point time. Feel free to contact us with additional questions or concerns Admission and Anticipated Discharge Date Admission Date: August 12, 2020 Subjective Patient complains of some pain at the chest tube site otherwise no acute events overnight. She is having no new respiratory issues Review of Systems Review of Systems: All systems reviewed & are unremarkable except as noted in HPI & below Physical Exam Constitutional: + frail appearing; no acute distress Neck: trachea midline, no thyromegaly Respiratory: normal respiratory effort Cardiovascular: RRR, no murmur, no edema Gastrointestinal (Abdomen): normal bowel sounds, soft, nontender, no hepatosplenomegaly Musculoskeletal: Extremities: extremities normal to inspection Skin: no rashes, warm and dry Lymphatic: no cervical lymphadenopathy Results & Data Results & Data ([facility]) Vital Signs (Past 12 Hours) Vital Signs Temp Pulse Pulse Resp BP BP Pulse Ox 08/16/20 09:45 108 H 24 148/90 H 94 08/16/20 07:47 37.4 C 90 17 154/75 H 93 08/16/20 04:12 37.0 C 84 14 146/89 H 92 08/16/20 00:01 90 08/15/20 23:52 37.3 C 85 16 120/69 93 Laboratory Results 08/15/20 05:35 08/15/20 05:35 Diagnostic Findings Chest x-ray from today was independently reviewed. The catheter is in good position. There are stable atelectatic/small effusion noted at the left lung base. PG Care Time/CCT Total # of Minutes Spent Total Time Spent with Patient: Total time spent is greater than 50% in coordination of care (as documented) at patient's floor/unit and/or counseling patient: Coding Level of Care Code 30066 Subseq Hosp Care Lvl 2 Diagnoses Pleural effusion J90 Abnormal CT scan of lung R91.8 Hypoxemia R09.02
--- NOTE | 2020-08-16 14:20 | Discharge Summary ---
Date of Service August 16, 2020 Admission HPI Per Admitting Provider This is a 75-year-old female with past medical history of Sjogren's syndrome, peripheral neuropathy, hyperlipidemia, and previous fall that presents today with shortness of breath. Patient is pleasant but she is a somewhat limited historian. Patient recently had a fall in her bathtub. She was seen the next day in the emergency room for chest wall pain. Records show that she was evaluated by the ER on 07/12 but not admitted. She had done well was given incentive spirometer along with a buprenorphine patch for pain control. Patient tells me that as she continued to have some left chest wall pain over the course of the next month but this was not severe. However, over the past several days she started having worsening shortness of breath. There was some cough with scant mucus production approximately week ago. This became quite severe and the patient also medical attention today. In the ER, imaging showed a significant left-sided pleural effusion that extension of the fill the entire left hemithorax. Patient had been evaluated by pulmonology and a pigtail catheter has been placed. At the time of my evaluation, there was approximately 1L of bright red bloody fluid in the Pleur- evac. Continue to drain to gravity. Patient tells me that her shortness of breath is improved although she is still somewhat uncomfortable. Of note, she denies other systemic symptoms such as fever, chills, nausea, vomiting, adbominal pain, or other problems. Admission Exam Per Admitting Provider Constitutional: cooperative; no acute distress Neck: trachea midline, no thyromegaly Respiratory: normal respiratory effort Auscultation: + diminished lung sounds (L base breath sounds absent, diminished in other castillo); no crackles, no rales, no rhonchi and no wheezes Cardiovascular: Rate/Rhythm: regular rate and regular rhythm Heart Sounds: normal S1 and normal S2; no murmur Gastrointestinal (Abdomen): Inspection/Auscultation: abdomen normal to inspection Percussion/Palpation: abdomen soft; abdomen nontender, no guarding, abdomen not rigid and no hepatosplenomegaly Skin: no rashes, warm and dry Principal Diagnosis pulmonary effusion Discharge Exam GENERAL: Frail appearing but in no acute distress. Vital signs reviewed as above. EYES: Wears glasses. EOMI. Anicteric sclerae. HENT: Moist mucous membranes. RESPIRATORY: Normal respiratory effort. Able to speak in full sentences without increased work of breathing. CARDIOVASCULAR: Regular rate and rhythm. No murmurs. ABDOMEN: Soft, non-tender and non-distended. Normal bowel sounds. EXTREMITIES: No edema. Non-tender. SKIN: Warm, dry. No rashes or lesions. NEUROLOGIC: A/O x3. No focal neurological deficits. CN II-XII grossly intact, but not individually tested. PSYCHIATRIC: Cooperative. Appropriate mood and affect. Discharge Data Allergies Allergy/AdvReac Type Severity Reaction Status Date / Time morphine Allergy Severe SEVERE Verified 08/17/20 11:09 HYPOTENSION milk Allergy Intermediate SOME MILK Verified 08/17/20 11:09 PRODUCTS-HIVES IN MOUTH adhesive Allergy Mild SKIN Verified 08/17/20 11:09 IRRITATION chocolate flavor Allergy Mild migraines Verified 08/17/20 11:09 latex Allergy Mild rash Verified 08/17/20 11:09 Penicillins Allergy Mild RASH Verified 08/17/20 11:09 Sulfa (Sulfonamide Allergy Mild RASH Verified 08/17/20 11:09 Antibiotics) tramadol Allergy Mild ITCHINESS Verified 08/17/20 11:09 oxycodone AdvReac Mild NAUSEA AND Verified 08/17/20 11:09 VOMITING Hotdogs Allergy Mild MIGRAINES Uncoded 08/17/20 11:09 margarine AdvReac Intermediate GI upset Uncoded 08/17/20 11:09 Consultations 08/12/20 16:02 Consult Pulmonology Stat 08/12/20 16:06 ED Decision to Admit Stat Ordered Studies 08/12/20 12:54 CT angio chest PE protocol Stat 08/15/20 08:26 CT chest diagnostic wo con Routine Hospital Course (1) Hemothorax on left: Pleural Effusion and Hemothorax on left: - Chest CTA 08/12/20: Large left pleural effusion with secondary mediastinal shift to the right and compressive atelectasis of the left upper lobe and left lower lobe. Fractures of the left 8th, 9th, and 10th ribs. - Repeat Chest CT 08/15/20: Interval placement of a left pleural pigtail drainage catheter with significant interval decrease in the size of the left pleural effusion. Improving aeration of the left lower lobe and left upper lobe. There is persistent left lower lobe atelectasis marginating the fissure. There is persistent left lower lobe atelectasis/consolidation with air bronchograms. Trace right pleural effusion with right basilar atelectasis. Intrahepatic biliary ductal dilatation. - Pulmonology consulted during hospitalization and placed pigtail catheter. Chest tube removed on morning of discharge (08/16/20). - Fluid cytology with no malignant cells and culture w/ no growth. - On day of discharge, 2step performed by RT with no identified need for home supplemental oxygen - Recommend pulmonology f/u with a repeat CXR in 1 to 2 weeks Anemia: - h/h stable during hospital stay - No evidence of active bleeding on discharge - Can repeat H&H as outpatient Elevated WBC - On day of discharge wbc jumped from 6-23. likely lab error - no fever. no sign of infection. - recheck as outpatient Hypotension: - Transient hypoension, responded well to NSS 1 liter bolus day one of admission - Initially home BP medications including HCTZ, Enalapril, and Coreg were held - Patient then had hypertension w/ continued periods of hypotension. Coreg and Enalapril were restarted - On day of discharge, decreased home quinapril from 40mg to 20mg po daily; discontinued HCTZ - Will need to continue outpatient f/u for further BP management Multiple fractures of ribs of left side: - Encourage adequate pain control w/ buprenophine patch and prn hydrocodone per PCP - Continue Incentive spirometry (sent home with patient) Sjogren's syndrome: - New diagnosis per and patient - Recommend follow up with outpatient provider Dyslipidemia: - Continue home simvastatin 10 mg daily Hypoxemia: - Secondary to effusion and atelectasis - Encouraged incentive spirometer - Gradual decrease in supplemental oxygen throughout hospitalization (was requiring 2L the day before discharge, 08/15; on day of discharge, patient was maintaining oxygen saturations > 92% on room air) - 2Step performed on day of discharge w/ no identified need for home oxygen Hypokalemia: - On admission, patient hypokalemic with K of 3.1 - Repleted orally and improved to 3.9 on 08/15 (2) Acute blood loss anemia: (3) Hypotension: (4) Pleural effusion: (5) Multiple fractures of ribs of left side: (6) Sjogren's syndrome: (7) Hypokalemia: (8) Dyslipidemia: (9) Hypoxemia: Total Time Total Time Spent Total Time Spent (In Minutes): See attending attestation Discharge Plan Discharge Items Patient Disposition: Home - Self-Care Reason For Visit: PLEURAL EFFUSION Discharge Diagnosis: pleural effusion Condition on Discharge: Good Activity: Resume your previous activity Non-emergency contact: Primary Care Provider Call non-emergency contact if: you have any medication questions Follow-up/Referrals: Jeannette Marks MD [Primary Care Provider] - Diet: Regular Addtl Attending Provider Instructions: You were admitted due to shortness of breath associated with fluid accumulation in your left lung most likely caused by the rib fractures. You had a chest tube placed and have done well. The chest tube was removed on day of discharge (08/16). Please follow up with pulmonology in 1-2 weeks; you should have a repeat chest x-ray at that time. With regards to your blood pressure, it is noted that you have periods of high blood pressure and periods of low blood pressure. On discharge, we are decreasing the dose of your enalapril from 40mg by mouth at night to 20mg by mouth at night. We are also stopping the hydrochlorothiazide (HCTZ). It is important that you follow up with your primary care doctor regarding these changes. You have overall done well and at this time we feel that it is safe for you to go home. Please return to the ER if you have any worsening symptoms including shortness of breath or chest pain. Please follow up with your primary care provider in 2-3 days. Pending Studies at Discharge: No Stand-Alone Forms: My [employer], Smoking Cessation Medications and DC Order Prescriptions: Continued dicyclomine 10 mg capsule 10 mg PO QID Qty: 120 RF: 3 albuterol sulfate 2.5 mg /3 mL (0.083 %) solution for nebulization 2.5 mg inhalation Q4H PRN (Reason: ASTHMA) Qty: 180 RF: 11 primidone [Mysoline] 50 mg tablet 50 mg PO TID RF: 0 multivitamin [Multiple Vitamins] tablet 1 tab PO QAM RF: 0 calcium carbonate-vitamin D3 [Calcium 600 + D(3)] 600 mg(1,500mg) -400 unit tablet 1 tab PO BID RF: 0 aspirin [Ozzy Aspirin] 325 mg tablet 325 mg PO QDL RF: 0 omega-3 fatty acids [Fish Oil Concentrate] 1,000 mg capsule 1,000 mg PO ACHS RF: 0 Pedia-Lax 400 mg (170 mg magnesium) tablet,chewable 250 mg PO Q OTHER DAY RF: 0 budesonide-formoterol [Symbicort] 160-4.5 mcg/actuation Hfa Aerosol Inhaler 2 puff INHALATION BID PRN (Reason: Shortness Of Breath) RF: 0 alendronate [Fosamax] 70 mg tablet 70 mg PO WK RF: 0 pregabalin [Lyrica] 50 mg capsule See Rx Instructions .ROUTE .COMPLEX RF: 0 buprenorphine [Butrans] 20 mcg/hour patch weekly 1 patch transdermal WK RF: 0 Changed quinapril [Accupril] 40 mg tablet 20 mg PO QAM Qty: 90 RF: 3 Discontinued hydrochlorothiazide 25 mg tablet 12.5 mg PO QAM Qty: 45 RF: 3 No Action topiramate [Topamax] 200 mg tablet 200 mg PO HS RF: 0 simvastatin [Zocor] 10 mg tablet 10 mg PO QPM RF: 0 carvedilol [Coreg] 3.125 mg tablet 3.125 mg PO BID RF: 0 pantoprazole [Protonix] 40 mg tablet,delayed release (DR/EC) 40 mg PO QAM RF: 0 nitroglycerin [Nitrostat] 0.4 mg tablet, sublingual 0.4 mg SL Q5M PRN (Reason: chest pain) RF: 0 duloxetine [Cymbalta] 60 mg capsule,delayed release(DR/EC) 60 mg PO DAILY RF: 0 Discharge Orders: Discharge Order (Routine); Ordered 08/16/20 Ordered By: Kathy Acuna Admission Data Admit Date/Time: 08/12/20 19:44 Attending Provider: Rashmi Bardales Admit Provider: Jemal Abarca Primary Care Provider: Jeannette Marks Other Providers: Oral Lucia ; Jemal Abarca ; Jesus Hawkins Other Interventions: Discharge Summary Assessment (RN) Last Done: 08/16/20 14:38 Supervising Physician Co-Signing Physician Notes Resident Physician Supervision Note: I independently interviewed and examined the patient and verified the [place] history and physical, reviewed labs and image studies and agree with resident Dr Alexei Acuna findings and care plan. Resident Activity Tracking Resident Involvement: Resident Care Provided Care Provided: Adult [facility]
== END 2020-08-16 15:19 | disposition home or self-care (01) | DRG 186 ==
LOC: ED 11:54 → 2E 19:44 → SUATTDRO 19:44 → 2E 20:22

== ENCOUNTER 2021-10-02 06:01 | Inpatient (IN) ==
--- NOTE | 2021-09-10 12:54 | PAT Medication Instructions ---
Medication Instructions Date of Service September 10, 2021 Home Medications Medication Instructions Recorded albuterol sulfate 2.5 mg INHALATION Q4H PRN #180 ml 11/24/18 alendronate 70 mg tablet (Fosamax) 70 mg PO WK #12 tab 01/03/21 dicyclomine 10 mg capsule 10 mg PO QID 90 Days #360 cap 01/14/21 pantoprazole 40 mg tablet,delayed 40 mg PO QAM #90 tab 03/05/21 release (Protonix) simvastatin 10 mg tablet (Zocor) 10 mg PO QPM #90 tab 04/09/21 carvedilol 6.25 mg tablet 6.25 mg PO BID #180 tab 05/04/21 pregabalin 50 mg capsule (Lyrica) See Rx Instructions .ROUTE 06/29/21 .COMPLEX #210 cap duloxetine 60 mg capsule,delayed 60 mg PO DAILY #90 cap 07/08/21 release (Cymbalta) memantine 5 mg tablet 5 mg PO QAM #7 tab 08/07/21 buprenorphine 20 mcg/hour weekly 1 patch TRANSDERMAL WK #4 ea 08/18/21 transdermal patch (Butrans) albuterol sulfate 2.5 mg INHALATION Q4H PRN calcium carbonate 600 mg-vitamin D3 10 mcg (400 unit) tablet (Calcium 600 + D(3)) 1 tab PO BID multivitamin (Multiple Vitamins) 1 tab PO QAM magnesium hydroxide 400 mg (170 mg magnesium) chewable tablet (Pedia-Lax (mag hydroxide)) 250 mg PO Q OTHER DAY omega-3 fatty acids 1,000 mg capsule (Fish Oil Concentrate) 1,000 mg PO ACHS nitroglycerin 0.4 mg sublingual tablet (Nitrostat) 0.4 mg SL Q5M PRN topiramate 200 mg tablet (Topamax) 200 mg PO HS acetaminophen 500 mg tablet 1,000 mg PO Q8H PRN alendronate 70 mg tablet (Fosamax) 70 mg PO WK dicyclomine 10 mg capsule 10 mg PO QID pantoprazole 40 mg tablet,delayed release (Protonix) 40 mg PO QAM simvastatin 10 mg tablet (Zocor) 10 mg PO QPM carvedilol 6.25 mg tablet 6.25 mg PO BID donepezil 5 mg tablet 10 mg PO QAM pregabalin 50 mg capsule (Lyrica) See Rx Instructions .ROUTE .COMPLEX duloxetine 60 mg capsule,delayed release (Cymbalta) 60 mg PO DAILY memantine 5 mg tablet 5 mg PO QAM buprenorphine 20 mcg/hour weekly transdermal patch (Butrans) 1 patch TRANSDERMAL WK aspirin 81 mg tablet,delayed release 81 mg PO QAM fluticasone fur. 200 mcg-umeclid 62.5 mcg-vilant 25 mcg inhalat.powder (Trelegy Ellipta) 1 inh INHALATION HS losartan 100 mg tablet 100 mg PO QAM Continue as directed nitroglycerin 0.4 mg sublingual tablet (Nitrostat) 0.4 mg SL Q5M PRN (if needed) alendronate 70 mg tablet (Fosamax) 70 mg PO WK (just do not take on morning of surgery) pregabalin 50 mg capsule (Lyrica) See Rx Instructions duloxetine 60 mg capsule,delayed release (Cymbalta) 60 mg PO DAILY buprenorphine 20 mcg/hour weekly transdermal patch (Butrans) 1 patch TRANSDERMAL WK (just do not put on or near surgical site) ASK your prescriber and surgeon aspirin 81 mg tablet,delayed release 81 mg PO QAM STOP taking 2 weeks before surgery omega-3 fatty acids 1,000 mg capsule (Fish Oil Concentrate) 1,000 mg PO ACHS DO NOT take the morning of surgery calcium carbonate 600 mg-vitamin D3 10 mcg (400 unit) tablet (Calcium 600 + D(3)) 1 tab PO BID multivitamin (Multiple Vitamins) 1 tab PO QAM magnesium hydroxide 400 mg (170 mg magnesium) chewable tablet (Pedia-Lax (mag hydroxide)) 250 mg PO Q OTHER DAY dicyclomine 10 mg capsule 10 mg PO QID donepezil 5 mg tablet 10 mg PO QAM losartan 100 mg tablet 100 mg PO QAM Take morning of surgery With a small sip of water, OTHERWISE NOTHING TO EAT OR DRINK AFTER MIDNIGHT: albuterol sulfate 2.5 mg INHALATION Q4H PRN (if needed) acetaminophen 500 mg tablet 1,000 mg PO Q8H PRN (if needed) pantoprazole 40 mg tablet,delayed release (Protonix) 40 mg PO QAM carvedilol 6.25 mg tablet 6.25 mg PO BID memantine 5 mg tablet 5 mg PO QAM Take evening before surgery albuterol sulfate 2.5 mg INHALATION Q4H PRN (if needed) calcium carbonate 600 mg-vitamin D3 10 mcg (400 unit) tablet (Calcium 600 + D(3)) 1 tab PO BID topiramate 200 mg tablet (Topamax) 200 mg PO HS acetaminophen 500 mg tablet 1,000 mg PO Q8H PRN (if needed) dicyclomine 10 mg capsule 10 mg PO QID simvastatin 10 mg tablet (Zocor) 10 mg PO QPM carvedilol 6.25 mg tablet 6.25 mg PO BID fluticasone fur. 200 mcg-umeclid 62.5 mcg-vilant 25 mcg inhalat.powder (Trelegy Ellipta) 1 inh INHALATION HS Other Notes If you have any questions please call us at [phone] or [phone] or [phone] or [phone]
--- NOTE | 2021-09-16 13:16 | Anesthesiology Consultation ---
Date of Service September 16, 2021 Assessment & Plan (1) Encounter for pre-operative examination: - possible difficult airway: limited cervical extension, small oral opening, TMJ with history of locking and Mallampati 3 airway. - awaiting surgeon ordered pre-op evaluation. - neurostimulator: pt aware to bring remote to hospital DOS. - implantable loop recorder: Medtronic, device at end of service and pt to have prn f/u per EP 06/06/20 note. - COVID screening: Per assessment on 09/16/2021: Travel screen negative, no known COVID-19 positive contacts or current COVID-19 related symptoms in past 2 weeks. Pt vaccinated. COVID positive 09/04/21. Chart Review Chart Review: Pending: Refer to Additional Notes / Consult section and Patient seen in Pre Admission Testing Teaching & Discussion Pre-Anesthesia Teaching/Discussion Notes: Instructed NPO after midnight before surgery, except medications with 15 cc of water. Medication instructions provided according to the PAT guidelines. History Surgery Operation Date: 10/02/21 07:45 Proposed Procedures p L1-L2 Decompression, T12-L2 Fusion, L2 Hardware Removal, Spinal Cord Monitoring - Oral Olivares, Height/Weight Height: 5 ft Weight: 67 kg Allergies Allergy/AdvReac Type Severity Reaction Status Date / Time morphine Allergy Severe SEVERE Verified 05/08/21 09:46 HYPOTENSION milk Allergy Intermediate SOME MILK Verified 05/08/21 09:46 PRODUCTS-HIVES IN MOUTH adhesive Allergy Mild SKIN Verified 05/08/21 09:46 IRRITATION chocolate flavor Allergy Mild migraines Verified 05/08/21 09:46 latex Allergy Mild rash Verified 05/08/21 09:46 Penicillins Allergy Mild RASH Verified 05/08/21 09:46 Sulfa (Sulfonamide Allergy Mild RASH Verified 05/08/21 09:46 Antibiotics) tramadol Allergy Mild ITCHINESS Verified 05/08/21 09:46 oxycodone AdvReac Mild NAUSEA AND Verified 05/08/21 09:46 VOMITING Hotdogs Allergy Mild MIGRAINES Uncoded 05/08/21 09:46 margarine AdvReac Intermediate GI upset Uncoded 05/08/21 09:46 Medications Home Medications Medication Instructions Recorded Confirmed Last Taken albuterol sulfate 2.5 mg (3 mL) inhalation Q4H PRN 11/24/18 09/08/21 Unknown ASTHMA #180 mL calcium carbonate 600 mg-vitamin 1 tab PO BID 05/14/19 09/08/21 08/16/20 D3 10 mcg (400 unit) tablet (Calcium 600 + D(3)) multivitamin (Multiple Vitamins) 1 tab PO QAM 05/14/19 09/08/21 08/16/20 magnesium hydroxide 400 mg (170 mg 250 mg PO Q OTHER DAY 09/11/19 09/08/21 08/16/20 magnesium) chewable tablet (Pedia-Lax (mag hydroxide)) omega-3 fatty acids 1,000 mg 1,000 mg PO ACHS 09/11/19 09/08/21 08/16/20 capsule (Fish Oil Concentrate) nitroglycerin 0.4 mg sublingual 0.4 mg sublingual Q5M PRN chest 08/17/20 09/08/21 Unknown tablet (Nitrostat) pain topiramate 200 mg tablet (Topamax) 200 mg PO HS 08/17/20 09/08/21 08/16/20 acetaminophen 500 mg tablet 1,000 mg PO Q8H PRN Pain 09/15/20 09/08/21 Unknown alendronate 70 mg tablet (Fosamax) 70 mg PO WK #12 tabs 01/03/21 09/08/21 Unknown dicyclomine 10 mg capsule 10 mg PO QID IBS 90 days #360 caps 01/14/21 09/08/21 Unknown pantoprazole 40 mg tablet,delayed 40 mg PO QAM #90 tabs 03/05/21 09/08/21 Unknown release (Protonix) simvastatin 10 mg tablet (Zocor) 10 mg PO QPM #90 tabs 04/09/21 09/08/21 Unknown carvedilol 6.25 mg tablet 6.25 mg PO BID #180 tabs 05/04/21 09/08/21 Unknown donepezil 5 mg tablet 10 mg PO QAM 05/08/21 09/08/21 Unknown pregabalin 50 mg capsule (Lyrica) See Rx Instructions .Route 06/29/21 09/08/21 Unknown .COMPLEX #210 caps duloxetine 60 mg capsule,delayed 60 mg PO DAILY #90 caps 07/08/21 09/08/21 Unknown release (Cymbalta) memantine 5 mg tablet 5 mg PO QAM #7 tabs 08/07/21 09/08/21 Unknown aspirin 81 mg tablet,delayed 81 mg PO QAM 09/08/21 09/08/21 Unknown release fluticasone fur. 200 mcg-umeclid 1 inh inhalation HS 09/08/21 09/08/21 Unknown 62.5 mcg-vilant 25 mcg inhalat.powder (Trelegy Ellipta) losartan 100 mg tablet 100 mg PO QAM 09/08/21 09/08/21 Unknown buprenorphine 20 mcg/hour weekly 1 patch transdermal WK #4 ea 09/16/21 Unknown transdermal patch (Butrans) Past Medical History Medical History (Updated 09/16/21 @ 13:42 by Haylee Morales PA-C) Ascending aorta dilation Per 2016 CTA of chest/thorax- "slight prominence ascending aorta at 3.6cm - follows Dr. Red Asthma last rescue inhaler use > 1 yr ago Bilateral pulmonary embolism 08/2020 Cervical radiculopathy Chronic cough Degeneration of cervical intervertebral disc Depression DVT of leg (deep venous thrombosis) Dyslipidemia Expected difficult intubation limited cervical extension, small oral opening, TMJ with history of locking and Mallampati 3 airway. GERD (gastroesophageal reflux disease) controlled, stable per pt Glaucoma History of kidney stones HTN (hypertension) controlled, stable per pt IBS (irritable bowel syndrome) Memory changes follows with [facility] Migraines Osteoporosis, post-menopausal Peripheral neuropathy Sinus bradycardia hx syncope, "not had any recurrent episodes of syncope. No arrhythmias recorded. Device is at end of service...will not provide additional monitoring at this point..." per EP note 06/06/20. Sjogren's syndrome Temporomandibular joint disorder locking-last episode several yrs ago TIA (transient ischemic attack) 2016--follows with Dr. Lopez (neuro) at [facility]--no deficits, reason for aspirin Tremor Patient denies h/o seizures, heart attack, heart failure, DM or blood transfusions. Exercise / Class Metabolic Activity III < 4 Walking/Shop/Light housework (ambulates with cane, occ SOB with activities if walks up stairs which is rare; denies chest discomfort; chronic, denies change or worsening) Past Family History Family History Grandfather Myocardial infarction Grandmother Myocardial infarction Mother Diabetes Coronary heart disease Hypertension Father Emphysema lung Hypertension Other No family history of adverse response to anesthesia Denies family history of Ovarian cancer Prostate cancer Breast cancer Colorectal cancer Past Surgical History Surgical History H/O arthroscopic knee surgery right H/O colonoscopy H/O foot surgery right foot 2nd toe H/O oophorectomy History of cardiac cath 2005 - no stents placed - Follows Dr. Neda GREEN History of dilatation and curettage History of esophagogastroduodenoscopy (EGD) History of inguinal hernia repair History of left cataract extraction History of loop recorder Medtronic - Dr. Owen - [place] - 09/30/16 - left chest - No longer works History of lumbar fusion History of lumbar laminectomy History of partial hysterectomy History of sinus surgery History of surgery R SI joint fusion 09/27/19: Grade 2 view, Jones 2, ETT 7.0. History of wisdom tooth extraction Hx of appendectomy Hx of right cataract extraction S/P breast lumpectomy right--benign S/P carpal tunnel release bilateral S/P cholecystectomy S/P rotator cuff repair bilateral S/P tubal ligation Spinal cord stimulator status unsure of type - Dr. Olivares - [place] Past Anesthesia History No Hx of Anesthesia Complications and No Family Hx of Anesthesia Complications History of PONV No Hx of PONV and No Hx of Motion Sickness Social History Smoking Status: Never smoker Do You Dip or Chew Tobacco: No Hx Alcohol Use: No Hx Substance Use: No substance use type: does not use Review of Systems Snoring, denies witnessed apneas. Patient denies chest pain, shortness of breath, fever, chills, wheezing, or palpitations. Physical Exam Vital Signs Vitals BP 126/78 P 67 TEMP 98.2 SP02 94% on RA RESP 17 Physical Limited cervical extension range of motion with discomfort TMD 3.5 finger breaths Mallampati Score 3, small oral opening Dentition: intact, several chipped teeth; denies loose teeth, caps/crowns, implants or bridges Lungs: normal respiratory effort. Clear throughout to auscultation, no adventitious breath sounds Cardiac: regular rate and rhythm, no murmurs noted Carotid arteries: negative bruit bilat Lab Results Anesthesia Preop Results Results Anesthesia Widget: WBC 7.78 K/ul (4.8-10.8) 09/16/21 Hgb 12.9 g/dl (12.0-16.0) 09/16/21 Hct 39.0 % (34.1-44.9) 09/16/21 Plt 226 K/uL (130-400) 09/16/21 Na 142 mmol/L (136-145) 09/16/21 K 3.5 mmol/L (3.5-5.1) 09/16/21 Cl 105 mmol/L (98-107) 09/16/21 CO2 30 mmol/L (21-32) 09/16/21 BUN 23 mg/dl (6-23) 09/16/21 Creat 1.00 mg/dl (0.6-1.2) 09/16/21 Glucose Level 84 mg/dl (70-99(Fasting)) 09/16/21 PT 11.0 Seconds (9.0-12.0) 09/16/21 PTT 27.8 Seconds (21.0-31.0) 09/16/21 INR 1.0 (0.9-1.1) 09/16/21 Urine Color Yellow 09/16/21 Urine Appearance Clear (Clear) 09/16/21 Urine pH 5.5 (4.5-7.5) 09/16/21 Urine Specific [place] 1.017 (1.000-1.030) 09/16/21 Urine Protein Negative (Negative) 09/16/21 Urine Glucose (UA) Negative (Negative) 09/16/21 Urine Ketones Negative (Negative) 09/16/21 Urine Blood Negative (Negative) 09/16/21 Urine Nitrite Negative (Negative) 09/16/21 Urine Bilirubin Negative (Negative) 09/16/21 Urine Urobilinogen Negative (Negative) 09/16/21 Urine Leukocyte Esterase Trace (Negative) H 09/16/21 Urine WBC (Auto) 1-5 /hpf (0-5) 09/16/21 Urine RBC (Auto) 0-4 /hpf (0-4) 09/16/21 Urine Hyaline Casts (Auto) 0 /lpf (0-5) 09/16/21 Urine Epithelial Cells (Auto) 10-20 /lpf (0-5) H 09/16/21 Urine Bacteria (Auto) Negative (Negative) 09/16/21 Blood Type A Positive 09/16/21 Antibody Screen NEGATIVE 09/16/21 Testing Electrocardiogram Date: 09/16/21 Sinus bradycardia with 1st degree AV block, rate 59 bpm Chest X-Ray Date: 02/05/21 Frontal and lateral radiographs of the chest demonstrate the cardiomediastinal silhouette to be within normal limits. A loop recorder is in place. The lungs are clear of alveolar opacities. There is no evidence for effusion bilaterally. There is no evidence for vascular congestion. There is no acute osseous pathology. Intrathecal pain pump catheter is in place. Minimal old anterior wedge deformities are seen within the thoracic spine with an exaggerated kyphotic curvature. IMPRESSION: No acute cardiopulmonary disease.
[~2021-10-02 06:01] MED LIST changes: -CLINDAMYCIN 600 MG/54 ML BAG IV SCH; +CLINDAMYCIN/D5W 600 MG/54 ML BAG IV SCH
[2021-10-02] MEDS ORDERED: NEOSTIGMINE METHYLSULFATE 1 MG/ML 10ML VIAL ONE (06:40)
[2021-10-02] MEDS ORDERED: GLYCOPYRROLATE 0.2 MG/ML VIAL ONE (06:40)
[2021-10-02] MEDS ORDERED: MIDAZOLAM HCL 1 MG/ML 2ML VIAL ONE (06:40)
[2021-10-02] MEDS ORDERED: LIDOCAINE 2% MPF LOCAL 5 ML VIAL INFIL ONE (06:40)
[2021-10-02] MEDS ORDERED: fentaNYL citrate 100 MCG/2 ML VIAL ONE (06:40)
[2021-10-02] MEDS ORDERED: DEXAMETHASONE SOD INJ 4 MG/ML VIAL ONE (06:40)
[2021-10-02] MEDS ORDERED: PROPOFOL IV EMULSION 10 MG/ML 20 ML VIAL IV ONE (06:40)
[2021-10-02] MEDS ORDERED: ONDANSETRON INJ 2 MG/ML 2 ML VIAL ONE (06:40)
[2021-10-02] MEDS ORDERED: ceFAZolin 330 MG/ML 1 GM VIAL ONE (07:22)
[2021-10-02] MEDS ORDERED: BUPIVACAINE/EPINEPHRINE 0.25% 1:200,000 30 ML VIAL ONE (07:22)
--- NOTE | 2021-10-02 07:30 | History & Physical Bridge Note ---
Date of Service October 02, 2021 History & Physical Bridge Note I have examined the patient, reviewed the History & Physical and in the interval since the performance of the History & Physical I have noted the following changes of clinical significance: no changes noted
--- NOTE | 2021-10-02 07:34 | History & Physical Report ---
Date of Service October 02, 2021 Assessment & Plan (1) Neurogenic claudication due to lumbar spinal stenosis: Plan: L1-L2 decompression, T12-L2 fusion, L2 hardware removal with battery change History of Present Illness Chief Complaint: Back and leg pain Primary Care Provider: Jeannette Marks MD 76-year-old female with chronic persistent back and leg pain. Failing course of nonoperative care she is here for surgical invention. Allergies Allergy/AdvReac Type Severity Reaction Status Date / Time morphine Allergy Severe SEVERE Verified 10/02/21 06:57 HYPOTENSION milk Allergy Intermediate SOME MILK Verified 10/02/21 06:57 PRODUCTS-HIVES IN MOUTH adhesive Allergy Mild SKIN Verified 10/02/21 06:57 IRRITATION chocolate flavor Allergy Mild migraines Verified 10/02/21 06:57 latex Allergy Mild rash Verified 10/02/21 06:57 Penicillins Allergy Mild RASH Verified 10/02/21 06:57 Sulfa (Sulfonamide Allergy Mild RASH Verified 10/02/21 06:57 Antibiotics) tramadol Allergy Mild ITCHINESS Verified 10/02/21 06:57 oxycodone AdvReac Mild NAUSEA AND Verified 10/02/21 06:57 VOMITING Hotdogs Allergy Mild MIGRAINES Uncoded 10/02/21 06:57 margarine AdvReac Intermediate GI upset Uncoded 10/02/21 06:57 Home Medications Medication Instructions Recorded Confirmed Type albuterol sulfate 2.5 mg (3 mL) inhalation Q4H PRN 11/24/18 10/02/21 Rx ASTHMA #180 mL calcium carbonate 600 mg-vitamin 1 tab PO BID 05/14/19 10/02/21 History D3 10 mcg (400 unit) tablet (Calcium 600 + D(3)) multivitamin (Multiple Vitamins) 1 tab PO QAM 05/14/19 10/02/21 History magnesium hydroxide 400 mg (170 mg 250 mg PO Q OTHER DAY 09/11/19 10/02/21 History magnesium) chewable tablet (Pedia-Lax (mag hydroxide)) omega-3 fatty acids 1,000 mg 1,000 mg PO ACHS 09/11/19 10/02/21 History capsule (Fish Oil Concentrate) nitroglycerin 0.4 mg sublingual 0.4 mg sublingual Q5M PRN chest 08/17/20 10/02/21 History tablet (Nitrostat) pain topiramate 200 mg tablet (Topamax) 200 mg PO HS 08/17/20 10/02/21 History acetaminophen 500 mg tablet 1,000 mg PO Q8H PRN Pain 09/15/20 10/02/21 History dicyclomine 10 mg capsule 10 mg PO QID IBS 90 days #360 caps 01/14/21 10/02/21 Rx pantoprazole 40 mg tablet,delayed 40 mg PO QAM #90 tabs 03/05/21 10/02/21 Rx release (Protonix) simvastatin 10 mg tablet (Zocor) 10 mg PO QPM #90 tabs 04/09/21 10/02/21 Rx donepezil 5 mg tablet 10 mg PO QAM 05/08/21 10/02/21 History pregabalin 50 mg capsule (Lyrica) See Rx Instructions .Route 06/29/21 10/02/21 Rx .COMPLEX #210 caps duloxetine 60 mg capsule,delayed 60 mg PO DAILY #90 caps 07/08/21 10/02/21 Rx release (Cymbalta) memantine 5 mg tablet 5 mg PO QAM #7 tabs 08/07/21 10/02/21 Rx aspirin 81 mg tablet,delayed 81 mg PO QAM 09/08/21 10/02/21 History release fluticasone fur. 200 mcg-umeclid 1 inh inhalation HS 09/08/21 10/02/21 History 62.5 mcg-vilant 25 mcg inhalat.powder (Trelegy Ellipta) losartan 100 mg tablet 100 mg PO QAM 09/08/21 10/02/21 History buprenorphine 20 mcg/hour weekly 1 patch transdermal WK #4 ea 09/16/21 10/02/21 Rx transdermal patch (Butrans) nystatin 100,000 unit/mL oral 5 ml PO QID 10 days #200 mL 09/21/21 10/02/21 Rx suspension carvedilol 6.25 mg tablet (Coreg) 6.25 mg PO BID 10/02/21 10/02/21 History Past Med/Surg History Medical History Ascending aorta dilation Asthma Bilateral pulmonary embolism Cervical radiculopathy Chronic cough Degeneration of cervical intervertebral disc Depression DVT of leg (deep venous thrombosis) Dyslipidemia Expected difficult intubation GERD (gastroesophageal reflux disease) Glaucoma History of kidney stones HTN (hypertension) IBS (irritable bowel syndrome) Memory changes Migraines Osteoporosis, post-menopausal Peripheral neuropathy Sinus bradycardia Sjogren's syndrome Temporomandibular joint disorder TIA (transient ischemic attack) Tremor Surgical History H/O arthroscopic knee surgery H/O colonoscopy H/O foot surgery H/O oophorectomy History of cardiac cath History of dilatation and curettage History of esophagogastroduodenoscopy (EGD) History of inguinal hernia repair History of left cataract extraction History of loop recorder History of lumbar fusion History of lumbar laminectomy History of partial hysterectomy History of sinus surgery History of surgery History of wisdom tooth extraction Hx of appendectomy Hx of right cataract extraction S/P breast lumpectomy S/P carpal tunnel release S/P cholecystectomy S/P rotator cuff repair S/P tubal ligation Spinal cord stimulator status Family History Grandfather Myocardial infarction Grandmother Myocardial infarction Mother Diabetes Coronary heart disease Hypertension Father Emphysema lung Hypertension Other No family history of adverse response to anesthesia Denies family history of Ovarian cancer Prostate cancer Breast cancer Colorectal cancer Social History Smoking Status: Never smoker Second Hand Exposure: No; Do You Dip or Chew Tobacco: No; Tobacco Cessation Education Requested by Patient: No Hx Alcohol Use: No Hx Substance Use: No Preferred Language: German Communication Ability: Effective Visual Impairment: No Limitations Hearing Ability: Normal Head Start Coordinator Required: No Beliefs That Will Affect Care: None marital status: Current Living Situation: Spouse current occupational status: retired How many Children do You have: 2 Other Information That Helps Us Care for You: No Feels Safe at Home: Yes Safety Concerns: Feels Safe At This Time Childhood Exposure to Second-Hand Smoke: Yes (Both parents) Diet Comment: Regular diet caffeine: Yes (tea) during the past year weight has: increased > 10 lbs Dental Care, Regularly: No Physical Activity Frequency: 1-2 Times per Week Physical Activity Frequency Comment: walking around house or outside depending on weather/housework Seatbelt Use: always Sunscreen Use: Yes Do you think of yourself as: straight/heterosexual Assistive Devices: Cane, Glasses and Walker Physical Exam Physical Exam: Patient is alert and oriented Heart regular rhythm Lungs clear Results & Data Results & Data ([facility]) Vital Signs (Past 12 Hours) Vital Signs Temp Pulse Resp BP Pulse Ox O2 Del Method 10/02/21 07:13 36.5 C 60 18 166/95 H 96 Room Air 10/02/21 07:13 Room Air
[2021-10-02] MEDS ORDERED: PHENYLEPHRINE 100MCG/ML 5ML SYR ONE (09:27)
[2021-10-02] MEDS ORDERED: ROCURONIUM BROMIDE 10 MG/ML 5 ML VIAL IV ONE (09:37)
[2021-10-02] MEDS ORDERED: ATROPINE SULFATE 0.1 MG/ML 10ML SYR IV PRN (09:41)
[2021-10-02] MEDS ORDERED: ePHEDrine sulfate 50 MG/ML AMP IV PRN (09:41)
[2021-10-02] MEDS ORDERED: ONDANSETRON INJ 2 MG/ML 2 ML VIAL IV PRN ×2 (09:41→11:56)
--- NOTE | 2021-10-02 09:58 | Operative Report ---
Post Operative Report Pre & Post Diagnosis Operation Date: 10/02/21 07:45 Pre-Op Diagnosis: Spinal Stenosis of Lumbar Region with Radiculopath Post-Op Diagnosis: Spinal Stenosis of Lumbar Region with Radiculopath I identified the patient and participated in the time-out.: Yes Procedure Operation Date: 10/02/21 07:45 Actual Procedures 1 removal of posterior instrumentation L2. #2 exploration of fusion L2-L3. #3 lumbar decompression with bilateral medial facetectomies foraminotomies T12-L1 L1-L2. #4 posterior spinal fusion T12-L2. #5 placement of posterior instrumentation T12-L2. #6 placement of locally harvested morselized autograft in the posterior gutters. #7 placement of infuse collagen sponge, master graft in the posterior gutters from T12-L2. #8 replacement of a LSN Mobiletronic spinal cord stimulator battery. Surgeon Oral Olivares, Shoe Repairer Eugenio Perez Estimated Blood Loss 5 Findings Consistent with Post-Op Diagnosis Specimens None Indications This is a 76-year-old female who presents above-mentioned diagnosis after failing course of nonoperative care she is here for the above-mentioned procedure. Description of Procedure Patient was met with identified informed consent obtained. Patient was then taken to the operative suite underwent a patient placed in a prone position the Virgilio table atop the Tacos frame. All bony prominences well-padded eyes inspected to ensure no external pressure placed upon the. This point the thoracolumbar spine was prepped and draped in a sterile fashion. Sharp dissection with the assistance of Bovie cautery from down to and exposing the lamina and transverse processes of T12-L1 and instrumentation at L2-L3. I then proceeded to move the connector and an As well as pedicle screw from L2. I feet explored the fusion mass at L2-L3 noted to be mature and intact. Then performed a complete laminectomy of L1 partial laminectomy of T12 including bilateral medial facetectomies and foraminotomies addressing all spinal stenosis. Pedicle screws then placed in T12 and L1 bilaterally with assistance of fluoroscopy and by way of barrel connectors a dmitriy was locked into place and connected to the previous dmitriy. After this complete the lamina and transverse processes of T12-L1 and L2 were burred to subcortically bone. Infuse collagen sponge bone mass graft was placed in the posterior gutters. 15 round CONTRERAS drain inserted. The incision was then closed with 1 Vicryl the fascia 2-0 Vicryl subcutaneously and 4 Monocryl for final skin closure. Steri-Strip sterile dressings placed. Patient waken taken PACU stable condition. I then opened the pocket for the spinal cord stimulator battery on the left upper buttock. Sharp dissection formed down to and exposing the battery. The battery was removed the leads detached. A new battery was then attached to the leads tested for impedance and efficacy. Once this was established the battery was placed back in the pocket. The pocket was then closed with subcutaneous Vicryl and 4 Monocryl for fascial closure. Steri-Strip sterile dressings placed. Patient will continue PACU stable condition. Please note spinal cord monitoring was utilized at the procedure no changes noted. Lastly Eugenio Perez was present at the entire surgery and while the patient positioning complex portions of the surgery and final skin closure. I attest to the content of the Intraoperative Record and any orders documented therein. Any exceptions are noted below.
[2021-10-02] MEDS: fentaNYL citrate 100 MCG/2 ML VIAL IV PRN ×4 (10:37→11:26)
[2021-10-02] MEDS ORDERED: MAGNESIUM HYDROXIDE SUSP 30 ML UDC PO PRN (11:56)
[2021-10-02] MEDS ORDERED: bisacodyL 10 MG SUPP PR PRN (11:56)
[2021-10-02] MEDS ORDERED: ACETAMINOPHEN 500 MG TAB PO PRN (11:56)
[2021-10-02] MEDS ORDERED: NITROGLYCERIN SL 0.4 MG/TAB TAB SL PRN (11:56)
[2021-10-02] MEDS ORDERED: LORazepam 0.5 MG TAB PO PRN (11:56)
[2021-10-02] MEDS ORDERED: MAGNESIUM HYDROXIDE PO SCH (11:56)
[2021-10-02] MEDS ORDERED: ALBUTEROL 0.083% NEBU SOLN 3 ML VIAL INH PRN (11:56)
[2021-10-02] MEDS ORDERED: ONDANSETRON 4 MG OD TAB PO PRN (11:56)
[2021-10-02] MEDS ORDERED: HYDROmorphone INJ 1 MG/ML SYRINGE IV PRN (11:56)
[2021-10-02] MEDS ORDERED: diphenhydrAMINE Capsule 25 MG CAP PO PRN (11:56)
[2021-10-02] MEDS ORDERED: FAMOTIDINE 20 MG TAB PO PRN (11:56)
[2021-10-02] MEDS ORDERED: METOCLOPRAMIDE HCL INJ 5 MG/ML 2 ML VIAL IV PRN (11:56)
[2021-10-02] MEDS ORDERED: NALOXONE HCL 0.4 MG/1 ML VIAL/CARP IV PRN (11:56)
[2021-10-02] MEDS ORDERED: LORazepam 0.5 MG in SYRINGE 0.25 ML IV PRN (11:56)
[2021-10-02] MEDS ORDERED: hydrOXYzine HCl 25 MG TAB PO PRN (11:56)
[2021-10-02] MEDS ORDERED: HYDROmorphone INJ 0.5 MG/0.5 ML SYR IV PRN (11:56)
[2021-10-02] MEDS ORDERED: SOD PHOSPHATE/SOD BIPHOSPHATE ENEMA 132 ML BTL PR PRN (11:56)
[2021-10-02] MEDS ORDERED: ACETAMINOPHEN 1,000 MG/100 ML VIAL IV PRN (11:56)
[2021-10-02] MEDS ORDERED: ALUMINUM/MAGNESIUM SUSP 30 ML UDC PO PRN (11:56)
[2021-10-02] MEDS: LACTATED RINGER'S 1,000 ML IV SCH ×2 (12:23→21:16)
--- NOTE | 2021-10-02 12:25 | Fluoroscopy Report ---
FL lumbar spine 2-3V CLINICAL HISTORY: T12-L2 DFI L2 REMOVE OLD HARDWARE COMPARISON STUDY: Lumbar spine 06/29/2021. FLUOROSCOPY TIME: 36 seconds. FINDINGS: 2 fluoroscopic spot images of the lumbar spine were submitted. There is posterior decompres nury and fusion from the T12 level through the lumbar spine. The lower lumbar spine is not included o n this study. Posterior to the L2 vertebral body on the lateral view is a linear metallic foreign bod y measuring approximately 1 cm. This is not confirmed on the AP view and is therefore likely extracan alicular. This is indeterminate but could represent a surgical clip. Clinical correlation recommended . Spinal stimulating leads are partially visualized. IMPRESSION: 1. Posterior decompression and fusion from T12 through the lumbar spine. The lower lumbar spine likel y on this study. 2. Posterior to the L2 vertebral body on the lateral view is a linear metallic foreign body measuring approximately 1 cm. This is not confirmed on the AP view and is therefore likely extracanalicular. T his is indeterminate but could represent a surgical clip. ACT 112: Negative or not required by law. Electronically signed by: Dimitri Nicole M.D. 10/02/2021 12:23 PM
[2021-10-02] MEDS: HYDROCODONE/ACETAMOPHEN 5/325MG TAB PO PRN ×2 (12:39→17:40)
--- NOTE | 2021-10-02 12:42 | Hospitalist Consultation ---
Date of Consultation October 02, 2021 Assessment & Plan (1) Neurogenic claudication due to lumbar spinal stenosis: S/p lumbar decompression and fusion of T12 - L2 and replacement of spinal cord stimulator battery by Dr. Olivares on 10/02. EBL was 5 mL. - Post-operative care per primary team. - At risk for expected, post-operative acute blood loss anemia - Hospitalists will order PRBCs or Venofer if indicated. - DVT ppx per primary team - Given prior DVT/PE, would consider him high risk for VTE (2) HTN (hypertension): BP presently 180/95 after surgery with patient in pain. - Continue home carvedilol, losartan - Aggressive BP control in the hospital is generally not needed unless there are signs of end organ damage. Will monitor. (3) Sinus bradycardia: With some remote episodes of syncope. Had implantable loop recorder placed without any arrhythmias seen. - Continue home beta-shahana - Monitor (4) Asthma: No shortness of breath or wheezing on exam. - Continue home maintenance inhaler or formulary equivalent - Albuterol PRN (5) Depression: - Continue home duloxetine (6) Migraines: - Continue home topiramate - Tylenol PRN (7) Memory changes: Follows with neurology in [place]. - Continue home donepezil & memantine (8) TIA (transient ischemic attack): Hx of without residual symptoms. - Continue home ASA 81 mg per primary team (9) Bilateral pulmonary embolism: In 08/2020 in context of fall and rib fractures with pleural effusion. - DVT ppx per primary team, but patient is high risk for VTE Given complexity of patient, Hospitalist team will follow along for now. History of Present Illness Attending Physician: Oral Olivares, History of Present Illness 76yo F w/ hx of HTN, asthma, prior TIA who presents as a routine medical consult after lumbar decompression and fusion of T12 - L2 and replacement of spinal cord stimulator battery by Dr. Olivares on 10/02. The patient had no operative complications per the note. She has had ongoing, significant radiculopathy symptoms despite conservative therapies. On my exam today, she is having 10/10 lower back pain at the site of the surgery, but otherwise has no other focal complaints. Allergies Allergy/AdvReac Type Severity Reaction Status Date / Time morphine Allergy Severe SEVERE Verified 10/02/21 06:57 HYPOTENSION milk Allergy Intermediate SOME MILK Verified 10/02/21 06:57 PRODUCTS-HIVES IN MOUTH adhesive Allergy Mild SKIN Verified 10/02/21 06:57 IRRITATION chocolate flavor Allergy Mild migraines Verified 10/02/21 06:57 latex Allergy Mild rash Verified 10/02/21 06:57 Penicillins Allergy Mild RASH Verified 10/02/21 06:57 Sulfa (Sulfonamide Allergy Mild RASH Verified 10/02/21 06:57 Antibiotics) tramadol Allergy Mild ITCHINESS Verified 10/02/21 06:57 oxycodone AdvReac Mild NAUSEA AND Verified 10/02/21 06:57 VOMITING Hotdogs Allergy Mild MIGRAINES Uncoded 10/02/21 06:57 margarine AdvReac Intermediate GI upset Uncoded 10/02/21 06:57 Home Medications Medication Instructions Recorded Confirmed Type albuterol sulfate 2.5 mg (3 mL) inhalation Q4H PRN 11/24/18 10/02/21 Rx ASTHMA #180 mL calcium carbonate 600 mg-vitamin 1 tab PO BID 05/14/19 10/02/21 History D3 10 mcg (400 unit) tablet (Calcium 600 + D(3)) multivitamin (Multiple Vitamins) 1 tab PO QAM 05/14/19 10/02/21 History magnesium hydroxide 400 mg (170 mg 250 mg PO Q OTHER DAY 09/11/19 10/02/21 History magnesium) chewable tablet (Pedia-Lax (mag hydroxide)) omega-3 fatty acids 1,000 mg 1,000 mg PO ACHS 09/11/19 10/02/21 History capsule (Fish Oil Concentrate) nitroglycerin 0.4 mg sublingual 0.4 mg sublingual Q5M PRN chest 08/17/20 10/02/21 History tablet (Nitrostat) pain topiramate 200 mg tablet (Topamax) 200 mg PO HS 08/17/20 10/02/21 History acetaminophen 500 mg tablet 1,000 mg PO Q8H PRN Pain 09/15/20 10/02/21 History dicyclomine 10 mg capsule 10 mg PO QID IBS 90 days #360 caps 01/14/21 10/02/21 Rx pantoprazole 40 mg tablet,delayed 40 mg PO QAM #90 tabs 03/05/21 10/02/21 Rx release (Protonix) simvastatin 10 mg tablet (Zocor) 10 mg PO QPM #90 tabs 04/09/21 10/02/21 Rx donepezil 5 mg tablet 10 mg PO QAM 05/08/21 10/02/21 History pregabalin 50 mg capsule (Lyrica) See Rx Instructions .Route 06/29/21 10/02/21 Rx .COMPLEX #210 caps duloxetine 60 mg capsule,delayed 60 mg PO DAILY #90 caps 07/08/21 10/02/21 Rx release (Cymbalta) memantine 5 mg tablet 5 mg PO QAM #7 tabs 08/07/21 10/02/21 Rx aspirin 81 mg tablet,delayed 81 mg PO QAM 09/08/21 10/02/21 History release fluticasone fur. 200 mcg-umeclid 1 inh inhalation HS 09/08/21 10/02/21 History 62.5 mcg-vilant 25 mcg inhalat.powder (Trelegy Ellipta) losartan 100 mg tablet 100 mg PO QAM 09/08/21 10/02/21 History buprenorphine 20 mcg/hour weekly 1 patch transdermal WK #4 ea 09/16/21 10/02/21 Rx transdermal patch (Butrans) nystatin 100,000 unit/mL oral 5 ml PO QID 10 days #200 mL 09/21/21 10/02/21 Rx suspension carvedilol 6.25 mg tablet (Coreg) 6.25 mg PO BID 10/02/21 10/02/21 History hydrocodone 5 mg-acetaminophen 325 1 tab PO Q6H PRN pain #30 tabs 10/02/21 Rx mg tablet Patient History Medical History (Updated 10/02/21 @ 13:47 by Jonah Jones MD) Ascending aorta dilation Per 2017 CTA of chest/thorax- "slight prominence ascending aorta at 3.6cm - follows Dr. Red Asthma Bilateral pulmonary embolism 08/2020 Cervical radiculopathy Chronic cough Degeneration of cervical intervertebral disc Depression DVT of leg (deep venous thrombosis) Dyslipidemia Expected difficult intubation limited cervical extension, small oral opening, TMJ with history of locking and Mallampati 3 airway. GERD (gastroesophageal reflux disease) controlled Glaucoma History of kidney stones HTN (hypertension) IBS (irritable bowel syndrome) Memory changes follows with [facility] Migraines Osteoporosis, post-menopausal Peripheral neuropathy Sinus bradycardia hx syncope, "not had any recurrent episodes of syncope. No arrhythmias recorded. Device is at end of service...will not provide additional monitoring at this point..." per EP note 06/06/20. Sjogren's syndrome Temporomandibular joint disorder locking-last episode several yrs ago TIA (transient ischemic attack) 2005, 2016--follows with Dr. Lopez (neuro) at [place]--no deficits, reason for aspirin Tremor Surgical History H/O arthroscopic knee surgery right H/O colonoscopy H/O foot surgery right foot 2nd toe H/O oophorectomy History of cardiac cath 2005 - no stents placed - Follows Dr. Neda GREEN History of dilatation and curettage History of esophagogastroduodenoscopy (EGD) History of inguinal hernia repair History of left cataract extraction History of loop recorder Medtronic - Dr. Owen - [place] - 09/30/16 - left chest - No longer works History of lumbar fusion History of lumbar laminectomy History of partial hysterectomy History of sinus surgery History of surgery R SI joint fusion 09/27/19: Grade 2 view, Jones 2, ETT 7.0. History of wisdom tooth extraction Hx of appendectomy Hx of right cataract extraction S/P breast lumpectomy right--benign S/P carpal tunnel release bilateral S/P cholecystectomy S/P rotator cuff repair bilateral S/P tubal ligation Spinal cord stimulator status unsure of type - Dr. Olivares - [place] Family History Grandfather Myocardial infarction Grandmother Myocardial infarction Mother Diabetes Coronary heart disease Hypertension Father Emphysema lung Hypertension Other No family history of adverse response to anesthesia Denies family history of Ovarian cancer Prostate cancer Breast cancer Colorectal cancer Social History Smoking Status: Never smoker Second Hand Exposure: No; Do You Dip or Chew Tobacco: No; Tobacco Cessation Education Requested by Patient: No Hx Alcohol Use: No Hx Substance Use: No Preferred Language: Beninese Communication Ability: Effective Visual Impairment: No Limitations Hearing Ability: Normal Exhaust Worker Required: No Beliefs That Will Affect Care: None marital status: Current Living Situation: Spouse current occupational status: retired How many Children do You have: 2 Other Information That Helps Us Care for You: No Feels Safe at Home: Yes Safety Concerns: Feels Safe At This Time Childhood Exposure to Second-Hand Smoke: Yes (Both parents) Diet Comment: Regular diet caffeine: Yes (tea) during the past year weight has: increased > 10 lbs Dental Care, Regularly: No Physical Activity Frequency: 1-2 Times per Week Physical Activity Frequency Comment: walking around house or outside depending on weather/housework Seatbelt Use: always Sunscreen Use: Yes Do you think of yourself as: straight/heterosexual Assistive Devices: Cane, Glasses and Walker Review of Systems Review of Systems: All systems reviewed & are unremarkable except as noted in HPI & below Physical Exam Constitutional: WD/WN, vitals as above Eyes: EOM intact bilaterally; no conjunctival abnormality ENMT: external ear and nose normal, oropharynx normal Neck: trachea midline, no thyromegaly normal visual inspection Respiratory: normal respiratory effort, lungs clear to auscultation no respiratory distress Cardiovascular: RRR, no murmur, no edema Gastrointestinal (Abdomen): Inspection/Auscultation: abdomen normal to inspection; abdomen not distended Musculoskeletal: no cyanosis or clubbing, extremities motor strength 5/5 Back with bandages. Drain in place with serosanguineous output. Skin: no rashes, warm and dry Neurologic: moves all extremities and awake Psychiatric: Orientation: alert, oriented to person and cooperative Results & Data Results & Data ([facility]) Vital Signs (Past 12 Hours) Vital Signs Temp Pulse Pulse Resp BP BP Pulse Ox 10/02/21 12:21 35.8 C L 16 183/77 H 98 10/02/21 11:40 60 12 152/96 H 95 10/02/21 11:30 36.3 C L 65 15 128/86 94 10/02/21 11:20 64 16 176/90 H 94 10/02/21 11:10 63 14 144/86 H 95 10/02/21 11:00 62 18 158/85 H 94 10/02/21 10:50 65 13 174/95 H 96 10/02/21 10:40 76 19 172/98 H 98 10/02/21 10:30 74 12 177/104 H 99 10/02/21 10:23 36.0 C L 79 16 179/103 H 97 10/02/21 07:13 36.5 C 60 18 166/95 H 96 10/02/21 07:13 O2 Del Method O2 Flow Rate 10/02/21 12:21 Nasal Cannula 4 10/02/21 11:40 Nasal Cannula 2 10/02/21 11:30 Nasal Cannula 2 10/02/21 11:20 Nasal Cannula 2 10/02/21 11:10 Nasal Cannula 2 10/02/21 11:00 Oxymask 3 10/02/21 10:50 Oxymask 5 10/02/21 10:40 Oxymask 9 10/02/21 10:30 Oxymask 9 10/02/21 10:23 Oxymask 9 10/02/21 07:13 Room Air 10/02/21 07:13 Room Air PG Care Time/CCT Total # of Minutes Spent Total Time Spent with Patient: Total time spent is greater than 50% in coordination of care (as documented) at patient's floor/unit and/or counseling patient: Coding Level of Care Code 15289 Inpt Consult Level 4 Diagnoses Neurogenic claudication due to lumbar spinal stenosis M48.062 HTN (hypertension) I10 Sinus bradycardia R00.1 Asthma J45.909 Depression F32.9 Migraines G43.909 Memory changes R41.3 TIA (transient ischemic attack) G45.9 Bilateral pulmonary embolism I26.99
[2021-10-02] MEDS ORDERED: PROMETHAZINE HCL 12.5 MG in SODIUM CHLORIDE 0.9% 50 ML IV PRN (13:00)
--- NOTE | 2021-10-02 13:45 | Anesthesiology Progress Note ---
Date of Service October 02, 2021 Anesthesia Post Procedure Vital Signs Vital Signs: Temp Pulse Pulse Pulse Resp BP BP 10/02/21 12:48 35.8 C L 55 L 12 183/96 H 10/02/21 12:21 35.8 C L 16 183/77 H 10/02/21 11:40 60 12 152/96 H 10/02/21 11:30 36.3 C L 65 15 128/86 10/02/21 11:20 64 16 176/90 H 10/02/21 11:10 63 14 144/86 H 10/02/21 11:00 62 18 158/85 H 10/02/21 10:50 65 13 174/95 H 10/02/21 10:40 76 19 172/98 H 10/02/21 10:30 74 12 177/104 H 10/02/21 10:23 36.0 C L 79 16 179/103 H 10/02/21 07:13 36.5 C 60 18 166/95 H 10/02/21 07:13 Pulse Ox O2 Del Method O2 Flow Rate 10/02/21 12:48 96 Nasal Cannula 3 10/02/21 12:21 98 Nasal Cannula 4 10/02/21 11:40 95 Nasal Cannula 2 10/02/21 11:30 94 Nasal Cannula 2 10/02/21 11:20 94 Nasal Cannula 2 10/02/21 11:10 95 Nasal Cannula 2 10/02/21 11:00 94 Oxymask 3 10/02/21 10:50 96 Oxymask 5 10/02/21 10:40 98 Oxymask 9 10/02/21 10:30 99 Oxymask 9 10/02/21 10:23 97 Oxymask 9 10/02/21 07:13 96 Room Air 10/02/21 07:13 Room Air Pain Intensity Back: Pain Intensity: 4 Transfer of Care Handoff Completed per policy Notes Mental Status: alert / awake / arousable and participated in evaluation Patient Amnestic to Procedure: Yes Nausea / Vomiting: adequately controlled Pain: adequately controlled Airway Patency, RR, SpO2: stable & adequate BP & HR: stable & adequate Hydration State: stable & adequate Anesthetic Complications: no major complications apparent
[2021-10-02] MEDS: PREGABALIN 50 MG CAP PO SCH ×2 (14:28→21:12)
[2021-10-02] MEDS: NYSTATIN SUSP 500,000 U/5 ML UDC PO SCH ×3 (15:01→21:12)
[2021-10-02] MEDS: DICYCLOMINE HCL 10 MG CAP PO SCH ×3 (15:02→21:12)
[2021-10-02] MEDS: CLINDAMYCIN 600 MG in DEXTROSE 5% 50 ML IV SCH (16:10)
[2021-10-02] MEDS ORDERED: NON-FORMULARY MEDICATION (Fluticasone-Umeclidin-Vilanter [Trelegy Ellipta] 200-62.5-25 mcg INH SCH (21:00)
[2021-10-02] MEDS: carvediloL 6.25 MG TAB PO SCH (21:10)
[2021-10-02] MEDS: TOPIRAMATE 100 MG TAB PO SCH (21:12)
[2021-10-02] MEDS: DOCUSATE SODIUM/SENNA 50/8.6MG TAB PO SCH (21:12)
[2021-10-02] MEDS: FLUTICASONE FUROATE 200MCG 14 PUFFS/INHALER INH SCH (21:13)
[2021-10-02] MEDS: UMECLIDINIUM/VILANTEROL 62.5/25MCG 7 PUFFS/INHALER INH SCH (21:13)
[2021-10-02] MEDS: CALCIUM 600MG + VIT D 400 IU TAB PO SCH (21:13)
[2021-10-02] MEDS: SIMVASTATIN 10 MG TAB PO SCH (21:13)
[2021-10-03] MEDS: CLINDAMYCIN 600 MG in DEXTROSE 5% 50 ML IV SCH (01:08)
[2021-10-03] MEDS: POLYETHYLENE (MIRALAX) 17 GM PACK PO SCH ×3 (06:16→17:27)
[2021-10-03 06:20] LABS: Basophils # (auto) 0.04 K/uL (0-0.2); Basophils % (auto) 0.4 %; Hematocrit (blood only) 29.6 % (34.1-44.9); Hemoglobin 9.9 g/dl (12.0-16.0); Immature Granulocytes # (auto) 0.03 K/uL (0.00-0.02); Immature Granulocytes % (auto) 0.3 %; Lymphocytes # (auto) 2.21 K/uL (1.2-3.4); Mean Corpuscular Hemoglobin 29.1 pg (25.0-34.0); Mean Corpuscular Hgb Conc 33.4 g/dL (32.0-36.0); Mean Corpuscular Volume 87.1 fL (80.0-100.0); Mean Platelet Volume 11.5 fL (9.4-12.3); Monocytes # (auto) 0.83 K/uL (0.24-0.82); Neutrophils % (auto) 66.3 %; Platelet Count 175 K/uL (130-400); RDW Coefficient of Variation 13.6 % (11.5-14.5); RDW Standard Deviation 43.2 fL (36.4-46.3); White Blood Count 9.21 K/ul (4.8-10.8)
[2021-10-03 06:39] LABS: BUN Creatinine Ratio 19.7 (10-20); Calcium 7.6 mg/dl (8.5-10.1); Est GFR (African American) 89.6 ml/min; Est GFR (Non-African American) 77.3 ml/min; Potassium 3.7 mmol/L (3.5-5.1)
[2021-10-03] MEDS: NYSTATIN SUSP 500,000 U/5 ML UDC PO SCH ×4 (07:46→20:28)
[2021-10-03] MEDS: PANTOprazole 40 MG TAB PO SCH (07:46)
[2021-10-03] MEDS: PREGABALIN 50 MG CAP PO SCH ×3 (07:46→20:33)
[2021-10-03] MEDS: CALCIUM 600MG + VIT D 400 IU TAB PO SCH ×2 (07:46→20:28)
[2021-10-03] MEDS: DONEPEZIL HCL 10 MG TAB PO SCH (07:47)
[2021-10-03] MEDS: MULTIVITAMIN TAB PO SCH (07:47)
[2021-10-03] MEDS: MEMANTINE HCL 5 MG TAB PO SCH (07:47)
[2021-10-03] MEDS: DICYCLOMINE HCL 10 MG CAP PO SCH ×4 (07:47→20:29)
[2021-10-03] MEDS: DULoxetine HCL 60 MG CAP PO SCH (07:47)
[2021-10-03] MEDS: dexAMETHasone 6 MG in SYRINGE 0 ML IV SCH (07:47)
[2021-10-03] MEDS: LOSARTAN POTASSIUM 50 MG TAB PO SCH (07:48)
[2021-10-03] MEDS: ASPIRIN 81 MG ECTAB PO SCH (07:48)
[2021-10-03] MEDS: carvediloL 6.25 MG TAB PO SCH ×2 (07:48→20:28)
--- NOTE | 2021-10-03 08:13 | Hospitalist Progress Note ---
Date of Service October 03, 2021 Assessment & Plan (1) Neurogenic claudication due to lumbar spinal stenosis: Plan: POD #1 s/p 1 removal of posterior instrumentation L2. #2 exploration of fusion L2-L3. #3 lumbar decompression with bilateral medial facetectomies foramin otomies T12-L1 L1-L2. #4 posterior spinal fusion T12-L2. #5 placement of posterior instrumentation T12-L2. #6 placement of locally harvested morselized autograft in the posterior gutters. #7 placement of infuse collagen sponge, master graft in the posterior gutters from T12-L2. #8 replacement of a Medtronic spinal cord stimulator battery. EBL 5cc WBC wnl, afebrile Hgb 12.3 pre-op (although baseline appears 11s --> 9.9, CONTRERAS output 345cc acute blood loss anemia from surgery, and given 1L IVF. No SOB/CP reported and will monitor labs in AM Pain control, antiemetics, bowel regimen per primary service -- of note, patient with slow bowels in general/every other day. No pain, +BS on exam Of note, prior DVT/PE last year in setting of fall/broken ribs/multiple small PEs/pleural effusion August 2020 (2nd to trauma, cytology negative), and recent COVID earlier this month (did not require treatment), high risk for VTE Utilizing Fat[facility] nichols currently. Discussed with Dr Olivares PCP/cards recs for LMWH or NOAC for DVT prevention and will consider in next 48 hours *Did have neuropathy to R foot noted AM 7/30 but no increased calf edema/tenderness and pulses palpable -- continue to monitor/doppler if any evidence given hx. On duloxetine for neuropathy Continued inpatient stay (2) HTN (hypertension): Plan: elevated post-op 2nd to pain BP stable 124/71 Cr stable on AM labs, continues on carvedilol and losartan Continue to monitor (3) Sinus bradycardia: Plan: With some remote episodes of syncope. Had implantable loop recorder placed without any arrhythmias seen. No syncopal episodes reported, no lightheaded or dizziness but not up with therapy Regular rate in 60s on exam Continue carvedilol (4) Asthma: Plan: No shortness of breath or wheezing on exam. - Continue home maintenance inhaler or formulary equivalent - Albuterol PRN (5) Depression: Plan: - Continue home duloxetine (6) Migraines: Plan: - Continue home topiramate - Tylenol PRN No headaches reported (7) Memory changes: Plan: Follows with neurology in [place]. - Continue home donepezil & memantine Appears well compensated during exam (8) TIA (transient ischemic attack): Plan: Hx of without residual symptoms. - Continue home ASA 81 mg per primary team (9) Bilateral pulmonary embolism: Plan: In 08/2020 in context of fall and rib fractures with pleural effusion, completed 6 months of Eliquis - DVT ppx per primary team, but patient is high risk for VTE, considering Lovenox SQ vs NOAC in next 48 hours Plan continued inpatient stay through weekend Given complexity of patient, Hospitalist team will follow along for now. Admission and Anticipated Discharge Date Admission Date: October 02, 2021 Supervising Physician Co-Signing Physician Notes AMANDA Supervision Note: I did not personally see or examine the patient today, but I verified all [place] points of AMANDA Moulton's assessment and plan with the following exceptions/additions: None Subjective Patient evaluated this morning. Feeling alright, pain controlled to legs but had a burst of increased pain/neuropathy to her right foot this morning, since resolved. Breathing stable, currently doing a crossword. Therapy to be around but planning d/c tuesday. Has nerve stimulator adjustment same time for "double whammy". Pain currently controlled No fever/chill, chest pain , shortness of breath. Chronic cough. Recent COVID earlier this month, got at a wedding, never required treatment for much and she states she had it "the best". Eating/drinking, not passing much gas but denied any abdominal pain. Discussed anticoagulation, she states her PCP was hoping they would "give her something a little stronger" given recent covid and prior fall/rib fracture and DVT/PE last year which required hospitalization per patient for 3 weeks. Questions/concerns addressed. Review of Systems Review of Systems: All systems reviewed & are unremarkable except as noted in HPI & below Physical Exam Physical Exam: General: WD female sitting up in chair doing crossword, NAD HEENT: head normocephalic, atraumatic, mmm, trachea midline without deviation Resp: CTAB, diminshed in the bases with associated bibasilar crackles, no w/c, on room air CV: RRR, no m/r/g, no edema GI: +BS, soft, nontender : wright draining clear yellow urine MSK/Neuro: moving all extremities, follows commands, no facial droop or slurred speech, strength equal b/l LE, pulses palpable, calves nontender, without edema, cap refill wnl dressing to lumbar spine c/d/i, CONTRERAS drain with blood drainage Psych: AOx3, pleasant and cooperative Skin: warm, dry Results & Data Results & Data ([facility]) Vital Signs (Past 12 Hours) Vital Signs Temp Pulse Resp BP Pulse Ox O2 Del Method O2 Flow Rate 10/03/21 08:04 Nasal Cannula 2 10/03/21 07:19 36.6 C 55 L 14 148/85 H 100 Nasal Cannula 2 10/03/21 03:07 36.4 C L 58 L 16 110/66 90 Room Air 10/02/21 21:00 36.5 C 58 L 16 108/64 92 Room Air Laboratory Results 10/03/21 10/03/21 Range/Units 05:43 05:43 WBC 9.21 (4.8-10.8) K/ul RBC 3.40 L (3.93-5.22) M/uL Hgb 9.9 L (12.0-16.0) g/dl Hct 29.6 L (34.1-44.9) % MCV 87.1 (80.0-100.0) fL MCH 29.1 (25.0-34.0) pg MCHC 33.4 (32.0-36.0) g/dL RDW Std Deviation 43.2 (36.4-46.3) fL RDW Coeff of Claus 13.6 (11.5-14.5) % Plt Count 175 (130-400) K/uL MPV 11.5 (9.4-12.3) fL Immature Gran % (Auto) 0.3 % Neut % (Auto) 66.3 % Lymph % (Auto) 24.0 % [place] % (Auto) 9.0 % Eos % (Auto) 0.0 % Baso % (Auto) 0.4 % Neut # (Auto) 6.10 (1.4-6.5) K/uL Lymph # (Auto) 2.21 (1.2-3.4) K/uL [place] # (Auto) 0.83 H (0.24-0.82) K/uL Eos # (Auto) 0.00 (0-0.50) K/uL Baso # (Auto) 0.04 (0-0.2) K/uL Immature Gran # (Auto) 0.03 H (0.00-0.02) K/uL Sodium 138 (136-145) mmol/L Potassium 3.7 (3.5-5.1) mmol/L Chloride 107 (98-107) mmol/L Carbon Dioxide 26 (21-32) mmol/L Anion Gap 5 (3-11) BUN 15 (6-23) mg/dl Creatinine 0.76 (0.6-1.2) mg/dl Est Cr Clr Drug Dosing 55.0 ml/min Est GFR ( Amer) 89.6 ml/min Est GFR (Non-Af Amer) 77.3 ml/min BUN/Creatinine Ratio 19.7 (10-20) Glucose 87 (70-99(Fasting)) mg/dl Calcium 7.6 L (8.5-10.1) mg/dl Diagnostic Findings Lumbar Spine X-Ray 10/02/21 07:45 FL lumbar spine 2-3V CLINICAL HISTORY: T12-L2 DFI L2 REMOVE OLD HARDWARE COMPARISON STUDY: Lumbar spine 06/29/2021. FLUOROSCOPY TIME: 36 seconds. FINDINGS: 2 fluoroscopic spot images of the lumbar spine were submitted. There is posterior decompression and fusion from the T12 level through the lumbar spine. The lower lumbar spine is not included on this study. Posterior to the L2 vertebral body on the lateral view is a linear metallic foreign body measuring approximately 1 cm. This is not confirmed on the AP view and is therefore likely extracanalicular. This is indeterminate but could represent a surgical clip. Clinical correlation recommended. Spinal stimulating leads are partially visualized. IMPRESSION: 1. Posterior decompression and fusion from T12 through the lumbar spine. The lower lumbar spine likely on this study. 2. Posterior to the L2 vertebral body on the lateral view is a linear metallic foreign body measuring approximately 1 cm. This is not confirmed on the AP view and is therefore likely extracanalicular. This is indeterminate but could represent a surgical clip. ACT 112: Negative or not required by law. Electronically signed by: Dimitri Nicole M.D. 10/02/2021 12:23 PM PG Care Time/CCT Total # of Minutes Spent Total Time Spent with Patient: Total time spent is greater than 50% in coordination of care (as documented) at patient's floor/unit and/or counseling patient: Coding Level of Care Code 14767 Subseq Hosp Care Lvl 2 Diagnoses Neurogenic claudication due to lumbar spinal stenosis M48.062 HTN (hypertension) I10 Sinus bradycardia R00.1 Asthma J45.909 Depression F32.9 Migraines G43.909 Memory changes R41.3 TIA (transient ischemic attack) G45.9 Bilateral pulmonary embolism I26.99
--- NOTE | 2021-10-03 08:45 | Orthopedic Progress Note ---
Date of Service October 03, 2021 Assessment & Plan (1) Neurogenic claudication due to lumbar spinal stenosis: Plan: Patient is status post decompression fusion. Plan at this time initiate physical therapy assess her progress throughout the weekend hopefully discharge home Tuesday. Admission and Anticipated Discharge Date Admission Date: October 02, 2021 Subjective Back pain controlled leg pain improved Physical Exam Physical Exam: Patient appears comfortable. Has good strength testing. Results & Data ([facility]) Vital Signs (Past 12 Hours) Vital Signs Temp Pulse Resp BP Pulse Ox O2 Del Method O2 Flow Rate 10/03/21 08:04 Nasal Cannula 2 10/03/21 07:19 36.6 C 55 L 14 148/85 H 100 Nasal Cannula 2 10/03/21 03:07 36.4 C L 58 L 16 110/66 90 Room Air 10/02/21 21:00 36.5 C 58 L 16 108/64 92 Room Air
[2021-10-03] MEDS: HYDROCODONE/ACETAMOPHEN 5/325MG TAB PO PRN (12:22)
[2021-10-03 17:05] LABS: Hematocrit (blood only) 32.6 % (34.1-44.9); Hemoglobin 11.1 g/dl (12.0-16.0); Mean Corpuscular Hemoglobin 29.5 pg (25.0-34.0); Mean Corpuscular Volume 86.7 fL (80.0-100.0); Mean Platelet Volume 10.9 fL (9.4-12.3); Platelet Count 184 K/uL (130-400); RDW Coefficient of Variation 13.7 % (11.5-14.5); RDW Standard Deviation 42.4 fL (36.4-46.3); Red Blood Count 3.76 M/uL (3.93-5.22); White Blood Count 9.82 K/ul (4.8-10.8)
[2021-10-03 17:50] LABS: Ferritin 40.5 ng/ml (8-388)
[2021-10-03] MEDS: DOCUSATE SODIUM/SENNA 50/8.6MG TAB PO SCH (20:28)
[2021-10-03] MEDS: FLUTICASONE FUROATE 200MCG 14 PUFFS/INHALER INH SCH (20:29)
[2021-10-03] MEDS: SIMVASTATIN 10 MG TAB PO SCH (20:29)
[2021-10-03] MEDS: TOPIRAMATE 100 MG TAB PO SCH (20:29)
[2021-10-03] MEDS: UMECLIDINIUM/VILANTEROL 62.5/25MCG 7 PUFFS/INHALER INH SCH (20:30)
[2021-10-04] MEDS: POLYETHYLENE (MIRALAX) 17 GM PACK PO SCH ×5 (00:05→22:14)
[2021-10-04] MEDS: HYDROCODONE/ACETAMOPHEN 5/325MG TAB PO PRN ×3 (02:31→22:14)
--- NOTE | 2021-10-04 08:17 | Hospitalist Progress Note ---
Date of Service October 04, 2021 Assessment & Plan (1) Neurogenic claudication due to lumbar spinal stenosis: Plan: POD #1 s/p 1 removal of posterior instrumentation L2. #2 exploration of fusion L2-L3. #3 lumbar decompression with bilateral medial facetectomies foramin otomies T12-L1 L1-L2. #4 posterior spinal fusion T12-L2. #5 placement of posterior instrumentation T12-L2. #6 placement of locally harvested morselized autograft in the posterior gutters. #7 placement of infuse collagen sponge, master graft in the posterior gutters from T12-L2. #8 replacement of a [employer]tr[employer] spinal cord stimulator battery. EBL 5cc WBC wnl, afebrile Hgb 12.3 pre-op (although baseline appears 11s and suspect some dehydration) hgb --> 9.9 post op but repeat afternoon hgb 11.1, now improved to 11.5 acute blood loss anemia from surgery and dilutional from IVF in patient with baseline anemia. Iron low and venofer x 1. Pain control, antiemetics, bowel regimen per primary service - of note, patient with slow bowels in general/every other day. No pain, +BS on exam and working on aggressive bowel regimen Of note, prior DVT/PE last year in setting of fall/broken ribs/multiple small PEs/pleural effusion August 2020 (2nd to trauma, cytology negative), and recent COVID earlier this month (did not require treatment), high risk for VTE * Utilizing estephania gilliam SCDs currently. Discussed with Dr Olivares PCP/cards recs for LMWH or NOAC for DVT prevention * Consider in next 24 hours with Lovenox SQ ideally as discussed with patient. Messaged Wellington Diaz PA-C to relay/start when ok with primary service *Did have neuropathy to R foot noted AM 10/03 but no increased calf edema/tenderness and pulses palpable -- continue to monitor/doppler if any evidence given hx. On duloxetine for neuropathy. NONE REPORTED 10/03 Plans for d/c tomorrow per primary service Hospitalist service will sign off at this time, please call with any questions/concerns Continued inpatient stay (2) Bilateral pulmonary embolism: Plan: Hx of in 08/2020 in context of fall and rib fractures with pleural effusion, completed 6 months of Eliquis - DVT ppx per primary team, but patient is high risk for VTE, considering Lovenox SQ vs NOAC in next 24 hours, messaged MARTA to start when ok with Dr Olivares, hopefully tomorrow as CONTRERAS output decreased and will be >48 hours post-op (3) HTN (hypertension): Plan: elevated post-op 2nd to pain BP stable 132/81, remains on carvedilol and losartan daily (4) Sinus bradycardia: Plan: With some remote episodes of syncope. Had implantable loop recorder placed without any arrhythmias seen. No syncopal episodes reported, no lightheaded or dizziness but not up with therapy Regular rate in 60s on exam Continue carvedilol (5) Asthma: Plan: No shortness of breath or wheezing on exam. - Continue home maintenance inhaler or formulary equivalent - Albuterol PRN (6) Depression: Plan: - Continue home duloxetine (7) Migraines: Plan: - Continue home topiramate - Tylenol PRN No headaches reported (8) Memory changes: Plan: Follows with neurology in [place]. - Continue home donepezil & memantine B12 wnl, no recent TSH in system to note, but all priors normal Appears well compensated during exam (9) TIA (transient ischemic attack): Plan: Hx of without residual symptoms. - Continue home ASA 81 mg per primary team Plan continued inpatient stay through weekend, planning for d/c Tuesday Hospitalist signed off. Start AC w/ lovenox rec'd for tomorrow. Please call with ay questions/concerns. Admission and Anticipated Discharge Date Admission Date: October 02, 2021 Supervising Physician Co-Signing Physician Notes PA Supervision Note: I did not personally see or examine the patient today, but I verified all [place] points of AMANDA Moulton's assessment and plan with the following exceptions/additions: None Subjective Patient evaluated this morning. Doing well, sitting up in the chair. Pain primarily incisional, leg strength much improved, no further neuropathy symptoms as yesterday. Working on incentive spirometer. Denied chest pain/shortness of breath/abdominal pain. Passing gas but no BM. Primary working on aggressive bowel regimen. CONTRERAS output 50cc last shift, hopefully can remove by tomorrow and discussed plans for Lovenox SQ for DVT prophylaxis given history. No fever/chills. She does note not happy about O2 92% but discussed working on IS. Overnight pulse ox without drop to qualify for oxygen. Questions/concerns addressed at this time. Review of Systems Review of Systems: All systems reviewed & are unremarkable except as noted in HPI & below Physical Exam Physical Exam: General: WD female sitting up in chair eating breakfast, NAD HEENT: head normocephalic, atraumatic, mmm, trachea midline without deviation Resp: CTAB, diminished in the bases with associated bibasilar crackles, no w/c, on room air 92% CV: RRR, no m/r/g, no edema GI: +BS, soft, nontender : wright draining clear yellow urine MSK/Neuro: moving all extremities, follows commands, no facial droop or slurred speech, strength equal b/l LE, pulses palpable, calves nontender, without edema, cap refill wnl dressing to lumbar spine c/d/i, CONTRERAS drain with decreased bloody drainage Psych: AOx3, pleasant and cooperative Skin: warm, dry Results & Data Results & Data ([facility]) Vital Signs (Past 12 Hours) Vital Signs Temp Pulse Pulse Resp BP Pulse Ox Pulse Ox 10/04/21 07:20 36.5 C 61 16 132/81 91 10/04/21 05:34 55 L 90 10/04/21 03:29 58 L 92 10/03/21 23:15 59 L 93 10/03/21 21:40 64 99 10/03/21 20:26 36.8 C 66 16 124/80 94 O2 Del Method O2 Del Method FiO2 10/04/21 07:20 Room Air 10/04/21 05:34 Room Air 10/04/21 03:29 Room Air 21 10/03/21 23:15 Room Air 21 10/03/21 21:40 Room Air 21 10/03/21 20:26 Room Air Laboratory Results 10/04/21 10/04/21 10/04/21 Range/Units 08:24 08:24 08:24 WBC 10.04 (4.8-10.8) K/ul RBC 3.95 (3.93-5.22) M/uL Hgb 11.5 L (12.0-16.0) g/dl Hct 34.5 (34.1-44.9) % MCV 87.3 (80.0-100.0) fL MCH 29.1 (25.0-34.0) pg MCHC 33.3 (32.0-36.0) g/dL RDW Std Deviation 44.8 (36.4-46.3) fL RDW Coeff of Claus 14.0 (11.5-14.5) % Plt Count 191 (130-400) K/uL MPV 11.6 (9.4-12.3) fL Sodium 141 (136-145) mmol/L Potassium 3.6 (3.5-5.1) mmol/L Chloride 108 H (98-107) mmol/L Carbon Dioxide 27 (21-32) mmol/L Anion Gap 6 (3-11) BUN 20 (6-23) mg/dl Creatinine 0.82 (0.6-1.2) mg/dl Est Cr Clr Drug Dosing 50.9 ml/min Est GFR ( Amer) 81.7 ml/min Est GFR (Non-Af Amer) 70.5 ml/min BUN/Creatinine Ratio 24.4 H (10-20) Glucose 90 (70-99(Fasting)) mg/dl Calcium 8.9 (8.5-10.1) mg/dl Iron (35-150) mcg/dl TIBC (250-450) mcg/dl Unsaturated IBC (155-355) mcg/dl Transferrin % Sat (15-50) % Ferritin (8-388) ng/ml Vitamin B12 350 (180-914) pg/ml 10/03/21 10/03/21 Range/Units 16:56 16:56 WBC 9.82 (4.8-10.8) K/ul RBC 3.76 L (3.93-5.22) M/uL Hgb 11.1 L (12.0-16.0) g/dl Hct 32.6 L (34.1-44.9) % MCV 86.7 (80.0-100.0) fL MCH 29.5 (25.0-34.0) pg MCHC 34.0 (32.0-36.0) g/dL RDW Std Deviation 42.4 (36.4-46.3) fL RDW Coeff of Claus 13.7 (11.5-14.5) % Plt Count 184 (130-400) K/uL MPV 10.9 (9.4-12.3) fL Sodium (136-145) mmol/L Potassium (3.5-5.1) mmol/L Chloride (98-107) mmol/L Carbon Dioxide (21-32) mmol/L Anion Gap (3-11) BUN (6-23) mg/dl Creatinine (0.6-1.2) mg/dl Est Cr Clr Drug Dosing ml/min Est GFR ( Amer) ml/min Est GFR (Non-Af Amer) ml/min BUN/Creatinine Ratio (10-20) Glucose (70-99(Fasting)) mg/dl Calcium (8.5-10.1) mg/dl Iron 13 L (35-150) mcg/dl TIBC 231 L (250-450) mcg/dl Unsaturated IBC 218 (155-355) mcg/dl Transferrin % Sat 6 L (15-50) % Ferritin 40.5 (8-388) ng/ml Vitamin B12 (180-914) pg/ml PG Care Time/CCT Total # of Minutes Spent Total Time Spent with Patient: Total time spent is greater than 50% in coordination of care (as documented) at patient's floor/unit and/or counseling patient: Coding Level of Care Code 96902 Subseq Hosp Care Lvl 2 Diagnoses Neurogenic claudication due to lumbar spinal stenosis M48.062 Bilateral pulmonary embolism I26.99 HTN (hypertension) I10 Sinus bradycardia R00.1 Asthma J45.909 Depression F32.9 Migraines G43.909 Memory changes R41.3 TIA (transient ischemic attack) G45.9
[2021-10-04] MEDS: DULoxetine HCL 60 MG CAP PO SCH (08:30)
[2021-10-04] MEDS: PREGABALIN 50 MG CAP PO SCH ×4 (08:30→19:44)
[2021-10-04] MEDS: LOSARTAN POTASSIUM 50 MG TAB PO SCH (08:30)
[2021-10-04] MEDS ORDERED: IRON SUCROSE 200 MG in 0.9 % SODIUM CHLORIDE 100 ML IV ONE (08:30)
[2021-10-04] MEDS: carvediloL 6.25 MG TAB PO SCH ×2 (08:30→19:42)
[2021-10-04] MEDS: NYSTATIN SUSP 500,000 U/5 ML UDC PO SCH (08:30)
[2021-10-04] MEDS: DICYCLOMINE HCL 10 MG CAP PO SCH ×4 (08:30→19:44)
[2021-10-04] MEDS: DONEPEZIL HCL 10 MG TAB PO SCH (08:31)
[2021-10-04] MEDS: CALCIUM 600MG + VIT D 400 IU TAB PO SCH ×2 (08:31→19:43)
[2021-10-04] MEDS: PANTOprazole 40 MG TAB PO SCH (08:31)
[2021-10-04] MEDS: dexAMETHasone 6 MG in SYRINGE 0 ML IV SCH (08:31)
[2021-10-04] MEDS: ASPIRIN 81 MG ECTAB PO SCH (08:31)
[2021-10-04] MEDS: MULTIVITAMIN TAB PO SCH (08:31)
[2021-10-04] MEDS: MEMANTINE HCL 5 MG TAB PO SCH (08:31)
--- NOTE | 2021-10-04 08:53 | Orthopedic Progress Note ---
Date of Service October 04, 2021 Assessment & Plan (1) Neurogenic claudication due to lumbar spinal stenosis: Plan: Patient is postop day 2 T12-L2 decompression and fusion. We will continue physical therapy today. Maintain CONTRERAS drain. DVT prophylaxis is in the form of teds and SCDs. Continue with aggressive bowel regimen. Anticipate discharge home tomorrow. Admission and Anticipated Discharge Date Admission Date: October 02, 2021 Subjective Patient is postoperative day 2 T12-L2 fusion. She is doing well. Pain seems to be under control. She is had a bowel movement. CONTRERAS drain output last shift was 50 cc. Yesterday in physical therapy she is ambling roughly 150 feet. Anticipate discharge home tomorrow. Review of Systems Review of Systems: All systems reviewed & are unremarkable except as noted in HPI & below Physical Exam Physical Exam: She sitting in bed eating breakfast No acute distress Strength is intact bilateral lower extremities Thoracolumbar dressing is clean dry and intact with functioning CONTRERAS drain Results & Data ([facility]) Vital Signs (Past 12 Hours) Vital Signs Temp Pulse Pulse Resp BP Pulse Ox Pulse Ox 10/04/21 07:20 36.5 C 61 16 132/81 91 10/04/21 05:34 55 L 90 10/04/21 03:29 58 L 92 10/03/21 23:15 59 L 93 10/03/21 21:40 64 99 O2 Del Method O2 Del Method FiO2 10/04/21 07:20 Room Air 10/04/21 05:34 Room Air 21 10/04/21 03:29 Room Air 21 10/03/21 23:15 Room Air 21 10/03/21 21:40 Room Air 21
[2021-10-04 08:54] LABS: Hematocrit (blood only) 34.5 % (34.1-44.9); Hemoglobin 11.5 g/dl (12.0-16.0); Mean Corpuscular Hemoglobin 29.1 pg (25.0-34.0); Mean Corpuscular Hgb Conc 33.3 g/dL (32.0-36.0); Mean Corpuscular Volume 87.3 fL (80.0-100.0); Mean Platelet Volume 11.6 fL (9.4-12.3); Platelet Count 191 K/uL (130-400); RDW Standard Deviation 44.8 fL (36.4-46.3); Red Blood Count 3.95 M/uL (3.93-5.22); White Blood Count 10.04 K/ul (4.8-10.8)
[2021-10-04 09:21] LABS: BUN Creatinine Ratio 24.4 (10-20); Calcium 8.9 mg/dl (8.5-10.1); Creatinine Clr Calc Pharmacy 50.9 ml/min; Est GFR (African American) 81.7 ml/min; Est GFR (Non-African American) 70.5 ml/min; Potassium 3.6 mmol/L (3.5-5.1)
[2021-10-04] MEDS: TOPIRAMATE 100 MG TAB PO SCH (19:42)
[2021-10-04] MEDS: SIMVASTATIN 10 MG TAB PO SCH (19:43)
[2021-10-04] MEDS: FLUTICASONE FUROATE 200MCG 14 PUFFS/INHALER INH SCH (19:44)
[2021-10-04] MEDS: UMECLIDINIUM/VILANTEROL 62.5/25MCG 7 PUFFS/INHALER INH SCH (19:44)
[2021-10-04] MEDS: DOCUSATE SODIUM/SENNA 50/8.6MG TAB PO SCH (19:47)
[2021-10-05] MEDS: POLYETHYLENE (MIRALAX) 17 GM PACK PO SCH (05:59)
[2021-10-05] MEDS: HYDROCODONE/ACETAMOPHEN 5/325MG TAB PO PRN ×2 (08:30→22:39)
[2021-10-05] MEDS: DULoxetine HCL 60 MG CAP PO SCH (08:30)
[2021-10-05] MEDS: CALCIUM 600MG + VIT D 400 IU TAB PO SCH ×2 (08:30→22:41)
[2021-10-05] MEDS: MEMANTINE HCL 5 MG TAB PO SCH (08:30)
[2021-10-05] MEDS: ASPIRIN 81 MG ECTAB PO SCH (08:30)
[2021-10-05] MEDS: PANTOprazole 40 MG TAB PO SCH (08:30)
[2021-10-05] MEDS: DICYCLOMINE HCL 10 MG CAP PO SCH ×4 (08:30→22:37)
[2021-10-05] MEDS: dexAMETHasone 6 MG in SYRINGE 0 ML IV SCH (08:30)
[2021-10-05] MEDS: carvediloL 6.25 MG TAB PO SCH ×2 (08:31→22:40)
[2021-10-05] MEDS: MULTIVITAMIN TAB PO SCH (08:31)
[2021-10-05] MEDS: DONEPEZIL HCL 10 MG TAB PO SCH (08:31)
[2021-10-05] MEDS: LOSARTAN POTASSIUM 50 MG TAB PO SCH (08:31)
--- NOTE | 2021-10-05 11:05 | Hospitalist Progress Note ---
Date of Service October 05, 2021 Assessment & Plan (1) Neurogenic claudication due to lumbar spinal stenosis: Plan: POD #1 s/p 1 removal of posterior instrumentation L2. #2 exploration of fusion L2-L3. #3 lumbar decompression with bilateral medial facetectomies forami notomies T12-L1 L1-L2. #4 posterior spinal fusion T12-L2. #5 placement of posterior instrumentation T12-L2. #6 placement of locally harvested morselized autograft in the posterior gutters. #7 placement of infuse collagen sponge, master graft in the posterior gutters from T12-L2. #8 replacement of a [employer] spinal cord stimulator battery. EBL 5cc WBC wnl, afebrile Hgb 12.3 pre-op (although baseline appears 11s and suspect some dehydration) hgb --> 9.9 post op but repeat afternoon hgb 11.1, now improved to 11.5 acute blood loss anemia from surgery and dilutional from IVF in patient with baseline anemia. Iron low and venofer x 1. Pain control, antiemetics, bowel regimen per primary service - of note, patient with slow bowels in general/every other day. No pain, +BS on exam and working on aggressive bowel regimen Of note, prior DVT/PE last year in setting of fall/broken ribs/multiple small PEs/pleural effusion August 2020 (2nd to trauma, cytology negative), and recent COVID earlier this month (did not require treatment), high risk for VTE * Utilizing estephania gilliam SCDs currently. Discussed with Dr Olivares PCP/cards recs for LMWH or NOAC for DVT prevention * Consider in next 24 hours with Lovenox SQ ideally as discussed with patient. Messaged Wellington Diaz PA-C to relay/start when ok with primary service *Did have neuropathy to R foot noted AM 10/03 but no increased calf edema/tenderness and pulses palpable -- continue to monitor/doppler if any evidence given hx. On duloxetine for neuropathy. NONE REPORTED 10/03 Plans for d/c tomorrow per primary service Hospitalist service will sign off at this time, please call with any questions/concerns Continued inpatient stay 10/05 CHest pain overnight: also 2 night ago has chest pain. Lasted 2 mintues and reoccured 2 minutes later at rest. both occured at night. Left side chest pain, non radiating dull, reproducible with palpatation. No tachycardia, no hypoxia. will obtain chest x ray. Cardiac source seems less likely. Recommend to start lovenox today. (2) Bilateral pulmonary embolism: Plan: Hx of in 08/2020 in context of fall and rib fractures with pleural effusion, completed 6 months of Eliquis - DVT ppx per primary team, but patient is high risk for VTE, considering Lovenox SQ vs NOAC in next 24 hours, messaged PA-C to start when ok with Dr Olivares, hopefully tomorrow as CONTRERAS output decreased and will be >48 hours post-op (3) HTN (hypertension): Plan: elevated post-op 2nd to pain BP stable 132/81, remains on carvedilol and losartan daily (4) Sinus bradycardia: Plan: With some remote episodes of syncope. Had implantable loop recorder placed without any arrhythmias seen. No syncopal episodes reported, no lightheaded or dizziness but not up with therapy Regular rate in 60s on exam Continue carvedilol (5) Asthma: Plan: No shortness of breath or wheezing on exam. - Continue home maintenance inhaler or formulary equivalent - Albuterol PRN (6) Depression: Plan: - Continue home duloxetine (7) Migraines: Plan: - Continue home topiramate - Tylenol PRN No headaches reported (8) Memory changes: Plan: Follows with neurology in [place]. - Continue home donepezil & memantine B12 wnl, no recent TSH in system to note, but all priors normal Appears well compensated during exam (9) TIA (transient ischemic attack): Plan: Hx of without residual symptoms. - Continue home ASA 81 mg per primary team Admission and Anticipated Discharge Date Admission Date: October 02, 2021 Subjective 76 yo female reports having chest pain overnight for the past 2 nights. Patient reports it occurred at rest, lasted 2 minutes then subsided. Then resumed 2 minutes, then subsided after that. Patient reports she has felt fine today. Patient reports that her pain worsens with palpation. Review of Systems Review of Systems: All systems reviewed & are unremarkable except as noted in HPI & below Physical Exam Physical Exam: General: WD female sitting up in chair eating breakfast, NAD HEENT: head normocephalic, atraumatic, mmm, trachea midline without deviation Resp: CTAB, diminished in the bases with associated bibasilar crackles, no w/c, on room air 92% CV: RRR, no m/r/g, no edema, pain with palpation. GI: +BS, soft, nontender : wright draining clear yellow urine MSK/Neuro: moving all extremities, follows commands, no facial droop or slurred speech, strength equal b/l LE, pulses palpable, calves nontender, without edema, cap refill wnl dressing to lumbar spine c/d/i, CONTRERAS drain with decreased bloody drainage Psych: AOx3, pleasant and cooperative Skin: warm, dry Results & Data Results & Data ([facility]) Vital Signs (Past 12 Hours) Vital Signs Temp Pulse Resp BP Pulse Ox O2 Del Method 10/05/21 07:42 36.5 C 72 16 153/89 H 96 Room Air PG Care Time/CCT Total # of Minutes Spent Total Time Spent with Patient: Total time spent is greater than 50% in coordination of care (as documented) at patient's floor/unit and/or counseling patient: Coding Level of Care Code 44551 Subseq Hosp Care Lvl 3 Diagnoses Neurogenic claudication due to lumbar spinal stenosis M48.062 Bilateral pulmonary embolism I26.99 HTN (hypertension) I10 Sinus bradycardia R00.1 Asthma J45.909 Depression F32.9 Migraines G43.909 Memory changes R41.3 TIA (transient ischemic attack) G45.9 Time Spent (min) 35 Comment chart review
--- NOTE | 2021-10-05 11:20 | XRay Report ---
XR chest 1V portable CLINICAL HISTORY: Atypical chest pain. COMPARISON STUDY: Chest CT August 17, 2020. Chest radiograph February 05, 2021. FINDINGS: Postoperative findings within the spine and distal right clavicle as well as intracanalicul ar electrodes and cardiac monitoring device are noted. Cardiomegaly is unchanged. No evidence for pul monary edema. Blunting of the left costophrenic angle is unchanged. There is no evidence for pulmonar y edema. Appearance of the chest is unchanged. Linear left basilar densities favor scarring. IMPRESSION: No acute cardiopulmonary findings. No change in appearance of the chest. ACT 112: Negative or not required by law. Electronically signed by: Royce Dacosta M.D. 10/05/2021 11:19 AM
[2021-10-05] MEDS: PREGABALIN 50 MG CAP PO SCH ×2 (12:15→22:43)
--- NOTE | 2021-10-05 12:37 | Electrocardiogram Report ---
Test Reason : Blood Pressure : / mmHG Vent. Rate : 071 BPM Atrial Rate : 071 BPM P-R Int : 168 ms QRS Dur : 098 ms QT Int : 390 ms P-R-T Axes : 028 -12 038 degrees QTc Int : 423 ms Normal sinus rhythm Moderate voltage criteria for LVH, may be normal variant Nonspecific T wave abnormality Abnormal ECG When compared with ECG of 16-SEP-2021 13:59, [place] interval has decreased Confirmed by Cameron Owen ([id number] on 10/05/2021 12:37:16 PM Referred By: Oral Olivares Confirmed By:Nic Owen
[2021-10-05] MEDS: UMECLIDINIUM/VILANTEROL 62.5/25MCG 7 PUFFS/INHALER INH SCH (22:35)
[2021-10-05] MEDS: FLUTICASONE FUROATE 200MCG 14 PUFFS/INHALER INH SCH (22:35)
[2021-10-05] MEDS: SIMVASTATIN 10 MG TAB PO SCH (22:40)
[2021-10-05] MEDS: TOPIRAMATE 100 MG TAB PO SCH (22:40)
[2021-10-05] MEDS: DOCUSATE SODIUM/SENNA 50/8.6MG TAB PO SCH (22:41)
[2021-10-06] MEDS: PREGABALIN 50 MG CAP PO SCH ×2 (07:33→12:35)
[2021-10-06] MEDS: MEMANTINE HCL 5 MG TAB PO SCH (08:30)
[2021-10-06] MEDS: MULTIVITAMIN TAB PO SCH (08:30)
[2021-10-06] MEDS: PANTOprazole 40 MG TAB PO SCH (08:30)
[2021-10-06] MEDS: LOSARTAN POTASSIUM 50 MG TAB PO SCH (08:31)
[2021-10-06] MEDS: DICYCLOMINE HCL 10 MG CAP PO SCH ×2 (08:31→12:36)
[2021-10-06] MEDS: DONEPEZIL HCL 10 MG TAB PO SCH (08:31)
[2021-10-06] MEDS: DULoxetine HCL 60 MG CAP PO SCH (08:31)
[2021-10-06] MEDS: ASPIRIN 81 MG ECTAB PO SCH (08:32)
[2021-10-06] MEDS: CALCIUM 600MG + VIT D 400 IU TAB PO SCH (08:32)
[2021-10-06] MEDS: carvediloL 6.25 MG TAB PO SCH (08:37)
[2021-10-06] MEDS ORDERED: ENOXAPARIN INJ 40 MG/0.4 ML SYR SQ SCH (09:00)
[2021-10-06 09:51] LABS: Creatinine Clr Calc Pharmacy 57.2 ml/min; Est GFR (Non-African American) 81.1 ml/min
--- NOTE | 2021-10-06 12:40 | Discharge Summary ---
Date of Service October 06, 2021 Admission HPI Per Admitting Provider 76-year-old female with chronic persistent back and leg pain. Failing course of nonoperative care she is here for surgical invention. Principal Diagnosis Lumbar spinal stenosis with neurogenic claudication Discharge Data Allergies Allergy/AdvReac Type Severity Reaction Status Date / Time morphine Allergy Severe SEVERE Verified 10/02/21 06:57 HYPOTENSION milk Allergy Intermediate SOME MILK Verified 10/02/21 06:57 PRODUCTS-HIVES IN MOUTH adhesive Allergy Mild SKIN Verified 10/02/21 06:57 IRRITATION chocolate flavor Allergy Mild migraines Verified 10/02/21 06:57 latex Allergy Mild rash Verified 10/02/21 06:57 Penicillins Allergy Mild RASH Verified 10/02/21 06:57 Sulfa (Sulfonamide Allergy Mild RASH Verified 10/02/21 06:57 Antibiotics) tramadol Allergy Mild ITCHINESS Verified 10/02/21 06:57 oxycodone AdvReac Mild NAUSEA AND Verified 10/02/21 06:57 VOMITING Hotdogs Allergy Mild MIGRAINES Uncoded 10/02/21 06:57 margarine AdvReac Intermediate GI upset Uncoded 10/02/21 06:57 Consultations 10/02/21 11:56 Consult Hospitalist Routine Procedures Performed Operation Date: 10/02/21 07:45 Actual Procedures p L1-L2 Decompression, T12-L2 Fusion, L2 Hardware Removal, Spinal Cord Monitoring, Dorsal Stimulator Battery Change. - Oral Olivares DO Ordered Studies 10/02/21 07:45 FL lumbar spine 2-3V Routine Hospital Course (1) Neurogenic claudication due to lumbar spinal stenosis: Patient want lumbar decompression fusion tolerated so was taken to orthopedic for postoperative. Postop day 1 she was up and ambulating. Progress Through postop day #2 and 3. CONTRERAS drain decreasing appropriately. Pain well controlled.'s good strength testing. Socially discharged home. Discharge orders instructions found in chart for further review. Total Time Total Time Spent Total Time Spent (In Minutes): 20 minutes Discharge Plan Discharge Items Patient Disposition: Home - Self-Care Reason For Visit: Spinal Stenosis of Lumbar Region with Radiculopath Discharge Diagnosis: Lumbar spinal stenosis with neurogenic claudication Activity: As commented below Non-emergency contact: Primary Care Provider Call non-emergency contact if: you have any medication questions Follow-up/Referrals: Jeannette Marks MD [Primary Care Provider] - Diet: Regular Addtl Attending Provider Instructions: ACTIVITY RECOMMENDATIONS: SELF CARE INSTRUCTIONS AFTER THORACIC/LUMBAR FUSIONS 1. You may walk to your tolerance. It is good exercise for your legs and back. Expect some back and intermittent leg aches and pains. 2. You may perform "counter-top" level activities (make a sandwich, shyann with a project, etc.). 3. No bending or lifting of more than 10 pounds or back twisting of any nature (roll like a log when turning in bed). 4. You may ride in a car for 20-30 minutes at a time. No driving until after your first visit with your doctor. 5. Frequent changes of position and restricting sitting to 30 minutes at a time will help limit the amount of back spasms and stiffness you may experience. 6. You may discontinue the use of ambulatory aids (cane, crutches, etc.) once your strength and confidence allow. 7. You may cutter machine the shower and let water strike your incision when you arrive home at least once daily. Do not take a tub bath, sit in a hot tub or go into a swimming pool until after your first recheck in the office. SPECIAL CARE INSTRUCTIONS: VERY IMPORTANT TO READ AND REVIEW A. Your surgical incision has been closed with a cosmetic suture under the skin that will dissolve in about 6 weeks. In 14 days, you can use a pair of clean scissors and cut the suture that is left outside of the skin at the ends of your incision. 1. The small skin tapes can be removed 7 days after surgery if they have not fallen off by that point. 2. You may keep the wound open to air as much as possible to promote healing after post-op day number 5 unless told otherwise by your doctor. 3. If you think the wound looks like it is becoming infected (redness or worsening drainage) and/or you are experiencing fever, chill or worsening back pain and muscle spasms, contact the office so that we may evaluate you as soon as possible. B. Complications are uncommon, but please contact us if you have any signs or symptoms of: 1. wound infection (fever higher than 102.5 degrees F, redness, separation of wound, drainage, or increasing pain from the incision) 2. blood clots in legs (pain, swelling, redness and warmth in legs) 3. urinary tract infection (fever higher than 102.5 degrees F, burning upon urination or increased frequency of urination) 4. nerve problems (inability to walk on your toes or heels, numbness, loss of bowel or bladder control) 5. any other symptoms that concern you C. Please call the office at if you have any concerns or questions about your operation or recovery. D. No smoking! Smoking drastically decreases the chance of a solid fusion. E. Do not take any anti-inflammatory medications (Indocin, Advil, Motrin, Aspirin, Naprosyn, etc.) as these may inhibit the chance of a solid fusion. Tylenol is okay to take for pain. MANAGING PAIN AFTER SPINAL SURGERY 1. Narcotic medication is intended for short-term use and will be provided for surgical pain. Surgical pain usually lasts for a period of 4-6 weeks. Narcotic medication includes Percocet, Vicodin, Darvocet, Tylenol #3 or Lortab. 2. Longer-term pain is more appropriately treated with non-narcotic medication such as Tylenol ES. 3. Muscle spasm is not appropriately treated with narcotics. Muscle relaxers such as Soma, Flexeril or Skelaxin can be used along with Tylenol ES. 4. Remember that we all live with some "aches and pains". This is not unusual or uncommon after an injury or as we get older. a. Back pain is expected and may include muscle spasms for 4 to 6 weeks after surgery. The pain should gradually improve. If the pain worsens for no apparent reason, please contact the office. b. Intermittent leg pain may also be experienced and should not be concerned about unless it worsens for no apparent reason. If so, please contact the office. 5. We will provide appropriate medication within the normal guidelines of their prescribed use. We will also be very cautious and aware of potential abuse and extended duration of patients' medication needs. a. Pain medications are for your comfort and to assist with sleep and rest so that the tissue can heal. They are not provided in order to return to normal activity and should not be used through the day. To do so or worsening pain at night can result from ongoing tissue damage and development of tolerance to the prescribed medicine. 6. Please allow 2-3 days to process refills. Prescriptions will not be mailed but must be picked up at the office. FOLLOW UP VISIT: Keep your scheduled follow-up appointment. Any questions, please call the office at . Pending Studies at Discharge: No Stand-Alone Forms: [facility], Smoking Cessation Medications and DC Order Prescriptions: New hydrocodone-acetaminophen 5-325 mg tablet 1 tab PO Q6H PRN (Reason: pain) Qty: 30 0RF Rx Instructions: 1 tab PO PRN; enoxaparin [Lovenox] 40 mg/0.4 mL Syringe 40 mg subcut QAM Qty: 30 0RF Continued dicyclomine 10 mg capsule 10 mg PO QID 90 Days Qty: 360 3RF pantoprazole [Protonix] 40 mg tablet,delayed release (DR/EC) 40 mg PO QAM Qty: 90 3RF simvastatin [Zocor] 10 mg tablet 10 mg PO QPM Qty: 90 3RF pregabalin [Lyrica] 50 mg capsule See Rx Instructions .ROUTE .COMPLEX Qty: 210 3RF Rx Instructions: take 2 caps po bid and 3 caps hs PO ; duloxetine [Cymbalta] 60 mg capsule,delayed release(DR/EC) 60 mg PO DAILY Qty: 90 3RF buprenorphine [Butrans] 20 mcg/hour patch weekly 1 patch transdermal WK Qty: 4 0RF Rx Instructions: do to be changed on donepezil 5 mg tablet 10 mg PO QAM Rx Instructions: per Dr. Lopez 01/30/21 acetaminophen 500 mg tablet 1,000 mg PO Q8H PRN (Reason: Pain) memantine 5 mg tablet 5 mg PO QAM Qty: 7 0RF albuterol sulfate 2.5 mg /3 mL (0.083 %) solution for nebulization 2.5 mg inhalation Q4H PRN (Reason: ASTHMA) Qty: 180 11RF nystatin 100,000 unit/mL suspension 5 ml PO QID 10 Days Qty: 200 0RF Rx Instructions: swish and swallow multivitamin [Multiple Vitamins] tablet 1 tab PO QAM calcium carbonate-vitamin D3 [Calcium 600 + D(3)] 600 mg(1,500mg) -400 unit tablet 1 tab PO BID omega-3 fatty acids [Fish Oil Concentrate] 1,000 mg capsule 1,000 mg PO ACHS Pedia-Lax (mag hydroxide) 400 mg (170 mg magnesium) tablet,chewable 250 mg PO Q OTHER DAY aspirin 81 mg tablet,delayed release (DR/EC) 81 mg PO QAM losartan 100 mg tablet 100 mg PO QAM Rx Instructions: replaces quinapril Trelegy Ellipta 200-62.5-25 mcg blister with device 1 inh inhalation HS Rx Instructions: sample given carvedilol [Coreg] 6.25 mg tablet 6.25 mg PO BID topiramate [Topamax] 200 mg tablet 200 mg PO HS nitroglycerin [Nitrostat] 0.4 mg tablet, sublingual 0.4 mg SL Q5M PRN (Reason: chest pain) Discharge Orders: Discharge Order (Routine); Ordered 10/06/21 Ordered By: Oral Olivares Admission Data Admit Date/Time: 10/02/21 10:03 Attending Provider: Oral Olivares Admit Provider: Oral Olivares Primary Care Provider: Jeannette Makrs Other Providers: Jonah Jones ; Bonita Cates
[2021-10-06] MEDS: HYDROCODONE/ACETAMOPHEN 5/325MG TAB PO PRN (12:53)
[2021-10-08] MEDS ORDERED: BUPRENORPHINE 10 MCG/HR TDSY TD SCH (09:00)
== END 2021-10-06 14:35 | disposition home or self-care (01) | DRG 460 ==
LOC: ASU 06:01 → 3E 10:03

== ENCOUNTER 2023-01-24 09:34 | Observation (INO) ==
--- NOTE | 2023-01-04 11:26 | PAT Medication Instructions ---
Medication Instructions Date of Service January 04, 2023 Home Medications Medication Instructions Recorded albuterol sulfate 2.5 mg/3 mL 2.5 mg (3 mL) inhalation Q4H PRN 11/24/18 (0.083 %) solution for nebulization ASTHMA #180 mL naloxone 4 mg/actuation nasal 4 mg intranasal Q3M PRN opioid 10/13/21 spray (Narcan) overdose #2 ea nystatin 100,000 unit/gram topical 1 applic topical BID #60 grams 11/13/21 cream dicyclomine 10 mg capsule 10 mg PO QID IBS 90 days #360 caps 01/12/22 romosozumab-aqqg 210 mg/2.34 210 mg (2.34 mL) subcut MONTHLY 02/17/22 mL(105 mg/1.17 mL x2)subcutaneous #2.34 mL syringe (Evenity) pantoprazole 40 mg tablet,delayed 40 mg PO QAM #90 tabs 03/07/22 release (Protonix) apixaban 2.5 mg tablet (Eliquis) 2.5 mg PO BID #14 tabs 05/10/22 losartan 100 mg tablet 100 mg PO QAM #90 tabs 07/12/22 triamcinolone acetonide 0.1 % 1 applic topical TID #80 grams 10/25/22 topical cream simvastatin 10 mg tablet (Zocor) 10 mg PO QPM #90 tabs 10/29/22 pregabalin 50 mg capsule (Lyrica) See Rx Instructions .Route 12/07/22 .COMPLEX #210 caps carvedilol 6.25 mg tablet (Coreg) 6.25 mg PO BID #180 tabs 12/13/22 propranolol 20 mg tablet 20 mg PO .COMPLEX #90 tabs 12/16/22 buprenorphine 20 mcg/hour weekly 1 patch transdermal WK #4 ea 01/03/23 transdermal patch (Butrans) albuterol sulfate 2.5 mg/3 mL (0.083 %) solution for nebulization 2.5 mg (3 mL) inhalation Q4H PRN calcium carbonate 600 mg-vitamin D3 10 mcg (400 unit) tablet (Calcium 600 + D(3)) 1 tab PO BID multivitamin (Multiple Vitamins tablet) 1 tab PO QAM magnesium hydroxide 400 mg (170 mg magnesium) chewable tablet (Pedia-Lax (mag hydroxide)) 250 mg PO Q OTHER DAY nitroglycerin 0.4 mg sublingual tablet (Nitrostat) 0.4 mg sublingual Q5M PRN topiramate 200 mg tablet (Topamax) 200 mg PO HS acetaminophen 500 mg tablet 1,000 mg PO Q8H PRN naloxone 4 mg/actuation nasal spray (Narcan) 4 mg intranasal Q3M PRN nystatin 100,000 unit/gram topical cream 1 applic topical BID dicyclomine 10 mg capsule 10 mg PO QID romosozumab-aqqg 210 mg/2.34 mL(105 mg/1.17 mL x2)subcutaneous syringe (Evenity) 210 mg (2.34 mL) subcut MONTHLY pantoprazole 40 mg tablet,delayed release (Protonix) 40 mg PO QAM apixaban 2.5 mg tablet (Eliquis) 2.5 mg PO BID losartan 100 mg tablet 100 mg PO QAM triamcinolone acetonide 0.1 % topical cream 1 applic topical TID simvastatin 10 mg tablet (Zocor) 10 mg PO QPM pregabalin 50 mg capsule (Lyrica) See Rx Instructions .Route .COMPLEX carvedilol 6.25 mg tablet (Coreg) 6.25 mg PO BID propranolol 20 mg tablet 20 mg PO .COMPLEX buprenorphine 20 mcg/hour weekly transdermal patch (Butrans) 1 patch transdermal WK duloxetine 60 mg capsule,delayed release (Cymbalta) 60 mg PO QAM hydrochlorothiazide 12.5 mg tablet 12.5 mg PO QAM memantine 5 mg tablet 5 mg PO BID Continue as directed buprenorphine 20 mcg/hour weekly transdermal patch (Butrans) 1 patch transdermal WK (not on or near surgical site) naloxone 4 mg/actuation nasal spray (Narcan) 4 mg intranasal Q3M PRN(if needed) nitroglycerin 0.4 mg sublingual tablet (Nitrostat) 0.4 mg sublingual Q5M PRN(if needed) pregabalin 50 mg capsule (Lyrica) See Rx Instructions .Route .COMPLEX propranolol 20 mg tablet 20 mg PO .COMPLEX ASK your prescriber and surgeon apixaban 2.5 mg tablet (Eliquis) 2.5 mg PO BID STOP taking 24 hours before surgery triamcinolone acetonide 0.1 % topical cream 1 applic topical TID nystatin 100,000 unit/gram topical cream 1 applic topical BID DO NOT take the morning of surgery losartan 100 mg tablet 100 mg PO QAM hydrochlorothiazide 12.5 mg tablet 12.5 mg PO QAM romosozumab-aqqg 210 mg/2.34 mL(105 mg/1.17 mL x2)subcutaneous syringe (Evenity) 210 mg (2.34 mL) subcut MONTHLY dicyclomine 10 mg capsule 10 mg PO QID multivitamin (Multiple Vitamins tablet) 1 tab PO QAM magnesium hydroxide 400 mg (170 mg magnesium) chewable tablet (Pedia-Lax (mag hydroxide)) 250 mg PO Q OTHER DAY calcium carbonate 600 mg-vitamin D3 10 mcg (400 unit) tablet (Calcium 600 + D(3)) 1 tab PO BID Take morning of surgery With a small sip of water, OTHERWISE NOTHING TO EAT OR DRINK AFTER MIDNIGHT: pantoprazole 40 mg tablet,delayed release (Protonix) 40 mg PO QAM carvedilol 6.25 mg tablet (Coreg) 6.25 mg PO BID duloxetine 60 mg capsule,delayed release (Cymbalta) 60 mg PO QAM memantine 5 mg tablet 5 mg PO BID acetaminophen 500 mg tablet 1,000 mg PO Q8H PRN(if needed) albuterol sulfate 2.5 mg/3 mL (0.083 %) solution for nebulization 2.5 mg (3 mL) inhalation Q4H PRN(use if needed; please bring with you to hospital day of surgery if possible) Take evening before surgery simvastatin 10 mg tablet (Zocor) 10 mg PO QPM carvedilol 6.25 mg tablet (Coreg) 6.25 mg PO BID memantine 5 mg tablet 5 mg PO BID dicyclomine 10 mg capsule 10 mg PO QID acetaminophen 500 mg tablet 1,000 mg PO Q8H PRN(if needed) topiramate 200 mg tablet (Topamax) 200 mg PO HS calcium carbonate 600 mg-vitamin D3 10 mcg (400 unit) tablet (Calcium 600 + D(3)) 1 tab PO BID albuterol sulfate 2.5 mg/3 mL (0.083 %) solution for nebulization 2.5 mg (3 mL) inhalation Q4H PRN(if needed) Other Notes If you have any questions please call us at [phone] or [phone] or [phone] or [phone]
--- NOTE | 2023-01-13 09:32 | Anesthesiology Consultation ---
Date of Service January 13, 2023 Assessment & Plan (1) Encounter for pre-operative examination: - Infectious disease screening: Per assessment on 01/13/23: No known infectious disease contacts or current infectious disease symptoms. - Apixaban/Eliquis instructions per surgeon/prescriber - Cardiology visit (09/18/21): "Patient is scheduled undergo Multilevel L1-L2 Decompression, T12-L2 Fusion, L2 Hardware Removal, and Spinal Cord Monitoring with Dr. Olivares on 10/02/2021.. Patient is quite limited in her activities because of her lumbar radiculopathy, gait instability, and various orthopedic issues -- and this makes it very difficult to assess her functional capacity.. Recommend the followin. Lexiscan Cardiolite to assess LV systolic function and to rule out myocardial ischemia. 2. Continue Aspirin 81 mg daily. 3. Continue Coreg 6.25 mg b.i.d.. 4. Continue Losartan 100 mg daily. 5. Continue Zocor 10 mg daily. 6. Continue all other medications as prescribed. 7. Continue physical activities as tolerated.. Provided her Lexiscan Cardiolite shows normal LV systolic function and no significant ischemia -- patient is a low to intermediate cardiac risk for her upcoming lumbar spine surgery." - Cardiology addendum (09/30/21): "Patient underwent a Lexiscan Cardiolite on 09/28/21 that showed NO EVIDENCE of myocardial ischemia or infarct. It also demonstrated normal wall motion analysis, normal LVEF 58%, and normal EKG response to pharmacologic stress. Patient is an acceptable cardiac risk to proceed with Spine surgery as planned." - Hx glidescope intubation: L1-2 decompression, T12-L2 fusion, hardware removal, SCS battery change (10/02/2021): Grade view 1 with glidescope #3, elective glide based on hx, easy, atraumatic, ETT 7.0 at [facility] - Neurology visit (12/17/22): "Shaking is not good. Memory is also worse off and on.. She is scheduled for right shoulder surgery.. Essential tremor.. Memory loss.. Idiopathic neuropathy.. Migraine with aura, non-intractable without status migrainous.. Patient will continue following medications.. Return appointment 04/18/2023" - Patient seen by [place] PCP 01/12/23- awaiting office visit note (currently in draft). Patient otherwise acceptable risk for surgery. Chart Review Chart Review: Patient seen in Pre Admission Testing Teaching & Discussion Pre-Anesthesia Teaching/Discussion Notes: Instructed NPO after midnight before surgery,except medications with 15 cc of water. Medication instructions provided according to the PAT guidelines. History Surgery Operation Date: 01/24/23 12:55 Proposed Procedures p Right Shoulder Scope with Rotator Cuff Repair Debride Glenohumeral Joint - Frankie Hi MD Height/Weight Height: 4 ft 11 in Weight: 57.1 kg Allergies Allergy/AdvReac Type Severity Reaction Status Date / Time morphine Allergy Severe Severe Verified 01/12/23 12:45 hypotension milk Allergy Intermediate Mouth Verified 01/12/23 12:45 hives (some milk products) adhesive Allergy Mild Skin Verified 01/12/23 12:45 irritation chocolate flavor Allergy Mild Migraines Verified 01/12/23 12:45 latex Allergy Mild rash Verified 01/12/23 12:45 Penicillins Allergy Mild Rash Verified 01/12/23 12:45 Sulfa (Sulfonamide Allergy Mild Rash Verified 01/12/23 12:45 Antibiotics) tramadol Allergy Mild Rash, Verified 01/12/23 12:45 itchiness oxycodone AdvReac Mild N/V Verified 01/12/23 12:45 Hotdogs Allergy Mild Migraines Uncoded 01/12/23 12:45 margarine AdvReac Intermediate GI upset Uncoded 01/12/23 12:45 Medications Home Medications Medication Instructions Recorded Confirmed Last Taken albuterol sulfate 2.5 mg/3 mL 2.5 mg (3 mL) inhalation Q4H PRN 11/24/18 01/12/23 Unknown (0.083 %) solution for nebulization ASTHMA #180 mL calcium carbonate 600 mg-vitamin 1 tab PO BID 05/14/19 01/12/23 03/24/22 22:00 D3 10 mcg (400 unit) tablet (Calcium 600 + D(3)) multivitamin (Multiple Vitamins 1 tab PO QAM 05/14/19 01/12/23 03/24/22 08:00 tablet) magnesium hydroxide 400 mg (170 mg 250 mg PO Q OTHER DAY 09/11/19 01/12/23 03/23/22 08:00 magnesium) chewable tablet (Pedia-Lax (mag hydroxide)) nitroglycerin 0.4 mg sublingual 0.4 mg sublingual Q5M PRN chest 08/17/20 01/12/23 Unknown tablet (Nitrostat) pain topiramate 200 mg tablet (Topamax) 200 mg PO HS 08/17/20 01/12/23 03/24/22 22:00 acetaminophen 500 mg tablet 1,000 mg PO Q8H PRN Pain 09/15/20 01/12/23 03/24/22 22:00 naloxone 4 mg/actuation nasal 4 mg intranasal Q3M PRN opioid 10/13/21 01/12/23 Unknown spray (Narcan) overdose #2 ea nystatin 100,000 unit/gram topical 1 applic topical BID #60 grams 11/13/21 01/12/23 03/24/22 22:00 cream dicyclomine 10 mg capsule 10 mg PO QID IBS 90 days #360 caps 01/12/22 01/12/23 03/24/22 22:00 romosozumab-aqqg 210 mg/2.34 210 mg (2.34 mL) subcut MONTHLY 02/17/22 01/12/23 03/16/22 08:00 mL(105 mg/1.17 mL x2)subcutaneous #2.34 mL syringe (Evenity) pantoprazole 40 mg tablet,delayed 40 mg PO QAM #90 tabs 03/07/22 01/12/23 03/24/22 08:00 release (Protonix) apixaban 2.5 mg tablet (Eliquis) 2.5 mg PO BID #14 tabs 05/10/22 01/12/23 Unknown losartan 100 mg tablet 100 mg PO QAM #90 tabs 07/12/22 01/12/23 Unknown triamcinolone acetonide 0.1 % 1 applic topical TID #80 grams 10/25/22 01/12/23 Unknown topical cream simvastatin 10 mg tablet (Zocor) 10 mg PO QPM #90 tabs 10/29/22 01/12/23 Unknown propranolol 20 mg tablet 20 mg PO .COMPLEX #90 tabs 12/16/22 01/12/23 Unknown buprenorphine 20 mcg/hour weekly 1 patch transdermal WK #4 ea 01/03/23 01/12/23 Unknown transdermal patch (Butrans) duloxetine 60 mg capsule,delayed 60 mg PO QAM 01/04/23 01/12/23 Unknown release (Cymbalta) hydrochlorothiazide 12.5 mg tablet 12.5 mg PO QAM 01/04/23 01/12/23 Unknown memantine 5 mg tablet 5 mg PO BID 01/04/23 01/12/23 Unknown pregabalin 50 mg capsule (Lyrica) See Rx Instructions .Route 01/07/23 01/12/23 Unknown .COMPLEX #210 caps duloxetine 30 mg capsule,delayed 30 mg PO DAILY #30 caps 01/12/23 01/12/23 Unknown release Past Medical History Medical History Spinal cord stimulator status Aware to bring remote DOS History of COVID-19 ~ - mild symptoms, resolved Dysphagia "mild" Hx dilatation Memory changes Follows with [facility] DVT of leg (deep venous thrombosis) 09/2020 right calf, after trauma (fall in bath tub) Bilateral pulmonary embolism 08/2020 after trauma (fall in bath tub) Sjogren's syndrome Cervical radiculopathy History of kidney stones IBS (irritable bowel syndrome) Temporomandibular joint disorder locking (last episode several years ago) Glaucoma Peripheral neuropathy Tremor Degeneration of cervical intervertebral disc Dyslipidemia Osteoporosis, post-menopausal Sinus bradycardia Cardio visit 09/2021: "history of Bradycardia/Syncope s/p Medtronic LINQ ILR (no dysrhythmias identified during life span of the loop recorder, approximately 4 years)" Follows with [place] [facility] Asthma Depression Migraines GERD (gastroesophageal reflux disease) controlled HTN (hypertension) Ascending aorta dilation Per 2016 CTA of chest/thorax- "slight prominence ascending aorta at 3.6cm - follows Dr. Red ([facility]) 02/2022 TIA (transient ischemic attack) 2005, [address] Lopez (neuro) at [place] Reason for aspirin Exercise / Class Metabolic Activity III < 4 Walking/Shop/Light housework (walker PRN) Past Family History Family History Grandfather Myocardial infarction Grandmother Myocardial infarction Mother Diabetes Coronary heart disease Hypertension Father Emphysema lung Hypertension Other No family history of adverse response to anesthesia Denies family history of Ovarian cancer Prostate cancer Breast cancer Colorectal cancer Past Surgical History Surgical History History of esophageal dilatation History of surgery R SI joint fusion 09/27/19: Grade 2 view, Jones 2, ETT 7.0 History of cardiac cath 2005 - no stents Hx of right cataract extraction History of inguinal hernia repair History of partial hysterectomy History of dilatation and curettage History of lumbar laminectomy History of wisdom tooth extraction History of sinus surgery History of left cataract extraction History of loop recorder Medtronic, implanted 2016, left chest "No longer works" S/P tubal ligation S/P rotator cuff repair R/L H/O oophorectomy S/P carpal tunnel release R/L H/O arthroscopic knee surgery right H/O foot surgery right foot 2nd toe History of esophagogastroduodenoscopy (EGD) H/O colonoscopy S/P cholecystectomy S/P breast lumpectomy right- benign Spinal cord stimulator status Dr. Olivares - [place] History of lumbar fusion L1-2 decompression, T12-L2 fusion, hardware removal, SCS battery change (10/02/2021): Grade view 1 with glidescope #3, elective glide based on hx, easy, atraumatic, ETT 7.0 at [facility] Hx of appendectomy Past Anesthesia History Difficult Airway (L1-2 decompression, T12-L2 fusion, hardware removal, SCS battery change (10/02/2021): Grade view 1 with glidescope #3, elective glide based on hx, easy, atraumatic, ETT 7.0 at [facility]) * Mother: Slow to wake History of PONV No Hx of PONV and No Hx of Motion Sickness Social History Smoking Status: Never smoker Do You Dip or Chew Tobacco: No Hx Alcohol Use: No Hx Substance Use: No substance use type: does not use Review of Systems Patient denies chest pain, shortness of breath, fever, chills, cough, wheezing, palpitations. Physical Exam Vital Signs VITALS BP 121/76 P 60 TEMP 97.7 SP02 95%RA RESP 18 PHYSICAL Full cervical extension range of motion. Full TMJ range of motion. TMD 3 finger breaths Mallampati Score 1 Dentition: intact, upper front "repaired" Lungs: clear throughout to auscultation Cardiac: regular rate and rhythm, no murmurs noted Spine: spinal curvature Carotid arteries: negative bruit Extremities: no LE edema Lab Results Anesthesia Preop Results Results Anesthesia Widget: WBC 7.23 K/ul (4.8-10.8) 01/13/23 Hgb 12.2 g/dl (12.0-16.0) 01/13/23 Hct 35.5 % (37.0-47.0) L 01/13/23 Plt 182 K/uL (130-400) 01/13/23 Na 143 mmol/L (136-145) 01/13/23 K 3.6 mmol/L (3.5-5.1) 01/13/23 Cl 109 mmol/L (98-107) H 01/13/23 CO2 27 mmol/L (21-32) 01/13/23 BUN 31 mg/dl (6-23) H 01/13/23 Creat 0.92 mg/dl (0.6-1.2) 01/13/23 Glucose Level 97 mg/dl (70-99(Fasting)) 01/13/23 PT 11.6 Seconds (9.0-12.0) 01/13/23 PTT 29.1 Seconds (21.0-31.0) 01/13/23 INR 1.1 (0.9-1.1) 01/13/23 Urine Color Dark Yellow 01/13/23 Urine Appearance Cloudy (Clear) A 01/13/23 Urine pH 6.0 (4.5-7.5) 01/13/23 Urine Specific [place] 1.024 (1.000-1.030) 01/13/23 Urine Protein Negative (Negative) 01/13/23 Urine Glucose (UA) Negative (Negative) 01/13/23 Urine Ketones Trace (Negative) H 01/13/23 Urine Blood Negative (Negative) 01/13/23 Urine Nitrite Negative (Negative) 01/13/23 Urine Bilirubin Negative (Negative) 01/13/23 Urine Urobilinogen Negative (Negative) 01/13/23 Urine Leukocyte Esterase Trace (Negative) H 01/13/23 Urine WBC (Auto) 1-5 /hpf (0-5) 01/13/23 Urine RBC (Auto) 10-30 /hpf (0-4) H 01/13/23 Urine Hyaline Casts (Auto) 1-5 /lpf (0-5) 01/13/23 Urine Epithelial Cells (Auto) 20-30 /lpf (0-5) H 01/13/23 Urine Bacteria (Auto) Negative (Negative) 01/13/23 Testing Electrocardiogram Date: 01/13/23 NSR at 61bpm. NS TWA. Chest X-Ray Date: 01/13/23 FINDINGS: Cardiac silhouette is enlarged. Loop recorder device. Chronic degenerative and postoperative changes of the spine with prominent kyphosis and chronic compression deformities. Cholecystectomy. Partially imaged leads overlying the mid thoracic spine. No pneumothorax or large pleural effusion. Or airspace consolidation typical for pneumonia. Chronic interstitial coarsening with blunting of the costophrenic angles. IMPRESSION: No acute process. Stress Test Date: 09/28/21 Pharmacologic MPHR 60% Without evidence of infarct or ischemia Normal wall motion analysis EF 58%
--- NOTE | 2023-01-22 08:24 | History & Physical Report ---
Date of Service January 22, 2023 Assessment & Plan (1) Full thickness rotator cuff tear: Plan: Treatment options discussed with the patient and they wish to proceed with surgical management. Risks, benefits and alternatives to surgery including but not limited to infection, DVT, pain, stiffness, need for revision surgery, damage to blood vessels, damage to nerves, PE, , were discussed with the patient and they wish to proceed. Plan for right shoulder arthroscopy with debridement glenohumeral joint, rotator cuff repair. Surgery scheduled for January 24 at [facility] with Dr. Hi. All questions answered. Patient will follow-up postoperatively. Rotator cuff tear trauma status: nontraumatic Laterality: right Qualified Code(s): M75.121 - Complete rotator cuff tear or rupture of right shoulder, not specified as traumatic History of Present Illness Chief Complaint: Right shoulder pain Primary Care Provider: Kari Sotelo DO 77-year-old female with past medical history significant for PE, Sjogren's syndrome, radiculopathy, peripheral neuropathy, sinus bradycardia, asthma who presents with ongoing right shoulder pain. Pain is interfering with her daily activities. She has failed conservative measures and would like to proceed with surgical management. Patient denies headaches, sweats, fevers, chills, double vision, blurred vision, cough, sore throat, dysphagia, chest pain, sob, wheezing, n/v/d/c, numbness, tingling, fatigue, urinary symptoms, mood disorders. ROS positive for right shoulder pain and stiffness. Allergies Allergy/AdvReac Type Severity Reaction Status Date / Time morphine Allergy Severe Severe Verified 01/12/23 12:45 hypotension milk Allergy Intermediate Mouth Verified 01/12/23 12:45 hives (some milk products) adhesive Allergy Mild Skin Verified 01/12/23 12:45 irritation chocolate flavor Allergy Mild Migraines Verified 01/12/23 12:45 latex Allergy Mild rash Verified 01/12/23 12:45 Penicillins Allergy Mild Rash Verified 01/12/23 12:45 Sulfa (Sulfonamide Allergy Mild Rash Verified 01/12/23 12:45 Antibiotics) tramadol Allergy Mild Rash, Verified 01/12/23 12:45 itchiness oxycodone AdvReac Mild N/V Verified 01/12/23 12:45 Hotdogs Allergy Mild Migraines Uncoded 01/12/23 12:45 margarine AdvReac Intermediate GI upset Uncoded 01/12/23 12:45 Home Medications Medication Instructions Recorded Confirmed Type albuterol sulfate 2.5 mg/3 mL 2.5 mg (3 mL) inhalation Q4H PRN 11/24/18 01/12/23 Rx (0.083 %) solution for nebulization ASTHMA #180 mL calcium carbonate 600 mg-vitamin 1 tab PO BID 05/14/19 01/12/23 History D3 10 mcg (400 unit) tablet (Calcium 600 + D(3)) multivitamin (Multiple Vitamins 1 tab PO QAM 05/14/19 01/12/23 History tablet) magnesium hydroxide 400 mg (170 mg 250 mg PO Q OTHER DAY 09/11/19 01/12/23 H istory magnesium) chewable tablet (Pedia-Lax (mag hydroxide)) nitroglycerin 0.4 mg sublingual 0.4 mg sublingual Q5M PRN chest 08/17/20 01/12/23 History tablet (Nitrostat) pain topiramate 200 mg tablet (Topamax) 200 mg PO HS 08/17/20 01/12/23 History acetaminophen 500 mg tablet 1,000 mg PO Q8H PRN Pain 09/15/20 01/12/23 History naloxone 4 mg/actuation nasal 4 mg intranasal Q3M PRN opioid 10/13/21 01/12/23 Rx spray (Narcan) overdose #2 ea nystatin 100,000 unit/gram topical 1 applic topical BID #60 grams 11/13/21 01/12/23 Rx cream dicyclomine 10 mg capsule 10 mg PO QID IBS 90 days #360 caps 01/12/22 01/12/23 Rx romosozumab-aqqg 210 mg/2.34 210 mg (2.34 mL) subcut MONTHLY 02/17/22 01/12/23 Rx mL(105 mg/1.17 mL x2)subcutaneous #2.34 mL syringe (Evenity) pantoprazole 40 mg tablet,delayed 40 mg PO QAM #90 tabs 03/07/22 01/12/23 Rx release (Protonix) apixaban 2.5 mg tablet (Eliquis) 2.5 mg PO BID #14 tabs 05/10/22 01/12/23 Rx triamcinolone acetonide 0.1 % 1 applic topical TID #80 grams 10/25/22 01/12/23 Rx topical cream simvastatin 10 mg tablet (Zocor) 10 mg PO QPM #90 tabs 10/29/22 01/12/23 Rx propranolol 20 mg tablet 20 mg PO .COMPLEX #90 tabs 12/16/22 01/12/23 Rx buprenorphine 20 mcg/hour weekly 1 patch transdermal WK #4 ea 01/03/23 01/12/23 Rx transdermal patch (Butrans) duloxetine 60 mg capsule,delayed 60 mg PO QAM 01/04/23 01/12/23 History release (Cymbalta) hydrochlorothiazide 12.5 mg tablet 12.5 mg PO QAM 01/04/23 01/12/23 History memantine 5 mg tablet 5 mg PO BID 01/04/23 01/12/23 History pregabalin 50 mg capsule (Lyrica) See Rx Instructions .Route 01/07/23 01/12/23 Rx .COMPLEX #210 caps duloxetine 30 mg capsule,delayed 30 mg PO DAILY #30 caps 01/12/23 01/12/23 Rx release losartan 100 mg tablet 50 mg (1/2 x 100 mg) PO QAM #90 01/17/23 01/17/23 Rx tabs Past Med/Surg History Medical History Spinal cord stimulator status Aware to bring remote DOS History of COVID-19 ~ - mild symptoms, resolved Dysphagia "mild" Hx dilatation Memory changes Follows with [facility] DVT of leg (deep venous thrombosis) 09/2020 right calf, after trauma (fall in bath tub) Bilateral pulmonary embolism 08/2020 after trauma (fall in bath tub) Sjogren's syndrome Cervical radiculopathy History of kidney stones IBS (irritable bowel syndrome) Temporomandibular joint disorder locking (last episode several years ago) Glaucoma Peripheral neuropathy Tremor Degeneration of cervical intervertebral disc Dyslipidemia Osteoporosis, post-menopausal Sinus bradycardia Cardio visit 09/2021: "history of Bradycardia/Syncope s/p Medtronic LINQ ILR (no dysrhythmias identified during life span of the loop recorder, approximately 4 years)" Follows with [place] [facility] Asthma Depression Migraines GERD (gastroesophageal reflux disease) controlled HTN (hypertension) Ascending aorta dilation Per 2017 CTA of chest/thorax- "slight prominence ascending aorta at 3.6cm - follows Dr. Red ([facility]) 02/2022 TIA (transient ischemic attack) 2005, [address] Lopez (neuro) at [place] Reason for aspirin Surgical History History of esophageal dilatation History of surgery R SI joint fusion 09/27/19: Grade 2 view, Jones 2, ETT 7.0 History of cardiac cath 2005 - no stents Hx of right cataract extraction History of inguinal hernia repair History of partial hysterectomy History of dilatation and curettage History of lumbar laminectomy History of wisdom tooth extraction History of sinus surgery History of left cataract extraction History of loop recorder Medtronic, implanted 2016, left chest "No longer works" S/P tubal ligation S/P rotator cuff repair R/L H/O oophorectomy S/P carpal tunnel release R/L H/O arthroscopic knee surgery right H/O foot surgery right foot 2nd toe History of esophagogastroduodenoscopy (EGD) H/O colonoscopy S/P cholecystectomy S/P breast lumpectomy right- benign Spinal cord stimulator status Dr. Olivares - [place] History of lumbar fusion L1-2 decompression, T12-L2 fusion, hardware removal, SCS battery change (10/02/2021): Grade view 1 with glidescope #3, elective glide based on hx, easy, atraumatic, ETT 7.0 at [facility] Hx of appendectomy Family History Grandfather Myocardial infarction Grandmother Myocardial infarction Mother Diabetes Coronary heart disease Hypertension Father Emphysema lung Hypertension Other No family history of adverse response to anesthesia Denies family history of Ovarian cancer Prostate cancer Breast cancer Colorectal cancer Social History (Updated 01/12/23 @ 13:46 by Shannon Graham) Smoking Status: Never smoker Second Hand Exposure: Yes (Parents and first smoked. 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 Required: No Beliefs That Will Affect Care: None marital status: Current Living Situation: Spouse current occupational status: retired How many Children do You have: 2 Other Information That Helps Us Care for You: No Feels Safe at Home: Yes Safety Concerns: Feels Safe At This Time Childhood Exposure to Second-Hand Smoke: Yes (Both parents) Diet: regular Diet Comment: Regular diet caffeine: Yes (tea) during the past year weight has: increased > 10 lbs Dental Care, Regularly: Yes Physical Activity Frequency: 1-2 Times per Week Physical Activity Frequency Comment: walking around house or outside depending on weather/housework Seatbelt Use: always Sunscreen Use: Yes (Sometimes) Do you think of yourself as: straight/heterosexual Gender Identity: Female Assistive Devices: Glasses, Nebulizer, Raised Toilet Seat and Walker Review of Systems All systems reviewed & are unremarkable except as noted in HPI & below Physical Exam Constitutional: well developed and well nourished; no acute distress Eyes: PERRL, conjunctivae normal, anicteric sclerae ENMT: external ear and nose normal, oropharynx normal Neck: trachea midline, no thyromegaly Respiratory: normal respiratory effort, lungs clear to auscultation Cardiovascular: RRR, no murmur, no edema Musculoskeletal: Right shoulder: Well-healed surgical scars. Tenderness lateral arm referred pain. Active painful range of motion with abduction to 90 degrees and forward flexion to 130 degrees actively. Good isometric strength testing right shoulder. She has extreme kyphosis is in back brace, some numbness down right arm with Spurling's. Positive impingement signs. Skin: no rashes, warm and dry Neurologic: patellar DTR's 2+ bilat, sensation intact Psychiatric: A+Ox3, euthymic affect Results & Data Diagnostic Findings Right shoulder MRI demonstrates some osteoarthritis glenohumeral joint with joint effusion. She has a full-thickness rotator cuff tear involving areas of supraspinatus and infraspinatus without major retraction. X-rays with postoperative changes consistent with prior subacromial decompression and distal clavicle excision.
[~2023-01-24 09:34] MED LIST changes: +BUPIVACAINE 0.5 % 5 MG/1 ML PF 10ML VIAL ONE; -CLINDAMYCIN/D5W 600 MG/54 ML BAG IV SCH; +DEXAMETHASONE SOD INJ 4 MG/ML VIAL ONE; -GABAPENTIN 300 MG CAP PO SCH; +LIDOCAINE 2% 2 ML VIAL/AMP(20MG/ML) INFIL ONE; +MIDAZOLAM HCL 1 MG/ML 2ML VIAL ONE; +ONDANSETRON INJ 2 MG/ML 2 ML VIAL ONE; +PROPOFOL IV EMULSION 10 MG/ML 20 ML VIAL IV ONE; +VANCOMYCIN HCL 1,000 MG/270 ML BAG IV SCH; +fentaNYL citrate PF 100 MCG/2 ML VIAL ONE
[2023-01-24] MEDS ORDERED: EPINEPHrine HCL INJ 1 MG/ML 30ML ONE (10:37)
[2023-01-24] MEDS ORDERED: fentaNYL citrate PF 100 MCG/2 ML VIAL IV PRN (10:57)
[2023-01-24] MEDS ORDERED: ONDANSETRON INJ 2 MG/ML 2 ML VIAL IV PRN ×2 (10:57→18:07)
[2023-01-24] MEDS ORDERED: ePHEDrine sulfate 50 MG/ML AMP IV PRN (10:57)
[2023-01-24] MEDS ORDERED: ATROPINE SULFATE 0.1 MG/ML 10ML SYR IV PRN (10:57)
--- NOTE | 2023-01-24 11:49 | History & Physical Bridge Note ---
Date of Service January 24, 2023 History & Physical Bridge Note I have examined the patient, reviewed the History & Physical and in the interval since the performance of the History & Physical I have noted the following changes of clinical significance: no changes noted
[2023-01-24] MEDS ORDERED: PHENYLEPHRINE HCL 10 MG/ML VIAL ONE (12:46)
[2023-01-24] MEDS ORDERED: ePHEDrine sulfate 50 MG/ML AMP ONE (12:47)
[2023-01-24] MEDS ORDERED: SUGAMMADEX SODIUM 200 MG/2 ML VIAL IV ONE (13:12)
[2023-01-24] MEDS ORDERED: HYDROCODONE/ACETAMOPHEN 5/325MG TAB PO PRN ×2 (13:30→13:31)
--- NOTE | 2023-01-24 13:36 | Post Operative Brief Note ---
Immediate Post Op Note v1 Date of Surgery January 24, 2023 Pre & Post Diagnosis Operation Date: 01/24/23 12:25 Pre-Op Diagnosis: Right Shoulder Partial Rotator Cuff Tear, glenohumeral osteoarthritis,Possible full-thickness rotator cuff tear, history of previous arthroscopic subacromial decompression. Post-Op Diagnosis: Right Shoulder rotator cuff tendinopathy without a tear, degenerative glenoid labrum tear, glenohumeral osteoarthritis ,history of previous arthroscopic subacromial decompression I identified the patient and participated in the time-out.: Yes Procedure Operation Date: 01/24/23 12:25 Actual Procedures p Right Shoulder arthroscopic rotator cuff repair with [employer] i mplant, debridement glenohumeral joint glenoid labrum and subacromial bursa.- Frankie Hi MD Surgeon Frankie Hi MD Back Sewer Lawson PATEL Estimated Blood Loss 4 Findings Consistent with Post-Op Diagnosis Anesthesia Type General Regional Complications none Disposition Disposition: Recovery Room Overlapping Procedure I was immediately available: during the entire case.
--- NOTE | 2023-01-24 13:50 | Operative Report ---
Post Operative Report Pre & Post Diagnosis Operation Date: 01/24/23 12:25 Pre-Op Diagnosis: Right Shoulder Partial Rotator Cuff Tear possible full-thickness anterior rotator cuff tear, glenohumeral osteoarthritis, history of previous arthroscopic subacromial decompression. Post-Op Diagnosis: Right Shoulder rotator cuff tendinopathy without a tear, glenohumeral osteoarthritis, degenerative glenoid labral tear, subacromial bursal adhesion. History of previous arthroscopic subacromial decompression. I identified the patient and participated in the time-out.: Yes Procedure Operation Date: 01/24/23 12:25 Actual Procedures Right shoulder arthroscopic rotator cuff repair with Regeneten biological implant, debridement glenohumeral joint, glenoid labrum, subacromial adhesion. Surgeon Frankie Hi MD Business Analyst Lawson PATEL Estimated Blood Loss 4 Findings Consistent with Post-Op Diagnosis Specimens None Drains none Anesthesia Type General Regional Complications none Disposition Disposition: Recovery Room Indications 77-year-old female history of right shoulder arthroscopy decompression procedure in the past. Increased pain right shoulder. MRI was obtained which demonstrated glenohumeral joint effusion increased inflammation in the anterior rotator cuff with an area concern for possible full-thickness anterior rotator cuff tear. Patient history of previous partial rotator cuff tear in the past. Description of Procedure The patient was to the operating room anesthetized under regional block and general anesthesia. The patient was positioned on the operating table in the 70 beach chair position. Some care was taken due to her extreme kyphosis which made positioning more difficult so we took more time to get her appropriately positioned with Carefulattention to the neck and upper thoracic area. All of the other extremities were well-padded. The right upper extremity was prepped and draped in the usual sterile fashion. Examination demonstrated 160 degrees of forward flexion ,abduction 90 degrees, external rotation 80 degrees. She had a thin shoulder musculature. Some generalized ligamentous laxity. Arthroscopy of the shoulder was performed via anterior and posterior arthroscopy portals. Posterior portal was placed in the soft spot and the anterior portal was placed in the rotator interval. Subsequent portals included Lateral subacromial portal which was widened for the Regeneten graft and anterior posterior superior incisions for anchor placement with the anterior most of those widened later for placement of the peek vipul with the larger insertion device. The following findings were noted: The glenoid had a crescent shaped articular wear of the superior glenoid grade 3 closed grade 4 thinning. Humeral head had good articular surface some minor frayed cartilage and some fibrous tissue overlying the superior humeral head area. The labrum anterior superiorly and posterior had fraying and tearing of the glenoid labrum. The anterior- inferior inferior posterior inferior labrum was all intact. The biceps anchor was intact with negative peelback sign. The biceps tendon was normal. The rotator cuff attachment was completely intact from the intra-articular view. subscapularis tendon was intact. In the subacromial space there was scar tissue and minimal inflammation consistent with previous arthroscopic surgery. There was satisfactory decompression there was no impingement the rotator cuff however had a very thin area with a dip in the tendon off the greater tuberosity and the mid supraspinatus tendon which appeared to be just very thin supraspinatus tendon tissue which was not full-thickness. There was 1 anterior subacromial scar adhesion. Attention was first taken to Debriding the labrum and areas where it was frayed and there was some small inner edge flaps. This was debrided back to stable intact labral tissue. A light debridement was performed to the articular surface affected areas superior glenoid and humeral head areas. In the subacromial space adhesion was resected. Regeneten biological implant was laid down over the thin area of the supraspinatus tendon from the greater tuberosity and extending medially overlying the complete area of thinning. A large implant was utilized. Mid and medial fixation was with biological reabsorbable vipul and lateral fixation with peek vipul. The implant was stable with passive range of motion. The portal sites were closed with interrupted nylon sutures. Sterile dressings were applied and a sling immobilizer. The patient tolerated the procedure well. My physician respiratory care assistant Lawson PATEL assisted in arm positioning, instrument management, graft stabilization during stapling, incision closure, sling application, and will participate in the postoperative care of the patient. I attest to the content of the Intraoperative Record and any orders documented therein. Any exceptions are noted below.
--- NOTE | 2023-01-24 14:25 | Anesthesiology Progress Note ---
Date of Service January 24, 2023 Anesthesia Post Procedure Vital Signs Vital Signs: Temp Pulse Pulse Resp BP BP Pulse Ox 01/24/23 14:15 36.0 C L 62 18 159/76 H 96 01/24/23 14:05 62 18 139/73 96 01/24/23 13:55 58 L 16 156/87 H 97 01/24/23 13:45 36.0 C L 58 L 18 195/102 H 99 01/24/23 10:20 36.5 C 72 20 160/103 H 95 O2 Del Method O2 Flow Rate 01/24/23 14:15 Nasal Cannula 2 01/24/23 14:05 Nasal Cannula 2 01/24/23 13:55 Nasal Cannula 2 01/24/23 13:45 Oxymask 4 01/24/23 10:20 Room Air Transfer of Care Handoff Completed per policy Notes Mental Status: alert / awake / arousable Patient Amnestic to Procedure: Yes Nausea / Vomiting: adequately controlled Pain: adequately controlled Airway Patency, RR, SpO2: stable & adequate BP & HR: stable & adequate Hydration State: stable & adequate Anesthetic Complications: no major complications apparent and Pt Satisfied with anesthetic care
[2023-01-24] MEDS ORDERED: NITROGLYCERIN SL 0.4 MG/TAB TAB SL PRN (18:07)
[2023-01-24] MEDS ORDERED: ACETAMINOPHEN 500 MG TAB PO PRN (18:07)
[2023-01-24] MEDS ORDERED: ALBUTEROL 0.083% NEBU SOLN 3 ML VIAL INH PRN (18:07)
[2023-01-24] MEDS ORDERED: MAGNESIUM HYDROXIDE PO SCH (18:07)
[2023-01-24] MEDS ORDERED: NALOXONE HCL 0.4 MG/1 ML VIAL/CARP IV PRN (18:07)
[2023-01-24] MEDS ORDERED: METOCLOPRAMIDE HCL INJ 5 MG/ML 2 ML VIAL IV PRN (18:07)
[2023-01-24] MEDS ORDERED: MAGNESIUM HYDROXIDE SUSP 30 ML UDC PO PRN (18:07)
[2023-01-24] MEDS ORDERED: bisacodyL 10 MG SUPP PR PRN (18:07)
[2023-01-24 20:41] LABS: Basophils # (auto) 0.04 K/uL (0.00-0.20); Basophils % (auto) 0.5 %; Hematocrit (blood only) 38.6 % (37.0-47.0); Hemoglobin 12.7 g/dl (12.0-16.0); Immature Granulocytes # (auto) 0.03 K/uL (0.01-0.20); Immature Granulocytes % (auto) 0.4 %; Lymphocytes # (auto) 1.37 K/uL (1.20-3.40); Lymphocytes % (auto) 16.6 %; Mean Corpuscular Hemoglobin 29.5 pg (25.0-34.0); Mean Corpuscular Hgb Conc 32.9 g/dL (32.0-36.0); Mean Corpuscular Volume 89.8 fL (80.0-100.0); Mean Platelet Volume 11.8 fL (9.4-12.4); Monocytes # (auto) 0.26 K/uL (0.11-0.59); Monocytes % (auto) 3.2 %; Neutrophils # (auto) 6.54 K/uL (1.40-6.50); Neutrophils % (auto) 79.3 %; Platelet Count 205 K/uL (130-400); RDW Coefficient of Variation 13.1 % (11.5-14.5); RDW Standard Deviation 43.2 fL (36.4-46.3); White Blood Count 8.24 K/ul (4.8-10.8)
[2023-01-24] MEDS: DICYCLOMINE HCL 10 MG CAP PO SCH ×2 (20:44→20:56)
[2023-01-24] MEDS: CALCIUM 600MG + VIT D 400 IU TAB PO SCH (20:45)
[2023-01-24] MEDS: DOCUSATE SODIUM 100 MG CAP PO SCH (20:45)
[2023-01-24] MEDS: MEMANTINE HCL 5 MG TAB PO SCH (20:46)
[2023-01-24] MEDS ORDERED: SENNA 8.6 MG TAB PO SCH (21:00)
[2023-01-24] MEDS ORDERED: SIMVASTATIN 10 MG TAB PO SCH (21:00)
[2023-01-24] MEDS ORDERED: PROPRANOLOL HCL 20 MG TAB PO SCH (21:00)
[2023-01-24] MEDS ORDERED: TOPIRAMATE 100 MG TAB PO SCH (21:00)
[2023-01-24 21:05] LABS: BUN Creatinine Ratio 28.9 (10-20); Calcium 8.5 mg/dl (8.6-10.3); Creatinine Clr Calc Pharmacy 40.2 ml/min; Est GFR (African American) 72.5 ml/min; Est GFR (Non-African American) 62.5 ml/min; Potassium 3.9 mmol/L (3.5-5.1)
--- NOTE | 2023-01-25 00:04 | XRay Report ---
SINGLE VIEW CHEST CLINICAL HISTORY: Hypoxia FINDINGS: An AP, portable, upright chest radiograph is compared to study dated 01/13/2023 and correlat ed with chest CT dated 08/17/2020. The examination is degraded by portable technique and patient rotat ion. The cardiomediastinal silhouette is unremarkable. There are low lung volumes with elevation of the right hemidiaphragm and bibasilar atelectasis. A right pleural effusion is suspected. No no pneum othorax is seen. The skeletal structures are osteopenic. There are chronic/healed left-sided rib frac tures. Intrathecal leads project over the thoracic spine. Fusion hardware seen at the thoracolumbar j unction. Soft tissue edema and subcutaneous gas is noted in the right upper extremity. IMPRESSION: 1. Low lung volumes with bibasilar atelectasis. 2. Suspect a right pleural effusion. 3. Soft tissue edema and subcutaneous gas is noted in the right upper cavity. Correlate clinically. ACT 112: Negative or not required by law. Electronically signed by: Tino Downey M.D. 01/25/2023 12:01 AM
[2023-01-25] MEDS: CHECK BUPRENORPHINE PATCH SCH ×2 (01:15→08:58)
[2023-01-25 06:43] LABS: Basophils # (auto) 0.04 K/uL (0.00-0.20); Basophils % (auto) 0.5 %; Eosinophils # (auto) 0.01 K/uL (0.00-0.50); Eosinophils % (auto) 0.1 %; Hemoglobin 11.6 g/dl (12.0-16.0); Immature Granulocytes # (auto) 0.03 K/uL (0.01-0.20); Immature Granulocytes % (auto) 0.4 %; Lymphocytes # (auto) 2.71 K/uL (1.20-3.40); Lymphocytes % (auto) 32.7 %; Mean Corpuscular Hemoglobin 29.6 pg (25.0-34.0); Mean Corpuscular Hgb Conc 33.1 g/dL (32.0-36.0); Mean Corpuscular Volume 89.3 fL (80.0-100.0); Mean Platelet Volume 11.8 fL (9.4-12.4); Monocytes # (auto) 0.58 K/uL (0.11-0.59); Neutrophils # (auto) 4.93 K/uL (1.40-6.50); Neutrophils % (auto) 59.3 %; Platelet Count 189 K/uL (130-400); RDW Coefficient of Variation 13.2 % (11.5-14.5); RDW Standard Deviation 43.3 fL (36.4-46.3); Red Blood Count 3.92 M/uL (4.20-5.40)
--- NOTE | 2023-01-25 07:20 | Orthopedic Progress Note ---
Date of Service January 25, 2023 Assessment & Plan (1) Status post arthroscopy of right shoulder: Plan: Postop day 1 right shoulder arthroscopy with debridement glenohumeral joint, rotator cuff repair with Regeneten biologic implant -Patient is feeling well overall this morning. Continue with sling immobilization. Nonweightbearing right upper extremity. She may do light elbow/wrist/hand range of motion. Patient continues to be on 2 L of O2. Patient is stable for discharge from an orthopedic standpoint once her oxygen levels are improved on room air. Will monitor her throughout the morning and if able to be weaned off of them to can be discharged home. Medicine consult pending. Admission and Anticipated Discharge Date Admission Date: January 24, 2023 Subjective Patient is postop day 1 right shoulder arthroscopy. She is admitted due to low sats when off of O2. Has been on 2 L of oxygen overnight with her sats lili ntaining a normal range. Minimal pain at this point. No other complaints. Denies chest pain, shortness of breath, nausea/vomiting/diarrhea, headaches or dizziness. Review of Systems Review of Systems: All systems reviewed & are unremarkable except as noted in Subjective Physical Exam Physical Exam: Right shoulder: Sling is in place. Dressing is clean, dry and intact. Fingers are mobile with good wrist extension. Good customer success representative strength. Distally neurovascular status and sensation is grossly intact. Results & Data Vital Signs (Past 12 Hours) Vital Signs Temp Pulse Resp BP Pulse Ox O2 Del Method O2 Flow Rate 01/25/23 04:00 36.9 C 56 L 16 96/59 L 97 Nasal Cannula 2 01/24/23 23:24 37 C 82 16 150/85 H 96 Nasal Cannula 2 01/24/23 20:57 Nasal Cannula 2 Laboratory Results Lab Results 01/24/23 01/24/23 01/25/23 Range/Units 16:21 20:19 05:53 WBC 8.24 8.30 (4.8-10.8) K/ul RBC 4.30 3.92 L (4.20-5.40) M/uL Hgb 12.7 11.6 L (12.0-16.0) g/dl Hct 38.6 35.0 L (37.0-47.0) % MCV 89.8 89.3 (80.0-100.0) fL MCH 29.5 29.6 (25.0-34.0) pg MCHC 32.9 33.1 (32.0-36.0) g/dL RDW Std Deviation 43.2 43.3 (36.4-46.3) fL RDW Coeff of Claus 13.1 13.2 (11.5-14.5) % Plt Count 205 189 (130-400) K/uL MPV 11.8 11.8 (9.4-12.4) fL Immature Gran % (Auto) 0.4 0.4 % Neut % (Auto) 79.3 59.3 % Lymph % (Auto) 16.6 32.7 % [place] % (Auto) 3.2 7.0 % Eos % (Auto) 0.0 0.1 % Baso % (Auto) 0.5 0.5 % Neut # (Auto) 6.54 H 4.93 (1.40-6.50) K/uL Lymph # (Auto) 1.37 2.71 (1.20-3.40) K/uL [place] # (Auto) 0.26 0.58 (0.11-0.59) K/uL Eos # (Auto) 0.00 0.01 (0.00-0.50) K/uL Baso # (Auto) 0.04 0.04 (0.00-0.20) K/uL Immature Gran # (Auto) 0.03 0.03 (0.01-0.20) K/uL Sodium 142 (136-145) mmol/L Potassium 3.9 (3.5-5.1) mmol/L Chloride 111 H (98-107) mmol/L Carbon Dioxide 26 (21-32) mmol/L Anion Gap 5 (3-11) BUN 26 H (6-23) mg/dl Creatinine 0.90 (0.6-1.2) mg/dl Est Cr Clr Drug Dosing 40.2 ml/min Est GFR ( Amer) 72.5 ml/min Est GFR (Non-Af Amer) 62.5 ml/min BUN/Creatinine Ratio 28.9 H (10-20) Glucose 155 H (70-99(Fasting)) mg/dl POC Glucose 164 H (70-99) mg/dl Calcium 8.5 L (8.6-10.3) mg/dl
[2023-01-25] MEDS: SODIUM CHLORIDE 0.9% 1,000 ML IV SCH ×2 (07:35→08:54)
[2023-01-25 07:40] LABS: Calcium 8.2 mg/dl (8.6-10.3); Potassium 3.5 mmol/L (3.5-5.1)
[2023-01-25 07:46] LABS: BUN Creatinine Ratio 34.2 (10-20); Creatinine Clr Calc Pharmacy 47.7 ml/min; Est GFR (African American) 88.9 ml/min; Est GFR (Non-African American) 76.7 ml/min
--- NOTE | 2023-01-25 08:14 | XRay Report ---
XR chest 1V portable CLINICAL HISTORY: hypoxia TECHNIQUE: Single frontal radiograph of the chest was obtained. Comparison: Comparison is made to chest radiographs 01/24/2023 FINDINGS: Posterior fixation hardware and spinal stimulator are again seen. The cardiomediastinal silhouette is normal. The lungs are clear. No evidence of pleural effusion or pneumothorax. IMPRESSION: No acute chest disease. ACT 112: Negative or not required by law. Electronically signed by: Jesus Wilson M.D. 01/25/2023 8:12 AM
--- NOTE | 2023-01-25 08:28 | Hospitalist Consultation ---
Date of Consultation January 25, 2023 Assessment & Plan (1) Status post arthroscopy of right shoulder: s/p Right shoulder arthroscopic rotator cuff repair with Regeneten biological implant, debridement glenohumeral joint, glenoid labrum, subacromial adhesion. EBL 4cc WBC wnl on repeat, hemoglobin stable w/ suspected dilutional effect from surgery Pain control/bowel regimen/therapy evals per primary service DVT Proph: Eliquis BID resumed this morning Was hypoxic Patient anticipating discharge (2) Hypoxia: post op, requiring oxygen cxr as noted in HPI, improved on repeat suspect from nerve block/patient kyphosis/restrictive lung disease recommended continued incentive spirometry, no fever/cough/sputum production and weaned to room air today continue home meds (3) Full thickness rotator cuff tear: as above (4) DVT, lower extremity, recurrent: hx of DVT/PE in setting of fall in bathtub/broken ribs in 2020 on eliquis, held for surgery and resumed this morning discussed w/ patient about provoked nature of prior DVT/PE given trauma/fracture and to follow up discussion to see once completing treatment for proph w/ shoulder if they could trial her off of such? Does not appear has had hypercoag work up/prior clot in provoked setting Agreed to continue eliquis for now. No hypotension/pleuritic pain reported F/[place] PCP at [place] (5) Dysphagia: hx such w/ EGD/dilation ppi continued (6) Multiple fractures of ribs of left side: hx such, floating and healing rec to continue incentive spirometer as above (7) Bilateral pulmonary embolism: eliquis as outlined resumed for today. f/u pcp for discussions as outlined (8) HTN (hypertension): BP stable/renal function stable continue home medications (9) GERD (gastroesophageal reflux disease): continue ppi, no reported issues (10) Migraines: slight headache this morning, resolved with tylenol continue usual topamax (11) TIA (transient ischemic attack): hx of such and was on aspirin which the patient reports she has not been having to take in quite some time. Mental status appears at baseline. F/u PCP -- ? able to resume if able to come off her eliquis but ok for now (12) Depression: continue home meds, mood appears stable. recent increase cymbalta to 90mg daily w/ pcp (13) Asthma: continue home meds, no wheezing/evidence for exacerbation at this time now to room air and remaining stable Plan Thank you for allowing hospitalist service to participate in the care of Ms Hayes. Appears patient stable and wanting discharge today. -Dispo per primary service. Please call with any questions/concerns. History of Present Illness Reason for Consultation: post-op, low O2 sats Requesting Physician: Dr Hi Attending Physician: Frankie Hi MD History of Present Illness 77yo female with PMHx significant for DVT/PE on eliquis (in setting of fall/broken ribs 2010), HLD, asthma, depression, memory changes, sinus jono presented for Right shoulder arthroscopic rotator cuff repair with Regeneten biological implant, debridement glenohumeral joint, glenoid labrum, subacromial adhesion with Dr Hi on 01/24. EBL listed as 4cc. Hospitalist service consulted for post-op, low O2 saturations. CXR last evening w/ low lung volumes/bibasilar atelectasis, suspected R pleural effusion and soft tissue edema/subcutaneous gas noted in right upper cavity. Repeat CXR this morning reporting no acute chest disease. Patient evaluated this morning, has been of supplemental O2, >95% on room air. Denies shortness of breath. Pain controlled, sensation returning to her fingers, mobile/feeling returning. Had a little bit of a headache this morning/history of migraines. reports improvement since tylenol use/nothing further needed. No abdominal pain/nausea. Good appetite, passing gas. She reports she is anticipating discharge today and notes she will likely be back next year for surgery on her right shoulder (she is left handed). No fever/chills. Questions/concerns addressed at this time. Allergies Allergy/AdvReac Type Severity Reaction Status Date / Time morphine Allergy Severe Severe Verified 01/12/23 12:45 hypotension milk Allergy Intermediate Mouth Verified 01/12/23 12:45 hives (some milk products) adhesive Allergy Mild Skin Verified 01/12/23 12:45 irritation chocolate flavor Allergy Mild Migraines Verified 01/12/23 12:45 latex Allergy Mild rash Verified 01/12/23 12:45 Penicillins Allergy Mild Rash Verified 01/12/23 12:45 Sulfa (Sulfonamide Allergy Mild Rash Verified 01/12/23 12:45 Antibiotics) tramadol Allergy Mild Rash, Verified 01/12/23 12:45 itchiness oxycodone AdvReac Mild N/V Verified 01/12/23 12:45 Hotdogs Allergy Mild Migraines Uncoded 01/12/23 12:45 margarine AdvReac Intermediate GI upset Uncoded 01/12/23 12:45 Home Medications Medication Instructions Recorded Confirmed Type albuterol sulfate 2.5 mg/3 mL 2.5 mg (3 mL) inhalation Q4H PRN 11/24/18 01/24/23 Rx (0.083 %) solution for nebulization ASTHMA #180 mL calcium carbonate 600 mg-vitamin 1 tab PO BID 05/14/19 01/24/23 History D3 10 mcg (400 unit) tablet (Calcium 600 + D(3)) multivitamin (Multiple Vitamins 1 tab PO QAM 05/14/19 01/24/23 History tablet) nitroglycerin 0.4 mg sublingual 0.4 mg sublingual Q5M PRN chest 08/17/20 01/24/23 History tablet (Nitrostat) pain topiramate 200 mg tablet (Topamax) 200 mg PO HS 08/17/20 01/24/23 History acetaminophen 500 mg tablet 1,000 mg PO Q8H PRN Pain 09/15/20 01/24/23 History naloxone 4 mg/actuation nasal 4 mg intranasal Q3M PRN opioid 10/13/21 01/24/23 Rx spray (Narcan) overdose #2 ea dicyclomine 10 mg capsule 10 mg PO QID IBS 90 days #360 caps 01/12/22 01/24/23 Rx romosozumab-aqqg 210 mg/2.34 210 mg (2.34 mL) subcut MONTHLY 02/17/22 01/24/23 Rx mL(105 mg/1.17 mL x2)subcutaneous #2.34 mL syringe (Evenity) pantoprazole 40 mg tablet,delayed 40 mg PO QAM #90 tabs 03/07/22 01/24/23 Rx release (Protonix) apixaban 2.5 mg tablet (Eliquis) 2.5 mg PO BID #14 tabs 05/10/22 01/24/23 Rx triamcinolone acetonide 0.1 % 1 applic topical TID #80 grams 10/25/22 01/24/23 Rx topical cream simvastatin 10 mg tablet (Zocor) 10 mg PO QPM #90 tabs 10/29/22 01/24/23 Rx propranolol 20 mg tablet 20 mg PO .COMPLEX #90 tabs 12/16/22 01/24/23 Rx buprenorphine 20 mcg/hour weekly 1 patch transdermal WK #4 ea 01/03/23 01/24/23 Rx transdermal patch (Butrans) hydrochlorothiazide 12.5 mg tablet 12.5 mg PO QAM 01/04/23 01/24/23 History memantine 5 mg tablet 5 mg PO BID 01/04/23 01/24/23 History pregabalin 50 mg capsule (Lyrica) See Rx Instructions .Route 01/07/23 01/12/23 Rx .COMPLEX #210 caps losartan 100 mg tablet 50 mg (1/2 x 100 mg) PO QAM #90 01/17/23 01/24/23 Rx tabs duloxetine 30 mg capsule,delayed 90 mg PO DAILY 01/24/23 01/24/23 History release Patient History Medical History Spinal cord stimulator status Aware to bring remote DOS History of COVID-19 ~ - mild symptoms, resolved Dysphagia "mild" Hx dilatation Memory changes Follows with [facility] DVT of leg (deep venous thrombosis) 09/2020 right calf, after trauma (fall in bath tub) Bilateral pulmonary embolism 08/2020 after trauma (fall in bath tub) Sjogren's syndrome Cervical radiculopathy History of kidney stones IBS (irritable bowel syndrome) Temporomandibular joint disorder locking (last episode several years ago) Glaucoma Peripheral neuropathy Tremor Degeneration of cervical intervertebral disc Dyslipidemia Osteoporosis, post-menopausal Sinus bradycardia Cardio visit 09/2021: "history of Bradycardia/Syncope s/p Medtronic LINQ ILR (no dysrhythmias identified during life span of the loop recorder, appro ximately 4 years)" Follows with [facility] Asthma Depression Migraines GERD (gastroesophageal reflux disease) controlled HTN (hypertension) Ascending aorta dilation Per 2016 CTA of chest/thorax- "slight prominence ascending aorta at 3.6cm - follows Dr. Red ([facility]) 02/2022 TIA (transient ischemic attack) 2005, [address] Lopez (neuro) at [facility] Reason for aspirin Surgical History History of esophageal dilatation History of surgery R SI joint fusion 09/27/19: Grade 2 view, Jones 2, ETT 7.0 History of cardiac cath 2005 - no stents Hx of right cataract extraction History of inguinal hernia repair History of partial hysterectomy History of dilatation and curettage History of lumbar laminectomy History of wisdom tooth extraction History of sinus surgery History of left cataract extraction History of loop recorder Medtronic, implanted 2016, left chest "No longer works" S/P tubal ligation S/P rotator cuff repair R/L H/O oophorectomy S/P carpal tunnel release R/L H/O arthroscopic knee surgery right H/O foot surgery right foot 2nd toe History of esophagogastroduodenoscopy (EGD) H/O colonoscopy S/P cholecystectomy S/P breast lumpectomy right- benign Spinal cord stimulator status Dr. Olivares - [place] History of lumbar fusion L1-2 decompression, T12-L2 fusion, hardware removal, SCS battery change (10/02/2021): Grade view 1 with glidescope #3, elective glide based on hx, easy, atraumatic, ETT 7.0 at [facility] Hx of appendectomy Family History Grandfather Myocardial infarction Grandmother Myocardial infarction Mother Diabetes Coronary heart disease Hypertension Father Emphysema lung Hypertension Other No family history of adverse response to anesthesia Denies family history of Ovarian cancer Prostate cancer Breast cancer Colorectal cancer Social History (Updated 01/12/23 @ 13:46 by Shannon Graham) Smoking Status: Never smoker Second Hand Exposure: Yes (Parents and first smoked. ); Do You Dip or Chew Tobacco: No; Tobacco Cessation Education Requested by Patient: No Hx Alcohol Use: No Hx Substance Use: No Preferred Language: Greenlandic Communication Ability: Effective Visual Impairment: Partially Limited Hearing Ability: Normal Word Processing Supervisor Required: No Beliefs That Will Affect Care: None marital status: Current Living Situation: Spouse current occupational status: retired How many Children do You have: 2 Other Information That Helps Us Care for You: No Feels Safe at Home: Yes Safety Concerns: Feels Safe At This Time Childhood Exposure to Second-Hand Smoke: Yes (Both parents) Diet: regular Diet Comment: Regular diet caffeine: Yes (tea) during the past year weight has: increased > 10 lbs Dental Care, Regularly: Yes Physical Activity Frequency: 1-2 Times per Week Physical Activity Frequency Comment: walking around house or outside depending on weather/housework Seatbelt Use: always Sunscreen Use: Yes (Sometimes) Do you think of yourself as: straight/heterosexual Gender Identity: Female Assistive Devices: Glasses, Nebulizer, Raised Toilet Seat and Walker Physical Exam Physical Exam: General; chronically ill appearing/frail 77yo female sitting up in bed, NAD, +kyphosis HEENT; head atraumatic, normocephalic, mmm, trachea midline Resp: even/unlabored, slightly reduced in the bases with associated faint crackles (suspected atelectasis/resolved w/ asking patient to cough) but no wheezing/rales, 97% on ROOM AIR CV: RRR, no significant m/r/g, calves nontender GI: +BS, soft/NT MSK/Neuro: sling to R shoulder, dressing c/d/i, fingers mobile/pulse palpable, sensation intact (reports slightly reduced compared to the left but improved since surgery) Psych: alert to person/place/time, cooperative with care Results & Data Results & Data Vital Signs (Past 12 Hours) Vital Signs Temp Pulse Resp BP Pulse Ox O2 Del Method O2 Flow Rate 01/25/23 07:40 Nasal Cannula 2 01/25/23 07:32 36.3 C L 55 L 18 136/73 98 Nasal Cannula 2 01/25/23 04:00 36.9 C 56 L 16 96/59 L 97 Nasal Cannula 2 01/24/23 23:24 37 C 82 16 150/85 H 96 Nasal Cannula 2 01/24/23 20:57 Nasal Cannula 2 Laboratory Results 01/25/23 01/24/23 01/24/23 Range/Units 05:53 20:19 16:21 WBC 8.30 8.24 (4.8-10.8) K/ul RBC 3.92 L 4.30 (4.20-5.40) M/uL Hgb 11.6 L 12.7 (12.0-16.0) g/dl Hct 35.0 L 38.6 (37.0-47.0) % MCV 89.3 89.8 (80.0-100.0) fL MCH 29.6 29.5 (25.0-34.0) pg MCHC 33.1 32.9 (32.0-36.0) g/dL RDW Std Deviation 43.3 43.2 (36.4-46.3) fL RDW Coeff of Claus 13.2 13.1 (11.5-14.5) % Plt Count 189 205 (130-400) K/uL MPV 11.8 11.8 (9.4-12.4) fL Immature Gran % (Auto) 0.4 0.4 % Neut % (Auto) 59.3 79.3 % Lymph % (Auto) 32.7 16.6 % Bath % (Auto) 7.0 3.2 % Eos % (Auto) 0.1 0.0 % Baso % (Auto) 0.5 0.5 % Neut # (Auto) 4.93 6.54 H (1.40-6.50) K/uL Lymph # (Auto) 2.71 1.37 (1.20-3.40) K/uL Bath # (Auto) 0.58 0.26 (0.11-0.59) K/uL Eos # (Auto) 0.01 0.00 (0.00-0.50) K/uL Baso # (Auto) 0.04 0.04 (0.00-0.20) K/uL Immature Gran # (Auto) 0.03 0.03 (0.01-0.20) K/uL Sodium 142 142 (136-145) mmol/L Potassium 3.5 3.9 (3.5-5.1) mmol/L Chloride 111 H 111 H (98-107) mmol/L Carbon Dioxide 28 26 (21-32) mmol/L Anion Gap 3 5 (3-11) BUN 26 H 26 H (6-23) mg/dl Creatinine 0.76 0.90 (0.6-1.2) mg/dl Est Cr Clr Drug Dosing 47.7 40.2 ml/min Est GFR ( Amer) 88.9 72.5 ml/min Est GFR (Non-Af Amer) 76.7 62.5 ml/min BUN/Creatinine Ratio 34.2 H 28.9 H (10-20) Glucose 89 155 H (70-99(Fasting)) mg/dl POC Glucose 164 H (70-99) mg/dl Calcium 8.2 L 8.5 L (8.6-10.3) mg/dl Diagnostic Findings Chest X-Ray 01/24/23 18:47 SINGLE VIEW CHEST CLINICAL HISTORY: Hypoxia FINDINGS: An AP, portable, upright chest radiograph is compared to study dated 01/13/2023 and correlated with chest CT dated 08/17/2020. The examination is de graded by portable technique and patient rotation. The cardiomediastinal silhouette is unremarkable. There are low lung volumes with elevation of the right hemidiaphragm and bibasilar atelectasis. A right pleural effusion is suspected. No no pneumothorax is seen. The skeletal structures are osteopenic. There are chronic/healed left-sided rib fractures. Intrathecal leads project over the thoracic spine. Fusion hardware seen at the thoracolumbar junction. Soft tissue edema and subcutaneous gas is noted in the right upper extremity. IMPRESSION: 1. Low lung volumes with bibasilar atelectasis. 2. Suspect a right pleural effusion. 3. Soft tissue edema and subcutaneous gas is noted in the right upper cavity. Correlate clinically. ACT 112: Negative or not required by law. Electronically signed by: Tino Downey M.D. 01/25/2023 12:01 AM Chest X-Ray 01/25/23 07:00 XR chest 1V portable CLINICAL HISTORY: hypoxia TECHNIQUE: Single frontal radiograph of the chest was obtained. Comparison: Comparison is made to chest radiographs 01/24/2023 FINDINGS: Posterior fixation hardware and spinal stimulator are again seen. The cardiomediastinal silhouette is normal. The lungs are clear. No evidence of pleural effusion or pneumothorax. IMPRESSION: No acute chest disease. ACT 112: Negative or not required by law. Electronically signed by: Jesus Wilson M.D. 01/25/2023 8:12 AM PG Care Time/CCT Total # of Minutes Spent Total Time Spent with Patient: Total time spent is greater than 50% in coordination of care (as documented) at patient's floor/unit and/or counseling patient: Coding Level of Care Code 47710 IN/OBS CONSULT LVL 3,45M Diagnoses Status post arthroscopy of right shoulder Z98.890 Hypoxia R09.02 Nontraumatic complete tear of right rotator cuff M75.121 Rotator cuff tear trauma status: nontraumatic Laterality: right DVT, lower extremity, recurrent I82.409 Dysphagia R13.10 Multiple fractures of ribs of left side S22.42XD Encounter type: subsequent encounter Fracture healing: with routine healing Fracture type: closed Bilateral pulmonary embolism I26.99 HTN (hypertension) I10 GERD (gastroesophageal reflux disease) K21.9 Migraines G43.909 TIA (transient ischemic attack) G45.9 Depression F32.9 Asthma J45.909 (3) Full thickness rotator cuff tear Rotator cuff tear trauma status: nontraumatic Laterality: right Qualified Code(s): M75.121 - Complete rotator cuff tear or rupture of right shoulder, not specified as traumatic (6) Multiple fractures of ribs of left side Encounter type: subsequent encounter Fracture healing: with routine healing Fracture type: closed Qualified Code(s): S22.42XD - Multiple fractures of ribs, left side, subsequent encounter for fracture with routine healing
[2023-01-25] MEDS: DOCUSATE SODIUM 100 MG CAP PO SCH (08:55)
[2023-01-25] MEDS: CALCIUM 600MG + VIT D 400 IU TAB PO SCH (08:55)
[2023-01-25] MEDS: DICYCLOMINE HCL 10 MG CAP PO SCH ×2 (08:55→13:43)
[2023-01-25] MEDS: MEMANTINE HCL 5 MG TAB PO SCH (08:55)
[2023-01-25] MEDS ORDERED: APIXABAN 2.5 MG TAB PO SCH (09:00)
[2023-01-25] MEDS ORDERED: MULTIVITAMIN TAB PO SCH (09:00)
[2023-01-25] MEDS ORDERED: hydroCHLOROthiazide 25 MG TAB PO SCH (09:00)
[2023-01-25] MEDS ORDERED: PROPRANOLOL HCL 20 MG TAB PO SCH (09:00)
[2023-01-25] MEDS ORDERED: PANTOprazole 40 MG TAB PO SCH (09:00)
[2023-01-25] MEDS ORDERED: LOSARTAN POTASSIUM 50 MG TAB PO SCH (09:00)
[2023-01-25] MEDS ORDERED: DULoxetine HCL 30 MG CAP PO SCH (09:00)
--- NOTE | 2023-01-25 13:51 | Discharge Summary ---
Date of Service January 25, 2023 Admission HPI Per Admitting Provider 77-year-old female with past medical history significant for PE, Sjogren's syndrome, radiculopathy, peripheral neuropathy, sinus bradycardia, asthma who presents with ongoing right shoulder pain. Pain is interfering with her daily activities. She has failed conservative measures and would like to proceed with surgical management. Patient denies headaches, sweats, fevers, chills, double vision, blurred vision, cough, sore throat, dysphagia, chest pain, sob, wheezing, n/v/d/c, numbness, tingling, fatigue, urinary symptoms, mood disorders. ROS positive for right shoulder pain and stiffness. Admission Exam Per Admitting Provider Constitutional: well developed and well nourished; no acute distress Eyes: PERRL, conjunctivae normal, anicteric sclerae ENMT: external ear and nose normal, oropharynx normal Neck: trachea midline, no thyromegaly Respiratory: normal respiratory effort, lungs clear to auscultation Cardiovascular: RRR, no murmur, no edema Musculoskeletal: Right shoulder: Well-healed surgical scars. Tenderness lateral arm referred pain. Active painful range of motion with abduction to 90 degrees and forward flexion to 130 degrees actively. Good isometric strength testing right shoulder. She has extreme kyphosis is in back brace, some numbness down right arm with Spurling's. Positive impingement signs. Skin: no rashes, warm and dry Neurologic: patellar DTR's 2+ bilat, sensation intact Psychiatric: A+Ox3, euthymic affect Principal Diagnosis Right shoulder OA, partial tear rotator cuff Discharge Exam Right shoulder: Sling is in place. Dressing is clean, dry and intact. Fingers are mobile with good wrist extension. Good teacher resource strength. Distally neurovascular status and sensation is grossly intact. Discharge Data Allergies Allergy/AdvReac Type Severity Reaction Status Date / Time morphine Allergy Severe Severe Verified 01/12/23 12:45 hypotension milk Allergy Intermediate Mouth Verified 01/12/23 12:45 hives (some milk products) adhesive Allergy Mild Skin Verified 01/12/23 12:45 irritation chocolate flavor Allergy Mild Migraines Verified 01/12/23 12:45 latex Allergy Mild rash Verified 01/12/23 12:45 Penicillins Allergy Mild Rash Verified 01/12/23 12:45 Sulfa (Sulfonamide Allergy Mild Rash Verified 01/12/23 12:45 Antibiotics) tramadol Allergy Mild Rash, Verified 01/12/23 12:45 itchiness oxycodone AdvReac Mild N/V Verified 01/12/23 12:45 Hotdogs Allergy Mild Migraines Uncoded 01/12/23 12:45 margarine AdvReac Intermediate GI upset Uncoded 01/12/23 12:45 Consultations 01/24/23 18:07 Consult Hospitalist Routine Procedures Performed Operation Date: 01/24/23 12:25 Actual Procedures p Right shoulder arthroscopic rotator cuff repair with Regeneten biological implant, debridement glenohumeral joint, glenoid labrum, subacromial adhesion(Right) - Frankie Hi MD Ordered Studies 01/24/23 05:00 US - OR guided needle placemen Routine Hospital Course (1) Status post arthroscopy of right shoulder: Postop day 1 right shoulder arthroscopy with debridement glenohumeral joint, rotator cuff repair with Regeneten biologic implant -Patient is feeling well overall this morning. Continue with sling immobilization. Nonweightbearing right upper extremity. She may do light elbow/wrist/hand range of motion. Patient continues to be on 2 L of O2. Patient is stable for discharge from an orthopedic standpoint once her oxygen levels are improved on room air. Will monitor her throughout the morning and if able to be weaned off of them to can be discharged home. Medicine consult pending. -improved O2 sat on room air, normal CXR, Patient stable for d/c. Lab Results 01/24/23 01/24/23 01/25/23 Range/Units 16:21 20:19 05:53 WBC 8.24 8.30 (4.8-10.8) K/ul RBC 4.30 3.92 L (4.20-5.40) M/uL Hgb 12.7 11.6 L (12.0-16.0) g/dl Hct 38.6 35.0 L (37.0-47.0) % MCV 89.8 89.3 (80.0-100.0) fL MCH 29.5 29.6 (25.0-34.0) pg MCHC 32.9 33.1 (32.0-36.0) g/dL RDW Std Deviation 43.2 43.3 (36.4-46.3) fL RDW Coeff of Claus 13.1 13.2 (11.5-14.5) % Plt Count 205 189 (130-400) K/uL MPV 11.8 11.8 (9.4-12.4) fL Immature Gran % (Auto) 0.4 0.4 % Neut % (Auto) 79.3 59.3 % Lymph % (Auto) 16.6 32.7 % Terry % (Auto) 3.2 7.0 % Eos % (Auto) 0.0 0.1 % Baso % (Auto) 0.5 0.5 % Neut # (Auto) 6.54 H 4.93 (1.40-6.50) K/uL Lymph # (Auto) 1.37 2.71 (1.20-3.40) K/uL Terry # (Auto) 0.26 0.58 (0.11-0.59) K/uL Eos # (Auto) 0.00 0.01 (0.00-0.50) K/uL Baso # (Auto) 0.04 0.04 (0.00-0.20) K/uL Immature Gran # (Auto) 0.03 0.03 (0.01-0.20) K/uL Sodium 142 142 (136-145) mmol/L Potassium 3.9 3.5 (3.5-5.1) mmol/L Chloride 111 H 111 H (98-107) mmol/L Carbon Dioxide 26 28 (21-32) mmol/L Anion Gap 5 3 (3-11) BUN 26 H 26 H (6-23) mg/dl Creatinine 0.90 0.76 (0.6-1.2) mg/dl Est Cr Clr Drug Dosing 40.2 47.7 ml/min Est GFR ( Amer) 72.5 88.9 ml/min Est GFR (Non-Af Amer) 62.5 76.7 ml/min BUN/Creatinine Ratio 28.9 H 34.2 H (10-20) Glucose 155 H 89 (70-99(Fasting)) mg/dl POC Glucose 164 H (70-99) mg/dl Calcium 8.5 L 8.2 L (8.6-10.3) mg/dl Total Time Total Time Spent Total Time Spent (In Minutes): 20 Discharge Plan Discharge Items Patient Disposition: Home - Self-Care Reason For Visit: POST OP Discharge Diagnosis: Right shoulder partial tear rotator cuff Activity: Per Instructions section Non-emergency contact: Surgeon Call non-emergency contact if: you have any medication questions, your pain is not controlled, your pain is concerning for you, you have a fever, your temperature is above 101, your wound has increased redness and your wound has increased drainage Follow-up/Referrals: Kari Sotelo, [Primary Care Provider] - Diet: Regular Addtl Attending Provider Instructions: [facility] DISCHARGE INSTRUCTIONS: ROTATOR CUFF REPAIR SELF CARE INSTRUCTIONS A. You are permitted to loosen your sling/immobilizer to move your elbow, wrist, and hand to prevent stiffness. You should use your well arm (good arm) to assist the operated extremity when trying to raise the arm away from the body, hygiene purposes. Do NOT actively try to use/engage your shoulder muscles in operative arm at this time. You should NOT do overhead activity, lifting, or attempt to reach behind your back. B. You may/may not be instructed to start Physical Therapy upon discharge de pending upon the size and difficulty of the repair. You will be provided a prescription for therapy with specific restrictions, if needed, at time of discharge. C. At 48 hours post-operatively, you may change your dressing. (Leave white steri-strips intact if present). Use band-aids and change daily. You are allowed to shower at this time and get the incision area wet, but DO NOT soak or submerge incision area in water. (No baths, swimming pools, hot tubs) D. Do NOT apply soap or any ointment/lotions directly over incision. E. You may use ice as needed to operative shoulder SPECIAL CARE INSTRUCTIONS: VERY IMPORTANT TO READ AND REVIEW A. There are a few signs you need to watch for after you are home. Call [facility] at [phone] if you experience any of the following: a. Increased severe shoulder pain. Some pain is expected especially when you exercise b. Increased swelling in your shoulder or arm; pain or swelling in either upper extremity. (Note: swelling and stiffness is normal and expected for several weeks post op, depending on type of shoulder surgery you had). c. Any fluid or drainage from the incision; redness of the incision. d. Shortness of breath or chest pain. B. Please call [facility] at [phone] if you have any questions or concerns about your operation or recovery. C. Call your physician if: a. Temperature is greater than 101 degrees (F). b. Pain is not relieved by prescribed pain medications. c. Increase drainage or redness from incision. d. Unanswered questions or concerns. D. Pain Medication: a. You will be prescribed pain medication upon discharge that should last till your first post-operative appointment. b. If you experience nausea and/or skin rash, discontinue this medication and contact our office for an alternative medication. c. Caution- narcotic pain medication can cause constipation. FOLLOW UP VISIT: Please call [facility] at [phone] to schedule a follow up appointment 10-14 days from your surgery date. Stand-Alone Forms: My [facility] Medications and DC Order Prescriptions: Continued dicyclomine 10 mg capsule 10 mg PO QID 90 Days Qty: 360 3RF Evenity 210mg/2.34mL ( 105mg/1.17mLx2) syringe 210 mg subcut MONTHLY Qty: 2.34 0RF Rx Instructions: [facility] prescribing pantoprazole [Protonix] 40 mg tablet,delayed release (DR/EC) 40 mg PO QAM Qty: 90 3RF Eliquis 2.5 mg tablet 2.5 mg PO BID Qty: 14 0RF simvastatin [Zocor] 10 mg tablet 10 mg PO QPM Qty: 90 3RF propranolol 20 mg tablet 20 mg PO .COMPLEX Qty: 90 2RF Rx Instructions: 20 mg orally 1 tab in am, 2 tabs in pm; buprenorphine [Butrans] 20 mcg/hour patch weekly 1 patch transdermal WK Qty: 4 0RF Rx Instructions: do to be changed on pregabalin [Lyrica] 50 mg capsule See Rx Instructions .ROUTE .COMPLEX Qty: 210 1RF Rx Instructions: take 2 caps po bid and 3 caps hs PO ; naloxone [Narcan] 4 mg/actuation spray,non-aerosol 4 mg intranasal Q3M PRN (Reason: opioid overdose) Qty: 2 0RF Rx Instructions: spray 1 dose into ONE nostril; alternate nostrils w each dose until help arrives acetaminophen 500 mg tablet 1,000 mg PO Q8H PRN (Reason: Pain) albuterol sulfate 2.5 mg /3 mL (0.083 %) solution for nebulization 2.5 mg inhalation Q4H PRN (Reason: ASTHMA) Qty: 180 11RF losartan 100 mg tablet 50 mg PO QAM Qty: 90 3RF Rx Instructions: replaces quinapril triamcinolone acetonide 0.1 % cream 1 applic topical TID Qty: 80 0RF multivitamin [Multiple Vitamins] tablet 1 tab PO QAM calcium carbonate-vitamin D3 [Calcium 600 + D(3)] 600 mg(1,500mg) -400 unit tablet 1 tab PO BID memantine 5 mg tablet 5 mg PO BID hydrochlorothiazide 12.5 mg tablet 12.5 mg PO QAM duloxetine 30 mg capsule,delayed release(DR/EC) 90 mg PO DAILY topiramate [Topamax] 200 mg tablet 200 mg PO HS nitroglycerin [Nitrostat] 0.4 mg tablet, sublingual 0.4 mg SL Q5M PRN (Reason: chest pain) Discharge Orders: Discharge Order (Routine); Ordered 01/25/23 Ordered By: Lawson Montalvo Admission Data Admit Date/Time: 01/24/23 16:31 Attending Provider: Frankie Hi Admit Provider: Frankie Hi Primary Care Provider: Kari Sotelo Other Providers: Ross Combs; Venancio Denton; Bob Wright
== END 2023-01-25 14:32 | disposition home or self-care (01) ==
LOC: 3E 09:34 → ASU 09:34

== ENCOUNTER 2024-06-27 10:08 | Observation (INO) ==
--- NOTE | 2024-05-29 09:15 | PAT Medication Instructions ---
Medication Instructions Date of Service May 29, 2024 Home Medications Medication Instructions Recorded albuterol sulfate 2.5 mg/3 mL 2.5 mg (3 mL) inhalation Q4H PRN 11/24/18 (0.083 %) solution for nebulization ASTHMA #180 mL naloxone 4 mg/actuation nasal 4 mg intranasal Q3M PRN opioid 10/13/21 spray (Narcan) overdose #2 ea triamcinolone acetonide 0.1 % 1 applic topical TID #80 grams 10/25/22 topical cream duloxetine 30 mg capsule,delayed 90 mg (3 x 30 mg) PO DAILY #270 04/28/23 release caps sertraline 25 mg tablet 25 mg PO DAILY #90 tabs 07/28/23 simvastatin 10 mg tablet (Zocor) 10 mg PO QPM #90 tabs 09/29/23 propranolol 20 mg tablet 20 mg PO .COMPLEX #90 tabs 10/18/23 hydrochlorothiazide 12.5 mg tablet 12.5 mg PO QAM #90 tabs 03/02/24 warfarin 5 mg tablet 7.5 mg PO .COMPLEX #60 tabs 03/02/24 pantoprazole 40 mg tablet,delayed 40 mg PO QAM #90 tabs 03/19/24 release (Protonix) dicyclomine 10 mg capsule 10 mg PO QID IBS 90 days #360 caps 04/11/24 buspirone 5 mg tablet 5 mg PO TID PRN anxiety #90 tabs 04/16/24 denosumab 60 mg/mL subcutaneous 60 mg subcut .q6 month #1 mL 04/16/24 syringe (Prolia) losartan 100 mg tablet 50 mg (1/2 x 100 mg) PO QAM #90 05/03/24 tabs pregabalin 100 mg capsule (Lyrica) 100 mg PO TID #90 caps 05/14/24 pregabalin 50 mg capsule (Lyrica) See Rx Instructions .Route 05/14/24 .COMPLEX #30 caps buprenorphine 20 mcg/hour weekly 1 patch transdermal WK #4 ea 05/21/24 transdermal patch (Butrans) albuterol sulfate 2.5 mg/3 mL (0.083 %) solution for nebulization 2.5 mg (3 mL) inhalation Q4H PRN calcium 600 mg (as carbonate)-vitamin D3 10 mcg (400 unit) tablet (Calcium 600 + D(3)) 1 tab PO BID multivitamin (Multiple Vitamins tablet) 1 tab PO QAM nitroglycerin 0.4 mg sublingual tablet (Nitrostat) 0.4 mg sublingual Q5M PRN topiramate 200 mg tablet (Topamax) 200 mg PO HS acetaminophen 500 mg tablet 1,000 mg PO Q8H PRN naloxone 4 mg/actuation nasal spray (Narcan) 4 mg intranasal Q3M PRN triamcinolone acetonide 0.1 % topical cream 1 applic topical TID memantine 5 mg tablet 5 mg PO BID duloxetine 30 mg capsule,delayed release 90 mg (3 x 30 mg) PO DAILY sertraline 25 mg tablet 25 mg PO DAILY simvastatin 10 mg tablet (Zocor) 10 mg PO QPM propranolol 20 mg tablet 20 mg PO .COMPLEX hydrochlorothiazide 12.5 mg tablet 12.5 mg PO QAM warfarin 5 mg tablet 7.5 mg PO .COMPLEX pantoprazole 40 mg tablet,delayed release (Protonix) 40 mg PO QAM dicyclomine 10 mg capsule 10 mg PO QID buspirone 5 mg tablet 5 mg PO TID PRN denosumab 60 mg/mL subcutaneous syringe (Prolia) 60 mg subcut .q6 month losartan 100 mg tablet 50 mg (1/2 x 100 mg) PO QAM pregabalin 100 mg capsule (Lyrica) 100 mg PO TID pregabalin 50 mg capsule (Lyrica) See Rx Instructions .Route .COMPLEX buprenorphine 20 mcg/hour weekly transdermal patch (Butrans) 1 patch transdermal WK Continue as directed propranolol 20 mg tablet 20 mg PO .COMPLEX pregabalin 50 mg capsule (Lyrica) See Rx Instructions .Route .COMPLEX buprenorphine 20 mcg/hour weekly transdermal patch (Butrans) 1 patch transdermal WK (do NOT apply near surgical area) nitroglycerin 0.4 mg sublingual tablet (Nitrostat) 0.4 mg sublingual Q5M PRN(if needed) naloxone 4 mg/actuation nasal spray (Narcan) 4 mg intranasal Q3M PRN(if needed) duloxetine 30 mg capsule,delayed release 90 mg (3 x 30 mg) PO DAILY sertraline 25 mg tablet 25 mg PO DAILY ASK your prescriber and surgeon warfarin 5 mg tablet 7.5 mg PO .COMPLEX denosumab 60 mg/mL subcutaneous syringe (Prolia) 60 mg subcut .q6 month STOP taking 24 hours before surgery triamcinolone acetonide 0.1 % topical cream 1 applic topical TID DO NOT take the morning of surgery calcium 600 mg (as carbonate)-vitamin D3 10 mcg (400 unit) tablet (Calcium 600 + D(3)) 1 tab PO BID multivitamin (Multiple Vitamins tablet) 1 tab PO QAM hydrochlorothiazide 12.5 mg tablet 12.5 mg PO QAM dicyclomine 10 mg capsule 10 mg PO QID losartan 100 mg tablet 50 mg (1/2 x 100 mg) PO QAM Take morning of surgery With a small sip of water, OTHERWISE NOTHING TO EAT OR DRINK AFTER MIDNIGHT: albuterol sulfate 2.5 mg/3 mL (0.083 %) solution for nebulization 2.5 mg (3 mL) inhalation Q4H PRN(if needed) acetaminophen 500 mg tablet 1,000 mg PO Q8H PRN(if needed) memantine 5 mg tablet 5 mg PO BID pantoprazole 40 mg tablet,delayed release (Protonix) 40 mg PO QAM buspirone 5 mg tablet 5 mg PO TID PRN(if needed) pregabalin 100 mg capsule (Lyrica) 100 mg PO TID Take evening before surgery albuterol sulfate 2.5 mg/3 mL (0.083 %) solution for nebulization 2.5 mg (3 mL) inhalation Q4H PRN(if needed) calcium 600 mg (as carbonate)-vitamin D3 10 mcg (400 unit) tablet (Calcium 600 + D(3)) 1 tab PO BID topiramate 200 mg tablet (Topamax) 200 mg PO HS acetaminophen 500 mg tablet 1,000 mg PO Q8H PRN(if needed) memantine 5 mg tablet 5 mg PO BID simvastatin 10 mg tablet (Zocor) 10 mg PO QPM dicyclomine 10 mg capsule 10 mg PO QID buspirone 5 mg tablet 5 mg PO TID PRN(if needed) pregabalin 100 mg capsule (Lyrica) 100 mg PO TID Other Notes If you have any questions please call us at [phone] or [phone] or or [phone]
--- NOTE | 2024-05-30 15:13 | Anesthesiology Consultation ---
Date of Service May 30, 2024 Assessment & Plan (1) Encounter for pre-operative examination: - Check coags DOS (Warfarin instructions per surgeon/prescriber) - Infectious disease screening: Per assessment on 05/30/24- No known recent infectious disease contacts or current infectious disease symptoms. - Outpatient joint assessment: Pt currently scheduled for inpatient pathway. If surgeon requests review for outpatient joint pathway, patient is not recommended candidate for outpatient joint program from anesthesia standpoint based on available information. - Previous anesthesia/surgical hx: * Right shoulder scope with RCR (01/24/23): Grade view 1 with Glidescope, ETT 7.0 + regional. Per anesthesia record, "Pt extremely kyphotic and unable to lie flat for optimal intubating position.. Pt relaxed somewhat with indxn in order for atraumatic glidescope intubation x 1 attempt" * SCS battery change (05/10/23): MAC at [facility] - Cardiology visit (09/26/23): "..history of Bradycardia/Syncope s/p Medtronic LINQ ILR (no dysrhythmias identified during life span of the loop recorder, approximately 4 years).. Patient was in the process of going out to eat a late lunch on a very hot and humid day (09/19/23) and she states that the heat was really bothering her that day and she was not feeling well.. She became profoundly lightheaded and then had a syncopal episode. Reportedly afterwards she was nauseated.. Patient was placed on telemetry, and she met with Cardiology. Apparently EKGs did not show any significant abnormalities because they are not mentioned in her discharge summary. Her high sensitivity troponin T was slightly elevated at 18 but they did not feel that this was an acute coronary syndrome. Cardiology recommended explantation of her previous loop recorder and implantation of a new LNQ II ILR. Patient could feel her syncopal episode coming on, she was hot, sweating profusely, and felt profoundly lightheaded. Question whether or not this was a vagal event. Recommend the followin. Implant a new Medtronic LNQ II ILR, remove old loop recorder. 2. Increase fluid and water intake, stay well hydrated especially on hot humid days. 3. Make sure you taking in adequate calories. 4. Continue Hydrochlorothiazide 12.5 mg daily. 5. Continue Losartan 50 mg daily. 6. Continue Propranolol 20 mg in the morning, 40 mg at night. 7. Continue Coumadin. 8. Continue Zocor 10 mg daily in the evening." > New ILR implanted 10/2023. Most recent ILR report 03/09/2024- no significant findings. No further syncopal episodes since as per PAT visit 05/30/24. - Neurology visit (03/28/24): "Due to memory loss and headache I will order the following studies. CT scan of the head without contrast.. EEG.. EMG of both legs because of tingling numbness in the both legs area and this will evaluate for any neuropathy." EEG/Head CT/EMG done - Neurology preop response (05/31/24): "No neurologic evaluation needed.. She is OK for surgery as scheduled.. I reviewed CT.. no acute changes.. I reviewed EEG.. slow activity.. no seizure.. She has memory loss.." - Patient acceptable risk for surgery pending surgeon-ordered PCP preop evaluation ([facility], appt 06/07). Chart Review Chart Review: Patient seen in Pre Admission Testing Teaching & Discussion Pre-Anesthesia Teaching/Discussion Notes: Instructed NPO after midnight before surgery,except medications with 15 cc of water. Medication instructions provided according to the PAT guidelines. History Surgery Operation Date: 06/27/24 09:30 Proposed Procedures p Left Total Shoulder Arthroplasty Reverse - Frankie Hi MD Height/Weight Height: 4 ft 11 in Weight: 53.3 kg Allergies Allergy/AdvReac Type Severity Reaction Status Date / Time morphine Allergy Severe Severe Verified 05/28/24 16:07 hypotension milk Allergy Intermediate Mouth Verified 05/28/24 16:07 hives (some milk products) adhesive Allergy Mild Skin Verified 05/28/24 16:07 irritation chocolate flavor Allergy Mild Migraines Verified 05/28/24 16:07 latex Allergy Mild Rash Verified 05/30/24 10:51 Penicillins Allergy Mild Rash Verified 05/28/24 16:07 Sulfa (Sulfonamide Allergy Mild Rash Verified 05/28/24 16:07 Antibiotics) tramadol Allergy Mild Rash, Verified 05/28/24 16:07 itchiness oxycodone AdvReac Mild N/V Verified 05/28/24 16:07 Hotdogs Allergy Mild Migraines Uncoded 05/28/24 16:07 Medications Home Medications Medication Instructions Recorded Confirmed Last Taken albuterol sulfate 2.5 mg/3 mL 2.5 mg (3 mL) inhalation Q4H PRN 11/24/18 05/28/24 Unknown (0.083 %) solution for nebulization ASTHMA #180 mL calcium 600 mg (as 1 tab PO BID 05/14/19 05/28/24 05/09/23 08:00 carbonate)-vitamin D3 10 mcg (400 unit) tablet (Calcium 600 + D(3)) multivitamin (Multiple Vitamins 1 tab PO QAM 05/14/19 05/28/24 05/09/23 08:00 tablet) nitroglycerin 0.4 mg sublingual 0.4 mg sublingual Q5M PRN chest 08/17/20 05/28/24 Unknown tablet (Nitrostat) pain topiramate 200 mg tablet (Topamax) 200 mg PO HS 08/17/20 05/28/24 05/09/23 20:00 acetaminophen 500 mg tablet 1,000 mg PO Q8H PRN Pain 09/15/20 05/28/24 01/24/23 naloxone 4 mg/actuation nasal 4 mg intranasal Q3M PRN opioid 10/13/21 05/28/24 Unknown spray (Narcan) overdose #2 ea triamcinolone acetonide 0.1 % 1 applic topical TID #80 grams 10/25/22 05/28/24 Unknown topical cream memantine 5 mg tablet 5 mg PO BID 01/04/23 05/28/24 05/09/23 20:00 duloxetine 30 mg capsule,delayed 90 mg (3 x 30 mg) PO DAILY #270 04/28/23 05/28/24 05/10/23 03:00 release caps sertraline 25 mg tablet 25 mg PO DAILY #90 tabs 07/28/23 05/28/24 Unknown simvastatin 10 mg tablet (Zocor) 10 mg PO QPM #90 tabs 09/29/23 05/28/24 Unknown propranolol 20 mg tablet 20 mg PO .COMPLEX #90 tabs 10/18/23 05/28/24 Unknown hydrochlorothiazide 12.5 mg tablet 12.5 mg PO QAM #90 tabs 03/02/24 05/28/24 Unknown warfarin 5 mg tablet 7.5 mg PO .COMPLEX #60 tabs 03/02/24 05/28/24 Unknown pantoprazole 40 mg tablet,delayed 40 mg PO QAM #90 tabs 03/19/24 05/28/24 Unknown release (Protonix) dicyclomine 10 mg capsule 10 mg PO QID IBS 90 days #360 caps 04/11/24 05/28/24 Unknown buspirone 5 mg tablet 5 mg PO TID PRN anxiety #90 tabs 04/16/24 05/28/24 Unknown denosumab 60 mg/mL subcutaneous 60 mg subcut .q6 month #1 mL 04/16/24 05/28/24 Unknown syringe (Prolia) losartan 100 mg tablet 50 mg (1/2 x 100 mg) PO QAM #90 05/03/24 05/28/24 Unknown tabs pregabalin 100 mg capsule (Lyrica) 100 mg PO TID #90 caps 05/14/24 05/28/24 Unknown pregabalin 50 mg capsule (Lyrica) See Rx Instructions .Route 05/14/24 05/28/24 Unknown .COMPLEX #30 caps buprenorphine 20 mcg/hour weekly 1 patch transdermal WK #4 ea 05/21/24 05/28/24 Unknown transdermal patch (Butrans) Past Medical History Medical History Anxiety and depression Ascending aorta dilation Chest CT 08/2020: There is mild dilatation of the ascending thoracic aorta which measures 37 mm Bilateral pulmonary embolism DVT > PE (after fall), 2020 Reason for Coumadin Degenerative disc disease Dysphagia "Mild" Hx dilatation GERD (gastroesophageal reflux disease) History of COVID-19 ~ - mild symptoms, resolved History of kidney stones no surgery History of TIA (transient ischemic attack) 2005, [address] Lopez (neuro) at [facility] Reason for aspirin Hx of deep venous thrombosis DVT > PE (after fall)2020 Reason for Coumadin Hypertension IBS (irritable bowel syndrome) Migraine Osteoarthritis Spinal cord stimulator status Instructed to bring remote DOS Battery changed 05/10/2023 at [facility] Temporomandibular joint disorder locking (last episode several years ago) Exercise / Class Metabolic Activity III < 4 Walking/Shop/Light housework Past Family History Family History Grandfather Myocardial infarction Grandmother Myocardial infarction Mother Diabetes Coronary heart disease Hypertension Father Emphysema lung Hypertension Other No family history of adverse response to anesthesia Denies family history of Ovarian cancer Prostate cancer Breast cancer Colorectal cancer Past Surgical History Surgical History H/O arthroscopic knee surgery right H/O colonoscopy H/O foot surgery right foot 2nd toe H/O oophorectomy History of arthroscopy of right shoulder Right shoulder scope with RCR (01/24/23): Grade view 1 with Glidescope, ETT 7 .0 + regional. Per anesthesia record, "Pt extremely kyphotic and unable to lie flat for optimal intubating position.. Pt relaxed somewhat with indxn in order for atraumatic glidescope intubation x 1 attempt" History of cardiac cath 2005/radha - no stents History of carpal tunnel release right/left History of cataract surgery right/left History of dilatation and curettage History of esophageal dilatation History of esophagogastroduodenoscopy (EGD) History of inguinal hernia repair History of loop recorder [employer], implanted 2016 (d/t syncopal episode), left chest "No longer works" History of lumbar fusion L1-2 decompression, T12-L2 fusion, hardware removal, SCS battery change (10/02/2021): Grade view 1 with glidescope #3, elective glide based on hx, easy, atraumatic, ETT 7.0 at [facility] History of lumbar laminectomy History of partial hysterectomy History of sinus surgery History of surgery R SI joint fusion 09/27/19: Grade 2 view, Jones 2, ETT 7.0 History of wisdom tooth extraction Hx of appendectomy S/P breast lumpectomy right- benign S/P carpal tunnel release right/left S/P cholecystectomy S/P rotator cuff repair right/left S/P tubal ligation Past Anesthesia History Difficult Airway and No Family Hx of Anesthesia Complications History of PONV No Hx of PONV Social History Smoking Status: Never smoker Do You Dip or Chew Tobacco: No Hx Alcohol Use: No substance use type: does not use Review of Systems Patient denies chest pain, shortness of breath, fever, chills, cough, wheezing, palpitations. Physical Exam Vital Signs BP 99/68 P 67 TEMP 97.5 SP02 95%RA RESP 18 Physical Decreased cervical extension range of motion. Full TMJ range of motion. TMD > 3.5 finger breaths Mallampati Score III Dentition: left upper molar broken Lungs: clear throughout to auscultation Cardiac: regular rate and rhythm, no murmurs noted Spine: kyphoscoliosis Carotid arteries: negative bruit Extremities: no LE edema Lab Results Anesthesia Preop Results Results Anesthesia Widget: WBC 7.10 K/ul (4.8-10.8) 05/30/24 Hgb 13.4 g/dl (12.0-16.0) 05/30/24 Hct 40.4 % (37.0-47.0) 05/30/24 Plt 208 K/uL (130-400) 05/30/24 Na 141 mmol/L (136-145) 05/30/24 K 3.3 mmol/L (3.5-5.1) L 05/30/24 Cl 104 mmol/L (98-107) 05/30/24 CO2 33 mmol/L (21-32) H 05/30/24 BUN 24 mg/dl (6-23) H 05/30/24 Creat 1.08 mg/dl (0.6-1.2) 05/30/24 Glucose Level 88 mg/dl (70-99(Fasting)) 05/30/24 PT 28.7 Seconds (9.0-12.0) H 05/04/24 INR 2.9 (0.9-1.1) H 05/04/24 TSH 2.400 uIu/ml (0.300-4.500) 04/16/24 Urine Color Yellow 05/30/24 Urine Appearance Cloudy (Clear) A 05/30/24 Urine pH 7.5 (4.5-7.5) 05/30/24 Urine Specific [place] 1.013 (1.000-1.030) 05/30/24 Urine Protein Negative (Negative) 05/30/24 Urine Glucose (UA) Negative (Negative) 05/30/24 Urine Ketones Negative (Negative) 05/30/24 Urine Blood Negative (Negative) 05/30/24 Urine Nitrite Negative (Negative) 05/30/24 Urine Bilirubin Negative (Negative) 05/30/24 Urine Urobilinogen Negative (Negative) 05/30/24 Urine Leukocyte Esterase Negative (Negative) 05/30/24 Urine WBC (Auto) 0-5 /hpf (0-5) 05/30/24 Urine RBC (Auto) 0-2 /hpf (0-2) 05/30/24 Urine Hyaline Casts (Auto) 0-2 /lpf (0-2) 05/30/24 Urine Epithelial Cells (Auto) 0-2 /hpf (0-2) 05/30/24 Urine Bacteria (Auto) None Seen (None Seen) 05/30/24 Blood Type A Positive 05/30/24 Antibody Screen NEGATIVE 05/30/24 Testing Electrocardiogram Date: 09/20/23 SB at 58bpm. "Otherwise normal ECG" Chest X-Ray Date: 09/19/23 Low lung volumes with atelectasis. No pleural effusion. No pneumothorax. Echocardiogram Date: 09/20/23 LVEF 65 to 69%. LV wall motion is normal. Grade 1 diastolic dysfunction. Mild LAE. Mild AV sclerosis. Moderate AR/MR. Mild TR. Stress Test Date: 09/28/21 Pharmacologic MPHR 60% Without evidence of infarct or ischemia Normal wall motion analysis EF 58% Other Testing ILR report Date: 03/09/24 Battery status: OK Presenting rhythm: Normal sinus rhythm Provider comments: "One symptom episode which did not correlate with arrhythmia. Some episodes of tachycardia that are associated with SVT, other episodes are simply artifact." EEG Date: 04/10/24 Indication: Minimal cognitive impairment, rule out slowing or seizure. Generalized slowing of the background activity, suggestive of generalized encephalopathy. No epileptiform abnormalities are noted. EMG Date: 04/10/24 Impression: Supportive diagnosis of peripheral neuropathy in both lower extremities. Evidence of chronic L4 and L5 radiculopathy in both lower extremities. Correlation with MRI of the lumbar spine is recommended. Head CT Date: 04/16/24 IMPRESSION: 1. No acute intracranial abnormality. 2. Involutional changes with chronic microvascular ischemic disease redemonstrated.
--- NOTE | 2024-06-25 19:44 | History & Physical Report ---
Date of Service June 25, 2024 Assessment & Plan (1) Rotator cuff tear arthropathy of left shoulder: Plan: Patient's had multiple injections and conservative management left shoulder is not responding to injections any longer ,right shoulder still is. Patient is developing progressive rotator cuff arthropathy and plan is to proceed with a reverse total shoulder arthroplasty on the left shoulder. (2) Tendinopathy of left rotator cuff: (3) Tendinopathy of right rotator cuff: History of Present Illness Chief Complaint: Chronic bilateral shoulder pain left greater than right Primary Care Provider: Kari Sotelo DO 79-year-old female with chronic bilateral shoulder pain currently most painful on the left. Patient has had extensive conservative management multiple injections with progressive rotator cuff arthropathy left shoulder. Denies , sweats, fevers, chills, double vision, blurred vision, cough, sore throat, dysphagia, chest pain, sob, wheezing, n/v/d/c, numbness, tingling, fatigue, urinary symptoms. ROS positive for depression and migraines severe arthritis of the spine numbness weakness of the hands and feet, TIA history, acid reflux, kidney stones. Allergies Allergy/AdvReac Type Severity Reaction Status Date / Time morphine Allergy Severe Severe Verified 06/07/24 13:00 hypotension milk Allergy Intermediate Mouth Verified 06/07/24 13:00 hives (some milk products) adhesive Allergy Mild Skin Verified 06/07/24 13:00 irritation chocolate flavor Allergy Mild Migraines Verified 06/07/24 13:00 latex Allergy Mild Rash Verified 06/07/24 13:00 Penicillins Allergy Mild Rash Verified 06/07/24 13:00 Sulfa (Sulfonamide Allergy Mild Rash Verified 06/07/24 13:00 Antibiotics) tramadol Allergy Mild Rash, Verified 06/07/24 13:00 itchiness oxycodone AdvReac Mild N/V Verified 06/07/24 13:00 Hotdogs Allergy Mild Migraines Uncoded 06/07/24 13:00 Home Medications Medication Instructions Recorded Confirmed Type albuterol sulfate 2.5 mg/3 mL 2.5 mg (3 mL) inhalation Q4H PRN 11/24/18 06/07/24 Rx (0.083 %) solution for nebulization ASTHMA #180 mL calcium 600 mg (as 1 tab PO BID 05/14/19 06/07/24 History carbonate)-vitamin D3 10 mcg (400 unit) tablet (Calcium 600 + D(3)) multivitamin (Multiple Vitamins 1 tab PO QAM 05/14/19 06/07/24 History tablet) nitroglycerin 0.4 mg sublingual 0.4 mg sublingual Q5M PRN chest 08/17/20 06/07/24 History tablet (Nitrostat) pain topiramate 200 mg tablet (Topamax) 200 mg PO HS 08/17/20 06/07/24 History acetaminophen 500 mg tablet 1,000 mg PO Q8H PRN Pain 09/15/20 06/07/24 History naloxone 4 mg/actuation nasal 4 mg intranasal Q3M PRN opioid 10/13/21 06/07/24 Rx spray (Narcan) overdose #2 ea memantine 5 mg tablet 5 mg PO BID 01/04/23 06/07/24 History sertraline 25 mg tablet 25 mg PO DAILY #90 tabs 07/28/23 06/07/24 Rx simvastatin 10 mg tablet (Zocor) 10 mg PO QPM #90 tabs 09/29/23 06/07/24 Rx propranolol 20 mg tablet 20 mg PO .COMPLEX #90 tabs 10/18/23 06/07/24 Rx hydrochlorothiazide 12.5 mg tablet 12.5 mg PO QAM #90 tabs 03/02/24 06/07/24 Rx pantoprazole 40 mg tablet,delayed 40 mg PO QAM #90 tabs 03/19/24 06/07/24 Rx release (Protonix) dicyclomine 10 mg capsule 10 mg PO QID IBS 90 days #360 caps 04/11/24 06/07/24 Rx buspirone 5 mg tablet 5 mg PO TID PRN anxiety #90 tabs 04/16/24 06/07/24 Rx denosumab 60 mg/mL subcutaneous 60 mg subcut .q6 month #1 mL 04/16/24 06/07/24 Rx syringe (Prolia) losartan 100 mg tablet 50 mg (1/2 x 100 mg) PO QAM #90 05/03/24 06/07/24 Rx tabs pregabalin 50 mg capsule (Lyrica) See Rx Instructions .Route 05/14/24 06/07/24 Rx .COMPLEX #30 caps duloxetine 30 mg capsule,delayed 90 mg (3 x 30 mg) PO DAILY #270 04/01/25 04/03/25 Rx release caps triamcinolone acetonide 0.1 % 1 applic topical TID PRN 06/07/24 History topical cream potassium citrate 99 mg capsule 99 mg PO DAILY #30 caps 06/08/24 06/08/24 Rx warfarin 5 mg tablet 7.5 mg PO .COMPLEX #60 tabs 06/08/24 Rx pregabalin 100 mg capsule (Lyrica) 100 mg PO TID #90 caps 06/12/24 Rx buprenorphine 20 mcg/hour weekly 1 patch transdermal WK #4 ea 06/25/24 Rx transdermal patch (Butrans) Past Med/Surg History Problem List (Updated 06/25/24 @ 19:43 by Frankie iH MD) Tendinopathy of right rotator cuff (Unknown) Tendinopathy of left rotator cuff Rotator cuff tear arthropathy of left shoulder Anticardiolipin antibody positive SS-A antibody positive Implantable loop recorder present Hypoxia Full thickness rotator cuff tear BMI 24.0-24.9, adult Dysphagia Metabolic syndrome Neurogenic claudication due to lumbar spinal stenosis Memory changes Follows with [facility] Encounter for pre-operative examination Hypokalemia Multiple fractures of ribs of left side (Acute) Sjogren's syndrome Chronic pain Cervical radiculopathy Sacroiliitis Tubular adenoma Irritable bowel syndrome Hemorrhoids Glaucoma Peripheral neuropathy Tremor Allergic rhinitis Degeneration of cervical intervertebral disc Disc degeneration, lumbar Dyslipidemia Osteoporosis, post-menopausal Sensorineural hearing loss (SNHL) of both ears Sinus bradycardia [facility] cardio visit 04/14/23: "history of Bradycardia/Syncope s/p Medtronic LINQ ILR (no dysrhythmias identified during life span of the loop recorder, approximately 4 years)" Spinal cord stimulator status Dr. El[facility] GREEN Chronic radicular lumbar pain Lumbar postlaminectomy syndrome Asthma Depression Migraines GERD (gastroesophageal reflux disease) controlled HTN (hypertension) Medical History History of TIA (transient ischemic attack) 2005, [address] Lopez (neuro) at [facility] Reason for aspirin Bilateral pulmonary embolism DVT > PE (after fall), 2020 Reason for Coumadin Ascending aorta dilation Chest CT 08/2020: There is mild dilatation of the ascending thoracic aorta which measures 37 mm GERD (gastroesophageal reflux disease) Migraine Hx of deep venous thrombosis DVT > PE (after fall), 2020 Reason for Coumadin Hypertension Anxiety and depression Degenerative disc disease Osteoarthritis Spinal cord stimulator status Instructed to bring remote DOS Battery changed 05/10/2023 at [facility] History of COVID-19 ~ - mild symptoms, resolved Dysphagia "Mild" Hx dilatation History of kidney stones no surgery IBS (irritable bowel syndrome) Temporomandibular joint disorder locking (last episode several years ago) Surgical History History of carpal tunnel release right/left History of cataract surgery right/left History of arthroscopy of right shoulder Right shoulder scope with RCR (01/24/23): Grade view 1 with Glidescope, ETT 7.0 + regional. Per anesthesia record, "Pt extremely kyphotic and unable to lie flat for optimal intubating position.. Pt relaxed somewhat with indxn in order for atraumatic glidescope intubation x 1 attempt" History of esophageal dilatation History of surgery R SI joint fusion 09/27/19: Grade 2 view, Jones 2, ETT 7.0 History of cardiac cath 2005/radha - no stents History of inguinal hernia repair History of partial hysterectomy History of dilatation and curettage History of lumbar laminectomy History of wisdom tooth extraction History of sinus surgery History of loop recorder Medtronic, implanted 2016 (d/t syncopal episode), left chest "No longer works" S/P tubal ligation S/P rotator cuff repair right/left H/O oophorectomy S/P carpal tunnel release right/left H/O arthroscopic knee surgery right H/O foot surgery right foot 2nd toe History of esophagogastroduodenoscopy (EGD) H/O colonoscopy S/P cholecystectomy S/P breast lumpectomy right- benign History of lumbar fusion L1-2 decompression, T12-L2 fusion, hardware removal, SCS battery change (10/02/2021): Grade view 1 with glidescope #3, elective glide based on hx, easy, atraumatic, ETT 7.0 at [facility] Hx of appendectomy Family History Grandfather Myocardial infarction Grandmother Myocardial infarction Mother Diabetes Coronary heart disease Hypertension Father Emphysema lung Hypertension Other No family history of adverse response to anesthesia Denies family history of Ovarian cancer Prostate cancer Breast cancer Colorectal cancer Social History Smoking Status: Never smoker Second Hand Exposure: Yes (Parents and first smoked. ); Do You Dip or Chew Tobacco: No; Hx Alcohol Use: No Preferred Language: Luxembourgish Communication Ability: Effective Visual Impairment: Partially Limited Hearing Ability: Normal Stone Polisher Required: No Beliefs That Will Affect Care: None marital status: Current Living Situation: Family Current Living Situation Comment: and brother current occupational status: retired How many Children do You have: 2 Feels Safe at Home: Yes Childhood Exposure to Second-Hand Smoke: Yes (Both parents) Diet: regular Diet Comment: Regular diet caffeine: Yes (tea) during the past year weight has: increased > 10 lbs Dental Care, Regularly: Yes Physical Activity Frequency: 1-2 Times per Week Physical Activity Frequency Comment: walking around house or outside depending on weather/housework Seatbelt Use: always Sunscreen Use: Yes (Sometimes) Do you think of yourself as: straight/heterosexual Gender Identity: Female Assistive Devices: Glasses and Walker Review of Systems All systems reviewed & are unremarkable except as noted in HPI & below Physical Exam Constitutional: WD/WN, vitals as above Respiratory: normal respiratory effort; no respiratory distress Cardiovascular: Rate/Rhythm: regular rate and regular rhythm Musculoskeletal: Severe kyphosis spine wears a back brace. Left shoulder with old surgical scars with crepitation with range of motion with posterior and lateral referred arm pain positive Neer's sign painful range of motion with forward flexion 120 degrees external rotation 45 degrees and internal rotation 70 degrees. Active abduction 70 degrees. Decreased rotator cuff strength. Skin: no rashes, warm and dry Neurologic: normal touch/pain/proprioception Psychiatric: A+Ox3, euthymic affect Results & Data Diagnostic Findings Rotator cuff arthropathy left shoulder
[~2024-06-27 10:08] MED LIST changes: -DEXAMETHASONE SOD INJ 4 MG/ML VIAL ONE; -LIDOCAINE 2% 2 ML VIAL/AMP(20MG/ML) INFIL ONE; -LR 15ML/HR IV SCH; -MIDAZOLAM HCL 1 MG/ML 2ML VIAL ONE; -ONDANSETRON INJ 2 MG/ML 2 ML VIAL ONE; -PROPOFOL IV EMULSION 10 MG/ML 20 ML VIAL IV ONE; -VANCOMYCIN HCL 1,000 MG/270 ML BAG IV SCH; -fentaNYL citrate PF 100 MCG/2 ML VIAL ONE
[2024-06-27] MEDS: LR 60ML/HR IV SCH (10:35)
[2024-06-27] MEDS: LR 15ML/HR IV SCH (10:36)
[2024-06-27] MEDS: VANCOMYCIN 750 MG in SODIUM CHLORIDE 0.9% 250 ML IV SCH (10:37)
[2024-06-27] MEDS: FAMOTIDINE 20 MG TAB PO SCH (10:57)
[2024-06-27] MEDS: GABAPENTIN 300 MG CAP PO SCH (10:57)
[2024-06-27] MEDS: METOCLOPRAMIDE HCL 10 MG TABLET PO SCH (10:57)
[2024-06-27] MEDS: ACETAMINOPHEN 500 MG TAB PO SCH ×2 (10:58→20:28)
[2024-06-27] MEDS: dexAMETHasone**PF** 10 MG/ML VIAL IV SCH (10:58)
[2024-06-27 11:33] LABS: Partial Thromboplastin Ratio 1.1; Partial Thromboplastin Time 29 Seconds (21-31); Prothrombin Time 10.6 Seconds (9.0-12.0)
[2024-06-27] MEDS ORDERED: fentaNYL citrate PF 100 MCG/2 ML VIAL IV PRN (12:24)
[2024-06-27] MEDS ORDERED: ATROPINE SULFATE 0.1 MG/ML 10ML SYR IV PRN (12:24)
[2024-06-27] MEDS ORDERED: ONDANSETRON INJ 2 MG/ML 2 ML VIAL IV PRN ×2 (12:24→18:49)
[2024-06-27] MEDS ORDERED: ePHEDrine sulfate 50 MG/ML AMP IV PRN (12:24)
[2024-06-27] MEDS ORDERED: PROPOFOL IV EMULSION 10 MG/ML 20 ML VIAL IV ONE (13:21)
[2024-06-27] MEDS ORDERED: DEXAMETHASONE SOD INJ 4 MG/ML VIAL ONE (13:21)
[2024-06-27] MEDS ORDERED: ROCURONIUM BROMIDE 10 MG/ML 5 ML VIAL IV ONE (13:21)
[2024-06-27] MEDS ORDERED: LIDOCAINE 2% 2 ML VIAL/AMP(20MG/ML) INFIL ONE (13:21)
[2024-06-27] MEDS ORDERED: ONDANSETRON INJ 2 MG/ML 2 ML VIAL ONE (13:21)
[2024-06-27] MEDS ORDERED: MIDAZOLAM HCL 1 MG/ML 2ML VIAL ONE (13:33)
[2024-06-27] MEDS ORDERED: fentaNYL citrate PF 100 MCG/2 ML VIAL ONE (13:33)
[2024-06-27] MEDS: TRANEXAMIC ACID 1,000 MG **IV Pre-op IV SCH (13:43)
--- NOTE | 2024-06-27 13:48 | History & Physical Bridge Note ---
Date of Service June 27, 2024 History & Physical Bridge Note I have examined the patient, reviewed the History & Physical and in the interval since the performance of the History & Physical I have noted the following changes of clinical significance: no changes noted
[2024-06-27] MEDS ORDERED: PHENYLEPHRINE HCL 10 MG/ML VIAL ONE (15:19)
[2024-06-27] MEDS ORDERED: GLYCOPYRROLATE 0.2 MG/ML VIAL ONE (15:48)
[2024-06-27] MEDS ORDERED: ePHEDrine sulfate 50 MG/5 ML SYR ONE (15:48)
[2024-06-27] MEDS: TRANEXAMIC ACID 1,000 MG **IV Intra-op IV SCH (17:08)
[2024-06-27] MEDS ORDERED: SUGAMMADEX SODIUM 200 MG/2 ML VIAL IV ONE (17:09)
--- NOTE | 2024-06-27 17:33 | Operative Report ---
Post Operative Report Pre & Post Diagnosis Operation Date: 06/27/24 12:10 Pre-Op Diagnosis: Left shoulder osteoarthritis glenohumeral joint with rotator cuff tendinopathy with rotator cuff arthropathy Post-Op Diagnosis: Left shoulder osteoarthritis glenohumeral joint with loose body glenohumeral joint with rotator cuff tendinopathy with partial bursal sided tear with biceps tenosynovitis. 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 She has had multiple injections and conservative management. Radiographically demonstrating progressive rotator cuff arthropathy glenohumeral arthritis which is not completely [id number] but she has failed all conservative management. Description of Procedure The patient was taken to the operating room and anesthetized under regional block and general anesthetic. The patient was positioned on the operating table in a 30 beach chair position. She was translated to the lateral side of the left side of the bed so the extremity could be be manipulated as necessary. We did not need a towel roll because she had extreme kyphosis which positioned her arm away from the bed surface. Extra care was taken to support her cervical spine as she had extreme kyphosis and we had to do multiple pads on the bed to get her neck in appropriate position.. The arm was draped free to be able to manipulate the shoulder as needed. The left upper extremity was prepped and draped in usual sterile fashion. Exam demonstrated 120 degrees of flexion 80 degrees abduction 45 degrees external rotation. An anterior deltopectoral approach was performed. A longitudinal incision was made in the deltopectoral interval. The skin was incised sharply. Subcutaneous flaps were elevated off the fascia. The cephalic vein was dissected out and retracted lateral with the deltoid. The clavipectoral fascia was divided at the lateral margin of the conjoined tendon and extended up to the CA ligament. The following findings were noted: She had subacromial bursitis thickening of the supraspinatus consistent with tendinopathy and inflammatory changes in infraspinatus there was 1 thin area with bursal sided partial tearing not completely full-thickness. The infraspinatus tendon looked good as well as the teres minor and subscapularis looked normal. The subacromial bursa was resected.. The upper centimeter of the pectoralis was released for inferior exposure. A self-retaining retractor was placed. The biceps tendon findings demonstrated a fluid collection around the biceps tendon consistent with chronic biceps tenosynovitis. Intra-articular biceps was widened with chronic tendinopathy.. the biceps tendon was tenodesed to the pectoralis tendon with #2 FiberWire. The proximal biceps was resected. The subscapular muscle fibers were split longitudinally at the level of the circumflex vessels. The circumflex vessels were identified and tied off with silk ties and divided laterally. A Kitner elevator was used to free up the inferior fibers of the subscapularis off of the capsule. The axillary nerve was identified with a tug test and protected with a blunt Ruba retractor between the nerve and the capsule. The subscapularis tendon was then taken down off of the lesser tuberosity subperiosteally, a Vicryl traction suture was placed and a subperiosteal dissection was performed along the neck of the humerus as the arm was gradually externally rotated exposing the humeral head. The humeral head findings demonstrated inferior rimming osteophytes from anterior to posterior and there were pitting areas where there was very small areas of grade 4 arthritic changes mainly grade 3 level of arthritis. There was a loose body that was 5 x 7 mm that was removed.. retractors were readjusted and the inferior osteophytes were all resected using an artist chisel. A Roland elevator was used to assist in releasing the capsule of the neck of the humerus. The capsule was divided with Ocx scissors down to the glenoid released off the anterior glenoid and the rotator interval was released to meet the capsular release and a 360 release of the subscapularis was accomplished. A Fukuda retractor was placed into the joint retracting the humeral head posterior. Glenoid findings demonstrated grade 3 chondral changes no exposed bone. The labrum and biceps tendon was resected. an anterior- inferior and posterior inferior capsular release were performed with electrocautery and a Roland elevator on bone with the axillary nerve protected inferiorly by the retractor. Attention was then taken to the humeral prepara tion. The cutting guide was placed into the humeral head. It was positioned at 20 of retroversion. Oscillating saw was used to resect the humeral head giving the cut above the level of the posterior rotator cuff insertion site. Bone quality was good. The humerus was then prepared for the stem. I used the ascend flex stem from [employer]. The sizing broaches were used followed by trial broaches up to a size 4B long which had the appropriate fit and fill. The appropriate sized cut protector was placed. The humerus was then retracted posterior to the glenoid. The glenoid was sized for a 25 baseplate. The guide for the baseplate was positioned in a 10 inferior tilt and the central drill hole was made. The reamer for the 25 baseplate was used. The central drill was widened for the peg. The aequalis 25 mm short post hydroxyapatite coated baseplate was impacted into position. The base plate was transfixed with superior and inferior locking screws and anterior and posterior compression screws with stable fixation. Patient was noted to have good bone quality on the glenoid. The fan reamer was used for the 36 millimeter glenoid sphere. After irrigation the Tornier aequalis 36 mm centered glenoid sphere was impacted onto the baseplate and the security screw was tightened. Attention was taken back to the humerus. The cut protector was removed and the +0 high offset humeral tray trial was assembled to the trial stem rotated appropriately to get bony coverage and then screwed in position. A trial reduction was performed. A +6/36 reversed flex trial insert demonstrated good stability and no shuck. The trials were removed. 3 drill holes are made into the harder bone in the bicipital groove area and 3 #5 FiberWire sutures were placed transosseously. The canal wa s irrigated with pulsatile saline solution. The final component was assembled. The final component was Tornier ascend flex 4B long stem assembled 2+0 high offset tray with a +6/36 reversed flex polyethylene insert. This was then impacted into the humerus with a tight press-fit. It was reduced to the glenoid sphere. Stability was verified. Subscapularis was repaired with the #5 FiberWire sutures using Harjinder-Saravanan suture technique. Lateral row soft tissue repair was performed with #2 FiberWire [id number] sutures. The pectoralis was repaired with #2 FiberWire [id number] sutures reinforcing the biceps tendon tenodesis. The arm was taken through a range of motion which demonstrated 130 degrees of flexion 90 degrees abduction and external rotation to 75 degrees. The implant was stable through the range of motion tested. 3- minute Betadine solution soak performed followed by the wound being copiously irrigated with the pulsatile lavage saline.. 2 Hemovac drains were placed. The deltopectoral interval was closed with [id number] #1 Vicryl sutures. The subcutaneous tissues were closed with 2-0 Vicryl sutures. The skin was closed with surgical vipul. Sterile dressings were applied and a shoulder immobilizer. Wellington Diaz my physician judicial administrative assistant acted as visitor service assistant throughout the procedure .He performed functions including patient positioning, arm positioning, prepping and draping, soft tissue retraction, instrument management, suture management and performed the subcutaneous and skin closure and will participate in the postoperative care of the patient. I attest to the content of the Intraoperative Record and any orders documented therein. Any exceptions are noted below.
[2024-06-27] MEDS ORDERED: LABETALOL HCL IV 5 MG/ML 20ML IV ONE (17:46)
[2024-06-27] MEDS ORDERED: LABETALOL HCL IV 5 MG/ML 20ML IV STA (17:55)
[2024-06-27] MEDS: LABETALOL HCL IV 5 MG/ML 20ML IV ONE (18:00)
--- NOTE | 2024-06-27 18:04 | Anesthesiology Progress Note ---
Date of Service June 27, 2024 Anesthesia Post Procedure Vital Signs Vital Signs: Temp Pulse Pulse Pulse Resp BP BP 06/27/24 18:00 64 177/104 H 06/27/24 17:55 62 16 177/104 H 06/27/24 17:45 67 19 166/112 H 06/27/24 17:38 36.0 C L 66 12 153/103 H 06/27/24 10:49 06/27/24 10:40 36.9 C 66 22 116/80 Pulse Ox O2 Del Method O2 Flow Rate 06/27/24 18:00 06/27/24 17:55 100 Oxymask 4 06/27/24 17:45 100 Oxymask 8 06/27/24 17:38 96 Oxymask 8 06/27/24 10:49 Room Air 06/27/24 10:40 96 Room Air Pain Intensity Left Shoulder: Pain Intensity: 3 Transfer of Care Handoff Completed per policy Notes Mental Status: alert / awake / arousable and participated in evaluation Patient Amnestic to Procedure: Yes Nausea / Vomiting: adequately controlled Pain: adequately controlled Airway Patency, RR, SpO2: stable & adequate BP & HR: stable & adequate Hydration State: stable & adequate Anesthetic Complications: no major complications apparent and Pt Satisfied with anesthetic care
--- NOTE | 2024-06-27 18:29 | XRay Report ---
INDICATION: Pain TECHNIQUE: 2 views of the left shoulder were obtained. COMPARISON: None FINDINGS: Postsurgical changes of reverse arthroplasty of the left shoulder with components in anatomic alignment. Expected postsurgical changes of the soft tissues. Overlying skin vipul. Surgical drain is in place. Spinal stimulator. Partially included lumbar spine fixation hardware. IMPRESSION: Posterior changes of reverse arthroplasty of the left shoulder with components in anatomic alignment. Expected postop changes of the left shoulder. Electronically signed by Shon Wong 06-27-2024 6:29 PM
[2024-06-27] MEDS ORDERED: busPIRone 5 MG TAB PO PRN (18:49)
[2024-06-27] MEDS ORDERED: NALOXONE HCL 0.4 MG/1 ML VIAL/CARP IV PRN (18:49)
[2024-06-27] MEDS ORDERED: ALUMINUM/MAGNESIUM SUSP 30 ML UDC PO PRN (18:49)
[2024-06-27] MEDS ORDERED: ALBUTEROL 0.083% NEBU SOLN 3 ML VIAL INH PRN (18:49)
[2024-06-27] MEDS ORDERED: NALOXONE NASAL SPRAY 4 MG ER HOMEPACK PRN (18:49)
[2024-06-27] MEDS ORDERED: TRIAMCINOLONE ACET 0.1% CR 15 GM TUBE TOP PRN (18:49)
[2024-06-27] MEDS ORDERED: diphenhydrAMINE Capsule 25 MG CAP PO PRN (18:49)
[2024-06-27] MEDS ORDERED: VANCOMYCIN CONSULT ACTIVE PRN (18:49)
[2024-06-27] MEDS ORDERED: NITROGLYCERIN SL 0.4 MG/TAB TAB SL PRN (18:49)
[2024-06-27] MEDS ORDERED: METOCLOPRAMIDE HCL INJ 5 MG/ML 2 ML VIAL IV PRN (18:49)
[2024-06-27] MEDS ORDERED: bisacodyL 10 MG SUPP PR PRN (18:49)
[2024-06-27] MEDS ORDERED: MAGNESIUM HYDROXIDE SUSP 30 ML UDC PO PRN (18:49)
[2024-06-27 18:53] VITALS: RESP 16
[2024-06-27] MEDS: BUPIVACAINE LIPOSOME 1.3% 133 MG/10 ML VIAL ONE (18:55)
[2024-06-27] MEDS: TRANEXAMIC ACID / 0.7% NACL 1,000 MG/100 ML BAG IV SCH (20:15)
[2024-06-27] MEDS: PREGABALIN 100 MG CAP PO SCH (20:28)
[2024-06-27] MEDS: PREGABALIN 50 MG CAP PO SCH (20:29)
[2024-06-27] MEDS: DICYCLOMINE HCL 10 MG CAP PO SCH (20:29)
[2024-06-27] MEDS: PROPRANOLOL HCL 20 MG TAB PO SCH (20:29)
[2024-06-27] MEDS: SENNA 8.6 MG TAB PO SCH (20:30)
[2024-06-27] MEDS: CALCIUM 600MG + VIT D 400 IU TAB PO SCH (20:30)
[2024-06-27] MEDS: DOCUSATE SODIUM 100 MG CAP PO SCH (20:30)
[2024-06-27] MEDS: TOPIRAMATE 100 MG TAB PO SCH (20:30)
[2024-06-27] MEDS: MEMANTINE HCL 5 MG TAB PO SCH (20:31)
[2024-06-27] MEDS: SIMVASTATIN 10 MG TAB PO SCH (20:31)
[2024-06-28] MEDS: KETOROLAC TROMETHAMINE 15 MG/ML VIAL IV PRN (00:17)
[2024-06-28] MEDS: VANCOMYCIN HCL 750 MG in SODIUM CHLORIDE 0.9% 250 ML IV SCH (00:22)
[2024-06-28] MEDS: HYDROmorphone INJ 0.5 MG/0.5 ML SYR IV PRN (01:54)
[2024-06-28 02:29] VITALS: PULSE 64
[2024-06-28 07:28] LABS: Basophils # (auto) 0.04 K/uL (0.00-0.20); Basophils % (auto) 0.4 %; Hematocrit (blood only) 32.5 % (37.0-47.0); Hemoglobin 10.7 g/dl (12.0-16.0); Immature Granulocytes # (auto) 0.03 K/uL (0.01-0.20); Immature Granulocytes % (auto) 0.3 %; Lymphocytes # (auto) 2.12 K/uL (1.20-3.40); Lymphocytes % (auto) 23.8 %; Mean Corpuscular Hemoglobin 29.5 pg (25.0-34.0); Mean Corpuscular Hgb Conc 32.9 g/dL (32.0-36.0); Mean Corpuscular Volume 89.5 fL (80.0-100.0); Mean Platelet Volume 12.5 fL (9.4-12.4); Monocytes # (auto) 0.79 K/uL (0.11-0.59); Monocytes % (auto) 8.9 %; Neutrophils # (auto) 5.92 K/uL (1.40-6.50); Neutrophils % (auto) 66.6 %; Platelet Count 168 K/uL (130-400); RDW Coefficient of Variation 13.5 % (11.5-14.5); RDW Standard Deviation 44.6 fL (36.4-46.3); Red Blood Count 3.63 M/uL (4.20-5.40)
[2024-06-28 07:34] VITALS: TEMP 97.5
[2024-06-28 07:51] LABS: BUN Creatinine Ratio 22.5 (10-20); Calcium 8.1 mg/dl (8.6-10.3); Creatinine Clr Calc Pharmacy 26.9 ml/min; Potassium 4.4 mmol/L (3.5-5.1)
--- NOTE | 2024-06-28 08:01 | Orthopedic Progress Note ---
Date of Service June 28, 2024 Assessment & Plan (1) Rotator cuff tear arthropathy of left shoulder: Plan: Patient's had multiple injections and conservative management left shoulder is not responding to injections any longer ,right shoulder still is. Patient is developing progressive rotator cuff arthropathy and plan is to proceed with a reverse total shoulder arthroplasty on the left shoulder. Postop day 1 reverse total shoulder replacement. Plan discharge home and do home exercises for 2 weeks and then start formal outpatient PT. Discussed with her precautions after reverse replacement and no weightbearing with that arm and cannot use it with her walker. Patient has had various issues with the antibiotics so we will going to try up [id number] mg of Tylenol in divided doses a day if needed for pain. Follow-up in office 2 weeks for staple removal. Drain removal today prior to discharge. (2) Tendinopathy of left rotator cuff: (3) Tendinopathy of right rotator cuff: Admission and Anticipated Discharge Date Admission Date: June 27, 2024 Subjective No pain arm still numb from block Review of Systems Review of Systems: No shortness of breath feels like she is breathing well and states she was able to get up and walk last evening okay. Physical Exam Musculoskeletal: Dressing intact, no motor function returned yet. Normal circulation normal radial pulse. Still numb from block. Arm in sling. Results & Data Vital Signs (Past 12 Hours) Vital Signs Temp Pulse Resp BP Pulse Ox O2 Del Method 06/28/24 07:32 36.4 C L 64 16 93/58 L 90 Room Air 06/28/24 02:27 36.5 C 64 116/75 91 Room Air 06/27/24 23:23 36.5 C 73 16 103/68 94 Room Air Diagnostic Findings Well aligned left reverse total shoulder replacement
[2024-06-28 08:09] VITALS: BP 98/64; O2SAT 92
[2024-06-28] MEDS: LOSARTAN POTASSIUM 50 MG TAB PO SCH (08:28)
[2024-06-28] MEDS: dexAMETHasone 10 MG in SYRINGE 0 ML IV SCH (08:28)
[2024-06-28] MEDS: hydroCHLOROthiazide 25 MG TAB PO SCH (08:28)
[2024-06-28] MEDS: DULoxetine HCL 30 MG CAP PO SCH (08:29)
[2024-06-28] MEDS: PANTOprazole 40 MG TAB PO SCH (08:29)
[2024-06-28] MEDS: MULTIVITAMIN TAB PO SCH (08:29)
[2024-06-28] MEDS: SERTRALINE HCL 50 MG TABLET PO SCH (08:30)
[2024-06-28] MEDS: BUPRENORPHINE 10 MCG/HR TDSY TD SCH (10:38)
[2024-06-28] MEDS ORDERED: WARFARIN SOD 7.5 MG TAB PO SCH (16:00)
--- NOTE | 2024-06-30 07:11 | Discharge Summary ---
Date of Service June 30, 2024 Admission HPI Per Admitting Provider 79-year-old female with chronic bilateral shoulder pain currently most painful on the left. Patient has had extensive conservative management multiple injections with progressive rotator cuff arthropathy left shoulder. Denies , sweats, fevers, chills, double vision, blurred vision, cough, sore throat, dysphagia, chest pain, sob, wheezing, n/v/d/c, numbness, tingling, fatigue, urinary symptoms. ROS positive for depression and migraines severe arthritis of the spine numbness weakness of the hands and feet, TIA history, acid reflux, kidney stones. Principal Diagnosis left shoulder osteoarthritis Discharge Data Allergies Allergy/AdvReac Type Severity Reaction Status Date / Time morphine Allergy Severe Severe Verified 06/27/24 10:31 hypotension milk Allergy Intermediate Mouth Verified 06/27/24 10:31 hives (some milk products) adhesive Allergy Mild Skin Verified 06/27/24 10:31 irritation chocolate flavor Allergy Mild Migraines Verified 06/27/24 10:31 latex Allergy Mild Rash Verified 06/27/24 10:31 Penicillins Allergy Mild Rash Verified 06/27/24 10:31 Sulfa (Sulfonamide Allergy Mild Rash Verified 06/27/24 10:31 Antibiotics) tramadol Allergy Mild Rash, Verified 06/27/24 10:31 itchiness oxycodone AdvReac Mild N/V Verified 06/27/24 10:31 Hotdogs Allergy Mild Migraines Uncoded 06/27/24 10:31 Procedures Performed Operation Date: 06/27/24 12:10 Actual Procedures p Left Reverse Total Shoulder Arthroplasty(Left) - Frankie Hi MD Ordered Studies 06/27/24 05:00 [facility] (1) Rotator cuff tear arthropathy of left shoulder: Patient's had multiple injections and conservative management left shoulder is not responding to injections any longer ,right shoulder still is. Patient is developing progressive rotator cuff arthropathy and plan is to proceed with a reverse total shoulder arthroplasty on the left shoulder. Postop day 1 reverse total shoulder replacement. Plan discharge home and do home exercises for 2 weeks and then start formal outpatient PT. Discussed with her precautions after reverse replacement and no weightbearing with that arm and cannot use it with her walker. Patient has had various issues with the antibiotics so we will going to try up [id number] mg of Tylenol in divided doses a day if needed for pain. Follow-up in office 2 weeks for staple removal. Drain removal today prior to discharge. (2) Tendinopathy of left rotator cuff: Total Time Total Time Spent Total Time Spent (In Minutes): 20 Discharge Plan Discharge Items Patient Disposition: Home - Self-Care Reason For Visit: Left Shoulder Osteoarthritis Discharge Diagnosis: Left shoulder osteoarthritis Activity: Per Instructions section Non-emergency contact: Primary Care Provider and Surgeon Call non-emergency contact if: your pain is not controlled, your pain is worsening and your temperature is above 101 Follow-up/Referrals: Kari Sotelo DO [Primary Care Provider] - Diet: Regular Addtl Attending Provider Instructions: ACTIVITY RECOMMENDATIONS: SELF CARE INSTRUCTIONS AFTER TOTAL SHOULDER ARTHROPLASTY REVERSE A. You may do daily exercises as taught in physical therapy while in hospital. No lifting with the operative arm. B. You are to wear your sling/immobilizer at all times EXCEPT when performing your daily exercises and for hygiene purposes. C. You may perform dry, daily dressing changes. Please keep your incision covered. You may shower 48 hours after surgery. Do not apply soap or any ointment/lotions directly over incision. Do not soak incision in bath tub/swimming pool. D. You may use ice as needed to operative shoulder. E. You may resume previous diet. F. Silverlon: You have a Silverlon dressing on the surgical incision. It will remain in place for 7 days from the day of your surgery. After 7 days, you may remove the dressing, just as you would remove a bandaid. You may shower with the Silverlon dressing in place. However, if you notice any water within the dressing, the dressing should be removed. You may cover the incision with a dry dressing once the silverlon is removed if there is any drainage. SPECIAL CARE INSTRUCTIONS: VERY IMPORTANT TO READ AND REVIEW A. There are a few signs you need to watch for after you are home. Call [facility] at [phone] if you experience any of the followin. Increased severe shoulder pain. Some pain is expected especially when you exercise. 2. Increased swelling in you shoulder or arm; pain or swelling in either upper extremity. 3. Any fluid drainage from the incision. 4. Shortness of breath or chest pain. B. Please call [facility] at [phone] if you have any questions or concerns about your operation or recovery. C. Call your physician if: 1. Temperature is greater than 101 degrees (F). 2. Pain is not relieved by prescribed pain medications. 3. Increase drainage or redness from incision. 4. Unanswered questions or concerns. FOLLOW UP VISIT: Please call [facility] at [phone] to schedule a follow up appointment with Dr. Hi or his PA in 12-14 days from your surgery date. Pending Studies at Discharge: No Stand-Alone Forms: My [facility] [employer] Photos, Smoking Cessation Medications and DC Order Prescriptions: New acetaminophen [Tylenol Extra Strength] 500 mg Tablet 1,000 mg PO Q8H Qty: 90 0RF Continued sertraline 25 mg tablet 25 mg PO DAILY Qty: 90 3RF Patient Comments: takes at noon daily simvastatin [Zocor] 10 mg tablet 10 mg PO QPM Qty: 90 3RF propranolol 20 mg tablet 20 mg PO .COMPLEX Qty: 90 2RF Rx Instructions: 2 tab in am, 2 tabs in pm; prescribed by Dr. Lopez hydrochlorothiazide 12.5 mg tablet 12.5 mg PO QAM Qty: 90 1RF pantoprazole [Protonix] 40 mg tablet,delayed release (DR/EC) 40 mg PO QAM Qty: 90 3RF dicyclomine 10 mg capsule 10 mg PO QID 90 Days Qty: 360 0RF losartan 100 mg tablet 50 mg PO QAM Qty: 90 3RF Rx Instructions: replaces quinapril pregabalin [Lyrica] 50 mg capsule See Rx Instructions .ROUTE .COMPLEX Qty: 30 1RF Rx Instructions: Take 50mg at bedtime with 100mg capsule. duloxetine 30 mg capsule,delayed release(DR/EC) 90 mg PO DAILY Qty: 270 3RF Patient Comments: takes at noon warfarin 5 mg tablet 7.5 mg PO .COMPLEX Qty: 60 1RF Protocol: Dose Management Condition: Tuesday Dose/Route: 7.5 mg Instruction: 1.5 x 5 mg tablets Condition: Tuesday Dose/Route: 7.5 mg Instruction: 1.5 x 5 mg tablets Condition: Tuesday Dose/Route: 5 mg Instruction: 1 x 5 mg tablet Condition: Tuesday Dose/Route: 7.5 mg Instruction: 1.5 x 5 mg tablets Condition: Dose/Route: 5 mg Instruction: 1 x 5 mg tablet Condition: Tuesday Dose/Route: 7.5 mg Instruction: 1.5 x 5 mg tablets Condition: Tuesday Dose/Route: 7.5 mg Instruction: 1.5 x 5 mg tablets Protocol Text: Adjustment Start Date: Tuesday06/04/24 INR Value: 2.2 INR Date: 06/04/24 Recheck Date: 07/04/24 Rx Instructions: 7.5 mg orally daily or as directed based on INR pregabalin [Lyrica] 100 mg capsule 100 mg PO TID Qty: 90 0RF Rx Instructions: Take 100mg in am, pm and 150mg at bedtime. buprenorphine [Butrans] 20 mcg/hour patch weekly 1 patch transdermal WK Qty: 4 0RF Rx Instructions: due to be changed on naloxone [Narcan] 4 mg/actuation spray,non-aerosol 4 mg intranasal Q3M PRN (Reason: opioid overdose) Qty: 2 0RF Rx Instructions: spray 1 dose into ONE nostril; alternate nostrils w each dose until help arrives acetaminophen 500 mg tablet 1,000 mg PO Q8H PRN (Reason: Pain) albuterol sulfate 2.5 mg /3 mL (0.083 %) solution for nebulization 2.5 mg inhalation Q4H PRN (Reason: ASTHMA) Qty: 180 11RF triamcinolone acetonide 0.1 % cream 1 applic topical TID PRN (Reason: Rash) potassium citrate 99 mg capsule 99 mg PO DAILY Qty: 30 0RF Rx Instructions: Self initiated OTC buspirone 5 mg tablet 5 mg PO TID PRN (Reason: anxiety) Qty: 90 2RF Prolia 60 mg/mL syringe 60 mg subcut .q6 month Qty: 1 0RF Rx Instructions: Prescribed and given by Luiza shaffer multivitamin [Multiple Vitamins] tablet 1 tab PO QAM calcium carbonate-vitamin D3 [Calcium 600 + D(3)] 600 mg(1,500mg) -400 unit tablet 1 tab PO BID memantine 5 mg tablet 5 mg PO BID topiramate [Topamax] 200 mg tablet 200 mg PO HS nitroglycerin [Nitrostat] 0.4 mg tablet, sublingual 0.4 mg SL Q5M PRN (Reason: chest pain) Discontinued enoxaparin [Lovenox] 60 mg/0.6 mL Syringe 60 mg SUBCUT Q12H Discharge Orders: Discharge Order (Routine); Ordered 06/28/24 Ordered By: Frankie Hi Admission Data Admit Date/Time: 06/27/24 15:10 Attending Provider: Frankie Hi Admit Provider: Frankie Hi Primary Care Provider: Kari Sotelo Other Providers: [id number],CAPPT; [facility] Other Interventions: Discharge Summary Assessment (RN) Last Done: 06/28/24 10:27
== END 2024-06-28 12:35 | disposition home or self-care (01) ==
LOC: 3W 10:08 → ASU 10:08